=== PATIENT | female | born 1965 | race Caucasian/White ===

== ENCOUNTER 2024-03-11 12:07 | Outpatient (OUT) | payer OTHER, SELFPAY ==
--- NOTE | 2024-03-11 12:40 | P.CN_ITS ---
Consult Note: HPI Data of Consult Patient: new to practice Consult date: 03/11/24 Requesting Physician: Zeina Peter MD Primary Care Provider: KAVIN MATHUR Consult Narrative Reason for consult: right knee pain Narrative: 58yof who presents for evaluation. longstanding right knee pain, has been told she needs replacement. was getting steroid injections from orthopedic office, but these stopped working over time. has continued in a series of provider directed home exercises for >6 weeks, without significant benefit. uses nabumetone with some benefit. denies adverse med side effects. cc:: CC: Zeina Peter MD Review of Systems ROS Status of ROS 10 or more systems reviewed and unremark able except as noted in history and below Exam Narrative Exam Narrative: Psych-alert and oriented x 3.? Attentive and appropriate, constitutionally normal, displays normal mood and affect per situation.? There are no obvious deficits in memory, reasoning, or intellect. Extremities-lower extremities are warm with minimal edema and palpable pulses. Knee-examination of the right knee reveals tenderness to palpation over the superior, inferior, lateral, and medial aspect of the knee.? Some swelling is noted without erythema. Pain is elicited with flexion and extension of the knee both actively and passively.? Some grinding is noted with these motions.? There is no notable ligamental laxity or instability.? Coordination remains intact.? Gait remains antalgic. Assessment and Plan Assessment and Plan (1) Osteoarthritis of right knee: Qualifiers: Osteoarthritis type: primary Qualified Code(s): M17.11 - Unilateral primary osteoarthritis, right knee Plan 58yof who presents for evaluation. failed conservative measures. imaging consistent with right knee OA. given failure to respond to steroid injection, prudent to attempt right knee injection with hyaluronic acid. she is in agreement. meds reviewed, no changes. follow up after procedure.
== END 2024-03-11 12:08 | disposition home or self-care (01) ==
PROVIDERS: PCP Family Medicine; Visit Provider Anesthesiology
DX: M17.11 Unilateral primary osteoarthritis, right knee (principal)
CPT/HCPCS: G0463

== ENCOUNTER 2024-04-01 13:36 | Outpatient (OUT) | payer OTHER, SELFPAY ==
--- OUTSIDE RECORDS SUMMARY | 2024-04-01 13:41 | XMS_ITS | CCD ---
Author Organization [facility] Inform ion Partnership [facility] Care Team Providers Care Rn Advice Name Role Phone Trevor De Anda Unavailable MD Isidro Mathur Primary Care Provider [phone] MD Erickson Hernandez Attending Provider PENNY SIMENTAL Attending Unavailable PENNY SIMENTAL Consulting Unavailable PENNY SIMENTAL Admitting Unavailable HEMEYER ., DR VALE Primary Care Unavailable JOHNNY TERAN Consulting Unavailable HEMEYER ., DR VALE Admitting Unavailable HEMEYER ., DR VALE Attending Unavailable HEMEYER ., DR VALE Consulting Unavailable HEMEYER ., DR VALE Primary Care Unavailable Isidro Mathur MD Primary Care Provider ISIDRO MATHUR Attending Unavailable ISIDRO MATHUR Attending Unavailable ISIDRO MATHUR Attending Unavailable LEN SMART Attending Unavailable ISIDRO MATHUR Attending Unavailable ISIDRO MATHUR Attending Unavailable ISIDRO MATHUR Referring Unavailable ISIDRO MATHUR Attending Unavailable DARBY ROSE Attending Unavailable DARBY ROSE Referring Unavailable ISIDRO MATHUR Attending Unavailable Brittani FISCHER, Zeina Beckett Attending Unavailable Allergies Allergy Classification Reported Allergen(s) Allergy Type Date of Onset Reaction(s) Facility (5 sources) Methotrexate Drug Allergy 09-15-2020 [facility] Medications Current Medications Medication Drug Class(es) Dates Sig (Normalized) Sig (Original) biotin 10 mg oral capsule (5 sources) Start: 04-18-2019 take 54598 ug by mouth once daily in the morning Biotin Active 98823 MCG PO Every morning April 18, 2019 12:00am take 1 tablet by mouth in the mo rning biotin 300 MCG tablet Take 300 mcg by mouth in the morning. 0 Active take 1 tablet by mouth once aile y Biotin 10 MG 1 tablet Orally Once a day Active cholecalciferol 0.125 mg oral tablet (3 sources) Vitamin D Start: 04-18-2019 take 1 tablet by mouth once daily in the morning Cholecalciferol (Vitamin D3) (Vitamin D3) 5,000 unit Tablet Active 5000 UNIT PO Every morning April 18, 2019 12:00am take 1 tablet by mouth in the mo rning cholecalciferol (Vitamin D-3) 10 MCG (400 UNIT) tablet Take 400 Units by mouth in the morning. 0 Active DULoxetine 30 mg delayed release oral capsule (7 sources) Serotonin and Norepinephrine Reuptake Inhibitor Start: 01-26-2023 End: 01-21-2024 take 1 capsule by mouth once daily DULoxetine (Cymbalta) [address] capsule Indications: Recurrent major depressive disorder, in remission (HCC) (CMS/HCC) Take 1 capsule (30 mg) by mouth 1 (one) time each day at the same time 90 capsule 1 07/25/2023 01/21/2024 Active Start: 09-15-2020 take 60 mg by mouth once daily at bedtime Duloxetine Active 60 MG PO Daily at bedtime September 15, 2020 12:00am 168 hr estradiol 0.90079 mg/hr transdermal system (4 sources) Estrogen Start: 01-26-2023 End: 01-21-2024 estradiol (Climara) 0.05 MG/24HR Indications: Artificial menopause Place 1 patch on the skin 1 (one) time per week 12 patch 1 07/25/2023 01/21/2024 Active krill oil 500 mg oral capsule (5 sources) Start: 04-18-2019 take 500 mg by mouth once daily in the morning Krill Oil Active 500 MG PO Every morning April 18, 2019 12:00am Krill Oil 1000 M G as directed Orally Active metaxalone 400 mg oral tablet (6 sources) Start: 09-15-2020 take 400 mg by mouth once daily Metaxalone Active 400 MG PO Daily September 15, 2020 12:00am Start: 04-18-2019 End: 05-04-2019 take 400 mg by mouth once daily Metaxalone Discontinue d 400 MG PO Daily April 18, 2019 12:00am May 04, 2019 11:16am take 1 tablet by sayra th every twenty-four hours as needed metaxalone (Skelaxin) 800 MG tablet Take 800 mg by mouth Daily as needed. 0 Active take 1 tablet by sayra th every eight hours Metaxalone 800 MG 1 tablet Orally Three times a day Active nabumetone 750 mg oral tablet (2 sources) Nonsteroidal Anti-inflammatory Drug Start: 07-25-2023 End: 01-21-2024 take 1 tablet by mouth in the morning nabumetone (Relafen) 750 MG tablet Indications: Osteoarthritis Take 1 tablet (750 mg) by mouth in the morning and 1 tablet (750 mg) before bedtime. 180 tablet 1 07/25/2023 01/21/2024 Active oxyCODONE hydrochloride 5 mg oral tablet (2 sources) Opioid Agonist Start: 2020 take 5 mg by mouth every four to six hours Oxycodone Active 5 MG PO EVERY 4-6 HOURS 2020 Start: 05-04-2019 End: 09-15-2020 take 5 mg by mouth every four to six hours Oxycodone Discontinued 5 MG PO EVERY 4-6 HOURS 70 May 04, 2019 September 15, 2020 11:41am pregabalin 100 mg oral capsule (4 sources) Start: 05-08-2023 take 1 capsule by mouth twice daily pregabalin (Lyrica) 100 MG capsule Indications: Neurogenic pain TAKE ONE CAPSULE BY MOUTH TWICE A DAY 60 capsule 2 05/08/2023 Active take 1 capsule by mouth twice da yuko Lyrica 50 MG 1 capsule Orally twice daily for 30 days Active thyroid (halfway) 120 mg oral tablet (6 sources) Start: 07-13-2023 End: 01-09-2024 take 0.5 tablet by mouth in the morning thyroid (Shawnee) 120 MG tablet Indications: Acquired hypothyroidism (CMS/HCC) Take 0.5 tablets (60 mg) by mouth in the morning and 0.5 tablets (60 mg) in the evening. Take before meals. 90 tablet 1 07/13/2023 01/09/2024 Active Start: 04-18-2019 take 1 tablet by sayra th twice daily Thyroid (Pork) ([place]awnee Thyroid) 60 mg Tablet Active 60 MG PO Twice daily April 18, 2019 12:00am Start: 04-18-2019 End: 09-15-2020 take 1 tablet by mouth once daily in the morning Thyroid (Pork) ([place]awnee Thyroid) 90 mg Tablet Discontinued 90 MG PO Every morning April 18, 2019 12:00am September 15, 2020 11:37am take 1 tablet by sayra th every twenty-four hours Thyroid 60 MG 1 tablet on an empty stomach Orally Once a day Active Thyroid 90 MG (2 sources) take 1 tablet by sayra th once daily Thyroid 90 MG 1 tablet on an empty stomach Orally Once a day Active Vitamin D3 125 MCG (5000 UT) (2 sources) Vitamin D3 125 M CG (5000 UT) as directed Orally Active Completed/Discontinued Medications Medication Drug Class(es) Dates Sig (Normalized) Sig (Original) acetaminophen 325 mg / HYDROcodone bitartrate 5 mg oral tablet (1 source) Opioid Agonist Start: 09-15-2020 End: 2020 take 1 tablet by mouth once daily Hydrocodone-Aceta minophen Discontinued 1 TAB PO Daily September 15, 2020 12:00am 2020 8:01am azelastine hydrochloride 0.137 mg/actuat metered dose nasal spray (2 sources) Histamine-1 Receptor Antagonist take 1 puff(s) nasal route twice daily Azelastine HCl 0.1 % 1 puff in each nostril Nasally Twice a day Not-Taking 24 hr buPROPion hydrochloride 300 mg extended release oral tablet (1 source) Aminoketone Start: 04-18-2019 End: 09-15-2020 take 300 mg by mouth once daily in the evening Bupropion Hcl Discontinued 300 MG PO Every evening April 18, 2019 12:00am September 15, 2020 11:41am cefuroxime 250 mg oral tablet (2 sources) Cephalosporin Antibacterial Start: 07-17-2023 End: 07-25-2023 take 1 tablet by mouth in the morning cefuroxime (Ceftin) 250 MG tablet Indications: Acute cystitis with hematuria Take 1 tablet (250 mg) by mouth in the morning and 1 tablet (250 mg) before bedtime. Do all this for 5 days. 10 tablet 0 07/17/2023 07/25/2023 Discontinued (Therapy completed) diazePAM 5 mg oral tablet (1 source) Benzodiazepine Start: 05-04-2019 End: 09-15-2020 take 5 mg by mouth four times daily Diazepam Discontinued 5 MG PO Four times daily 40 10 May 04, 2019 12:00am September 15, 2020 11:41am diclofenac sodium 75 mg delayed release oral tablet (1 source) Nonsteroidal Anti-inflammatory Drug Start: 04-18-2019 End: 05-04-2019 take 75 mg by mouth twice daily Diclofenac Sodium Discontinued 75 MG PO Twice daily April 18, 2019 12:00am May 04, 2019 11:16am Advised to stop 5 days before surgery etodolac 500 mg oral tablet (5 sources) Nonsteroidal Anti-inflammatory Drug Start: 09-15-2020 End: 2020 take 500 mg by mouth twice daily Etodolac Discontinued 500 MG PO Twice daily September 15, 2020 12:00am 2020 8:01am take 1 tablet by sayra th every twenty-four hours Etodolac ER 500 MG 1 tablet with food Orally Once a day Active gabapentin 800 mg oral tablet (1 source) Anti-epileptic Agent Start: 04-18-2019 End: 09-15-2020 take 800 mg by mouth three times daily Gabapentin Discontinued 800 MG PO Three times daily April 18, 2019 12:00am September 15, 2020 11:41am Problems Active Problems Problem Classification Problem Date Documented Date Episodic/Chronic Malaise and fatigue (5 sources) Chronic fatigue syndrome; Translations: [Chronic fatigue, unspecified] Onset: 07-23-2015 12-21-2022 Chronic Menopausal disorders (6 sources) Postartificial menopausal syndrome; Translations: [Other specified menopausal and perimenopausal disorders] Onset: 01-21-2016 07-18-2023 Chronic Mood disorders (6 sources) Recurrent major depression in partial remission; Translations: [Major depressive disorder, recurrent, in partial remission] Onset: 08-08-2019 08-04-2023 Chronic Nutritional deficiencies (4 sources) Vitamin D deficiency; Translations: [Vitamin D deficiency, unspecified] Onset: 01-21-2016 12-21-2022 Chronic Osteoarthritis (8 sources) Osteoarthritis of knee; Translations: [Unilateral primary osteoarthritis, right knee] Onset: 05-27-2020 08-04-2023 Chronic Other acquired deformities (3 sources) Kyphoscoliosis deformity of spine; Translations: [Scoliosis, unspecified] 05-04-2019 Chronic Other acquired deformities (2 sources) Kyphoscoliosis and scoliosis; Translations: [Scoliosis, unspecified] Chronic Other acquired deformities (2 sources) Contracture of joint of right ankle; Translations: [Contracture, right ankle] Onset: 12-21-2022 12-21-2022 Chronic Other acquired deformities (3 sources) Spondylolisthesis; Translations: [Spondylolisthesis, lumbosacral region] 2020 Episodic Other nervous system disorders (3 sources) Meralgia paresthetica; Translations: [Meralgia paresthetica, right lower limb] Chronic Other nervous system disorders (2 sources) Right leg peripheral neuropathy; Translations: [Meralgia paresthetica, right lower limb] Chronic Other nervous system disorders (2 sources) Chronic pain; Translations: [Other chronic pain] Chronic Other nervous system disorders (1 source) Meralgia paresthetica, right lower limb; Translations: [Meralgia paresthetica of right side G57.11] Onset: 04-12-2021 Resolved: 04-12-2021 Chronic Other nervous system disorders (1 source) Meralgia paresthetica, unspecified lower limb; Translations: [Meralgia paresthetica, unspecified laterality G57.10] Onset: 04-12-2021 Resolved: 04-12-2021 Chronic Other nutritional; endocrine; and metabolic disorders (2 sources) Obesity; Translations: [Obesity, unspecified] Chronic Other nutritional; endocrine; and metabolic disorders (4 sources) Morbid obesity; Translations: [Morbid (severe) obesity due to excess calories] Onset: 05-22-2018 07-18-2023 Chronic Other nutritional; endocrine; and metabolic disorders (4 sources) Body mass index 30+ - obesity; Translations: [Body mass index (BMI) 38.0-38.9, adult] Onset: 07-13-2023 07-18-2023 Chronic Rheumatoid arthritis and related disease (4 sources) Rheumatoid arthritis; Translations: [Rheumatoid arthritis, unspecified] Onset: 04-06-2015 12-21-2022 Chronic Screening and history of mental health and substance abuse codes (6 sources) Ex-smoker; Translations: [Personal history of nicotine dependence] Onset: 07-23-2015 07-18-2023 Episodic Spondylosis; intervertebral disc disorders; other back problems (4 sources) Degeneration of lumbar intervertebral disc; Translations: [Other intervertebral disc degeneration, lumbar region] Chronic Thyroid disorders (5 sources) Acquired hypothyroidism; Translations: [Hypothyroidism, unspecified] Onset: 03-15-2016 12-21-2022 Chronic Past or Other Problems Problem Classification Problem Date Documented Date Episodic/Chronic Bacterial infection; unspecified site (4 sources) Bartonellosis; 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, unspecified] Onset: 07-23-2015 12-21-2022 Episodic Complications of surgical procedures or medical care (2 sources) Complication of surgical procedure; Translations: [Unspecified complication of procedure, initial encounter] Onset: 08-04-2020 12-21-2022 Episodic Other acquired deformities (2 sources) Lumbar spondylolisthesis; Translations: [Spondylolisthesis, lumbar region] Episodic Other acquired deformities (2 sources) Spondylolisthesis L5/S1 level; Translations: [Spondylolisthesis, lumbosacral region] Episodic Other acquired deformities (1 source) Spondylolisthesis, lumbosacral region; Translations: [Spondylolisthesis at L5-S1 level M43.17] Onset: 03-29-2021 Resolved: 03-29-2021 Episodic Other acquired deformities (2 sources) Acquired spondylolisthesis; Translations: [Spondylolisthesis, site unspecified] Onset: 01-12-2021 12-21-2022 Episodic Other aftercare (2 sources) Pain relief by medication; Translations: [Other machine long goods helper (current) drug therapy] Episodic Other ear and sense organ disorders (4 sources) Bilateral tinnitus; Translations: [Tinnitus, bilateral] Onset: 08-26-2019 12-21-2022 Episodic Other upper respiratory infections (2 sources) Streptococcal sore throat; Translations: [Streptococcal sore throat] Episodic Residual codes; unclassified (4 sources) Sleep disorder; Translations: [Sleep disorder, unspecified] Onset: 02-11-2019 12-21-2022 Episodic Spondylosis; intervertebral disc disorders; other back problems (4 sources) Lumbosacral radiculopathy; Translations: [Radiculopathy, lumbosacral region] Onset: 08-30-2017 12-21-2022 Episodic Thyroid disorders (8 sources) Sick-euthyroid syndrome; Translations: [Sick-euthyroid syndrome] Onset: 09-11-2018 Episodic Viral infection (4 sources) Verruca plantaris; Translations: [Plantar wart] Onset: 03-27-2020 12-21-2022 Episodic Results Test Name Value Interpretation Reference Range Facility BI MAMMOGRAM SCREENING TOMOS ОЛЕГIS BILATERALon 01-23-2024 BI MAMMOGRAM SCREENING TOMOSYNTHESIS BILATERAL This is a summary report. The complete report is available in the patient's medical record. If you cannot access the medical record, please contact the sending organization for a detailed fax or copy. EXAMINATION: BI MAMMOGRAM SCREENING TOMOSYNTHESIS BILATERAL CLINICAL HISTORY:breast cancer screen COMPARISON: January 13, 2023. RESULT: Density: Scattered fibroglandular density [2] Overall appearance is stable. There is no suspicious mass, asymmetry, architectural distortion, or calcification IMPRESSION: BIRADS 1 - Negative Follow-up: Routine Screening Mamm Board Certified Radiologists. Accredited by the ACR and FDA. MAMMOGRAPHY IS VERY IMPORTANT TO YOUR HEALTH. THE [place] [employer] GUIDELINES RECOMMEND THAT WOMEN 40 YEARS OF AGE AND OLDER SHOULD HAVE A MAMMOGRAM EVERY YEAR. A REMINDER LETTER WILL BE SENT AT THE APPROPRIATE TIME. THIS FACILITY UTILIZES A REMINDER SYSTEM TO ENSURE ALL PATIENTS RECEIVE REMINDER NOTIFICATIONS AT THE APPROPRIATE TIME BASED ON THE RECOMMENDATIONS OF THIS EXAM. THIS INCLUDES REMINDERS FOR ROUTINE SCREENING MAMMOGRAMS, DIAGNOSTIC MAMMOGRAMS IN WHICH THE PATIENT IS ASKED TO RETURN FOR ADDITIONAL VIEWS, OR OTHER BREAST IMAGING INTERVENTIONS WHEN APPROPRIATE. THE PATIENT WILL BE PLACED IN THE APPROPRIATE REMINDER SYSTEM INCLUDING A REMINDER AT THE APPROPRIATE TIME FOR ANY PENDING ADDITIONAL VIEWS. TRANSCRIBED BY: ELECTRONICALLY SIGNED BY: Al Hummel MD Normal Not Available CBC AUTO DIFFon 10-25-2022 BASO # 0.0 103/ul Normal 0.0-0.1 [facility] Comment on above: Performed By: #### C BC #### [facility] [address] [place] [address] Dr. Joanna Brar Basophils/100 WBC (Bld) 0.3 % Normal 0.2-2.0 [facility] Comment on above: Performed By: #### C BC #### [facility] [address] [place] [address] Dr. Joanna Brar EO # 0.3 103/ul Normal 0.0-0.7 [facility] Comment on above: Performed By: #### C BC #### [facility] [address] [place] [address] Dr. Joanna Brar Eosinophils/100 WBC (Bld) 3.2 % Normal 0.9-7.0 [facility] Comment on above: Performed By: #### C BC #### [facility] [address] [place] [address] Dr. Joanna Brar Erythrocyte distribution width (RBC) [Ratio] 12.8 % Normal 11.0-15.0 [facility] Comment on above: Performed By: #### C BC #### [facility] [address] [place] [address] Dr. Joanna Brar Hematocrit (Bld) [Volume fraction] 42.9 % Normal 36.0-48.0 [facility] Comment on above: Performed By: #### C BC #### [facility] [address] [place] [address] Dr. Joanna Brar Hemoglobin (Bld) [Mass/Vol] 14.2 g/dL Normal 12.0-16.0 [facility] Comment on above: Performed By: #### C BC #### [facility] [address] [place] [address] Dr. Joanna Brar IG # 0.02 10e3/ul Normal 0.00-0.03 [facility] Comment on above: Performed By: #### C BC #### [facility] [address] [place] [address] Dr. Joanna Brar IG % 0.2 % Normal 0.0-0.5 [facility] Comment on above: Performed By: #### C BC #### [facility] [address] [place] [address] Dr. Joanna Brar LYMPH # 2.2 103/ul Normal 1.2-3.8 [facility] Comment on above: Performed By: #### C BC #### [facility] [address] [place] [address] Dr. Joanna Brar Lymphocytes/100 WBC (Bld) 24.5 % Normal 20.5-60.0 [facility] Comment on above: Performed By: #### C BC #### [facility] [address] [place] [address] Dr. Joanna Brar MANUAL DIFF REQ NO Normal [facility] Comment on above: Performed By: #### C BC #### [facility] [address] [place] [address] Dr. Joanna Brar MCH (RBC) [Entitic mass] 32.1 pg Normal 26.7-34.0 [facility] Comment on above: Performed By: #### C BC #### [facility] [address] [place] [address] Dr. Joanna Brar MCHC (RBC) [Mass/Vol] 33.1 g/dL Normal 29.9-35.2 [facility] Comment on above: Performed By: #### C BC #### [facility] [address] [place] [address] Dr. Joanna Brar MCV (RBC) [Entitic vol] 97.1 fL Normal 81.0-99.0 [facility] Comment on above: Performed By: #### C BC #### [facility] [address] [place] [address] Dr. Joanna Brar MONO # 0.5 103/ul Normal 0.3-0.8 [facility] Comment on above: Performed By: #### C BC #### [facility] [address] [place] [address] Dr. Joanna Brar Monocytes/100 WBC (Bld) 6.1 % Normal 1.7-12.0 [facility] Comment on above: Performed By: #### C BC #### [facility] [address] [place] [address] Dr. Joanan Brar NEUT # 5.8 103/ul Normal 1.4-6.5 [facility] Comment on above: Performed By: #### C BC #### [facility] [address] [place] [address] Dr. Joanna Brar Neutrophils/100 WBC (Bld) 65.7 % Normal 43.0-75.0 [facility] Comment on above: Performed By: #### C BC #### [facility] [address] [place] [address] Dr. Joanna Brar Platelet mean volume (Bld) [Entitic vol] 10.9 fL Normal 9.5-13.5 [facility] Comment on above: Performed By: #### C BC #### [facility] [address] [address] [address] Joanna Brar PLT 265 103/ul Normal 150-450 [facility] Comment on above: Performed By: #### C BC #### [facility] [address] [place] [address] Dr. Joanna Brar RBC 4.42 106/ul Normal 4.20-5.40 [facility] Comment on above: Performed By: #### C BC #### [facility] [address] [address] [address] Joanna Brar WBC 8.8 103/ul Normal 4.0-11.0 [facility] Comment on above: Performed By: #### C BC #### [facility] [address] [place] [address] Dr. Joanna Brar PROF CHEM 8 (BAS METB)on Anion gap [Moles/Vol] 12.6 mmol/L Normal [facility] Comment on above: Performed By: #### B MP #### [facility] [address] [place] [address] Dr. Joanna Brar Calcium [Mass/Vol] 9.8 mg/dL Normal 8.5-10.1 [facility] Comment on above: Performed By: #### B MP #### [facility] [address] [place] [address] Dr. Joanna Brar Chloride [Moles/Vol] 103 mmol/L Normal 98-107 [facility] Comment on above: Performed By: #### B MP #### [facility] [address] [place] [address] Dr. Joanna Brar CO2 [Moles/Vol] 31.6 mmol/L Normal 21.0-32.0 [facility] Comment on above: Performed By: #### B MP #### [facility] [address] [place] [address] Dr. Joanna Brar Creatinine [Mass/Vol] 0.64 mg/dL Normal 0.55-1.02 [facility] Comment on above: Performed By: #### B MP #### [facility] [address] [address] [address] Joanna Brar EGFR-AF POLISH >60 Normal >=60 [facility] Comment on above: Performed By: #### B MP #### [facility] [address] [address] [address] Joanna Brar EGFR-NON AF POLISH >60 Normal >=60 [facility] Comment on above: Performed By: #### B MP #### [facility] [address] [address] [address] Joanna Brar Glucose [Mass/Vol] 96 mg/dL Normal 74-106 [facility] Comment on above: Performed By: #### B MP #### [facility] [address] [address] [address] Joanna Brar Potassium [Moles/Vol] 4.2 mmol/L Normal 3.5-5.1 [facility] Comment on above: Performed By: #### B MP #### [facility] [address] [address] [address] Joanna Brar Sodium [Moles/Vol] 143 mmol/L Normal 136-145 [facility] Comment on above: Performed By: #### B MP #### [facility] [address] [address] [address] Joanna Brar Urea nitrogen [Mass/Vol] 17.0 mg/dL Normal 7.0-18.0 [facility] Comment on above: Performed By: #### B MP #### [facility] [address] [address] [address] Joanna Brar Urea nitrogen/Creatinine [Mass ratio] 26.5 mg/mg Normal [facility] Comment on above: Performed By: #### B MP #### [facility] [address] [address] [address] Joanna Brar REVERSE T3on 07-30-2022 Reverse T3, Serum 11.4 ng/dL Normal 9.2-24.1 [facility] Comment on above: Result Comment: This test was developed and its performance characteristics determined by [facility]. It has not been cleared or approved by the Food and Drug Administration. Performed By: #### R EVRT3 #### [facility] [address] [place] [address] Dr. Joanna Brar T3, TOTAL (TRIIODOTHYRONINE) on 07-26-2022 T3, TOTAL 126 ng/dL Normal 71-180 [facility] Comment on above: Performed By: #### T 3TOTAL #### [facility] [address] [place] [address] Dr. Joanna Brar FREE T3on 07-25-2022 FREE T3 2.95 pg/mlL Normal 2.18-3.98 [facility] Comment on above: Performed By: #### F T3 #### [facility] [address] [place] [address] Dr. Joanna Brar FREE T4on 07-25-2022 Free T4 [Mass/Vol] 0.63 ng/dL Critically low 0.76-1.46 Th e [facility] Comment on above: Performed By: #### F T4 #### [facility] [address] [place] [address] Dr. Joanna Brar Basophils Auto (Bld) [#/Vol] Ordered By: Bernardino Hernandez on 01-31-2022 Basophils (Bld) [#/Vol] 0.0 10*3/uL 0.0-0.2 [facility] Basophils/100 WBC Auto (Bld) Ordered By: Bernardino Hernandez on 01-31-2022 Basophils/100 WBC (Bld) 0.7 % . [facility] Blood hemoglobin measurement (mass/volume)Ordered By: Bernardino Hernandez on 01-31-2022 Hemoglobin (Bld) [Mass/Vol] 14.2 g/dL 11.8-15.4 [facility] Blood leukocytes automated c ount (number/volume)Ordered By: Bernardino Hernandez on 01-31-2022 WBC (Bld) [#/Vol] 5.9 10*3/uL 4.5-11.0 [facility] Body fluid albumin measureme nt (mass/volume)Ordered By: Bernardino Hernandez on 01-31-2022 Albumin (Body fld) [Mass/Vol] 3.8 g/dL 3.2-5.5 [facility] Complete Blood Count Auto Di ffon 01-31-2022 Basophils (Bld) [#/Vol] 0.0 10*3/uL Normal 0.0-0.2 [facility] Comment on above: Result Comment: PERF ORMED BY: [place] [address] PATHOLOGIST SAFETY CONSULTANT PRASHANT AYERS M.D. Performed By: #### C BC, CMP #### [facility] [address] Basophils/100 WBC (Bld) 0.7 % Normal . [facility] Comment on above: Performed By: #### C BC, CMP #### [facility] [address] Eosinophils (Bld) [#/Vol] 0.3 10*3/uL Normal 0.0-0.45 [facility] Comment on above: Performed By: #### C BC, CMP #### [facility] [address] Eosinophils/100 WBC (Bld) 4.3 % Normal . [facility] Comment on above: Performed By: #### C BC, CMP #### [facility] [address] Erythrocyte distribution width (RBC) [Ratio] 13.4 % Normal 11.9-15.3 [facility] Comment on above: Performed By: #### C BC, CMP #### [facility] [address] [place] [address] [place] Hematocrit (Bld) [Volume fraction] 42.8 % Normal 34.0-46.4 [facility] Comment on above: Performed By: #### C BC, CMP #### [facility] [address] Hemoglobin (Bld) [Mass/Vol] 14.2 g/dL Normal 11.8-15.4 [facility] Comment on above: Performed By: #### C BC, CMP #### [facility] [address] [place] [address] [place] Lymphocytes (Bld) [#/Vol] 1.7 10*3/uL Normal 1.00-4.8 [facility] Comment on above: Performed By: #### C BC, CMP #### [facility] [address] Lymphocytes/100 WBC (Bld) 28.8 % Normal . [facility] Comment on above: Performed By: #### C BC, CMP #### [facility] [address] [place] [address] [place] MCH (RBC) [Entitic mass] 32.6 pg Normal 24.7-34.3 [facility] Comment on above: Performed By: #### C BC, CMP #### [address] MCV (RBC) [Entitic vol] 98.5 fL Normal 80-100 [facility] Comment on above: Performed By: #### C BC, CMP #### [address] Mean Corpuscular HGB Conc 33.1 g/dL Normal 32.0-35.0 [facility] Comment on above: Performed By: #### C BC, CMP #### [place] [address] [place] Monocytes (Bld) [#/Vol] 0.4 10*3/uL Normal 0.0-0.8 [facility] Comment on above: Performed By: #### C BC, CMP #### [place] [address] [place] Monocytes/100 WBC (Bld) 7.2 % Normal . [facility] Comment on above: Performed By: #### C BC, CMP #### [place] [address] [place] Neutrophils (Bld) [#/Vol] 3.5 10*3/uL Normal 1.8-7.7 [facility] Comment on above: Performed By: #### C BC, CMP #### [place] [address] Neutrophils/100 WBC (Bld) 59.0 % Normal . [facility] Comment on above: Performed By: #### C BC, CMP #### [address] Nucleated RBC/100 WBC (Bld) [Ratio] 0.1 % Normal 0-0.5 [facility] Comment on above: Performed By: #### C BC, CMP #### [address] Platelet mean volume (Bld) [Entitic vol] 9.9 fL Normal 6.3-10.7 [facility] Comment on above: Performed By: #### C BC, CMP #### [address] Platelets (Bld) [#/Vol] 184 10*3/uL Normal 150-450 [facility] Comment on above: Performed By: #### C BC, CMP #### [address] RBC (Bld) [#/Vol] 4.35 10*6/uL Normal 3.60-5.00 [facility] Comment on above: Performed By: #### C BC, CMP #### [address] WBC (Bld) [#/Vol] 5.9 10*3/uL Normal 4.5-11.0 [facility] Comment on above: Performed By: #### C BC, CMP #### [address] Comprehensive Metabolic Pane tushar 01-31-2022 Albumin [Mass/Vol] 3.8 g/dL Normal 3.2-5.5 [facility] Comment on above: Performed By: #### C BC, CMP #### [address] Albumin/Globulin [Mass ratio] 1.7 {ratio} Normal [facility] Comment on above: Performed By: #### C BC, CMP #### [address] ALP [Catalytic activity/Vol] 66 U/L Normal 32-92 [facility] Comment on above: Result Comment: PERF ORMED BY: [place] [address] PATHOLOGIST SAFETY CONSULTANT PRASHANT AYERS M.D. Performed By: #### C BC, CMP #### [address] ALT [Catalytic activity/Vol] 27 U/L Normal 10-60 [facility] Comment on above: Performed By: #### C BC, CMP #### [address] AST [Catalytic activity/Vol] 26 U/L Normal 10-42 [facility] Comment on above: Performed By: #### C BC, CMP #### [address] Bilirubin [Mass/Vol] 0.8 mg/dL Normal 0.3-1.2 [facility] Comment on above: Performed By: #### C BC, CMP #### [address] Calcium [Mass/Vol] 9.7 mg/dL Normal 8.2-10.2 [facility] Comment on above: Performed By: #### C BC, CMP #### [facility] [address] [place] [address] [place] Chloride [Moles/Vol] 103 mmol/L Normal 95-114 [facility] Comment on above: Performed By: #### C BC, CMP #### [facility] [address] [place] [address] [place] CO2 [Moles/Vol] 28.3 mmol/L Normal 22.0-30.0 [facility] Comment on above: Performed By: #### C BC, CMP #### [facility] [address] [place] [address] Creatinine [Mass/Vol] 0.71 mg/dL Normal 0.44-1.03 [facility] Comment on above: Performed By: #### C BC, CMP #### [facility] [address] [place] [address] [place] Estimated GFR ( Vivienne > 60 Normal [facility] Comment on above: Result Comment: GFR estimated reference range: According to KDOQI guidelines, <60 ml/min/1.73m2 is sufficient to diagnose a patient with chronic kidney disease. Performed By: #### C BC, CMP #### [facility] [address] [place] [address] [place] Estimated GFR (Non- Am > 60 Normal [facility] Comment on above: Performed By: #### C BC, CMP #### [facility] [address] Globulin (S) [Mass/Vol] 2.3 g/dL [facility] Comment on above: Performed By: #### C BC, CMP #### [address] Glucose [Mass/Vol] 97 mg/dL Normal 70-100 [facility] Comment on above: Result Comment: [place] Glucose Reference Range is dependent on time and content of last meal. Glucose of more than 200 mg/dL in a nonstressed, ambulatory subject supports the diagnosis of Diabetes Mellitus. ADA recommended reference range Performed By: #### C BC, CMP #### [address] Potassium [Moles/Vol] 5.1 mmol/L Normal 3.5-5.1 [facility] Comment on above: Performed By: #### C BC, CMP #### [place] [address] [place] Protein [Mass/Vol] 6.1 g/dL Normal 6.1-7.9 [facility] Comment on above: Performed By: #### C BC, CMP #### [place] [address] [place] Sodium [Moles/Vol] 139 mmol/L Normal 136-146 [facility] Comment on above: Performed By: #### C BC, CMP #### [facility] [address] [place] [id number] [place] Urea nitrogen [Mass/Vol] 11 mg/dL Normal 9-23 [facility] Comment on above: Performed By: #### C BC, CMP #### [facility] [address] [place] [id number] [place] Creatinine and Glomerular fi ltration rate.predicted panel (S/P/Bld)Ordered By: Bernardino Hernandez on 01-31-2022 Creatinine [Mass/Vol] 0.71 mg/dL 0.44-1.03 [facility] Eosinophils Auto (Bld) [#/Vo l]Ordered By: Bernardino Hernandez on 01-31-2022 Eosinophils (Bld) [#/Vol] 0.3 10*3/uL 0.0-0.45 [facility] Eosinophils/100 WBC Auto (Bl d)Ordered By: Bernardino Hernandez on 01-31-2022 Eosinophils/100 WBC (Bld) 4.3 % . [facility] Erythrocyte distribution wid th Auto (RBC) [Ratio]Ordered By: Bernardino Hernandez on 01-31-2022 Erythrocyte distribution width (RBC) [Ratio] 13.4 % 11.9-15.3 [facility] Estimated glomerular filtrat ion rate (GFR) non- AmericanOrdered By: Bernardino Hernandez on 01-31-2022 GFR/1.73 sq M.predicted among non-blacks MDRD (S/P/Bld) [Vol rate/Area] > 60 mL/Min [facility] Globulin Calc (S) [Mass/Vol] Ordered By: Bernardino Hernandez on 01-31-2022 Globulin (S) [Mass/Vol] 2.3 g/dL [facility] Hematocrit Auto (Bld) [Volum e fraction]Ordered By: Bernardino Hernandez on 01-31-2022 Hematocrit (Bld) [Volume fraction] 42.8 % 34.0-46.4 [facility] Laboratory - Hematology and Cell countsOrdered By: Bernardino Hernandez on 01-31-2022 Nucleated RBC/100 WBC (Bld) [Ratio] 0.1 % 0-0.5 [facility] Lymphocytes Auto (Bld) [#/Vo l]Ordered By: Bernardino Hernandez on 01-31-2022 Lymphocytes (Bld) [#/Vol] 1.7 10*3/uL 1.00-4.8 [facility] Lymphocytes/100 WBC Auto (Bl d)Ordered By: Bernardino Hernandez on 01-31-2022 Lymphocytes/100 WBC (Bld) 28.8 % . [facility] MCH Auto (RBC) [Entitic mass ]Ordered By: Bernardino Hernandez on 01-31-2022 MCH (RBC) [Entitic mass] 32.6 pg 24.7-34.3 [facility] MCHC Auto (RBC) [Mass/Vol]Or dered By: Bernardino Hernandez on 01-31-2022 MCHC (RBC) [Mass/Vol] 33.1 g/dL 32.0-35.0 [facility] MCV Auto (RBC) [Entitic vol] Ordered By: Bernardino Hernandez on 01-31-2022 MCV (RBC) [Entitic vol] 98.5 fL 80-100 [facility] Monocytes Auto (Bld) [#/Vol] Ordered By: Bernardino Hernandez on 01-31-2022 Monocytes (Bld) [#/Vol] 0.4 10*3/uL 0.0-0.8 [facility] Monocytes/100 WBC Auto (Bld) Ordered By: Bernardino Hernandez on 01-31-2022 Monocytes/100 WBC (Bld) 7.2 % . [facility] Neutrophils Auto (Bld) [#/Vo l]Ordered By: Bernardino Hernandez on 01-31-2022 Neutrophils (Bld) [#/Vol] 3.5 10*3/uL 1.8-7.7 [facility] Neutrophils/100 WBC Auto (Bl d)Ordered By: Bernardino Hernandez on 01-31-2022 Neutrophils/100 WBC (Bld) 59.0 % . [facility] No Panel InformationOrdered By: Bernardino Hernandez on 01-31-2022 Estimated GFR () > 60 mL/Min [facility] Comment on above: GFR estimated refere nce range: According to KDOQI guidelines, <60 ml/min/1.73m2 is sufficient to diagnose a patient with chronic kidney disease. Pharmacy Creatinine Clearance (Chem N/A [facility] Platelet mean volume Auto (B ld) [Entitic vol]Ordered By: Bernardino Hernandez on 01-31-2022 Platelet mean volume (Bld) [Entitic vol] 9.9 fL 6.3-10.7 [facility] Platelets Auto (Bld) [#/Vol] Ordered By: Bernardino Hernandez on 01-31-2022 Platelets (Bld) [#/Vol] 184 10*3/uL 150-450 [facility] Protein [Mass/volume] in Ser um or PlasmaOrdered By: Bernardino Hernandez on 01-31-2022 Protein [Mass/Vol] 6.1 g/dL 6.1-7.9 [facility] RBC Auto (Bld) [#/Vol]Ordere d By: Bernardino Hernandez on 01-31-2022 RBC (Bld) [#/Vol] 4.35 10*6/uL 3.60-5.00 [facility] Serum or plasma alanine tidwell otransferase measurement without P-5'-P (enzymatic activiOrdered By: Bernardino Hernandez on 01-31-2022 ALT No additional P-5'-P [Catalytic activity/Vol] 27 U/L 10-60 [facility] Serum or plasma albumin/glob ulin mass ratioOrdered By: Bernardino Hernandez on 01-31-2022 Albumin/Globulin [Mass ratio] 1.7 {ratio} [facility] Serum or plasma alkaline julissa sphatase measurement (enzymatic activity/volume)Ordered By: Bernardino Hernandez on 01-31-2022 ALP [Catalytic activity/Vol] 66 U/L 32-92 [facility] Serum or plasma aspartate am inotransferase measurement (enzymatic activity/volume)Ordered By: Bernardino Hernandez on 01-31-2022 AST [Catalytic activity/Vol] 26 U/L 10-42 [facility] Serum or plasma calcium kaylen urement (mass/volume)Ordered By: Bernardino Hernandez on 01-31-2022 Calcium [Mass/Vol] 9.7 mg/dL 8.2-10.2 [facility] Serum or plasma chloride govind surement (moles/volume)Ordered By: Bernardino Hernandez on 01-31-2022 Chloride [Moles/Vol] 103 mmol/L 95-114 [facility] Serum or plasma glucose kaylen urement (mass/volume)Ordered By: Bernardino Hernandez on 01-31-2022 Glucose [Mass/Vol] 97 mg/dL 70-100 [facility] Comment on above: ADA recommended refe rence range Random Glucose Reference Range is dependent on time and content of last meal. Glucose of more than 200 mg/dL in a nonstressed, ambulatory subject supports the diagnosis of Diabetes Mellitus. Serum or plasma potassium me asurement (moles/volume)Ordered By: Bernardino Hernandez on 01-31-2022 Potassium [Moles/Vol] 5.1 mmol/L 3.5-5.1 [facility] Serum or plasma sodium measu rement (moles/volume)Ordered By: Bernardino Hernandez on 01-31-2022 Sodium [Moles/Vol] 139 mmol/L 136-146 [facility] Serum or plasma total biliru bin measurement (mass/volume)Ordered By: Bernardino Hernadnez on 01-31-2022 Bilirubin [Mass/Vol] 0.8 mg/dL 0.3-1.2 [facility] Serum or plasma total carbon dioxide measurement (moles/volume)Ordered By: Bernardino Hernandez on 01-31-2022 CO2 [Moles/Vol] 28.3 mmol/L 22.0-30.0 [facility] Serum or plasma urea nitroge n measurement (mass/volume)Ordered By: Bernardino Hernandez on 01-31-2022 Urea nitrogen [Mass/Vol] 11 mg/dL 9-23 [facility] Free T3on 07-19-2021 Free T3 [Mass/Vol] 3.2 pg/mL Normal 2.3-4.2 [facility] [place] Associate Professor Of Mathematics Comment on above: Order Comment: [facility] performed at: [facility], [address] [place] [address], [address] [place] [address], [place], [phone], Utility Worker Production: Pal Agosto MD [facility] Date/Time: [id number] [facility] Results Received Date/Time: [id number] [facility] Reported Date/Time: Performed By: #### F T3, FT4, TSH #### [facility] [address] [place] [address] Free T4on 07-19-2021 Free T4 [Mass/Vol] 0.9 ng/dL Normal 0.8-1.8 [facility] Specialist Comment on above: Order Comment: [facility] performed at: [employer], [employer] [facility], [address] [facility], [address] [place] [address], [phone], Utility Worker Production: Pal Agosto MD [facility] Date/Time: [facility] Results Received Date/Time: [facility] Reported Date/Time: Performed By: #### F T3, FT4, TSH #### [facility] [address] [place] [address] Q - T3 TOTALon 07-19-2021 T3, TOTAL 130 ng/dL Normal 76-181 [facility] Comment on above: Order Comment: [facility] performed at: [employer] [facility], [address] [facility], [address] [place] [address], [phone], Utility Worker Production: Pal Agosto MD [facility] Date/Time: [facility] Results Received Date/Time: [facility] Reported Date/Time: Performed By: #### 8 59X, [id number] #### [facility] [address] [place] [address] Q - T3,REVERSE,LC/MS/MSon T3 REVERSE, LC/MS/MS 9 ng/dL Normal 8-25 [facility] Specialist Comment on above: Order Comment: [facility] performed at: [facility], [facility] [employer] [facility], [address], [place], [place], , Utility Worker Production: Humble Walters M.D.,PhD [facility] Date/Time: [facility] Results Received Date/Time: [facility] Reported Date/Time: Result Comment: This test was developed and its analytical performance characteristics have been determined by [employer] [employer] [facility] [place], [place]. It has not been cleared or approved by the U.S. Food and Drug Administration. This assay has been validated pursuant to the CLIA regulations and is used for clinical purposes. Performed By: #### 8 59X, [id number] #### [facility] [address] [place] [address] TSHon 07-19-2021 TSH Qn 1.09 m[IU]/L Normal 0.40-4.50 [facility] Associate Professor Of Mathematics Comment on above: Order Comment: [facility] performed at: [facility], [facility], [address] [facility], [address] [place] [address], [phone], Utility Worker Production: Pal Agosto MD [facility] Date/Time: [id number] [facility] Results Received Date/Time: [id number] [facility] Reported Date/Time: [id number] Performed By: #### F T3, FT4, TSH #### [facility] [address] [place] [address] MR lumbar spine wo/w conon 1 MR lumbar spine wo/w con [facility] [employer] Other MR lumbar spine wo/w con [facility] [employer] Other MR lumbar spine wo/w con [address] [facility] [employer] Other MR lumbar spine wo/[place] [address] [employer] Other MR lumbar spine wo/w con MRI Report [employer] Other MR lumbar spine wo/w con Signed [employer] Other MR lumbar spine wo/w con Patient: Isidra Paredes MR#: [id number] [facility] Other MR lumbar spine wo/w con 913 [employer] Other MR lumbar spine wo/w con : 1965 Acct:[id number] [employer] Other MR lumbar spine wo/w con Age/Sex: 55 / F ADM Date: 04/07/21 [employer] Other MR lumbar spine wo/w con Loc: MR Room: Type: [facility] [employer] Other MR lumbar spine wo/w con Attending Dr: Trevor De Anda MD [employer] Other MR lumbar spine wo/w con Ordering Provider: Trevor De Anda MD [employer] Other MR lumbar spine wo/w con Date of Service: 04/07/21 [employer] Other MR lumbar spine wo/w con MR/MR lumbar spine wo/w con: Spondylolisthesis at L5-S1 level [employer] Other MR lumbar spine wo/w con Copies to: Trevor De Anda MD [facility] Other MR lumbar spine wo/w con MR lumbar spine wo/w con 04/07/2021 8:24 PM [employer] Other MR lumbar spine wo/w con SIGNS AND SYMPTOMS: Spondylolisthesis L5-S1, right leg numbness with left leg pain [employer] Other MR lumbar spine wo/w con PROTOCOL: Multiplanar multisequence MR images of the lumbar spine were obtained with and without IV [employer] Other MR lumbar spine wo/w con contrast [facility] Other MR lumbar spine wo/w con CONTRAST: 20 mL of intravenous ProHance [facility] Other MR lumbar spine wo/w con COMPARISON: 09/20/2019 [employer] Other MR lumbar spine wo/w con FINDINGS: The bones of the lumbar spine are in anatomic alignment. There is posterior fusion [employer] Other MR lumbar spine wo/w con hardware from L1 through S1 with fusion across L5-S1 being new compared to the prior study. [employer] Other MR lumbar spine wo/w con Intervertebral fusion body is are present throughout the lumbar spine. The marrow signal is within [employer] Other MR lumbar spine wo/w con normal limits. The conus terminates at the superior endplate of the L2 vertebral body level. No [employer] Other MR lumbar spine wo/w con epidural or paraspinous fluid collection is appreciated. No abnormal postcontrast enhancement. [employer] Other MR lumbar spine wo/w con At T12-L1: There is a normal disc, central canal, and neural foramen. [employer] Other MR lumbar spine wo/w con At L1-L2: There is a normal disc, central canal, and neural foramen. [employer] Other MR lumbar spine wo/w con At L2-L3: There is a normal disc, central canal, and neural foramen. [employer] Other MR lumbar spine wo/w con At L3-L4: There is a normal disc, central canal, and neural foramen. [employer] Other MR lumbar spine wo/w con At L4-L5: There is residual endplate osteophyte formation with mild facet degenerative change [employer] Other MR lumbar spine wo/w con contributing to mild bilateral neural foraminal narrowing. [employer] Other MR lumbar spine wo/w con At L5-S1: There is a residual broad-based disc bulge with facet hypertrophy. There is moderate [employer] Other MR lumbar spine wo/w con bilateral neural foraminal narrowing, right greater than left. [employer] Other MR lumbar spine wo/w con MR/MR lumbar spine wo/w con [employer] Other MR lumbar spine wo/w con IMPRESSION: [employer] Other MR lumbar spine wo/w con There has been interval extension of fusion hardware now spanning across L5-S1. Fusion hardware [employer] Other MR lumbar spine wo/w con extends from L1 through S1. [facility] Other MR lumbar spine wo/w con contributing to mild bilateral neural foraminal narrowing. This is unchanged. [employer] Other MR lumbar spine wo/w con bilateral neural foraminal narrowing, right greater than left. This is slightly worse on the right [employer] Other MR lumbar spine wo/w con when compared to the prior exam. [facility] Other MR lumbar spine wo/w con There is no abnormal postcontrast enhancement. [facility] Other MR lumbar spine wo/w con Impression dictated by: Len Sin M.D.04/08/2021 9:23 AM [facility] Other MR lumbar spine wo/w con Dictation Location: [place] [address] [facility] Other MR lumbar spine wo/w con Transcribed By: [facility] 04/08/21 0924 [facility] Other MR lumbar spine wo/w con Dictated By: Len Sin II, MD 04/08/21 0910 [facility] Other MR lumbar spine wo/w con Signed By: [facility] Other MR lumbar spine wo/w con 04/08/21 0915 [facility] Other MR lumbar spine wo/w con [facility] Main [place] [address] [place] [address] MRI Report Signed Patient: Isidra Paredes MR#: [id number] : 1965 Acct:[id number] Age/Sex: 55 / F ADM Date: 04/07/21 Loc: MR Room: Type: [facility] Attending Dr: Trevor De Anda MD Ordering Provider: Trevor De Anda MD Date of Service: 04/07/21 MR/MR lumbar spine wo/w con: Spondylolisthesis at L5-S1 level Copies to: Trevor De Anda MD MR lumbar spine wo/w con 04/07/2021 8:24 PM SIGNS AND SYMPTOMS: Spondylolisthesis L5-S1, right leg numbness with left leg pain PROTOCOL: Multiplanar multisequence MR images of the lumbar spine were obtained with and without IV contrast CONTRAST: 20 mL of intravenous ProHance COMPARISON: 09/20/2019 FINDINGS: The bones of the lumbar spine are in anatomic alignment. There is posterior fusion hardware from L1 through S1 with fusion across L5-S1 being new compared to the prior study. Intervertebral fusion body is are present throughout the lumbar spine. The marrow signal is within normal limits. The conus terminates at the superior endplate of the L2 vertebral body level. No epidural or paraspinous fluid collection is appreciated. No abnormal postcontrast enhancement. At T12-L1: There is a normal disc, central canal, and neural foramen. At L1-L2: There is a normal disc, central canal, and neural foramen. At L2-L3: There is a normal disc, central canal, and neural foramen. At L3-L4: There is a normal disc, central canal, and neural foramen. At L4-L5: There is residual endplate osteophyte formation with mild facet degenerative change contributing to mild bilateral neural foraminal narrowing. At L5-S1: There is a residual broad-based disc bulge with facet hypertrophy. There is moderate bilateral neural foraminal narrowing, right greater than left. MR/MR lumbar spine wo/w con IMPRESSION: There has been interval extension of fusion hardware now spanning across L5-S1. Fusion hardware extends from L1 through S1. At L4-L5: There is residual endplate osteophyte formation with mild facet degenerative change contributing to mild bilateral neural foraminal narrowing. This is unchanged. At L5-S1: There is a residual broad-based disc bulge with facet hypertrophy. There is moderate bilateral neural foraminal narrowing, right greater than left. This is slightly worse on the right when compared to the prior exam. There is no abnormal postcontrast enhancement. Impression dictated by: Len Sin M.D.04/08/2021 9:23 AM Dictation Location: [facility]-07 Transcribed By: JUNITO 04/08/21922 Dictated By: Len Sin II, MD 04/08/2110 Signed By: 04/08/21922 Normal [facility] XR lumbar spine 2-3V*on 03-04 XR lumbar spine 2-3V* [facility] [place] [address] [place] [address] XRay Report Signed Patient: Isidra Paredes MR#: [id number] : 1965 Acct:[id number] Age/Sex: 55 / F ADM Date: 03/29/21 Loc: XD Room: Type: [facility] Attending Dr: Trevor De Anda MD Ordering Provider: Trevor De Anda MD Date of Service: 03/29/21 XR/XR lumbar spine 2-3V*: M43.17 Copies to: Trevor De Anda MD XR lumbar spine 2-3V* 03/29/2021 12:03 PM SIGNS AND SYMPTOMS: Follow-up lumbar fusion, low back pain and bilateral leg pain PROTOCOLS: Frontal and lateral radiographs of the lumbar spine COMPARISON: 12/30/2020 FINDINGS: There is posterior fusion hardware from L1 through L4 and at L5-S1. There is no hardware complication. No change in alignment. Intervertebral fusion body is are noted at these levels. 6 mm of anterolisthesis is redemonstrated at L5 upon S1 without significant interval change. There is a dextro convex curvature of the thoracolumbar junction. Similar degenerative changes are noted in the sacroiliac joints. There is total left hip arthroplasty which is unchanged. XR/XR lumbar spine 2-3V* IMPRESSION: Unchanged posterior fusion between the L1 and S1 vertebral body levels. No change in alignment. No hardware complication. Impression dictated by: Len Sin M.D.03/29/2021 1:47 PM Dictation Location: [facility]12 Transcribed By: JUNITO 03/29/21 1347 Dictated By: Len Sin II, MD 03/29/21 1345 Signed By: 03/29/21 1347 [facility] CNOVon 01-28-2020 CNOV Office Visit (ORAVON ) ISIDRA PAREDES ([id number]) 1965 F Date Time Provider Department 01/28/20 9:00 AM LILIANA HANKINS During your visit today, we recorded the following information about you: Liliana Hankins MD 01/28/2020 11:22 AM Signed Ortho Hip Follow Up Note Narrative Referring Provider: SELF PCP: Isidro Mathur MD === IMPRESSION/PLAN: Impressions indicate: === 54 year old s/p Left Total Hip Replacement completed on 01/16/09. IMPRESSION: PLAN: Patient Reassurance: Patient reassured and supported. All questions answered. Follow up 5 years X-Rays Needed There is no problem list on file for this patient. HPI: Isidra PAREDES presents today for 6 year visit. STATUS POST: Left Total Hip Replacement BMI: There is no height or weight on file to calculate BMI. Post operative recovery was complicated by uneventful/none. Patient rates their condition as improving. Does the patient still experience pain? occasional pain . . . Functional difficulties: None. Pain Medication: None EXAM: POST OP HIP LEFT POST-OPERATIVE HIP SKIN: Incision well healed. Range of Motion: Pain Free Neurovascular Status: Sensation Intact, Moves foot and ankle up AND down and 2+ dorsalis pedis IMAGING: X-ray Hips: Post op Implants are well fixed. and There is no evidence of loosening. Provider: Liliana Hankins MD Referring Provider: SELF [200] Allergies As of Date: 01/28/2020 (No Known Allergies) Date Reviewed: 02/25/2014 Reviewed by: Jeana Cason [facility] - Fully Assessed Reason for Visit: eval left hip pain LTHA 01/16/19 [Other] Reason For Visit History Recorded Primary Visit Diagnosis:Primary osteoarthritis of left hip [M16.12] Prescriptions as of 01/28/2020 Sig: LIOTHYRONINE 5 MCG TABLET Take 5 mcg by mouth once alie* MULTIPLE VITAMINS TABLET Take one(1) tablet daily. CALCIUM 600 + D(3) 600 MG (1,* Take one(1) tablet daily. Problem List As Of Date: 01/28/2020 (None) Encounter Status:Closed by LILIANA HANKINS MD on 01/28/20 Normal [facility] PROGRESSon 01-28-2020 PROGRESS HNO ID: [id number] Author: Liliana Hankins Service: ? Author Type: Physician Type: Progress Notes Filed: 01/28/2020 11:22 AM Note Text: Ortho Hip Follow Up Note Narrative Referring Provider: SELF PCP: Isidro Mathur MD === IMPRESSION/PLAN: Impressions indicate: === 54 year old s/p Left Total Hip Replacement completed on 01/16/09. IMPRESSION: PLAN: Patient Reassurance: Patient reassured and supported. All questions answered. Follow up 5 years X-Rays Needed There is no problem list on file for this patient. HPI: Isidra PAREDES presents today for 6 year visit. STATUS POST: Left Total Hip Replacement BMI: There is no height or weight on file to calculate BMI. Post operative recovery was complicated by uneventful/none. Patient rates their condition as improving. Does the patient still experience pain? occasional pain . . . Functional difficulties: None. Pain Medication: None EXAM: POST OP HIP LEFT POST-OPERATIVE HIP SKIN: Incision well healed. Range of Motion: Pain Free Neurovascular Status: Sensation Intact, Moves foot and ankle up AND down and 2+ dorsalis pedis IMAGING: X-ray Hips: Post op Implants are well fixed. and There is no evidence of loosening. Provider: Liliana Hankins MD [facility] PROGRESS HNO ID: [id number] Author: Michelle Garzon (Rt) Service: ? Author Type: Stylist Assistant Type: Progress Notes Filed: 01/28/2020 8:48 AM Note Text: Radiology Service Progress Note PATIENT NAME: Isidra PAREDES DATE OF SERVICE: January 28, 2020 TIME: 8:48 AM PATIENT IDENTITY VERIFICATION COMPLETED USING TWO (2) IDENTIFIERS: Name and Date of confirmed by patient verbally. FALL SCREENING: Has the patient had 2 falls in the last year or 1 fall with injury or currently using an Ambulatory Assistive Device (Walker, Cane, Wheelchair, Crutches, etc.)? No PATIENT GENDER DATA: Female. status: : No status: NO. PATIENT RELEVANT IMPLANT DATA REVIEWED: Not Applicable RADIOLOGY DEPARTMENT: General X-ray: Exam(s) Completed: Pelvis X-Ray: Pelvis with Hip Left PERIPHERAL IV DATA: Not applicable SIGNED BY: RT Duran January 28, 2020 8:48 AM [facility] XR HIP 3V PELV+ AP/LAT LTon 01-28-2020 XR HIP 3V PELV+ AP/LAT LT * * *Final Report* * * DATE OF EXAM: Jan 28 2020 8:47AM AFR [id number] - XR HIP 3V PELV+ AP/LAT LT / PROCEDURE REASON: Pain * * * * Physician Interpretation * * * * EXAMINATION / TECHNIQUE: XR HIP 3V PELV+ AP/LAT LT HISTORY: POST OP F/U FOR LT HIP. LT LEG PAIN Pain COMPARISON: 02/25/2014 RESULT: Left total hip arthroplasty. There is no periprosthetic fracture or lucency. No acute fracture or dislocation. No malalignment. Compared to the prior, there is some increased hypertrophic osseous changes at the greater trochanters bilaterally remaining pelvic joints are unremarkable. Incompletely assessed postoperative changes of the visualized lower lumbar spine. IMPRESSION: Left hip arthroplasty without apparent complication. Other findings, as described. Manager [employer]: [employer] Transcribe Date/Time: Jan 28 2020 9:42A Dictated by : DERRICK BALLESTEROS MD This examination was interpreted and the report reviewed and electronically signed by: DERRICK BALLESTEROS MD on Jan 28 2020 9:45AM EST [id number] Normal [facility] Vital Signs Date Time Vital Sign Value Performing Clinician Facility 07-25-2023 10:27-0500 Body height 172.7 cm Isidro Mathur MD Work Phone: [facility] 07-25-2023 10:27-0500 Body mass index (BMI) [Ratio] 38.77 kg/m2 Isidro Mathur MD Work Phone: [facility] 07-25-2023 10:27-0500 Body weight 115.67 kg Isidro Mathur MD Work Phone: [facility] 04-12-2021 11:30-0400 Body height 172.72 cm Trevor De Anda Other [facility] Other 04-12-2021 11:30-0400 Body mass index (BMI) [Ratio] 34.97 kg/m2 Trevor De Anda Other [facility] Other 04-12-2021 11:30-0400 Body weight 104.33 kg Trevor De Anda Other [facility] Other 04-12-2021 11:30-0400 Diastolic blood pressure 69 mm[Hg] Trevor De Anda Other [facility] Other 04-12-2021 11:30-0400 Systolic blood pressure 127 mm[Hg] Trevor De Anda Other [facility] Other 03-29-2021 14:30-0400 Body height 172.72 cm Trevor De Anda Other [facility] Other 03-29-2021 14:30-0400 Body mass index (BMI) [Ratio] 34.97 kg/m2 Trevor De Anda Other [facility] Other 03-29-2021 14:30-0400 Body weight 104.33 kg Trevor De Anda Other [facility] Other Encounters Encounter Date Encounter Type Care Provider Facility Start: 03-11-2024 End: 03-11-2024 ambulatory Zeina Peter MD Facility:[facility] Start: 02-12-2024 End: 02-12-2024 ambulatory DARBY ROSE Not Available Start: 01-29-2024 End: 01-29-2024 ambulatory ISIDRO MATHUR Not Available Start: 01-23-2024 End: 01-23-2024 ambulatory ISIDRO MATHUR Not Available Start: 01-16-2024 End: 01-16-2024 ambulatory ISIDRO MATHUR Not Available Start: 01-09-2024 End: 01-09-2024 ambulatory ISIDRO MATHUR Not Available Start: 09-19-2023 End: 09-19-2023 ambulatory LEN SMART Not Available Start: 07-25-2023 End: 07-25-2023 Office outpatient visit 15 minutes Isidro Mathur MD Work Phone: [facility] Comment on above: Recurrent major depr essive disorder, in remission (HCC) (CMS/HCC) (Primary Dx); Arthritis of right knee; Artificial menopause; Former smoker, stopped smoking many years ago; Morbid obesity due to excess calories (CMS/HCC); BMI 38.0-38.9,adult Start: 07-25-2023 End: 07-25-2023 ambulatory ISIDRO MATHUR Not Available Start: 07-17-2023 End: 07-18-2023 ambulatory ISIDRO MATHUR Not Available Start: 07-13-2023 End: 07-13-2023 ambulatory ISIDRO MATHUR Not Available Start: 05-16-2023 End: 05-16-2023 ambulatory ISIDRO MATHUR Not Available Start: 10-29-2022 Encounter for other preprocedural examination PENNY [facility] Start: 10-29-2022 Encounter for preprocedural laboratory examination [facility]NYALICIA [facility] Start: 10-29-2022 Encounter for preprocedural respiratory examination P[facility]NYALICIA [facility] Start: 10-25-2022 End: 10-26-2022 ambulatory PENNY SIMENTAL Facility:[facility] Start: 10-25-2022 End: 10-26-2022 Encounter for other preprocedural examination PENNY SIMENTAL Facility:[facility] Start: 07-25-2022 End: 07-26-[address] ISIDRO MATHUR . Facility:[facility] Start: 01-31-2022 End: 01-31-2022 Patient encounter procedure MD Isidro Mathur Work Phone: [facility] [address] Start: 04-12-2021 Office outpatient vi sit 15 minutes Trevor De Anda [facility] Start: 03-29-2021 Office outpatient vi sit 15 minutes Trevor De Anda [facility] Procedures Date Procedure Procedure Detail Performing Clinician Start: 01-13-2023 Mammography Isidro bower MD Work Phone: Start: 09-15-2015 Colonoscopy Isidro bower MD Work Phone: History of total hysterectomy Trevor De Anda Other Plan of Treatment Date Care Activity Detail Author Start: 09-14-2025 Screening for malign ant neoplasm of colon [facility] Start: 01-16-2024 End: 01-16-2024 Patient encounter procedure 01/16/2024 10:00 AM EDT Office Visit [facility] [address] [place] [address] Isidro Mathur MD [address] [place] [address] (Fax) [facility] Start: 01-14-2024 Screening for malign ant neoplasm of breast Mammogram [facility] Start: 01-09-2024 End: 01-09-2024 Patient encounter procedure 01/09/2024 10:00 AM EDT Office Visit [facility] [address] [place] [address] Isidro Mathur MD [address] [place] [address] (Fax) [facility] Start: 09-19-2023 End: 09-19-2023 Patient encounter procedure 09/19/2023 9:30 AM EDT Office Visit [facility] [address] [facility] [address] [place] [address] Len Smart MD [address] [facility] [address] [address] [facility] Start: 03-03-2023 Influenza vaccination Influenza Vacc ine (#1) [facility] Start: 1965 Screening for malign ant neoplasm of colon [facility] Immunizations Immunization Date Immunization Notes Care Provider Fa cility 09-05-2020 COVID-19 Ad26.COV2.S (Mally) MD Isidro Mathur Work Phone: [facility] 04-24-2015 influenza, high dose seasonal, preservative-free Trevor De Anda Other [facility] Other 04-06-2015 influenza, injectabl e, quadrivalent, preservative free Isidro Mathur MD Work Phone: [facility] 04-06-2015 influenza virus vaccine, unspecified formulation Isidro Mathur MD Work Phone: [facility] Payers Date Payer Category Payer Unknown [id number] 2022 Unknown [id number] 2022 Unknown [id number] 1965 Unknown [id number] 2.16.84 [id number] 1965 Unknown [id number] 2.16.84 0.1.534727.3.579.2.593 1965 Unknown [id number] 2.16.84 0.1.417747.3.579.2.1259 1965 Unknown [id number] 2.16.84 0.1.695035.3.579.2.1259 1965 Unknown [id number] 2.16.84 0.1.951608.3.579.2.1259 1965 Unknown [id number] 2.16.84 0.1.417857.3.579.2.1259 1965 Unknown [id number] 2.16.84 0.1.688550.3.579.2.1259 1965 Unknown [id number] 2.16.84 0.1.206350.3.579.2.1259 1965 Unknown [id number] 2.16.84 0.1.679842.3.579.2.1259 1965 Unknown [id number] 2.16.84 0.1.847555.3.579.2.1259 1965 Unknown [id number] 2.16.84 0.1.755029.3.579.2.1259 1965 Unknown [id number] 2.16.84 0.1.288580.3.579.2.1259 1965 Unknown [id number] 2.16.840. 1.476138.3.579.2.1259 1965 Unknown [id number] 2.16. [id number] Self-pay Self Pay [id number] Unknown [id number] 2. [id number] Social History Date Type Detail Facility Unknown if ever smoked [facility] Other Start: 01-19-2023 End: 07-25-2023 Sex Assigned At [facility] Start: 09-22-2020 End: 12-16-2022 Tobacco smoking status WYIS Ex-smoker (finding) [facility] Start: 1965 Sex Assigned At Female [facility] History of tobacco use Current smoker [facility] History of tobacco use Cigarette Smoker [facility] Start: 12-16-2022 Tobacco use and exposure Smokeless tobacco non-user [facility] Start: 07-25-2023 Alcohol intake Lifetime non-drinker (finding) [facility] Start: 01-19-2023 End: 07-25-2023 History of Social function [facility] Within the last year , have you been afraid of your partner or ex-partner? No [facility] Active Member of [facility] bs or Organizations Not on file [facility] How often to you hav e a drink containing alcohol? Monthly or less [facility] How many standard drinks containing alcohol do you have on a typical day? 1 or 2 [facility] How often do you hav e 6 or more drinks on 1 occasion? Never [facility] How hard is it for y ou to pay for the very basics like food, housing, medical care, and heating Somewhat hard [facility] Do you feel stress - tense, restless, nervous, or anxious, or unable to sleep at night because your mind is troubled all the time - these days [OSQ] To some extent [facility] (I/We) worried wheth er (my/our) food would run out before (I/we) got money to buy more. Sometimes true [facility] Start: 12-16-2022 Education 13 [facility] Start: 12-16-2022 Tobacco Comment Last smoked: 5 -10 years ago [facility] Start: 01-26-2023 Alcohol Comment Caffeine intak e: 2-3 cups per day [facility] Start: 1965 Sex Assigned At Not on file N [facility] NEGATED: Highlighted rowStart: [place] History of tobacco use Passive smoker [facility] Medical Equipment Procedure Code Equipment Code Equipment Origin al Text Equipment Identifier Dates Fusion, spine, lumbar, XLIF INFUSE SMALL 2.8CC FDA Start: 05-02-2019 Fusion, spine, lumbar, XLIF Bone-screw internal spinal fixation system, non-sterile ()[id number] FDA Start: 05-02-2019 Fusion, spine, lumbar, XLIF Bone-screw internal spinal fixation system, non-sterile ()[id number] FDA Start: 05-02-2019 Fusion, spine, lumbar, XLIF Bone-screw internal spinal fixation system, non-sterile ()[id number] FDA Start: 05-02-2019 Fusion, spine, lumbar, XLIF XLIF 3 LEVEL MAS REDUCTION FDA Start: 05-02-2019 Fusion, spine, lumbar, XLIF Bone-screw internal spinal fixation system, non-sterile ()[id number] FDA Start: 05-02-2019 Fusion, spine, lumbar, XLIF Bone-screw internal spinal fixation system, non-sterile ()[id number] FDA Start: 05-02-2019 Fusion, spine, lumbar, XLIF Bone matrix implant, human-derived ()[id number] FDA Start: 05-02-2019 Fusion, spine, lumbar, XLIF Bone matrix implant, human-derived ()[id number] FDA Start: 05-02-2019 Fusion, spine, lumbar, XLIF Metallic spinal fusion cage, non-sterile ()[id number] FDA Start: 05-02-2019 Fusion, spine, lumbar, XLIF Metallic spinal fusion cage, non-sterile ()[id number] FDA Start: 05-02-2019 Fusion, spine, lumbar, XLIF Metallic spinal fusion cage, non-sterile ()[id number] FDA Start: 05-02-2019 Fusion, spine, lumbar, XLIF Metallic spinal fusion cage, non-sterile ()[id number] FDA Start: 05-02-2019 Fusion, spine, lumbar, XLIF Bone-screw internal spinal fixation system, non-sterile ()[id number] FDA Start: 05-02-2019 Anterior lumbar interbody fusion (ALIF) XLIF MAS REDUCTION 1 LEVEL FDA Start: 09-22-2020 Anterior lumbar interbody fusion (ALIF) Bone-screw internal spinal fixation system, non-sterile ()[id number] FDA Start: 09-22-2020 Anterior lumbar interbody fusion (ALIF) Bone-screw internal spinal fixation system, non-sterile ()[id number] FDA Start: 09-22-2020 Anterior lumbar interbody fusion (ALIF) Bone-screw internal spinal fixation system, non-sterile ()[id number] FDA Start: 09-22-2020 Anterior lumbar interbody fusion (ALIF) Metallic spinal fusion cage, non-sterile ()[id number] FDA Start: 09-22-2020 Anterior lumbar interbody fusion (ALIF) Spinal fusion graft kit ()[id number] FDA Start: 09-22-2020 Anterior lumbar interbody fusion (ALIF) Bone matrix implant, human-derived ()[id number] FDA Start: 09-22-2020 Anterior lumbar interbody fusion (ALIF) Spinal bone screw, non-bioabsorbable ()[id number] FDA Start: 09-22-2020 Anterior lumbar interbody fusion (ALIF) Bone-screw internal spinal fixation system, non-sterile ()[id number] FDA Start: 09-22-2020 History of Present illness Narrative 07-25-2023 Isidro Mathur MD - 07/25/2023 10:30 AM EST Note Date & Type Note Facility 07-25-2023 History of Presen t illness Narrative Patient ID: Isidra Paredes is a 57 y.o. female who presents for: Anxiety Patient is here for evaluation of anxiety. He/She has the following anxiety symptoms: fatigue, racing thoughts. Onset of symptoms was approximately several years ago. Symptoms have been stable since that time. He/She denies current suicidal and homicidal ideation. Family history significant for no psychiatric illness.Possible organic causes contributing are: none. Previous treatment includes medication duloxetine . He/She complains of the following medication side effects: none. Symptoms include: none to report Severity: mild Feels better since starting HRT treatment: Yes Other Symptoms: Bladder Issues, Thinning Hair, Breast Complaints Date of Last Mammogram: 01/13/2023 Review of Systems Constitutional: Positive for fatigue. Negative for appetite change. Psychiatric/Behavioral: Negative for agitation, behavioral problems, sleep disturbance and suicidal ideas. The patient is nervous/anxious. Objective Appearance: Well-groomed, in no acute distress Abnormal body movements: None Affect: Appropriate and appears to be full range Attention: Good Attitude: Cooperative Degree of awareness of surroundings: Grossly within normal limits Impulse control: Appears to be good Insight: Appears to be good Fund of knowledge; adequate Judgment: Appears to be good Perceptual disorders: No perceptual disorders noted Psychomotor activity: Within normal range Speech: Clear, normal rate and variability Thought content: Unremarkable Office Visit on 07/17/2023 Component Date Value Ref Range Status Color, UA 07/17/2023 Yellow Final Clarity, UA 07/17/2023 Clear Final Glucose, UA 07/17/2023 Negative Negative - 1999(110) ++++ mg/dL Final Bilirubin, UA 07/17/2023 Negative Negative - 4(70) +++ mg/dL Final Ketones, UA 07/17/2023 Positive Negative - 160(16) ++++ mg/dL Final Spec Grav, UA 07/17/2023 1.025 1 - 1.03 Final Blood, UA 07/17/2023 Positive Negative - 50 Jairo/mcL Final pH, UA 07/17/2023 6.0 5 - 9 Final Protein, UA 07/17/2023 Negative Negative - 1999(20) ++++ mg/dL Final Urobilinogen, UA 07/17/2023 0.2 0.2 - 12 mg/dL Final Leukocytes, UA 07/17/2023 2+ Negative - 500+++ Tiago/mcL Final Visit Vitals Ht 5' 8 Wt 255 lb BMI 38.77 kg/m OB Status Postmenopausal Smoking Status Former BSA 2.36 m Allergies Allergen Reactions Methotrexate Hives Current Outpatient Medications Medication Instructions biotin 300 mcg, Oral, Daily RT cholecalciferol (VITAMIN D-3) 400 Units, Oral, Daily RT DULoxetine (CYMBALTA) 30 mg, Oral, Every 24 hours estradiol (Climara) 0.05 MG/24HR 1 patch, Transdermal, Weekly Krill Oil 500 MG capsule 1 capsule, Oral, Every 24 hours metaxalone (SKELAXIN) 800 mg, Oral, Daily PRN nabumetone (RELAFEN) 750 mg, Oral, 2 times daily pregabalin (LYRICA) 100 mg, Oral, 2 times daily thyroid (ARMOUR) 60 mg, Oral, 2 times daily before meals Assessment/Plan Diagnoses and all orders for this visit: Recurrent major depressive disorder, in remission (HCC) ([facility]/HCC) - DULoxetine (Cymbalta) [address] capsule; Take 1 capsule (30 mg) by mouth 1 (one) time each day at the same time Chronic problem, stable actually doing as well as I seen her in a while. The vacation with her family helped a lot. Arthritis of right knee - nabumetone (Relafen) 750 MG tablet; Take 1 tablet (750 mg) by mouth in the morning and 1 tablet (750 mg) before bedtime. Continue current treatment. Artificial menopause - estradiol (Climara) 0.05 MG/24HR; Place 1 patch on the skin 1 (one) time per week Chronic problem, stable, virtually asymptomatic. IIn prescribing a renewal to their current medication, consideration of the following encompasses moderate decision making; the current prescriptions and supplements, the current allergies and medication intolerances, current medical conditions, and potential drug interactions. Drug interaction screening is reviewed and there are moderate to major severity ratings to consider during prescription drug management. If the adjusted medication is considered a controlled substance, then the OARRS and NARX scores are obtained and reviewed. Any changes to risks, benefits, and reason for renewing their current medication due to the above were discussed. The patient was given a chance to ask questions today and all questions were answered. The patient is to contact us, preferably by using the patient portal, or call if any other questions arise or if any problems occur with the renewal of their medication. (Utilizing the original guidelines or the 2020 new office/outpatient code guidelines for selecting the level of E/M service, In both sets of guidelines, prescription drug management appears in the moderate medical decision making (MDM) row. Neither the original guidelines nor the new guidelines state that a new prescription or change is needed in order to credit prescription drug management) Former smoker, stopped smoking many years ago Morbid obesity due to excess calories ([facility]) BMI 38.0-38.9,adult documented in this encounter [facility] Clinical Note 10-25-2022 Note Date & Type Note Facility 10-25-2022 Note PROCEDURE: XR CHEST 2 V DATE: 10/25/2022 12:55 PM CDT COMPARISONS: None. CLINICAL INDICATION: 57 years Female Pre-surgery evaluation FINDINGS: The cardiomediastinal silhouette and pulmonary vasculature are within normal limits. The lungs are clear. There is no evidence of pleural effusion or pneumothorax. IMPRESSION: Chest radiograph is within normal limits. Electronically authenticated by: JOHNNY TERAN Date: 2022-10-25 14:20 [facility] Evaluation note 04-12-2021 Note Date & Type Note Facility 04-12-2021 Evaluation note Encounter Date Diagnosis Assessment Notes Apr, Meralgia paresthetica of right side (ICD-10 - G57.11) Patient does have a referral to Dr. Smart which I think is appropriate I would like her to get an EMG nerve conduction study as well as possible injections of her lateral femoral cutaneous nerve. We will try to a expedite that short of Thanksgiving. Apr, Meralgia paresthetica, unspecified laterality (ICD-10 - G57.10) [facility] Evaluation note 03-29-2021 Note Date & Type Note Facility 03-29-2021 Evaluation note Encounter Date Diagnosis Assessment Notes Mar, Spondylolisthesis at L5-S1 level (ICD-10 - M43.17) The patient has had no relief of her symptoms. She is also now having symptoms on the right leg. As such I believe she should be reevaluated prior to any other considerations of treatment. We will get an MRI scan with and without gadolinium of her spine and see her back in the office at that time. [facility] Evaluation note Note Date & Type Note Facility Evaluation note No assessment information [facility]: Evaluation note Note Date & Type Note Facility Evaluation note Diagnosis Recurrent major depressive disorder, in remission (HCC) ([facility])- Primary Arthritis of right knee Artificial menopause Symptomatic states associated with artificial menopause Former smoker, stopped smoking many years ago Morbid obesity due to excess calories ([facility]) BMI 38.0-38.9,adult documented in this encounter [facility] History general Narrative - Reported Note Date & Type Note Facility History general Narrative - Reported Type Medical History Dry eye Medical History Hypothyroidism, unspecified type Medical History Rheumatoid arthritis involving multiple sites, unspecified rheumatoid factor presence Medical History Depression, unspecif ied depression type Medical History nerve pain Medical History thyroid Surgical History hip replacement-left Surgical History hysterectomy Surgical History hysterectomy Surgical History Procedure:ER visit a djusted meds;Disease:leg pain 2012 Surgical History left hip replacement Surgical History Procedure: Left Hip replacement;Disease: defect Dr. Hankins 2008 Surgical History colonoscopy Surgical History Procedure:SANDRA and BSO;Disease:dysmenorrhea Surgical History Procedure:Stress Estrella t [employer];Disease:Normal 04/2014 Surgical History XLIF-Doctor [facility] Surgical History left eye lidectomy at [facility] rs 05/19/16 Surgical History Rt Knee arthroscopic partial lateral meniscectomy Dr Matthew Watson [place] 11/22/2017 Surgical History XLIF L1-2, L2-3, L3-4, L4-5 Hospitalization History see above [facility] Summary Purpose Family History No Family History Records Found Relationship Condition Age at Onset Recorded Date/T [place] brother Osteoarthritis Unknown father Heart disease Unknown Not Specified Hypertension Unknown Advance Directives No Advanced Directives Records Found Advance Directive Response Recorded Date/ Time Advance Directives No July 11, 2017 9:21am Reason for Referral Reason DUPLICATE Evaluate and Treat Diagnosis 1 Meralgia paresthetic a of right side (G57.11) Referral Organization [facility] urosurgery Referring Provider First Name Trevor Referring Provider Last Name Adilson Referring Provider Specialty Neurosurger y Referred Organization [facility] Referred Provider Len Smart Referred Address ,[place], [place],[address] Referred Provider Specialty Neurology Referral Priority Routine General Notes Ilsa Beebe 09:27:54 AM >DUPLICATE Reason Evaluate and Tr eat Diagnosis 1 Meralgia paresthetic a, unspecified laterality (G57.10) Referral Organization [facility] u[facility]urgery Referring Provider First Name Trevor Referring Provider Last Name Adilson Referring Provider Specialty Neurosurger y Referred Organization [facility] Referred Provider Len Smart Referred Address ,[place], [place],[address] Referred Provider Specialty Neurology Referral Priority Routine General Notes Ilsa Beebe 09:26:14 AM >Received today and waiting for office notes to be locked Chief Complaint and Reason for Visit Chief Complaint M15.0 Z79.899 Additional Source Comments INFORMATION SOURCE (unrecogn ized section and content) DATE CREATED AUTHOR 01/29/2020 [facility] DATE CREATED AUTHOR AUTHOR'S ORGANIZ ATION 07/25/2021 [facility] dical Specialist DATE CREATED AUTHOR AUTHOR'S ORGANIZ ATION 02/08/2022 [facility] DATE CREATED AUTHOR AUTHOR'S ORGANIZ ATION 10/29/2022 [facility] DATE CREATED AUTHOR AUTHOR'S ORGANIZ ATION 02/17/2024 [facility] dical Specialists EPIC DATE CREATED AUTHOR AUTHOR'S ORGANIZ ATION 03/17/2024 [facility] REASON FOR VISIT (unrecogniz ed section and content) Reason Comments Anxiety Follow-up Hormones Care Teams (unrecognized sec tion and content) Team Status: Inactive Member Role Status Dates Isidro Mathur MD Primary Care Provider Active Erickson Hernandez MD Attending Provider Active Team Status: Active Member Role Status Dates Isidro Mathur MD Primary Care Provider Active Rn Advice Relationship Specialty Start Date End Date Isidro Mathur MD [address] [place] [address] PCP - General Family Medicine 12/01/22 Goals (unrecognized section and content) Goals may be documented in a n alternate section FOR RECORDS PERTAINING TO PATIENTS WHO ARE OR HAVE BEEN ENROLLED IN A CHEMICAL DEPENDENCY/SUBSTANCEABUSE PROGRAM, SOME INFORMATION MAY BE OMITTED. This clinical summary was aggregated from multiple sources. Caution should be exercised in using it in the provision of clinical care. This summary normalizes information from multiple sources, and as a consequence, information in this document may materially change the coding, format and clinical context of patient data. In addition, data may be omitted in some cases. CLINICAL DECISIONS SHOULD BE BASED ON THE PRIMARY CLINICAL RECORDS. [facility]. provides no warranty or guarantee of the accuracy or completeness of information in this document.
--- NOTE | 2024-04-01 14:39 | PM.CN ---
Consult Note: HPI Data of Consult Patient: known to practice within the last 3 years Consult date: 04/01/24 Requesting Physician: Zeina Peter MD Primary Care Provider: KAVIN MATHUR Consult Narrative Reason for consult: right knee pain Narrative: 58yof who presents for in office injection. continues to have right knee pain. 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 (ICD-10) Surgical History H/O arthroscopic knee surgery ?Z98.890 - Other specified postprocedural states (ICD-10) History of lumbar spinal fusion ?Z98.1 - Arthrodesis status (ICD-10) History of hip replacement ?Z96.649 - Presence of unspecified artificial hip joint (ICD-10) History of hysterectomy ?Z90.710 - Acquired absence of both cervix and uterus (ICD-10) Meds Home Medications and Allergies Home Medications ?Medication ?Instructions ?Recorded ?Confirmed ?Type biotin 10,000 mcg capsule 10,000 mcg PO DAILY 03/11/24 03/11/24 History cholecalciferol (vitamin D3) 125 125 mcg PO DAILY 03/11/24 03/11/24 History mcg (5,000 unit) capsule duloxetine 30 mg capsule,delayed 30 mg PO DAILY 03/11/24 03/11/24 History release liothyronine 5 mcg tablet 5 mcg PO DAILY 03/11/24 03/11/24 History nabumetone 750 mg tablet 750 mg PO BID 03/11/24 03/11/24 History omega-3 fatty acids 500 mg capsule 500 mg PO DAILY 03/11/24 03/11/24 History pregabalin 100 mg capsule 100 mg PO BID 03/11/24 03/11/24 History thyroid (pork) 60 mg tablet (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 Attentive and appropriate, constitutionally normal, displays normal mood and affect per situation.? There are no obvious deficits in memory, reasoning, or intellect. Extremities-lower extremities are warm with minimal edema and palpable pulses. Knee-examination of the right knee reveals tenderness to palpation over the superior, inferior, lateral, and medial aspect of the knee.? Some swelling is noted without erythema. Pain is elicited with flexion and extension of the knee both actively and passively.? Some grinding is noted with these motions.? There is no notable ligamental laxity or instability.? Coordination remains intact.? Gait remains antalgic. Assessment and Plan Assessment and Plan (1) Osteoarthritis of right knee: Qualifiers: Osteoarthritis type: primary Qualified Code(s): M17.11 - Unilateral primary osteoarthritis, right knee Plan 58yof who presents for in office injection. continues to have right knee pain, so would like to proceed. i am in agreement. Procedure: Right knee injection Medications: Monovisc I explained the details of the procedure to the patient including the risks, benefits and alternatives. We had an informed discussion and the patient verbalized understanding and signed the consent form. All questions were answered appropriately.? A time out was performed.? After obtaining a comfortable seated position, the right knee was prepped with alcohol x3. A syringe containing the above medication was attached to a 25 gauge, 1.5 inch needle under strict aseptic technique. The lateral tibial plateau was palpated.? The needle was then advanced through the subcutaneous tissue in a medial and superior direction towards the joint space.? The contents of the syringe were gently injected without any resistance. The needle was removed and pressure was applied to the injection site to decrease the incidence of ecchymosis and hematoma formation.? A sterile bandage was applied.
== END 2024-04-01 13:37 | disposition home or self-care (01) ==
LOC: PM 13:36
PROVIDERS: PCP Family Medicine; Visit Provider Anesthesiology
DX: M17.11 Unilateral primary osteoarthritis, right knee (principal)
CPT/HCPCS: 20610; J7327

== ENCOUNTER 2024-07-10 10:13 | Outpatient (OUT) | payer OTHER, SELFPAY ==
--- NOTE | 2024-07-10 10:37 | PM.CN ---
Consult Note: HPI Data of Consult Patient: known to practice within the last 3 years Consult date: 03/11/24 Requesting Physician: Diana Sullivan NP Primary Care Provider: KAVIN MATHUR Consult Narrative Reason for consult: right knee pain Narrative: 58yof who presents for evaluation. right knee pain 5/10 increasing to 9/10 with standing, walking, transitioning, lifting her leg, and activity. longstanding right knee pain, has been told she needs replacement however she is not interested in surgical intervention. was getting steroid injections from orthopedic office, but these stopped working over time. recently had a KUMAR injection through our office with significant relief for 2 weeks but no longstanding relief. has continued in a series of provider directed home exercises for >6 weeks, without significant benefit. uses nabumetone and voltaren with some benefit. denies adverse med side effects. 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 - Sick-euthyroid syndrome (ICD-10) Surgical History H/O arthroscopic knee surgery ?Z98.890 - Other specified postprocedural states (ICD-10) History of lumbar spinal fusion ?Z98.1 - Arthrodesis status (ICD-10) History of hip replacement ?Z96.649 - Presence of unspecified artificial hip joint (ICD-10) History of hysterectomy ?Z90.710 - Acquired absence of both cervix and uterus (ICD-10) Meds Home Medications and Allergies Home Medications ?Medication ?Instructions ?Recorded ?Confirmed ?Type biotin 10,000 mcg capsule 10,000 mcg PO DAILY 03/11/24 03/11/24 History cholecalciferol (vitamin D3) 125 125 mcg PO DAILY 03/11/24 03/11/24 History mcg (5,000 unit) capsule duloxetine 30 mg capsule,delayed 30 mg PO DAILY 03/11/24 03/11/24 History release liothyronine 5 mcg tablet 5 mcg PO DAILY 03/11/24 03/11/24 History nabumetone 750 mg tablet 750 mg PO BID 03/11/24 03/11/24 History omega-3 fatty acids 500 mg capsule 500 mg PO DAILY 03/11/24 03/11/24 History pregabalin 100 mg capsule 100 mg PO BID 03/11/24 03/11/24 History thyroid (pork) 60 mg tablet (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 Attentive and appropriate, constitutionally normal, displays normal mood and affect per situation.? There are no obvious deficits in memory, reasoning, or intellect. Extremities-lower extremities are warm with minimal edema and palpable pulses. Knee-examination of the right knee reveals tenderness to palpation over the superior, inferior, lateral, and medial aspect of the knee.? Some swelling is noted without erythema. Pain is elicited with flexion and extension of the knee both actively and passively.? Some grinding is noted with these motions.? There is no notable ligamental laxity or instability.? Coordination remains intact.? Gait remains antalgic. Assessment and Plan Assessment and Plan (1) Osteoarthritis of right knee: Assessment and Plan: ALEN 38% moderate pain, significant limitation in ability to stand, walk, and travel Qualifiers: Osteoarthritis type: primary Qualified Code(s): M17.11 - Unilateral primary osteoarthritis, right knee Plan 58yof who presents for evaluation. failed conservative measures. imaging consistent with right knee OA. given failure to respond to steroid injections and KUMAR injections as well as heat/ice, tylenol and NSAIDs we will proceed with right genicular nerve block under fluoroscopy working towards RFA. risks vs benefits reviewed. pt to call to schedule when she starts her new insurance, medicare.
== END 2024-07-10 10:14 | disposition home or self-care (01) ==
LOC: PM 10:15
PROVIDERS: PCP Family Medicine; Visit Provider Nurse Practitioner
DX: M17.11 Unilateral primary osteoarthritis, right knee (principal)
CPT/HCPCS: G0463

== ENCOUNTER 2024-10-21 09:51 | Day surgery (SDC) | payer OTHER, SELFPAY ==
[2024-10-21 10:20] VITALS: BP 175/86; PULSE 68; TEMP 36.3; O2SAT 96
[2024-10-21 11:11] VITALS: BP 179/81; BP 187/81; PULSE 59; PULSE 63; O2SAT 93; O2SAT 94
[2024-10-21] MEDS: BUPIVACAINE HCL 0.25% PF 25 MG/10 ML VIAL 5 ML INJ (11:12)
[2024-10-21] MEDS: METHYLPREDNISOLONE ACETATE 40 MG/ML VIAL INJ (11:12)
--- NOTE | 2024-10-21 11:27 | W.PM.PROCNOT ---
Date of procedure: 10/21/24 Pre-op diagnosis: Pain due to right knee osteoarthritis Post-op diagnosis: same as pre-op Procedure: Procedure: Right knee genicular nerve block Medications: Bupivacaine 0.25% 4cc, depomedrol 40mg The patient was taken to the procedures suite and positioned in the supine position. I explained the details of the procedure to the patient including the risks, benefits and alternatives. We had an informed discussion and the patient verbalized understanding and signed the consent form. All questions were answered appropriately.? A 'time out' procedure was performed. The patient was identified, the chart was reviewed, and all allergies were confirmed. Laterality was conducted and marked. The right knee was marked with a sterile marking pen, prepped times three, and sterilely draped.? Under fluoroscopic guidance, branches of the genicular nerves were localized.? First the superior medial genicular nerve was localized where the femoral shaft meets the medial epicondyle.? Skin was anesthetized with 1% lidocaine.? A 25-gauge 3.5 in needle was advanced in a coaxial manner in the AP view.? This was repeated on the superior lateral genicular nerve where the femoral shaft meets the lateral epicondyle and the inferior medial genicular nerve where the medial tibial shaft meets the tibial epicondyle. After negative aspiration for blood or other bodily fluids, 1cc of medication was injected at each of the three sites. The needles were removed and the sites of injection were bandaged. The patient was transported to the postoperative area in good condition. Anesthesia: Local Surgeon: Zeina Peter Pathology: none sent Condition: stable Disposition: no change
== END 2024-10-21 11:18 | disposition home or self-care (01) ==
PROVIDERS: PCP Family Medicine; Visit Provider Anesthesiology
DX: M17.11 Unilateral primary osteoarthritis, right knee (principal); M25.561 Pain in right knee
CPT/HCPCS: 64454; J0665; J1010

== ENCOUNTER 2024-10-23 09:59 | Outpatient (OUT) | payer OTHER, SELFPAY ==
--- NOTE | 2024-10-23 10:24 | P.CN_ITS ---
Consult Note: HPI Data of Consult Requesting Physician: Diana Sullivan NP Primary Care Provider: KAVIN MATHUR Consult Narrative Reason for consult: right knee pain Narrative: 59yof who presents for evaluation. right knee pain today 0/10 increasing to 9/10 with standing, walking, transitioning, lifting her leg, and activity. longstanding right knee pain, has been told she needs replacement however she is not interested in surgical intervention. was getting steroid injections from orthopedic office, but these stopped working over time. recently had a KUMAR injection through our office with significant relief for 2 weeks but no longstanding relief. has continued in a series of provider directed home exercises for >6 weeks, without significant benefit. uses nabumetone and voltaren with some benefit. denies adverse med side effects. recently underwent right genicular nerve block with 100% improvement in right knee pain while anesthetized, preop pain up to 9/10 post op pain 0/10. Pt noticed significant improvement in ability to sleep, stand, walk, do housework and laundry. 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 - Sick-euthyroid syndrome (ICD-10) Surgical History H/O arthroscopic knee surgery ?Z98.890 - Other specified postprocedural states (ICD-10) History of lumbar spinal fusion ?Z98.1 - Arthrodesis status (ICD-10) History of hip replacement ?Z96.649 - Presence of unspecified artificial hip joint (ICD-10) History of hysterectomy ?Z90.710 - Acquired absence of both cervix and uterus (ICD-10) Meds Home Medications and Allergies Home Medications ?Medication ?Instructions ?Recorded ?Confirmed ?Type biotin 10,000 mcg capsule 10,000 mcg PO DAILY 03/11/24 10/21/24 History cholecalciferol (vitamin D3) 125 125 mcg PO DAILY 03/11/24 10/21/24 History mcg (5,000 unit) capsule duloxetine 30 mg capsule,delayed 30 mg PO DAILY 03/11/24 10/21/24 History release liothyronine 5 mcg tablet 5 mcg PO DAILY 03/11/24 10/21/24 History nabumetone 750 mg tablet 750 mg PO BID 03/11/24 10/21/24 History omega-3 fatty acids 500 mg capsule 500 mg PO DAILY 03/11/24 10/21/24 History pregabalin 100 mg capsule 100 mg PO BID 03/11/24 10/21/24 History thyroid (pork) 60 mg tablet (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 Attentive and appropriate, constitutionally normal, displays normal mood and affect per situation.? There are no obvious deficits in memory, reasoning, or intellect. Extremities-lower extremities are warm with minimal edema and palpable pulses. Knee-examination of the right knee reveals tenderness to palpation over the superior, inferior, lateral, and medial aspect of the knee.? Some swelling is noted without erythema. Pain is elicited with flexion and extension of the knee both actively and passively.? Some grinding is noted with these motions.? There is no notable ligamental laxity or instability.? Coordination remains intact.? Gait remains antalgic. Assessment and Plan Assessment and Plan (1) Osteoarthritis of right knee: Assessment and Plan: ALEN 38% moderate pain, significant limitation in ability to stand, walk, and travel Qualifiers: Osteoarthritis type: primary Qualified Code(s): M17.11 - Unilateral primary osteoarthritis, right knee Plan 59yof who presents for evaluation. failed conservative measures. imaging consistent with right knee OA. given failure to respond to steroid injections and KUMAR injections as well as heat/ice, tylenol and NSAIDs we will proceed with right genicular nerve RFA as patient is not interested in surgical intervention at this time. risks vs benefits reviewed. f/u 1 month after RFA complete
== END 2024-10-23 10:00 | disposition home or self-care (01) ==
LOC: PM 10:01
PROVIDERS: PCP Family Medicine; Visit Provider Nurse Practitioner
DX: M17.11 Unilateral primary osteoarthritis, right knee (principal)
CPT/HCPCS: G0463

== ENCOUNTER 2024-11-04 06:55 | Day surgery (SDC) | payer OTHER, SELFPAY ==
[2024-11-04 07:11] VITALS: BP 132/84; PULSE 68; TEMP 36.3; O2SAT 96
[2024-11-04 08:09] VITALS: BP 160/69; PULSE 63; O2SAT 95
[2024-11-04 08:11] VITALS: BP 155/70; PULSE 68; O2SAT 97
[2024-11-04] MEDS: BUPIVACAINE HCL 0.25% PF 25 MG/10 ML VIAL 2 ML INJ (08:12)
[2024-11-04] MEDS: LIDOCAINE HCL 2% 400 MG/20 ML MDV 12 ML INJ (08:12)
[2024-11-04] MEDS: METHYLPREDNISOLONE ACETATE 40 MG/ML VIAL INJ (08:13)
--- NOTE | 2024-11-04 08:27 | W.PM.PROCNOT ---
Date of procedure: 11/04/24 Pre-op diagnosis: Pain due to right knee osteoarthritis Post-op diagnosis: same as pre-op Procedure: Procedure: Right knee genicular nerve radiofrequency ablation Medications: Bupivacaine 0.25% 2cc, depomedrol 40mg, lidocaine 2% 15cc The patient was taken to the procedures suite and positioned in the supine position. I explained the details of the procedure to the patient including the risks, benefits and alternatives. We had an informed discussion and the patient verbalized understanding and signed the consent form. All questions were answered appropriately.? ? A 'time out' procedure was performed. The patient was identified, the chart was reviewed, and all allergies were confirmed. Laterality was conducted and marked. The right knee was marked with a sterile marking pen, prepped with Chloraprep, and sterilely draped.? Under fluoroscopic guidance, branches of the genicular nerves were localized.? First the superior medial genicular nerve was localized where the femoral shaft meets the medial epicondyle.? Skin was anesthetized with 1% lidocaine (only the superficial areas far from osseous contact).? The appropriate level of insertion was identified by placing a hemostat over the knee and obtaining an AP view. An 18-gauge 10 mm active tip 3.5 in needle was advanced in a coaxial manner in the lateral view at 1/2 the depth of the femur which was identified by placing forceps over the skin in the lateral view.? This was repeated on the superior lateral genicular nerve where the femoral shaft meets the lateral epicondyle and the inferior medial genicular nerve where the medial tibal shaft meets the tibial epicondyle (needle was advanced to half the depth of the tibia).? Needle placement was confirmed with a lateral view in all sites, after negative aspiration, 1cc of 2% lidocaine was injected at each of the three sites. ? Sensory testing was completed at 0.5 V at each level and motor testing was negative at 1.5 V for all 3 levels. Each of the sites were lesioned for 80 degrees at 80 seconds, with impedance < 500. The probes were subsequently removed and the sites of insertion were bandaged. The patient was taken to the postoperative area and discharged in good condition. Anesthesia: Local Surgeon: Zeina Peter Pathology: none sent Condition: stable Disposition: no change
== END 2024-11-04 08:26 | disposition home or self-care (01) ==
LOC: SURGOUT 06:56
PROVIDERS: PCP Family Medicine; Visit Provider Anesthesiology
DX: M17.11 Unilateral primary osteoarthritis, right knee (principal); M25.561 Pain in right knee
CPT/HCPCS: 64624; J0665; J1010

== ENCOUNTER 2024-12-05 08:56 | Outpatient (OUT) | payer OTHER, SELFPAY ==
--- OUTSIDE RECORDS SUMMARY | 2024-12-05 09:14 | XMS_ITS | CCD ---
Author Organization [facility] Care Team Providers Care 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 Name Role Phone Trevor De Anda Unavailable MD Isidro Mathur Primary Care Provider MD Erickson Hernandez Attending Provider [phone] JESUS SANDS Attending Unavailable JESUS SANDS Consulting Unavailable JESUS SANDS Admitting Unavailable KEVAN ., DR VALE Primary Care Unavailable JOHNNY TERAN Consulting Unavailable KEVAN ., DR VALE Admitting Unavailable HEMEYER ., DR VALE Attending Unavailable HEMEYER ., DR VALE Consulting Unavailable NATALIAYER ., DR VALE Primary Care Unavailable Isidro Mathur MD Primary Care Provider [phone] Isidro Mathur MD Primary Care Provider Len Smart MD Unavailable Ruby CONCIERGE RECEPTIONIST, Agata B Unavailable Wicho DPMJesus Unavailable [phone] Isidro Mathur MD Primary Care Provider [phone] Len Smart MD Unavailable Ruby CONCIERGE RECEPTIONIST, Agata B Unavailable [phone] Isidro Mathur MD Unavailable Len Smart MD Unavailable Ruby CONCIERGE RECEPTIONIST, Agata B Unavailable Licha Freeman MD Unavailable ISIDRO MATHUR Attending Unavailable LEN SMART Attending Unavailable ISIDRO MATHUR Attending Unavailable ISIDRO MATHUR Attending Unavailable ISIDRO MATHUR Referring Unavailable ISIDRO MATHUR Attending Unavailable APLING, AGATA B Attending Unavailable AGATA BELTRAN Referring Unavailable AHMET CASTRO Attending Unavailable ISIDRO MATHUR Attending Unavailable ISIDRO MATHUR Attending Unavailable Brittani FISCHER, Zeina Beckett Attending Unavailable Brittani FISCHER, Zeina Beckett Attending Unavailable Brittani FISCHER, Zeina Beckett Attending Unavailable Allergies Allergy Classification Reported Allergen(s) Allergy Type Date of Onset Reaction(s) Facility (20 sources) Methotrexate Drug Allergy 09-15-2020 [facility] Medications Current Medications Medication Drug Class(es) Dates Sig (Normalized) Sig (Original) biotin 10 mg oral capsule (20 sources) Start: 04-18-2019 take 06371 ug by mouth once daily in the morning Biotin Active 08108 MCG PO Every morning April 18, 2019 12:00am take 1 tablet by mouth in the mo rning biotin 300 MCG tablet Take 300 mcg by mouth in the morning. Active take 1 tablet by mouth once alie y Biotin 10 MG 1 tablet Orally Once a day Active cholecalciferol 0.125 mg oral tablet (19 sources) Vitamin D Start: 04-18-2019 take 1 tablet by mouth once daily in the morning Cholecalciferol (Vitamin D3) (Vitamin D3) 5,000 unit Tablet Active 5000 UNIT PO Every morning April 18, 2019 12:00am take 1 tablet by mouth in the in rning cholecalciferol (Vitamin D-3) 10 MCG (400 UNIT) tablet Take 400 Units by mouth in the morning. Active DULoxetine 30 mg delayed release oral capsule (20 sources) Serotonin and Norepinephrine Reuptake Inhibitor Start: 01-26-2023 End: 01-12-2025 take 1 capsule by mouth once daily DULoxetine (Cymbalta) [address] capsule Indications: Recurrent major depressive disorder, in partial remission (HCC) (CMS/HCC) Take 1 capsule (30 mg) by mouth 1 (one) time each day at the same time 90 capsule 1 07/16/2024 01/12/2025 Active Start: 09-15-2020 take 60 mg by mouth once daily at bedtime Duloxetine Active 60 MG PO Daily at bedtime September 15, 2020 12:00am 168 hr estradiol 0.58498 mg/hr transdermal system (20 sources) Estrogen Start: 09-16-2024 estradiol (Cli nikki) 0.05 MG/24HR Indications: Artificial menopause APPLY 1 PATCH TO THE SKIN ONCE WEEKLY 12 patch 1 09/16/2024 Active Start: 01-26-2023 End: 07-14-2024 estradiol (Climara) 0.05 MG/ 24HR Indications: Artificial menopause Place 1 patch on the skin 1 (one) time per week 12 patch 1 01/16/2024 Active etodolac 500 mg oral tablet (7 sources) Nonsteroidal Anti-inflammatory Drug Start: 11-07-2024 End: 02-05-2025 take 1 tablet by mouth in the morning etodolac (Lodine) 500 MG tablet Indications: Idiopathic osteoarthritis , Rheumatoid arthritis involving multiple sites with positive rheumatoid factor (CMS/HCC) Take 1 tablet (500 mg) by mouth in the morning and 1 tablet (500 mg) before bedtime. 180 tablet 11/07/2024 02/05/2025 Active Start: 09-15-2020 End: 11-07-2024 take 500 mg by mouth twice daily Etodolac Discontinued 500 MG PO Twice daily September 15, 2020 12:00am 2020 8:01am take 1 tablet by sayra th every twenty-four hours Etodolac ER 500 MG 1 tablet with food Orally Once a day Active krill oil 500 mg oral capsule (20 sources) Start: 04-18-2019 take 500 mg by mouth once daily in the morning Krill Oil Active 500 MG PO Every morning April 18, 2019 12:00am Krill Oil 1000 M G as directed Orally Active liothyronine sodium 0.005 mg oral tablet (18 sources) l-Triiodothyronine Start: 01-09-2024 End: 07-08-2024 liothyronine (Cytomel) 5 MCG tablet Indications: ESS (euthyroid sick syndrome) Take 1 tablet in AM and 1 tablet in PM on an empty stomach. HERB; Sigma or Greenstone brands only 180 tablet 1 07/08/2024 Active metaxalone 400 mg oral tablet (20 sources) Start: 09-15-2020 take 400 mg by [...] 800 mg by mouth Daily as needed. Active take 1 tablet by sayra th every eight hours Metaxalone 800 MG 1 tablet Orally Three times a day Active oxyCODONE hydrochloride 5 mg oral tablet (2 sources) Opioid Agonist Start: 2020 take 5 mg by mouth every four to six hours Oxycodone Active 5 MG PO EVERY 4-6 HOURS 2020 Start: 05-04-2019 End: 09-15-2020 take 5 mg by mouth every four to six hours Oxycodone Discontinued 5 MG PO EVERY 4-6 HOURS 70 May 04, 2019 September 15, 2020 11:41am predniSONE 10 mg oral tablet (6 sources) Start: 01-29-2024 End: 07-08-2024 predniSONE (Deltasone) 10 MG tablet Indications: Acute pain of right knee Every 2 day tapering dose; 5,5,4,4,3,3,2,2,1,1,0.5,0.5 31 tablet 01/29/2024 07/08/2024 Discontinued (Therapy completed) pregabalin 25 mg oral capsule (20 sources) Start: 10-01-2024 pregabalin (Ly belkis) 25 MG capsule Indications: Neurogenic pain , Lateral femoral cutaneous neuropathy, left In addition to 100mg in the morning. 90 capsule 3 10/01/2024 Active Start: 09-19-2023 End: 12-22-2024 take 1 capsule by mouth in the morning pregabalin (Lyrica) 100 MG capsule Indications: Neurogenic pain Take 1 capsule (100 mg) by mouth in the morning and 1 capsule (100 mg) before bedtime. 60 capsule 4 07/25/2024 12/22/2024 Active Start: 05-08-2023 take 1 capsule by mo uth twice daily pregabalin (Lyrica) 100 MG capsule Indications: Neurogenic pain TAKE ONE CAPSULE BY MOUTH TWICE A DAY 60 capsule 2 05/08/2023 Active take 1 capsule by mo uth twice daily Lyrica 50 MG 1 capsule Orally twice daily for 30 days Active thyroid (snf) 120 mg oral tablet (20 sources) Start: 07-13-2023 End: 01-04-2025 take 0.5 tablet by mouth in the morning thyroid ([place]) 120 MG tablet Indications: Acquired hypothyroidism (CMS/HCC) Take 0.5 tablets (60 mg) by mouth in the morning and 0.5 tablets (60 mg) in the evening. Take before meals. 90 tablet 1 07/08/2024 01/04/2025 Active Start: 04-18-2019 take 1 tablet by sayra th twice daily Thyroid (Pork) ([place] Thyroid) 60 mg Tablet Active 60 MG PO Twice daily April 18, 2019 12:00am Start: 04-18-2019 End: 09-15-2020 take 1 tablet by mouth once daily in the morning Thyroid (Pork) ([place] Thyroid) 90 mg Tablet Discontinued 90 MG [...] take 1 tablet by mouth once daily Hydrocodone-Acetami nophen Discontinued 1 TAB PO Daily September 15, [...] Advised to stop 5 days before surgery gabapentin 800 mg oral tablet (1 source) Anti-epileptic Agent Start: 04-18-2019 End: 09-15-2020 take 800 mg by mouth three times daily Gabapentin Discontinued 800 MG PO Three times daily April 18, 2019 12:00am September 15, 2020 11:41am nabumetone 750 mg oral tablet (17 sources) Nonsteroidal Anti-inflammatory Drug Start: 03-06-2024 End: 01-21-2025 take 1 tablet by mouth in the morning nabumetone (Relafen) 750 MG tablet Indications: Osteoarthritis Take 1 tablet (750 mg) by mouth in the morning and 1 tablet (750 mg) before bedtime. 180 tablet 07/25/2024 11/07/2024 Discontinued (Med list cleanup) Start: 07-25-2023 End: 01-21-2024 take 1 tablet by mouth in the morning nabumetone (Relafen) 750 MG tablet Indications: Osteoarthritis Take 1 tablet (750 mg) by mouth in the morning and 1 tablet (750 mg) before bedtime. 180 tablet 1 07/25/2023 01/21/2024 Active Problems Active Problems Problem Classification Problem Date Documented Date Episodic/Chronic Diabetes mellitus without complication (2 sources) Hyperglycemia; Translations: [Impaired fasting glucose] 07-08-2024 Episodic Disorders of lipid metabolism (2 sources) Hypertriglyceridemia; Translations: [Pure hyperglyceridemia] 07-08-2024 Chronic Genitourinary symptoms and ill-defined conditions (14 sources) Urge incontinence of urine; Translations: [Urge incontinence] Onset: 07-08-2024 07-08-2024 Chronic Malaise and fatigue (20 sources) Chronic fatigue syndrome; Translations: [Chronic fatigue, unspecified] Onset: 07-23-2015 Resolved: 07-04-2024 12-21-2022 Chronic Menopausal disorders (20 sources) Postartificial menopausal syndrome; Translations: [Other specified menopausal and perimenopausal disorders] Onset: 01-21-2016 07-18-2023 Chronic Mood disorders (20 sources) Recurrent major depression in partial remission; Translations: [Major depressive disorder, recurrent, in partial remission] Onset: 08-08-2019 08-04-2023 Chronic Nutritional deficiencies (20 sources) Vitamin D deficiency; Translations: [Vitamin D deficiency, unspecified] Onset: 01-21-2016 12-21-2022 Chronic Osteoarthritis (20 sources) Osteoarthritis of knee; Translations: [Unilateral primary osteoarthritis, right knee] Onset: 05-27-2020 08-04-2023 Chronic Other acquired deformities (3 sources) Kyphoscoliosis deformity of spine; Translations: [Scoliosis, unspecified] 05-04-2019 Chronic Other acquired deformities (2 sources) Kyphoscoliosis and scoliosis; Translations: [Scoliosis, unspecified] Chronic Other acquired deformities (18 sources) Contracture of joint of right ankle; [...] G57.10] Onset: 04-12-2021 Resolved: 04-12-2021 Chronic Other nervous system disorders (18 sources) Left leg peripheral neuropathy; Translations: [Meralgia paresthetica, left lower limb] Onset: 09-15-2023 Resolved: 09-11-2024 09-15-2023 Chronic Other nervous system disorders (16 sources) Polyneuropathy; Translations: [Polyneuropathy, unspecified] Onset: 09-15-2023 09-15-2023 Chronic Other non-traumatic joint disorders (2 sources) Pain in right knee; Translations: [Pain in joint, lower leg] 05-14-2024 Episodic Other nutritional; endocrine; and metabolic disorders (12 sources) Obesity; Translations: [Obesity, unspecified] Onset: 05-22-2018 07-08-2024 Chronic Other nutritional; endocrine; and metabolic disorders (12 sources) Morbid obesity; Translations: [Morbid (severe) obesity due to excess calories] Onset: 05-22-2018 07-18-2023 Chronic Other nutritional; endocrine; and metabolic disorders (20 sources) Body mass index 30+ - obesity; Translations: [Body mass index (BMI) 38.0-38.9, adult] Onset: 07-13-2023 07-18-2023 Chronic Other nutritional; endocrine; and metabolic disorders (2 sources) Obesity caused by energy imbalance; Translations: [Class 2 obesity due to excess calories without serious comorbidity with body mass index (BMI) of 38.0 to 38.9 in adult] 07-10-2024 Chronic Other nutritional; endocrine; and metabolic disorders (4 sources) Body mass index 40+ - severely obese; Translations: [Body mass index (BMI) 40.0-44.9, adult] Onset: 07-13-2023 09-18-2024 Chronic Rheumatoid arthritis and related disease (20 sources) Rheumatoid arthritis; Translations: [Rheumatoid arthritis, unspecified] Onset: 04-06-2015 12-21-2022 Chronic Spondylosis; intervertebral disc disorders; other back problems (4 sources) Degeneration of lumbar intervertebral disc; Translations: [Other intervertebral disc degeneration, lumbar region] Chronic Thyroid disorders (20 sources) Acquired hypothyroidism; Translations: [Hypothyroidism, unspecified] Onset: 03-15-2016 12-21-2022 Chronic Past or Other Problems Problem Classification Problem Date Documented Date Episodic/Chronic Bacterial infection; unspecified site (20 sources) Bartonellosis; 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, unspecified] Onset: 07-23-2015 12-21-2022 Episodic Complications of surgical procedures or medical care (18 sources) Complication of surgical procedure; Translations: [Unspecified complication of procedure, initial encounter] Onset: 08-04-2020 Resolved: 07-10-2024 12-21-2022 Episodic Mood disorders (4 sources) Mood disorders Onset: 09-11-2024 09-11-2024 Other acquired deformities (2 sources) Lumbar spondylolisthesis; Translations: [Spondylolisthesis, lumbar region] Episodic Other acquired deformities (2 sources) Spondylolisthesis L5/S1 level; Translations: [Spondylolisthesis, lumbosacral region] Episodic Other acquired deformities (1 source) Spondylolisthesis, lumbosacral region; Translations: [Spondylolisthesis at L5-S1 level M43.17] Onset: 03-29-2021 Resolved: 03-29-2021 Episodic Other acquired deformities (18 sources) Acquired spondylolisthesis; Translations: [Spondylolisthesis, site unspecified] Onset: 01-12-2021 12-21-2022 Episodic Other aftercare (2 sources) Pain relief by medication; Translations: [Other superintendent [employer] (current) drug therapy] Episodic Other connective tissue disease (19 sources) Neurogenic pain; Translations: [Neuralgia and neuritis, unspecified] Onset: 09-15-2023 09-15-2023 Episodic Other connective tissue disease (16 sources) Other symptoms and signs involving the musculoskeletal system; Translations: [Other musculoskeletal symptoms referable to limbs] Onset: 09-15-2023 09-15-2023 Episodic Other connective tissue disease (16 sources) History of lumbar fusion; Translations: [Arthrodesis status] Onset: 09-15-2023 09-15-2023 Episodic Other ear and sense organ disorders (20 sources) Bilateral tinnitus; Translations: [Tinnitus, bilateral] Onset: 08-26-2019 12-21-2022 Episodic Other upper respiratory infections (2 sources) Streptococcal sore throat; Translations: [Streptococcal sore throat] Episodic Residual codes; unclassified (20 sources) Sleep disorder; Translations: [Sleep disorder, unspecified] Onset: 02-11-2019 12-21-2022 Episodic Screening and history of mental health and substance abuse codes (20 sources) Ex-smoker; Translations: [Personal history of nicotine dependence] Onset: 07-23-2015 07-18-2023 Episodic Spondylosis; intervertebral disc disorders; other back problems (20 sources) Lumbosacral radiculopathy; Translations: [Radiculopathy, lumbosacral region] Onset: 08-30-2017 12-21-2022 Episodic Thyroid disorders (20 sources) Sick-euthyroid syndrome; Translations: [Sick-euthyroid syndrome] Onset: 09-11-2018 Episodic Viral infection (20 sources) Verruca plantaris; Translations: [Plantar wart] Onset: 03-27-2020 Resolved: 09-11-2024 12-21-2022 Episodic Results Test Name Value Interpretation Reference Range Facility CBC (INCLUDES DIFF/PLT)on Basophils (Bld) [#/Vol] 0.04 10*3/uL Normal 0-200 [facility] Comment on above: Performed By: #### 6 399, 7600, 68609 #### [facility] [place] [address] Manager Retail: Pal Agosto MD Basophils/100 WBC (Bld) 0.6 % Normal [facility] Comment on above: Performed By: #### 6 399, 7600, 52208 #### [facility] [place] [address] Manager Retail: Pal Agosto MD Eosinophils (Bld) [#/Vol] 0.218 10*3/uL Normal 15-500 [facility] Comment on above: Performed By: #### 6 399, 7600, 14075 #### [facility] [address] [place] [address] Manager Retail: Pal Agosto MD Eosinophils/100 WBC (Bld) 3.3 % Normal [facility] Comment on above: Performed By: #### 6 399, 7600, 06117 #### [facility] of [place] [address] Manager Retail: Pal Agosto MD Erythrocyte distribution width (RBC) [Ratio] 12.1 % Normal 11.0-15.0 [facility] Comment on above: Performed By: #### 6 399, 7600, 25681 #### [facility] of [place] [address] Manager Retail: Pal Agosto MD Hematocrit (Bld) [Volume fraction] 40.8 % Normal 35.0-45.0 [facility] Comment on above: Performed By: #### 6 399, 7600, 86144 #### [facility] [place] [address] Manager Retail: Pal Agosto MD Hemoglobin (Bld) [Mass/Vol] 14.0 g/dL Normal 11.7-15.5 [facility] Comment on above: Performed By: #### 6 399, 7600, 44037 #### [facility] [place] [address] Manager Retail: Pal Agosto MD Lymphocytes (Bld) [#/Vol] 1.782 10*3/uL Normal 850-3900 [facility] Comment on above: Performed By: #### 6 399, 7600, 69398 #### [facility] [place] [address] Manager Retail: Pal Agosto MD Lymphocytes/100 WBC (Bld) 27.0 % Normal [facility] Comment on above: Performed By: #### 6 399, 7600, 86048 #### [facility] [place] [address] Manager Retail: Pal Agosto MD MCH (RBC) [Entitic mass] 33.0 pg Normal 27.0-33.0 [facility] Comment on above: Performed By: #### 6 399, 7600, 69696 #### [facility] [place] [address] Manager Retail: Pal Agosto MD MCHC (RBC) [Mass/Vol] 34.3 g/dL Normal 32.0-36.[address] [facility] Comment on above: Result Comment: For adults, a slight decrease in the calculated MCHC value (in the range of 30 to 32 g/dL) is most likely not clinically significant; however, it should be interpreted with caution in correlation with other red cell parameters and the patient's clinical condition. Performed By: #### 6 399, 7600, 76541 #### [facility] [place] [address] Manager Retail: Pal Agosto MD MCV (RBC) [Entitic vol] 96.2 fL Normal 80.0-100.0 [facility] Comment on above: Performed By: #### 6 399, 7600, 20375 #### [facility] [place] [address] Manager Retail: Pal Agosto MD Monocytes (Bld) [#/Vol] 0.561 10*3/uL Normal 200-950 [facility] Comment on above: Performed By: #### 6 399, 7600, 45170 #### [facility] [place] [address] Manager Retail: Pal Agosto MD Monocytes/100 WBC (Bld) 8.5 % Normal [facility] Comment on above: Performed By: #### 6 399, 7600, 42103 #### [facility] [place] [address] Manager Retail: Pal Agosto MD Neutrophils (Bld) [#/Vol] 4 10*3/uL Normal 6090-4275 [facility] Comment on above: Performed By: #### 6 399, 7600, 71552 #### [facility] of [address], [address] [place] [address] Manager Retail: Pal Agosto MD Neutrophils/100 WBC (Bld) 60.6 % Normal [facility] Comment on above: Performed By: #### 6 399, 7600, 90400 #### [facility] [place] [address] Manager Retail: Pal Agosto MD Platelet mean volume (Bld) [Entitic vol] 11.8 fL Normal 7.5-12.5 [facility] Comment on above: Performed By: #### 6 399, 7600, 43174 #### [facility] [place] [address] Manager Retail: Pal Agosto MD Platelets (Bld) [#/Vol] 235 10*3/uL Normal 140-400 [facility] Comment on above: Performed By: #### 6 399, 7600, 98308 #### [facility] [place] [address] Manager Retail: Pal Agosto MD RBC (Bld) [#/Vol] 4.24 10*6/uL Normal 3.80-5.10 [facility] Comment on above: Performed By: #### 6 399, 7600, 85351 #### [facility] [place] [address] Manager Retail: Pal Agosto MD WBC (Bld) [#/Vol] 6.6 10*3/uL Normal 3.8-10.8 [facility] Comment on above: Performed By: #### 6 399, 7600, 16036 #### [facility] [place] [address] Manager Retail: Pal Agosto MD COMPREHENSIVE METABOLIC PANE [facility] 07-09-2024 Albumin [Mass/Vol] 4.5 g/dL Normal 3.6-5.1 [facility] Comment on above: Performed By: #### 6 399, 7600, 00405 #### [facility] of [address], [address] [place] [address] Manager Retail: Pal Agosto MD Albumin/Globulin [Mass ratio] 2.1 {ratio} Normal 1.0-2.5 [facility] Comment on above: Performed By: #### 6 399, 7600, 16179 #### [facility] of [address], [address] [place] [address] Manager Retail: Pal Agosto MD ALP [Catalytic activity/Vol] 73 U/L Normal 37-153 [facility] Comment on above: Performed By: #### 6 399, 7600, 32558 #### [facility] of [address], [address] [place] [address] Manager Retail: Pal Agosto MD ALT [Catalytic activity/Vol] 22 U/L Normal 6-29 [facility] Comment on above: Performed By: #### 6 399, 7600, 55957 #### [facility] of [address], [address] [place] [address] Manager Retail: Pal Agosto MD AST [Catalytic activity/Vol] 19 U/L Normal 10-35 [facility] Comment on above: Performed By: #### 6 399, 7600, 27878 #### [facility] [place] [address] Manager Retail: Pal Agosto MD Bilirubin [Mass/Vol] 0.9 mg/dL Normal 0.2-1.2 [facility] Comment on above: Performed By: #### 6 399, 7600, 25772 #### [facility] [place] [address] Manager Retail: Pal Agosto MD BUN/CREATININE RATIO SEE NOTE: Normal 6-22 [facility] Comment on above: Result Comment: Not Reported: BUN and Creatinine are within reference range. Performed By: #### 6 399, 7600, 50558 #### [facility] of [address], [address] [place] [address] Manager Retail: Pal Agosto MD Calcium [Mass/Vol] 9.3 mg/dL Normal 8.6-10.4 [facility] Comment on above: Performed By: #### 6 399, 7600, 99746 #### [facility] [place] [address] Manager Retail: Pal Agosto MD Chloride [Moles/Vol] 104 mmol/L Normal 98-110 [facility] Comment on above: Performed By: #### 6 399, 7600, 85789 #### [facility] of [address], [address] [place] [address] Manager Retail: Pal Agosto MD CO2 [Moles/Vol] 31 mmol/L Normal 20-32 [facility] Comment on above: Performed By: #### 6 399, 7600, 26309 #### [facility] [place] [address] Manager Retail: Pal Agosto MD Creatinine [Mass/Vol] 0.63 mg/dL Normal 0.50-1.[address] [facility] [address] [facility] Comment on above: Performed By: #### 6 399, 7600, 66603 #### [facility] [place] [address] Manager Retail: Pal Agosto MD GFR/1.73 sq M.predicted among non-blacks MDRD (S/P/Bld) [Vol rate/Area] 101 mL/min/{1.73_m2} Normal > OR = 60 [facility] Comment on above: Performed By: #### 6 399, 7600, 18789 #### [facility] [place] [address] Manager Retail: Pal Agosto MD Globulin (S) [Mass/Vol] 2.1 g/dL Normal 1.9-3.7 [facility] Comment on above: Performed By: #### 6 399, 7600, 41071 #### [facility] [place] [address] Manager Retail: Pal Agosto MD Glucose [Mass/Vol] 97 mg/dL Normal 65-99 [facility] Comment on above: Result Comment: Fasting reference interval Performed By: #### 6 399, 7600, 50553 #### [facility] of [address], [address] [place] [address] Manager Retail: Pal Agosto MD Potassium [Moles/Vol] 4.8 mmol/L Normal 3.5-5.[address] [facility] Comment on above: Performed By: #### 6 399, 7600, 91925 #### [facility] of [address], [address] [place] [address] Manager Retail: Pal Agosto MD Protein [Mass/Vol] 6.6 g/dL Normal 6.1-8.1 [facility] Comment on above: Performed By: #### 6 399, 7600, 79461 #### [facility] [address], [address] [place] [address] Manager Retail: Pal Agosto MD Sodium [Moles/Vol] 141 mmol/L Normal 135-146 [facility] Comment on above: Performed By: #### 6 399, 7600, 56860 #### [facility] [place] [address] Manager Retail: Pal Agosto MD Urea nitrogen [Mass/Vol] 15 mg/dL Normal 7-25 [facility] Comment on above: Performed By: #### 6 399, 7600, 27241 #### [facility] [place] [address] Manager Retail: Pal Agosto MD LIPID PANEL, STANDARD Cholesterol [Mass/Vol] 207 mg/dL High <200 [facility] Comment on above: Order Comment: FASTI NG:YES PATIENT UNABLE TO VOID; ADVISED TO RETURN FOR COLLECTION. FASTING: YES Performed By: #### 6 399, 7600, 96198 #### [facility] [place] [address] Manager Retail: Pal Agosto MD Cholesterol in HDL [Mass/Vol] 67 mg/dL Normal > OR = 50 [facility] Comment on above: Order Comment: FASTI NG:YES PATIENT UNABLE TO VOID; ADVISED TO RETURN FOR COLLECTION. FASTING: YES Performed By: #### 6 399, 7600, 85505 #### [facility] [address], [address] [place] [address] Manager Retail: Pal Agosto MD Cholesterol in LDL [Mass/Vol] 119 mg/dL High [facility] Comment on above: Order Comment: FASTI NG:YES PATIENT UNABLE TO VOID; ADVISED TO RETURN FOR COLLECTION. FASTING: YES Result Comment: Refe rence range: <100 Desirable range <100 mg/dL for primary prevention; <70 mg/dL for patients with CHD or diabetic patients with > or = 2 CHD risk factors. LDL-C is now calculated using the Josiah calculation, which is a validated novel method providing better accuracy than the Friedewald equation in the estimation of LDL-C. Ryan HORTON et al. DENNYS. 2013;310(19): 3544-0539 (http://education.Jumpzter/faq/JLD036) Performed By: #### 6 399, 7600, [id number] #### [facility] [address], [address] [place] [address] Manager Retail: Pal Agosto MD Cholesterol.total/Chol esterol in HDL [Mass ratio] 3.1 {ratio} Normal <5.0 [facility] Comment on above: Order Comment: FASTI NG:YES PATIENT UNABLE TO VOID; ADVISED TO RETURN FOR COLLECTION. FASTING: YES Performed By: #### 6 399, 7600, 12908 #### [facility] [address], [address] [place] [address] Manager Retail: Pal Agosto MD NON HDL CHOLESTEROL 140 mg/dL (calc) High <130 [facility] Comment on above: Order Comment: FASTI NG:YES PATIENT UNABLE TO VOID; ADVISED TO RETURN FOR COLLECTION. FASTING: YES Result Comment: For patients with diabetes plus 1 major ASCVD risk factor, treating to a non-HDL-C goal of <100 mg/dL (LDL-C of <70 mg/dL) is considered a therapeutic option. Performed By: #### 6 399, 7600, 62121 #### [facility] [address], [address] [place] [address] Manager Retail: Pal Agosto MD Triglyceride [Mass/Vol] 107 mg/dL Normal <150 [facility] Comment on above: Order Comment: FASTI NG:YES PATIENT UNABLE TO VOID; ADVISED TO RETURN FOR COLLECTION. FASTING: YES Performed By: #### 6 399, 7600, [id number] #### [facility] [address], [address] [place] [address] Manager Retail: Pal Agosto MD TSHon 07-09-2024 TSH Qn 0.45 m[IU]/L Normal 0.40-4.50 [facility] Comment on above: Performed By: #### 6 399, 7600, 36274 #### [facility] [address], [address] [place] [address] Manager Retail: Pal Agosto MD T3 REVERSE, LC/MS/MSon 06-27 T3 REVERSE, LC/MS/MS 10 ng/dL Normal 8-25 [facility] Comment on above: Order Comment: FASTI NG:NO FASTING: NO Result Comment: This test was developed and its analytical performance characteristics have been determined by [employer] [place], [place]. It has not been cleared or approved by the U.S. Food and Drug Administration. This assay has been validated pursuant to the CLIA regulations and is used for clinical purposes. Performed By: #### 8 99, 859, 866, [id number] #### [facility] [address], [address] [place] [address] Manager Retail: Pal Agosto MD #### [id number] #### [facility] [address] [place] [address] Manager Retail: Humble Walters M.D.,PhD T3, FREEon 06-27-2024 Free T3 [Mass/Vol] 3.6 pg/mL Normal 2.3-4.2 [facility] Comment on above: Performed By: #### 8 99, 859, 866, 24506 #### [facility] of [address], [address] [place] [address] Manager Retail: Pal Agosto MD #### [id number] #### [facility] [place] [place] Manager Retail: Humble Walters M.D.,PhD T3, TOTALon 06-27-2024 T3, TOTAL 113 ng/dL Normal 76-181 [facility] Comment on above: Performed By: #### 8 99, 859, 866, 22121 #### [facility] of [address], [address] [place] [address] Manager Retail: Pal Agosto MD #### [id number] #### [facility] [place] [place] Manager Retail: Humble Walters M.D.,PhD T4, FREE 06-27-2024 Free T4 [Mass/Vol] 0.9 ng/dL Normal 0.8-1.8 [facility] Comment on above: Performed By: #### 8 99, 859, 866, 72744 #### [facility] of [address], [address] [place] [address] Manager Retail: Pal Agosto MD #### [id number] #### [facility] [address] [place] Manager Retail: Humble Walters M.D.,PhD TSH 06-27-2024 TSH Qn 0.24 m[IU]/L Low 0.40-4.50 [facility] Comment on above: Performed By: #### 8 99, 859, 866, 78330 #### [facility] of [address], [address] [place] [address] Manager Retail: Pal Agosto MD #### [id number] #### [facility] [address] [place] Manager Retail: Humble Walters M.D.,PhD BI MAMMOGRAM SCREENING TOMOS MONIQUE BILATERALon 01-23-2024 BI MAMMOGRAM SCREENING TOMOSYNTHESIS BILATERAL [...] IS VERY IMPORTANT TO YOUR HEALTH. THE [place] [employer] GUIDELINES RECOMMEND THAT WOMEN 40 [...] 10-25-2022 BASO # 0.0 103/ul Normal 0.0-0.1 [facility] Comment on above: Performed By: #### C BC #### [facility] [address] [place] [address] Dr. Joanna Brar Basophils/100 WBC (Bld) 0.3 % Normal 0.2-2.0 [facility] Comment on above: Performed By: #### C BC #### [facility] [address] [place] [address] Dr. Joanna Brar EO # 0.3 103/ul Normal 0.0-0.7 [facility] Comment on above: Performed By: #### C BC #### [facility] [address] [place] [address] Dr. Joanna Brar Eosinophils/100 WBC (Bld) 3.2 % Normal 0.9-7.0 [facility] Comment on above: Performed By: #### C BC #### [facility] [address] [place] [address] Dr. Joanna Brar Erythrocyte distribution width (RBC) [Ratio] 12.8 % Normal 11.0-15.0 [facility] Comment on above: Performed By: #### C BC #### [facility] [address] [place] [address] Dr. Joanna Brar Hematocrit (Bld) [Volume fraction] 42.9 % Normal 36.0-48.0 [facility] Comment on above: Performed By: #### C BC #### [facility] [address] [place] [address] Dr. Joanna Brar Hemoglobin (Bld) [Mass/Vol] 14.2 g/dL Normal 12.0-16.0 [facility] Comment on above: Performed By: #### C BC #### [facility] [address] [place] [address] Dr. Joanna Brar IG # 0.02 10e3/ul Normal 0.00-0.03 [facility] Comment on above: Performed By: #### C BC #### [facility] [address] [place] [address] Dr. Joanna Brar IG % 0.2 % Normal 0.0-0.5 [facility] Comment on above: Performed By: #### C BC #### [facility] [address] [place] [address] Dr. Joanna Brar LYMPH # 2.2 103/ul Normal 1.2-3.8 [facility] Comment on above: Performed By: #### C BC #### [facility] [address] [place] [address] Dr. Joanna Brar Lymphocytes/100 WBC (Bld) 24.5 % Normal 20.5-60.0 [facility] Comment on above: Performed By: #### C BC #### [facility] [address] [place] [address] Dr. Joanna Brar MANUAL DIFF REQ NO Normal [facility] Comment on above: Performed By: #### C BC #### [facility] [address] [address] [address] Joanna Brar MCH (RBC) [Entitic mass] 32.1 pg Normal 26.7-34.0 [facility] Comment on above: Performed By: #### C BC #### [facility] [address] [place] [address] Dr. Joanna Brar MCHC (RBC) [Mass/Vol] 33.1 g/dL Normal 29.9-35.2 [facility] Comment on above: Performed By: #### C BC #### [facility] [address] [place] [address] Dr. Joanna Brar MCV (RBC) [Entitic vol] 97.1 fL Normal 81.0-99.0 [facility] Comment on above: Performed By: #### C BC #### [facility] [address] [place] [address] Dr. Joanna Brar MONO # 0.5 103/ul Normal 0.3-0.8 [facility] Comment on above: Performed By: #### C BC #### [facility] [address] [place] [address] Dr. Joanna Brar Monocytes/100 WBC (Bld) 6.1 % Normal 1.7-12.0 [facility] Comment on above: Performed By: #### C BC #### [facility] [address] [place] [address] Dr. Joanna Brar NEUT # 5.8 103/ul Normal 1.4-6.5 [facility] Comment on above: Performed By: #### C BC #### [facility] [address] [place] [address] Dr. Joanna Brar Neutrophils/100 WBC (Bld) 65.7 % Normal 43.0-75.0 [facility] Comment on above: Performed By: #### C BC #### [facility] [address] [place] [address] Dr. Joanna Brar Platelet mean volume (Bld) [Entitic vol] 10.9 fL Normal 9.5-13.5 [facility] Comment on above: Performed By: #### C BC #### [facility] [address] [address] [address] Joanna Brar PLT 265 103/ul Normal 150-450 [facility] Comment on above: Performed By: #### C BC #### [facility] [address] [place] [address] Dr. Joanna Brar RBC 4.42 106/ul Normal 4.20-5.40 [facility] Comment on above: Performed By: #### C BC #### [facility] [address] [place] [address] Dr. Joanna Brar WBC 8.8 103/ul Normal 4.0-11.0 [facility] Comment on above: Performed By: #### C BC #### [facility] [address] [place] [address] Dr. Joanna Brar PROF CHEM 8 (BAS METB)on Anion gap [Moles/Vol] 12.6 mmol/L Normal Th [facility] Comment on above: Performed By: #### B MP #### [facility] [address] [place] [address] Dr. Joanna Brar Calcium [Mass/Vol] 9.8 mg/dL Normal 8.5-10.1 [facility] Comment on above: Performed By: #### B MP #### [facility] [address] [place] [address] Dr. Joanna Brar Chloride [Moles/Vol] 103 mmol/L Normal 98-107 [facility] Comment on above: Performed By: #### B MP #### [facility] [address] [place] [address] Dr. Joanna Brar CO2 [Moles/Vol] 31.6 mmol/L Normal 21.0-32.0 [facility] Comment on above: Performed By: #### B MP #### [facility] [address] [place] [address] Dr. Joanna Brar Creatinine [Mass/Vol] 0.64 mg/dL Normal 0.55-1.02 [facility] Comment on above: Performed By: #### B MP #### [facility] [address] [address] [address] Joanna Brar EGFR-AF VENEZ[place]ELAN >60 Normal >=60 [facility] Comment on above: Performed By: #### B MP #### [facility] [id number] Joanna Brar EGFR-NON AF V[place]AN >60 Normal >=60 [facility] Comment on above: Performed By: #### B MP #### [facility] [address] [address] [address] Joanna Brar Glucose [Mass/Vol] 96 mg/dL Normal 74-106 [facility] Comment on above: Performed By: #### B MP #### [facility] [address] [address] [address] Joanna Brar Potassium [Moles/Vol] 4.2 mmol/L Normal 3.5-5.1 [facility] Comment on above: Performed By: #### B MP #### [facility] [address] [address] [address] Joanna Brar Sodium [Moles/Vol] 143 mmol/L Normal 136-145 [facility] Comment on above: Performed By: #### B MP #### [facility] [address] [address] [address] Joanna Brar Urea nitrogen [Mass/Vol] 17.0 mg/dL Normal 7.0-18.0 [facility] Comment on above: Performed By: #### B MP #### [facility] [address] [address] [address] Joanna Brar Urea nitrogen/Creatinine [Mass ratio] 26.5 mg/mg Normal [facility] Comment on above: Performed By: #### B MP #### [facility] [address] [address] [address] Joanna Brar REVERSE T3on 07-30-2022 Reverse T3, Serum 11.4 ng/dL Normal 9.2-24.1 [facility] Comment on above: Result Comment: This test was developed and its performance characteristics determined by [facility]. It has not been cleared or approved by the Food and Drug Administration. Performed By: #### R EVRT3 #### [facility] [address] [place] [address] Dr. Joanna Brar T3, TOTAL (TRIIODOTHYRONINE) on 07-26-2022 T3, TOTAL 126 ng/dL Normal 71-180 [facility] Comment on above: Performed By: #### T 3TOTAL #### [facility] [address] [place] [address] Dr. Joanna Brar FREE T3on 07-25-2022 FREE T3 2.95 pg/mlL Normal 2.18-3.98 [facility] Comment on above: Performed By: #### F T3 #### [facility] [address] [place] [address] Dr. Joanna Brar FREE T4on 07-25-2022 Free T4 [Mass/Vol] 0.63 ng/dL Critically low 0.76-1.[address] [facility] Comment on above: Performed By: #### F T4 #### [facility] [address] [place] [address] Dr. Joanna Brar Basophils Auto (Bld) [#/Vol] Ordered By: Bernardino Hernandez on 01-31-2022 Basophils (Bld) [#/Vol] 0.0 10*3/uL 0.0-0.2 [facility] Basophils/100 WBC Auto (Bld) Ordered By: Bernardino Hernandez on 01-31-2022 Basophils/100 WBC (Bld) 0.7 % . [facility] Blood hemoglobin measurement (mass/volume)Ordered By: Bernardino Hernandez on 01-31-2022 Hemoglobin (Bld) [Mass/Vol] 14.2 g/dL 11.8-15.4 [facility] Blood leukocytes automated c ount (number/volume)Ordered By: Bernardino Hernandez on 01-31-2022 WBC (Bld) [#/Vol] 5.9 10*3/uL 4.5-11.0 [facility] Body fluid albumin measureme nt (mass/volume)Ordered By: Bernardino Hernandez on 01-31-2022 Albumin (Body fld) [Mass/Vol] 3.8 g/dL 3.2-5.5 [facility] Complete Blood Count Auto Di ffon 01-31-2022 Basophils (Bld) [#/Vol] 0.0 10*3/uL Normal 0.0-0.2 [facility] Comment on above: Result Comment: PERF ORMED BY: [place] [address] PATHOLOGIST BILLING DEPARTMENT SUPERVISOR PRASHANT AYERS M.D. Performed By: #### C BC, CMP #### [address] Basophils/100 WBC (Bld) 0.7 % Normal . [facility] Comment on above: Performed By: #### C BC, CMP #### [facility] [address] Eosinophils (Bld) [#/Vol] 0.3 10*3/uL Normal 0.0-0.45 [facility] Comment on above: Performed By: #### C BC, CMP #### [address] Eosinophils/100 WBC (Bld) 4.3 % Normal . [facility] Comment on above: Performed By: #### C BC, CMP #### [address] Erythrocyte distribution width (RBC) [Ratio] 13.4 % Normal 11.9-15.3 [facility] Comment on above: Performed By: #### C BC, CMP #### [address] Hematocrit (Bld) [Volume fraction] 42.8 % Normal 34.0-46.4 [facility] Comment on above: Performed By: #### C BC, CMP #### [address] Hemoglobin (Bld) [Mass/Vol] 14.2 g/dL Normal 11.8-15.4 [facility] Comment on above: Performed By: #### C BC, CMP #### [address] [place] [address] [place] Lymphocytes (Bld) [#/Vol] 1.7 10*3/uL Normal 1.00-4.8 [facility] Comment on above: Performed By: #### C BC, CMP #### [facility] [address] [place] [address] [place] Lymphocytes/100 WBC (Bld) 28.8 % Normal . [facility] Comment on above: Performed By: #### C BC, CMP #### [address] MCH (RBC) [Entitic mass] 32.6 pg Normal 24.7-34.3 [facility] Comment on above: Performed By: #### C BC, CMP #### [address] MCV (RBC) [Entitic vol] 98.5 fL Normal 80-100 [facility] Comment on above: Performed By: #### C BC, CMP #### [address] Mean Corpuscular HGB Conc 33.1 g/dL Normal 32.0-35.0 [facility] Comment on above: Performed By: #### C BC, CMP #### [place] [address] [place] Monocytes (Bld) [#/Vol] 0.4 10*3/uL Normal 0.0-0.8 [facility] Comment on above: Performed By: #### C BC, CMP #### [place] [address] [place] Monocytes/100 WBC (Bld) 7.2 % Normal . [facility] Comment on above: Performed By: #### C BC, CMP #### [place] [address] [place] Neutrophils (Bld) [#/Vol] 3.5 10*3/uL Normal 1.8-7.7 [facility] Comment on above: Performed By: #### C BC, CMP #### [address] [address] [place] Neutrophils/100 WBC (Bld) 59.0 % Normal . [facility] Comment on above: Performed By: #### C BC, CMP #### [address] Nucleated RBC/100 WBC (Bld) [Ratio] 0.1 % Normal 0-0.5 [facility] Comment on above: Performed By: #### C BC, CMP #### [address] Platelet mean volume (Bld) [Entitic vol] 9.9 fL Normal 6.3-10.7 [facility] Comment on above: Performed By: #### C BC, CMP #### [address] Platelets (Bld) [#/Vol] 184 10*3/uL Normal 150-450 [facility] Comment on above: Performed By: #### C BC, CMP #### [address] RBC (Bld) [#/Vol] 4.35 10*6/uL Normal 3.60-5.00 [facility] Comment on above: Performed By: #### C BC, CMP #### [address] WBC (Bld) [#/Vol] 5.9 10*3/uL Normal 4.5-11.0 [facility] Comment on above: Performed By: #### C BC, CMP #### [address] Comprehensive Metabolic Pane tushar 01-31-2022 Albumin [Mass/Vol] 3.8 g/dL Normal 3.2-5.5 [facility] Comment on above: Performed By: #### C BC, CMP #### [address] Albumin/Globulin [Mass ratio] 1.7 {ratio} Normal [facility] Comment on above: Performed By: #### C BC, CMP #### [facility] [address] [place] [address] ALP [Catalytic activity/Vol] 66 U/L Normal 32-92 [facility] Comment on above: Result Comment: PERF ORMED BY: [place] [address] PATHOLOGIST BILLING DEPARTMENT SUPERVISOR PRASHANT AYERS M.D. Performed By: #### C BC, CMP #### [address] ALT [Catalytic activity/Vol] 27 U/L Normal 10-60 [facility] Comment on above: Performed By: #### C BC, CMP #### [facility] [address] [place] [address] AST [Catalytic activity/Vol] 26 U/L Normal 10-42 [facility] Comment on above: Performed By: #### C BC, CMP #### [address] Bilirubin [Mass/Vol] 0.8 mg/dL Normal 0.3-1.2 [facility] Comment on above: Performed By: #### C BC, CMP #### [place] [address] [place] Calcium [Mass/Vol] 9.7 mg/dL Normal 8.2-10.2 [facility] Comment on above: Performed By: #### C BC, CMP #### [facility] [address] [place] [address] [place] Chloride [Moles/Vol] 103 mmol/L Normal 95-114 [facility] Comment on above: Performed By: #### C BC, CMP #### [facility] [address] [place] [address] [place] CO2 [Moles/Vol] 28.3 mmol/L Normal 22.0-30.0 [facility] Comment on above: Performed By: #### C BC, CMP #### [facility] [address] [place] [address] Creatinine [Mass/Vol] 0.71 mg/dL Normal 0.44-1.03 [facility] Comment on above: Performed By: #### C BC, CMP #### [facility] [address] [place] [address] [place] Estimated GFR ( Vivienne > 60 [facility] Comment on above: Result Comment: GFR estimated reference range: According to KDOQI guidelines, <60 ml/min/1.73m2 is sufficient to diagnose a patient with chronic kidney disease. Performed By: #### C BC, CMP #### [facility] [address] [place] [address] [place] Estimated GFR (Non- Am > 60 [facility] Comment on above: Performed By: #### C BC, CMP #### [facility] [address] Globulin (S) [Mass/Vol] 2.3 g/dL [facility] Comment on above: Performed By: #### C BC, CMP #### [address] Glucose [Mass/Vol] 97 mg/dL Normal 70-100 [facility] Comment on above: Result Comment: [place] Glucose Reference Range is dependent on time and content of last meal. Glucose of more than 200 mg/dL in a nonstressed, ambulatory subject supports the diagnosis of Diabetes Mellitus. ADA recommended reference range Performed By: #### C BC, CMP #### [facility] [address] Potassium [Moles/Vol] 5.1 mmol/L Normal 3.5-5.1 [facility] Comment on above: Performed By: #### C BC, CMP #### [facility] [address] [place] [address] [place] Protein [Mass/Vol] 6.1 g/dL Normal 6.1-7.9 [facility] Comment on above: Performed By: #### C BC, CMP #### [facility] [address] [place] [address] [place] Sodium [Moles/Vol] 139 mmol/L Normal 136-146 [facility] Comment on above: Performed By: #### C BC, CMP #### [facility] [address] [id number] [place] Urea nitrogen [Mass/Vol] 11 mg/dL Normal 9-23 [facility] Comment on above: Performed By: #### C BC, CMP #### [facility] [address] [id number] [place] Creatinine and Glomerular fi ltration rate.predicted panel (S/P/Bld)Ordered By: Bernardino Hernandez on 01-31-2022 Creatinine [Mass/Vol] 0.71 mg/dL 0.44-1.03 [facility] Eosinophils Auto (Bld) [#/Vo l]Ordered By: Bernardino Hernandez on 01-31-2022 Eosinophils (Bld) [#/Vol] 0.3 10*3/uL 0.0-0.45 [facility] Eosinophils/100 WBC Auto (Bl d)Ordered By: Bernardino Hernandez on 01-31-2022 Eosinophils/100 WBC (Bld) 4.3 % . [facility] Erythrocyte distribution wid th Auto (RBC) [Ratio]Ordered By: Bernardino Hernandez on 01-31-2022 Erythrocyte distribution width (RBC) [Ratio] 13.4 % 11.9-15.3 [facility] Estimated glomerular filtrat ion rate (GFR) non- AmericanOrdered By: Bernardino Hernandez on 01-31-2022 GFR/1.73 sq M.predicted among non-blacks MDRD (S/P/Bld) [Vol rate/Area] > 60 mL/Min [facility] Globulin Calc (S) [Mass/Vol] Ordered By: Bernardino Hernandez on 01-31-2022 Globulin (S) [Mass/Vol] 2.3 g/dL [facility] Hematocrit Auto (Bld) [Volum e fraction]Ordered By: Bernardino Hernandez on 01-31-2022 Hematocrit (Bld) [Volume fraction] 42.8 % 34.0-46.4 [facility] - Hematology and Cell countsOrdered By: Bernardino Hernandez on 01-31-2022 Nucleated RBC/100 WBC (Bld) [Ratio] 0.1 % 0-0.5 [facility] Lymphocytes Auto (Bld) [#/Vo l]Ordered By: Bernardino Hernandez on 01-31-2022 Lymphocytes (Bld) [#/Vol] 1.7 10*3/uL 1.00-4.8 [facility] Lymphocytes/100 WBC Auto (Bl d)Ordered By: Bernardino Hernandez on 01-31-2022 Lymphocytes/100 WBC (Bld) 28.8 % . [facility] MCH Auto (RBC) [Entitic mass ]Ordered By: Bernardino Hernandez on 01-31-2022 MCH (RBC) [Entitic mass] 32.6 pg 24.7-34.3 [facility] MCHC Auto (RBC) [Mass/Vol]Or dered By: Bernardino Hernandez on 01-31-2022 MCHC (RBC) [Mass/Vol] 33.1 g/dL 32.0-35.0 [facility] MCV Auto (RBC) [Entitic vol] Ordered By: Bernardino Hernandez on 01-31-2022 MCV (RBC) [Entitic vol] 98.5 fL 80-100 [facility] Monocytes Auto (Bld) [#/Vol] Ordered By: Bernardino Hernandez on 01-31-2022 Monocytes (Bld) [#/Vol] 0.4 10*3/uL 0.0-0.8 [facility] Monocytes/100 WBC Auto (Bld) Ordered By: Bernardino Hernandez on 01-31-2022 Monocytes/100 WBC (Bld) 7.2 % . [facility] Neutrophils Auto (Bld) [#/Vo l]Ordered By: Bernardino Hernandez on 01-31-2022 Neutrophils (Bld) [#/Vol] 3.5 10*3/uL 1.8-7.7 [facility] Neutrophils/100 WBC Auto (Bl d)Ordered By: Bernardino Hernandez on 01-31-2022 Neutrophils/100 WBC (Bld) 59.0 % . [facility] No Panel InformationOrdered By: Bernardino Hernandez on 01-31-2022 Estimated GFR () > 60 mL/Min [facility] Comment on above: GFR estimated refere nce range: According to KDOQI guidelines, <60 ml/min/1.73m2 is sufficient to diagnose a patient with chronic kidney disease. Pharmacy Creatinine Clearance (Chem N/A [facility] Platelet mean volume Auto (B ld) [Entitic vol]Ordered By: Bernardino Hernandez on 01-31-2022 Platelet mean volume (Bld) [Entitic vol] 9.9 fL 6.3-10.7 [facility] Platelets Auto (Bld) [#/Vol] Ordered By: Bernardino Hernandez on 01-31-2022 Platelets (Bld) [#/Vol] 184 10*3/uL 150-450 [facility] Protein [Mass/volume] in Ser um or PlasmaOrdered By: Bernardino Hernandez on 01-31-2022 Protein [Mass/Vol] 6.1 g/dL 6.1-7.9 [facility] RBC Auto (Bld) [#/Vol]Ordere d By: Bernardino Hernandez on 01-31-2022 RBC (Bld) [#/Vol] 4.35 10*6/uL 3.60-5.00 [facility] Serum or plasma alanine tidwell otransferase measurement without P-5'-P (enzymatic activiOrdered By: Bernardino Hernandez on 01-31-2022 ALT No additional P-5'-P [Catalytic activity/Vol] 27 U/L 10-60 [facility] Serum or plasma albumin/glob ulin mass ratioOrdered By: Bernardino Hernandez on 01-31-2022 Albumin/Globulin [Mass ratio] 1.7 {ratio} [facility] Serum or plasma alkaline julissa sphatase measurement (enzymatic activity/volume)Ordered By: Bernardino Hernandez on 01-31-2022 ALP [Catalytic activity/Vol] 66 U/L 32-92 [facility] Serum or plasma aspartate am inotransferase measurement (enzymatic activity/volume)Ordered By: Bernardino Hernandez on 01-31-2022 AST [Catalytic activity/Vol] 26 U/L 10-42 [facility] Serum or plasma calcium kaylen urement (mass/volume)Ordered By: Bernardino Hernandez on 01-31-2022 Calcium [Mass/Vol] 9.7 mg/dL 8.2-10.2 [facility] Serum or plasma chloride govind surement (moles/volume)Ordered By: Bernardino Hernandez on 01-31-2022 Chloride [Moles/Vol] 103 mmol/L 95-114 [facility] Serum or plasma glucose kaylen urement (mass/volume)Ordered By: Bernardino Hernandez on 01-31-2022 Glucose [Mass/Vol] 97 mg/dL 70-100 [facility] Comment on above: ADA recommended refe rence range Random Glucose Reference Range is dependent on time and content of last meal. Glucose of more than 200 mg/dL in a nonstressed, ambulatory subject supports the diagnosis of Diabetes Mellitus. Serum or plasma potassium me asurement (moles/volume)Ordered By: Bernardino Hernandez on 01-31-2022 Potassium [Moles/Vol] 5.1 mmol/L 3.5-5.1 [facility] Serum or plasma sodium measu rement (moles/volume)Ordered By: Bernardino Hernandez on 01-31-2022 Sodium [Moles/Vol] 139 mmol/L 136-146 [facility] Serum or plasma total biliru bin measurement (mass/volume)Ordered By: Bernardino Hernandez on 01-31-2022 Bilirubin [Mass/Vol] 0.8 mg/dL 0.3-1.2 [facility] Serum or plasma total carbon dioxide measurement (moles/volume)Ordered By: Bernardino Hernandez on 01-31-2022 CO2 [Moles/Vol] 28.3 mmol/L 22.0-30.0 [facility] Serum or plasma urea nitroge n measurement (mass/volume)Ordered By: Bernardino Hernandez on 01-31-2022 Urea nitrogen [Mass/Vol] 11 mg/dL 9-23 [facility] Free T3on 07-19-2021 Free T3 [Mass/Vol] 3.2 pg/mL Normal 2.3-4.2 [facility] [place] [employer] Comment on above: Order Comment: [facility] Testing performed at: Q, [facility], [address], [address] [place] [address], [phone], Machine Stripper Cutter: Pal Agosto MD [facility] Collection Date/Time: [id number] [facility] Results Received Date/Time: [id number] [facility] Reported Date/Time: Performed By: #### F T3, FT4, TSH #### [facility] [address] [place] [address] Free T4on 07-19-2021 Free T4 [Mass/Vol] 0.9 ng/dL Normal 0.8-1.8 [facility] Specialist Comment on above: Order Comment: [facility] performed at: [employer], [employer] [facility], [address] [facility], [address] [place] [address], [phone], Machine Stripper Cutter: Pal Agosto MD [facility] Collection Date/Time: [facility] Results Received Date/Time: [facility] Reported Date/Time: Performed By: #### F T3, FT4, TSH #### [facility] [address] [place] [address] Q - T3 TOTALon 07-19-2021 T3, TOTAL 130 ng/dL Normal 76-181 [facility] Specialist Comment on above: Order Comment: [facility] performed at: [employer] [facility], [address] [facility], [address] [place] [address], [phone], Machine Stripper Cutter: Pal Agosto MD [facility] Collection Date/Time: [facility] Results Received Date/Time: [facility] Reported Date/Time: Performed By: #### 8 59X, [id number] #### [facility] [address] [place] [address] Q - T3,REVERSE,LC/MS/MSon T3 REVERSE, LC/MS/MS 9 ng/dL Normal 8-25 [facility] [employer] Comment on above: Order Comment: [facility] performed at: [facility], [employer], [address], [place], [place], , Machine Stripper Cutter: Humble Walters M.D.,PhD [facility] Collection Date/Time: [facility] Results Received Date/Time: [facility] Reported Date/Time: Result Comment: This test was developed and its analytical performance characteristics have been determined by [employer] [place], [place]. It has not been cleared or approved by the U.S. Food and Drug Administration. This assay has been validated pursuant to the CLIA regulations and is used for clinical purposes. Performed By: #### 8 59X, [address] #### [facility] [address] [place] [address] TSHon 07-19-2021 TSH Qn 1.09 m[IU]/L Normal 0.40-4.50 [facility] [employer] Comment on above: Order Comment: [facility] performed at: [facility], [facility], [address] [facility], [address] [place] [address], [phone], Machine Stripper Cutter: Pal Agosto MD [facility] Collection Date/Time: [id number] [facility] Results Received Date/Time: [facility] Reported Date/Time: Performed By: #### F T3, FT4, TSH #### [facility] [address] [place] [address] MR lumbar spine wo/w conon 1 MR lumbar spine wo/w con [facility] [employer] [facility] [employer] Other MR lumbar spine wo/w con [facility] [employer] Other MR lumbar spine wo/w con [address] [facility] Copyright Agent Other MR lumbar spine wo/[place] [address] [employer] [facility] [employer] Other MR lumbar spine wo/w con MRI Report Copyright Agent Other MR lumbar spine wo/w con Signed Copyright Agent Other MR lumbar spine wo/w con Patient: Isidra Paredes MR#: [id number] Copyright Agent Other MR lumbar spine wo/w con 913 Copyright Agent Other MR lumbar spine wo/w con : 1965 Acct:[id number] Copyright Agent Other MR lumbar spine wo/w con Age/Sex: 55 / F ADM Date: 04/07/21 Copyright Agent Other MR lumbar spine wo/w con Loc: MR Room: Type: [facility] Copyright Agent Other MR lumbar spine wo/w con Attending Dr: Trevor De Anda MD Copyright Agent Other MR lumbar spine wo/w con Ordering Provider: Trevor De Anda MD Copyright Agent Other MR lumbar spine wo/w con Date of Service: 04/07/21 Copyright Agent Other MR lumbar spine wo/w con MR/MR lumbar spine wo/w con: Spondylolisthesis at L5-S1 level Copyright Agent Other MR lumbar spine wo/w con Copies to: Trevor De Anda MD Copyright Agent Other MR lumbar spine wo/w con MR lumbar spine wo/w con 04/07/2021 8:24 PM Copyright Agent Other MR lumbar spine wo/w con SIGNS AND SYMPTOMS: Spondylolisthesis L5-S1, right leg numbness with left leg pain Copyright Agent Other MR lumbar spine wo/w con PROTOCOL: Multiplanar multisequence MR images of the lumbar spine were obtained with and without IV Copyright Agent Other MR lumbar spine wo/w con contrast Copyright Agent Other MR lumbar spine wo/w con CONTRAST: 20 mL of intravenous ProHance Copyright Agent Other MR lumbar spine wo/w con COMPARISON: 09/20/2019 GOOM Other MR lumbar spine wo/w con FINDINGS: The bones of the lumbar spine are in anatomic alignment. There is posterior fusion Copyright Agent Other MR lumbar spine wo/w con hardware from L1 through S1 with fusion across L5-S1 being new compared to the prior study. Copyright Agent Other MR lumbar spine wo/w con Intervertebral fusion body is are present throughout the lumbar spine. The marrow signal is within Copyright Agent Other MR lumbar spine wo/w con normal limits. The conus terminates at the superior endplate of the L2 vertebral body level. No Copyright Agent Other MR lumbar spine wo/w con epidural or paraspinous fluid collection is appreciated. No abnormal postcontrast enhancement. Copyright Agent Other MR lumbar spine wo/w con At T12-L1: There is a normal disc, central canal, and neural foramen. Copyright Agent Other MR lumbar spine wo/w con At L1-L2: There is a normal disc, central canal, and neural foramen. Copyright Agent Other MR lumbar spine wo/w con At L2-L3: There is a normal disc, central canal, and neural foramen. Copyright Agent Other MR lumbar spine wo/w con At L3-L4: There is a normal disc, central canal, and neural foramen. Copyright Agent Other MR lumbar spine wo/w con At L4-L5: There is residual endplate osteophyte formation with mild facet degenerative change Copyright Agent Other MR lumbar spine wo/w con contributing to mild bilateral neural foraminal narrowing. Copyright Agent Other MR lumbar spine wo/w con At L5-S1: There is a residual broad-based disc bulge with facet hypertrophy. There is moderate Copyright Agent Other MR lumbar spine wo/w con bilateral neural foraminal narrowing, right greater than left. Copyright Agent Other MR lumbar spine wo/w con MR/MR lumbar spine wo/w con Copyright Agent Other MR lumbar spine wo/w con IMPRESSION: Copyright Agent Other MR lumbar spine wo/w con There has been interval extension of fusion hardware now spanning across L5-S1. Fusion hardware Copyright Agent Other MR lumbar spine wo/w con extends from L1 through S1. Copyright Agent Other MR lumbar spine wo/w con contributing to mild bilateral neural foraminal narrowing. This is unchanged. Copyright Agent Other MR lumbar spine wo/w con bilateral neural foraminal narrowing, right greater than left. This is slightly worse on the right Copyright Agent Other MR lumbar spine wo/w con when compared to the prior exam. Copyright Agent Other MR lumbar spine wo/w con There is no abnormal postcontrast enhancement. Copyright Agent Other MR lumbar spine wo/w con Impression dictated by: Len Sin M.D.04/08/2021 9:23 AM Copyright Agent Other MR lumbar spine wo/w con Dictation Location: [place] [address] Copyright Agent Other MR lumbar spine wo/w con Transcribed By: [facility] 04/08/21 09 Copyright Agent Other MR lumbar spine wo/w con Dictated By: Len Sin II, MD 04/08/21 0910 Copyright Agent Other MR lumbar spine wo/w con Signed By: Copyright Agent Other MR lumbar spine wo/w con 04/08/21 0919 Copyright Agent Other MR lumbar spine wo/w con [facility] [address] [place] [address] [place], [place] [address] MRI Report Signed Patient: Isidra Paredes MR#: [id number] : 1965 Acct:[id number] Age/Sex: 55 / F ADM Date: 04/07/21 Loc: MR Room: Type: [facility] Attending Dr: Trevor De Anda MD Ordering [...] Len Sin M.D.04/08/2021 9:23 AM Dictation Location: RADIO--07 Transcribed By: JUNITO 04/08/21922 Dictated By: Len Sin II, MD 04/08/2110 Signed By: 04/08/[address] [facility] XR lumbar spine 2-3V*on 03-04 XR lumbar spine 2-3V* [facility] [place] [address] XRay Report Signed Patient: Isidra Paredes MR#: [id number] : 1965 Acct:[id number] Age/Sex: 55 / F ADM Date: 03/29/21 Loc: XD Room: Type: [facility] Attending Dr: Trevor De Anda MD Ordering [...] Len Sin M.D.03/29/2021 1:47 PM Dictation Location: RADIO-PC-12 Transcribed By: JUNITO 03/29/21 1347 Dictated By: Len Sin II, MD 03/29/21 1345 Signed By: 03/29/21 1347 [facility] CNOVon 01-28-2020 CNOV Office Visit (ORAVON ) ISIDRA PAREDES ([id number]) 1965 F Date Time Provider Department 01/28/20 [...] Date Reviewed: 02/25/2014 Reviewed by: Jeana Cason [facility] - Fully Assessed Reason for Visit: eval [...] by LILIANA HANKINS MD on 01/28/20 Normal [facility] PROGRESSon 01-28-2020 PROGRESS HNO ID: [id number] Author: Liliana Hankins Service: ? Author Type: [...] evidence of loosening. Provider: Liliana Hankins MD Normal [facility] PROGRESS HNO ID: [id number] Author: Michelle Gazron (Rt) Service: ? Author Type: Cap Machine Operator Type: Progress Notes Filed: 01/28/2020 8:48 AM [...] RT Duran January 28, 2020 8:48 AM [facility] XR HIP 3V PELV+ AP/LAT LTon [...] without apparent complication. Other findings, as described. Emergency Room Rn: PSCB Transcribe Date/Time: Jan 28 2020 9:42A Dictated by : DERRICK BALLESTEROS MD This examination was interpreted and the report reviewed and electronically signed by: DERRICK BALLESTEROS MD on Jan 28 2020 9:45AM EST [id number] Normal [facility] Vital Signs Date Time Vital Sign Value Performing Clinician Facility 10-01-2024 17:08-0400 Body height 172.7 cm Len Smart MD Work Phone: [facility] 10-01-2024 17:08-0400 Body mass index (BMI) [Ratio] 39.53 kg/m2 Len Smart MD Work Phone: [facility] 10-01-2024 17:08-0400 Body weight 117.94 kg Len Smart MD Work Phone: [facility] 10-01-2024 17:08-0400 Diastolic blood pressure 82 mm[Hg] Len Smart MD Work Phone: [facility] 10-01-2024 17:08-0400 Systolic blood pressure 152 mm[Hg] Len Smart MD Work Phone: [facility] 07-25-2023 10:27-0500 Body height 172.7 cm Isidro Mathur MD Work Phone: [facility] 07-25-2023 10:27-0500 Body mass index (BMI) [Ratio] 38.77 kg/m2 Isidro Mathur MD Work Phone: [facility] 07-25-2023 10:27-0500 Body weight 115.67 kg Isidro Mathur MD Work Phone: [facility] 04-12-2021 11:30-0400 Body height 172.72 cm Trevor Patelmaryjennifer Other Copyright Agent Other 04-12-2021 11:30-0400 Body mass index (BMI) [Ratio] 34.97 kg/m2 Trevor Pateladams Other Copyright Agent Other 04-12-2021 11:30-0400 Body weight 104.33 kg Trevor Patelmaryjennifer Other Copyright Agent Other 04-12-2021 11:30-0400 Diastolic blood pressure 69 mm[Hg] Trevor Adilson Other Copyright Agent Other 04-12-2021 11:30-0400 Systolic blood pressure 127 mm[Hg] Trevor Patelmaryjennifer Other Copyright Agent Other 03-29-2021 14:30-0400 Body height 172.72 cm Trevor De Anda Other Copyright Agent Other 03-29-2021 14:30-0400 Body mass index (BMI) [Ratio] 34.97 kg/m2 Trevor Patelmaryjennifer Other Copyright Agent Other 03-29-2021 14:30-0400 Body weight 104.33 kg Trevor Patelmaryjennifer Other Copyright Agent Other Encounters Encounter Date Encounter Type Care Provider Facility Start: 11-07-2024 End: 11-07-2024 Telephone encounter October Li [facility] FM 100 Comment on above: Care Coordination Start: 10-21-2024 End: 10-21-2024 ambulatory Andtucker Peter MD Facility: [facility] Start: 10-01-2024 End: 10-01-2024 Office outpatient visit 25 minutes Len Smart MD Work Phone: [facility] Comment on above: Neurogenic pain (Jennifer rbuina Dx); Lateral femoral cutaneous neuropathy, left Start: 10-01-2024 End: 10-01-2024 ambulatory LEN SMART Not Available Start: 10-01-2024 End: 10-01-2024 Bamboo flowsheet Len Smart MD Work Phone: [facility] Start: 10-01-2024 End: 10-01-2024 Bamboo flowsheet Len Smart MD Work Phone: [facility] Start: 09-11-2024 End: 09-12-2024 ambulatory ISIDRO MATHUR Not Available Start: 09-11-2024 End: 09-11-2024 Bamboo flowsheet Isidro Mathur MD Work Phone: [facility] 100 Start: 09-11-2024 End: 09-11-2024 Bamboo flowsheet Isidro Mathur MD Work Phone: [facility] 100 Start: 07-25-2024 End: 07-25-2024 Cody Burrell MA [facility] 111 Comment on above: Neurogenic pain Start: 07-16-2024 End: 07-16-2024 Bamboo flowsheet Isidro Mathur MD Work Phone: [facility] 100 Start: 07-16-2024 End: 07-16-2024 Bamboo flowsheet Isidro Mathur MD Work Phone: [facility] 100 Start: 07-16-2024 End: 07-16-2024 Office outpatient visit 15 minutes Isidro Mathur MD Work Phone: [facility] 100 Comment on above: Recurrent major depr essive disorder, in partial remission (HCC) (CMS/HCC); Former smoker, stopped smoking many years ago; Class 2 obesity due to excess calories without serious comorbidity with body mass index (BMI) of 38.0 to 38.9 in adult; BMI 38.0-38.9,adult Start: 07-16-2024 End: 07-16-2024 ambulatory ISIDRO MATHUR Not Available Start: 07-08-2024 End: 07-08-2024 Bamboo flowsheet Isidro Mathur MD Work Phone: [facility] 100 Start: 07-08-2024 End: 07-08-2024 Bamboo flowsheet Isidro Mathur MD Work Phone: [facility] 100 Start: 07-08-2024 End: 07-16-2024 Refill Isidro Mathur MD Work Phone: [facility] 100 Comment on above: Acquired hypothyroid ism (CMS/HCC) Start: 07-08-2024 End: 07-08-2024 Office outpatient visit 25 minutes Isidro Mathur MD Work Phone: [facility] 100 Comment on above: Acquired hypothyroid ism (CMS/HCC) (Primary Dx); ESS (euthyroid sick syndrome); Chronic fatigue; Class 2 obesity without serious comorbidity in adult, unspecified BMI, unspecified obesity type; BMI 38.0-38.9,adult; Elevated fasting blood sugar; High triglycerides (CMS/HCC); Urge incontinence of urine Start: 07-08-2024 End: 07-08-2024 ambulatory ISIDRO MATHUR Not Available Start: 05-14-2024 End: 05-14-2024 Bamboo flowsheet Ahmet Castro DO Work Phone: [facility] Start: 05-14-2024 End: 05-14-2024 Bamboo flowsheet Ahmet Castro DO Work Phone: [facility] Start: 05-14-2024 End: 05-14-2024 Office outpatient visit 10 minutes Ahmet Castro DO Work Phone: [facility] Comment on above: Chronic pain of righ t knee (Primary Dx); Arthritis of right knee Start: 05-14-2024 End: 05-14-2024 ambulatory AHMET CASTRO Not Available Start: 04-01-2024 End: 04-01-2024 ambulatory Zeina Peter MD Facility:[facility] Start: 03-11-2024 End: 03-11-2024 ambulatory Zeina Peter MD Facility:[facility] Start: 02-12-2024 End: 02-12-2024 ambulatory AGATA BELTRAN Not Available Start: 01-29-2024 End: 01-29-2024 ambulatory ISIDRO MATHUR Not Available Start: 01-23-2024 End: 01-23-2024 ambulatory ISIDRO MATHUR Not Available Start: 01-16-2024 End: 01-16-2024 ambulatory ISIDRO MATHUR Not Available Start: 01-09-2024 End: 01-09-2024 ambulatory ISIDRO MATHUR Not Available Start: 07-25-2023 End: 07-25-2023 Office outpatient visit 15 minutes Isidro Mathur MD Work Phone: [facility] Comment on above: Recurrent major depr essive disorder, in remission (HCC) (CMS/HCC) (Primary Dx); Arthritis of right knee; Artificial menopause; Former smoker, stopped smoking many years ago; Morbid obesity due to excess calories (CMS/HCC); BMI 38.0-38.9,adult Start: 10-29-2022 Encounter for other preprocedural examination JESUS SANDS [facility] Start: 10-29-2022 Encounter for preprocedural laboratory examination JESUS SANDS [facility] Start: 10-29-2022 Encounter for preprocedural respiratory examination JESUS SANDS [facility] Start: 10-25-2022 End: 10-26-2022 ambulatory JESUS SANDS Facility:[facility] Start: 10-25-2022 End: 10-26-2022 Encounter for other preprocedural examination JESUS SANDS Facility:[facility] Start: 07-25-2022 End: 07-26-[address] ISIDRO MATHUR . Facility:[facility] Start: 01-31-2022 End: 01-31-2022 Patient encounter procedure MD Isidro Mathur Work Phone: [facility] [address] Start: 04-12-2021 Office outpatient vi sit 15 minutes Trevor De Anda [facility] Start: 03-29-2021 Office outpatient vi sit 15 minutes Trevor De Anda [facility] Procedures Date Procedure Procedure Detail Performing Clinician Start: 01-23-2024 Mammography Ahmet wu DO Work Phone: Start: 01-13-2023 Mammography Isidro bower MD Work Phone: Start: 09-15-2015 Colonoscopy Isidro bower MD Work Phone: History of total hysterectomy Trevor De Anda Other Plan of Treatment Date Care Activity Detail Author Start: 09-14-2025 Screening for malign ant neoplasm of colon [facility] Start: 09-11-2025 Medicare Annual Well ness (AWV) Medicare Annual Wellness (AWV) [facility] Start: 03-03-2025 Influenza vaccination Influenz a Vaccine (Season Ended) [facility] Start: 01-22-2025 Screening for malign ant neoplasm of breast Mammogram [facility] Start: 01-08-2025 End: 01-08-2025 Patient encounter procedure [facility] Start: 01-05-2025 End: 07-08-2025 T3, reverse T3, reverse Lab Routine ESS (euthyroid sick syndrome) Chronic fatigue Expected: 01/05/2025 (Approximate), Expires: 07/08/2025 [facility] Comment on above: Expected: 01/05/2025 (Approximate), Expires: 07/08/2025 Start: 01-05-2025 End: 07-08-2025 Thyrotropin [Units/volume] in Serum or Plasma TSH Lab Routine Acquired hypothyroidism (CMS/HCC) Chronic fatigue Expected: 01/05/2025 (Approximate), Expires: 07/08/2025 [facility] Comment on above: Expected: 01/05/2025 (Approximate), Expires: 07/08/2025 Start: 01-05-2025 End: 07-08-2025 Thyroxine (T4) free [Mass/volume] in Serum or Plasma T4, free Lab Routine Acquired hypothyroidism (CMS/HCC) Chronic fatigue Expected: 01/05/2025 (Approximate), Expires: 07/08/2025 [facility] Comment on above: Expected: 01/05/2025 (Approximate), Expires: 07/08/2025 Start: 01-05-2025 End: 07-08-2025 Triiodothyronine (T3) [Mass/volume] in Serum or Plasma T3 Lab Routine ESS (euthyroid sick syndrome) Chronic fatigue Expected: 01/05/2025 (Approximate), Expires: 07/08/2025 [facility] Comment on above: Expected: 01/05/2025 (Approximate), Expires: 07/08/2025 Start: 01-05-2025 End: 07-08-2025 Triiodothyronine (T3) Free [Mass/volume] in Serum or Plasma T3, free Lab Routine ESS (euthyroid sick syndrome) Chronic fatigue Expected: 01/05/2025 (Approximate), Expires: 07/08/2025 [facility] Comment on above: Expected: 01/05/2025 (Approximate), Expires: 07/08/2025 Start: 12-26-2024 End: 12-26-2024 Patient encounter procedure [facility] Start: 12-03-2024 End: 12-03-2024 Patient encounter procedure 12/03/2024 11:45 AM EDT Office Visit [facility] [address] [phone] Len Smart MD [address] [id number] [facility] Start: 10-01-2024 End: 10-01-2024 Patient encounter procedure 10/01/2024 4:45 PM EDT Office Visit [facility] [address] [facility] [address] [place], [place] [address] Len Smart MD [address] [id number] Arrived [facility] Comment on above: Arrived Start: 09-17-2024 End: 09-17-2024 Patient encounter procedure 09/17/2024 9:30 AM EDT Office Visit [facility] [address] [facility] [address] [place] [address] Len Smart MD [address] [facility] [address] [place] [address] [facility] Start: 09-11-2024 End: 09-11-2024 Patient encounter procedure 09/11/2024 4:30 PM EDT Office Visit [facility] 100 112 [facility] [address] [place] [address] Isidro Mathur MD 112 [facility] [address] [place] [address] Welcome to Medicare preventive visit; Advance directive discussed with patient; Encounter for screening for other disorder; Screening for alcohol problem; Screening mammogram, encounter for; Screening for osteoporosis; Menopause; Class 2 obesity due to excess calories without serious comorbidity with body mass index (BMI) of 38.0 to 38.9 in adult [facility] 100 Comment on above: Welcome to Medicare preventive visit; Advance directive discussed with patient; Encounter for screening for other disorder; Screening for alcohol problem; Screening mammogram, encounter for; Screening for osteoporosis; Menopause; Class 2 obesity due to excess calories without serious comorbidity with body mass index (BMI) of 38.0 to 38.9 in adult Start: 07-16-2024 End: 07-16-2024 Patient encounter procedure [facility] 100 Comment on above: Recurrent major depr essive disorder, in remission (HCC) (CMS/HCC); Former smoker, stopped smoking many years ago; Class 2 obesity due to excess calories without serious comorbidity with body mass index (BMI) of 38.0 to 38.9 in adult; BMI 38.0-38.9,adult Start: 07-08-2024 End: 07-08-2025 CBC W Auto Differential panel - Blood CBC and differential Lab Routine Chronic fatigue Expected: 07/08/2024 (Approximate), Expires: 07/08/2025 [facility] Comment on above: Expected: 07/08/2024 (Approximate), Expires: 07/08/2025 Start: 07-08-2024 End: 07-08-2025 Comprehensive metabolic 2000 panel - Serum or Plasma Comprehensive metabolic panel Lab Routine Chronic fatigue Elevated fasting blood sugar Expected: 07/08/2024 (Approximate), Expires: 07/08/2025 [facility] Work Phone: Comment on above: Expected: 07/08/2024 (Approximate), Expires: 07/08/2025 Start: 07-08-2024 End: 07-08-2025 Lipid 1996 panel - Serum or Plasma Lipid panel Lab Routine High triglycerides (CMS/HCC) Expected: 07/08/2024 (Approximate), Expires: 07/08/2025 [facility] Comment on above: Expected: 07/08/2024 (Approximate), Expires: 07/08/2025 Start: 07-08-2024 End: 07-08-2024 Patient encounter procedure [facility] 100 Comment on above: ESS (euthyroid sick syndrome); Acquired hypothyroidism (CMS/HCC); Chronic fatigue; Morbid obesity due to excess calories (CMS/HCC); BMI 38.0-38.9,adult Start: 03-03-2024 Influenza vaccination Influenza Vacc ine (#1) [facility] Start: 01-16-2024 End: 01-16-2024 Patient encounter procedure 01/16/2024 10:00 AM EDT Office Visit [facility] [address] [place] [address] Isidro Mathur MD [address] [place] [address] [facility] Start: 01-14-2024 Screening for malign ant neoplasm of breast Mammogram [facility] Start: 01-09-2024 End: 01-09-2024 Patient encounter procedure 01/09/2024 10:00 AM EDT Office Visit [facility] [address] [place] [address] Isidro Mathur MD [address] [place] [address] (Fax) [facility] Start: 09-19-2023 End: 09-19-2023 Patient encounter procedure 09/19/2023 9:30 AM EDT Office Visit [facility] [address] [place] [address] Len Smart MD [address] [place] [address] [facility] Start: 03-03-2023 Influenza vaccination Influenza Vacc ine (#1) [facility] Start: 1965 Medicare Annual Well ness (AWV) Medicare Annual Wellness (AWV) [facility] Start: 1965 Screening for malign ant neoplasm of colon [facility] Immunizations Immunization Date Immunization Notes Care Provider Fa cility 09-05-2020 COVID-19 Ad26.COV2.S (Mally) MD Isidro Mathur Work Phone: [facility] 04-24-2015 influenza, high dose seasonal, preservative-free Trevor De Anda Other Copyright Agent Other 04-24-2015 influenza virus vaccine, unspecified formulation Ahmet Castro DO Work Phone: [facility] 04-06-2015 influenza, injectable, quadrivalent, preservative free Isidro Mathur MD Work Phone: [facility] 04-06-2015 influenza virus vaccine, unspecified formulation Isidro Mathur MD Work Phone: [facility] Payers Date Payer Category Payer Medicare (Managed Care) [employer] [id number] 2024 Unknown [id number] 2024 Medicare 2024 Private Health Insurance HARDIK LLAMAS [id number] 2024 Unknown [id number] 2023 Unknown [id number] 2022 Unknown [id number] [id number]. [id number] 1963 Unknown [id number] 2.16840.1.659479.3.579.2. 593 1963 Unknown [id number] 2.16840.1.044693.3.579.2. 593 1963 Unknown [id number] 2.16840.1.053548.3.579.2. 1259 1963 Unknown [id number] 2.16840.1.512489.3.579.2. 1259 1963 Unknown [id number] 2.16.840.1.456085.3.579.2. 1259 1963 Unknown [id number] 2.16.840.1.379142.3.579.2. 1259 1963 Unknown [id number] 2.16840.1.776792.3.579.2. 1259 1963 Unknown [id number] 2.16.840.1.277944.3.579.2. 9 1963 Unknown [id number] 2.16.840.1.879479.3.579.2. 9 1963 Unknown [id number] 2.16.840.1.524924.3.579.2. 9 1963 Unknown [id number] 2.16.840.1.091001.3.579.2. 1258 1963 Unknown [id number] 2.16.840.1.094075.3.579.2. 1258 1963 Unknown [id number] 2.16.840.1.129761.3.579.2. 1258 1963 Unknown [id number] 2.16.840.1.160954.3.579.2. 196 1963 Unknown [id number] 2.16840.1.630672.3.579.2. 1963 Unknown [id number] 2.16840.1.572561.3.579.2. 196 Self-pay Self Pay [id number] Unknown [id number] [id number] Social History Date Type Detail Facility Unknown if ever smoked Copyright Agent Other Start: 01-19-2023 End: 09-11-2024 Sex Assigned At [facility] Start: 09-22-2020 End: 01-09-2024 Tobacco smoking status [facility] Ex-smoker (finding) [facility] Start: 1965 Sex Assigned At Female F [facility] End: 07-24-2005 History of tobacco use Current smoker [facility] End: 07-24-2005 History of tobacco use Cigarette Smoker [facility] Start: 12-16-2022 End: 01-09-2024 Tobacco use and exposure Smokeless tobacco non-user [facility] Start: 07-25-2023 End: 09-11-2024 Alcohol intake Lifetime non-drinker (finding) [facility] Start: 01-19-2023 End: 09-11-2024 History of Social function [facility] Within the last year , have you been afraid of your partner or ex-partner? No [facility] Active Member of [facility] bs or Organizations Not on file [...] Comment Last smoked: 5 -10 years ago [facility] Start: 01-26-2023 Alcohol Comment Caffeine intak e: 2-3 cups per day [facility] Start: 1965 Sex Assigned At Not on file [facility] NEGATED: Highlighted rowStart: NINF History of tobacco use Passive smoker [facility] Medical Equipment Procedure Code Equipment Code Equipment Origin al Text Equipment Identifier Dates Fusion, spine, lumbar, XLIF INFUSE SMALL 2.8CC FDA Start: 05-02-2019 Fusion, spine, lumbar, XLIF Bone-screw internal spinal fixation system, non-sterile ()[id number] FDA Start: 05-02-2019 Fusion, spine, lumbar, XLIF Bone-screw internal spinal fixation system, non-sterile ()[id number] FDA Start: 05-02-2019 Fusion, spine, lumbar, XLIF Bone-screw internal spinal fixation system, non-sterile ()[id number] FDA Start: 05-02-2019 Fusion, spine, lumbar, XLIF XLIF 3 LEVEL MAS REDUCTION FDA Start: 05-02-2019 Fusion, spine, lumbar, XLIF Bone-screw internal spinal fixation system, non-sterile ()[id number] FDA Start: 05-02-2019 Fusion, spine, lumbar, XLIF Bone-screw internal spinal fixation system, non-sterile ()[id number] FDA Start: 05-02-2019 Fusion, spine, lumbar, XLIF Bone matrix implant, human-derived ()[id number] FDA Start: 05-02-2019 Fusion, spine, lumbar, XLIF Bone matrix implant, human-derived ()[id number] FDA Start: 05-02-2019 Fusion, spine, lumbar, XLIF Metallic spinal fusion cage, non-sterile ()[id number] FDA Start: 05-02-2019 Fusion, spine, lumbar, XLIF Metallic spinal fusion cage, non-sterile ()[id number] FDA Start: 05-02-2019 Fusion, spine, lumbar, XLIF Metallic spinal fusion cage, non-sterile ()[id number] FDA Start: 05-02-2019 Fusion, spine, lumbar, XLIF Metallic spinal fusion cage, non-sterile ()[id number] FDA Start: 05-02-2019 Fusion, spine, lumbar, XLIF Bone-screw internal spinal fixation system, non-sterile ()[id number] FDA Start: 05-02-2019 Anterior lumbar interbody fusion (ALIF) XLIF MAS REDUCTION 1 LEVEL FDA Start: 09-22-2020 Anterior lumbar interbody fusion (ALIF) Bone-screw internal spinal fixation system, non-sterile ()[id number] FDA Start: 09-22-2020 Anterior lumbar interbody fusion (ALIF) Bone-screw internal spinal fixation system, non-sterile ()[id number] FDA Start: 09-22-2020 Anterior lumbar interbody fusion (ALIF) Bone-screw internal spinal fixation system, non-sterile ()[id number] FDA Start: 09-22-2020 Anterior lumbar interbody fusion (ALIF) Metallic spinal fusion cage, non-sterile ()[id number] FDA Start: 09-22-2020 Anterior lumbar interbody fusion (ALIF) Spinal fusion graft kit ()[id number] FDA Start: 09-22-2020 Anterior lumbar interbody fusion (ALIF) Bone matrix implant, human-derived ()[id number] FDA Start: 09-22-2020 Anterior lumbar interbody fusion (ALIF) Spinal bone screw, non-bioabsorbable ()[id number] FDA Start: 09-22-2020 Anterior lumbar interbody fusion (ALIF) Bone-screw internal spinal fixation system, non-sterile ()[id number] FDA Start: 09-22-2020 Clinical Notes 03-29-2021 to 11-07-2024 Telephone Encounter - Isidro Mathur MD - 11/07/2024 5:32 PM EDTTelephone Encounter - Isidro Mathur MD - 11/07/2024 5:32 PM EDTTelephone Encounter - Modesta Jefferson MA - 11/07/2024 11:54 AM EDT Note Date & Type Note Facility 11-07-2024 Telephone encounter Note Prescription sent [facility] 11-07-2024 Miscellaneous Notes Prescription sent Pt called and stated that she had [facility] fill her Nabumetome but she likes the Etodolac better so she went back to that BID. She is asking if [facility] will fill [facility] [place] documented in this encounter [facility] 11-07-2024 Telephone encounter Note Pt called and stated that she had [facility] fill her Nabumetome but she likes the Etodolac better so she went back to that BID. She is asking if [facility] will [facility] [place] [facility] 10-01-2024 History of Presen t illness Narrative Associated Problem(s): Neurogenic pain Continue current regimen.) Decr PGB to 100 AM 75 in PM for 2 weeks then 100/50. Continue to work towards qd dosing. Orders: pregabalin (Lyrica) 25 MG capsule; In addition to 100mg in the morning. Associated Problem(s): Lateral femoral cutaneous neuropathy, left (Consider redo inj if/when sx were to worsen.) Orders: pregabalin (Lyrica) 25 MG capsule; In addition to 100mg in the morning. Images from the original note were not included. Outpatient Progress Note Patient: Isidra Paredes Dept: Neurology : 1965 Appt Date: 10/01/2024 Prev Appt: Visit date not found Chief Complaint Patient presents with Peripheral Neuropathy Appointment Note -- 1 Year Assessment and Plan - Assessment & Plan Neurogenic pain Continue current regimen.) Decr PGB to 100 AM 75 in PM for 2 weeks then 100/50. Continue to work towards qd dosing. Orders: pregabalin (Lyrica) 25 MG capsule; In addition to 100mg in the morning. Lateral femoral cutaneous neuropathy, left (Consider redo inj if/when sx were to worsen.) Orders: pregabalin (Lyrica) 25 MG capsule; In addition to 100mg in the morning. No orders of the defined types were placed in this encounter. Follow-Up - Follow up in about 2 months (around 12/01/2024), or with [facility]. History of Present Illness, Associated Treatments and Results - Dx LFC . PN . WEAKNESS LLE . (LUMB STEN . THYROID) Tx PGB 100 bid (+ dulox 30 --PCP/depr) LFC inj (06/2021 L) AEs denies somn, wt gain Hx Sx remain well controlled, some occ pain distal ant L thigh, where sx had been worst. Onset 2018, prior to lumbar fusion on L, after surgery on R. Semeiology Paraesthesiae distal ant thigh R>L, worse when standing for long periods of time. Baseline weakness L hip flexion (from prior to 1st surg).. Imaging Testing [facility] (06/2021) - peroneal DMLs delayed, tibial CVs slowed, largely absent SNAPs, dist>prox EMG pattern Labs - A1c=5.4 ... fT4=0.63L (!), was 0.74L ... ([id number]) Surgery Fusion L5-S1 (08/2020, [facility]) Fusion L1-L5 (compensate for scoliosis) (04/2019, [facility]). Failed GBP 1200 (GI), R LFC block (pain mgt), CBZ 300 (dizziness, cog. change) ... PREV - PGB 100 Physical Exam - General appearance, mentation, extraocular movements, facial strength and movement, hearing, upper and lower extremity strength and tone, sensation to gross testing, coordination, and gait are normal or at baseline unless noted below. HEENT - ___, unchanged: ___, orig: ___ MS - ___, unchanged: ___, orig: ___ CNN - ___, unchanged: ___, orig: ___ Motor - _4- LLE hip fl;exor__, unchanged: ___, orig: ___ Sens - L LFC still somewhat tender, unchanged: Vibr, temp loss distal LEs ... Numbness B LFC ... Hyperpathia remains resolved, orig: ___ Reflex - ___, unchanged: AJ 1B, orig: ___ Coord - ___, unchanged: ___, orig: ___ Gait - ___, unchanged: Tandem 1+, orig: ___ Vestib - ___, unchanged: ___, orig: ___ MSK - ___, unchanged: ___, orig: ___ Other - ___, unchanged: ___, orig: ___ Vital Signs - Visit Vitals BP 152/82 (BP Location: Left arm, Patient Position: Sitting) Ht 5' 8 Wt 260 lb BMI 39.53 kg/m OB Status Postmenopausal Smoking Status Former BSA 2.38 m Review of Systems - . Const: Denies appetite change, fever, chills. Allergy: Denies medication reaction. Ocular: Denies visual acuity change. ENT: Denies hearing change. Endoc: Denies weight loss. Resp: Denies dyspnoea, wheezing. Cardiac: Denies angina, palpitations. GI: Denies nausea, vomiting. Haem: Denies bleeding. : Denies incontinence. MSK: Denies arthralgias, joint oedema. Derm: Denies rash, hair loss. Neuro: Denies ataxia, tremor. Also see HPI for elements of ROS documented therein and for details of positive findings, which shall supersede the foregoing. 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 hankins JOINT REPLACEMENT December 2008 KNEE SURGERY Right 11/22/2017 knee arthroscopic partial lateral meniscectomy by Dr Castro- [facility] LIPECTOMY Left 05/19/2016 left eye lipectomy at [facility] NERVE BLOCK by Dr. cheng, [facility] OTHER SURGICAL HISTORY 05/02/2019 XLIF L1-2, L3-[address] Davila [place] MEDICATION MANAGEMENT 2012 Procedure:ER visit adjusted meds;Disease:leg pain SPINAL FUSION 09/22/2020 L5-S1; BY DR BAILEY AT [facility] STRESS TEST EXERCISE 2013 Procedure:Stress Test Chemical;Disease:Normal 04/2014 TOE SURGERY Right 10/2022 rnd TOTAL ABDOMINAL HYSTERECTOMY W/ BILATERAL SALPINGOOPHORECTOMY disease: Dysmenorrhea Allergies Allergen Reactions Methotrexate Hives Family History Problem Relation Name Age of Onset Heart disease Mother Vicky Other (Stomach trouble) Mother Vicky Hypertension Mother Vicky Breast cancer Mother Vicky 84 Hypertension Father Father Timothy Diabetes Father Father Timothy Heart disease Father Father Timothy Heart failure Father Father Timothy Arthritis Father Father Timothy Heart failure Paternal Grandmother Outpatient Encounter Medications as of 10/01/2024 Medication Sig Dispense Refill biotin 300 MCG tablet Take 300 mcg by mouth in the morning. cholecalciferol (Vitamin D-3) 10 MCG (400 UNIT) tablet Take 400 Units by mouth in the morning. DULoxetine (Cymbalta) [address] capsule Take 1 capsule (30 mg) by mouth 1 (one) time each day at the same time 90 capsule 1 estradiol (Climara) 0.05 MG/24HR APPLY 1 PATCH TO THE SKIN ONCE WEEKLY 12 patch 1 Krill Oil 500 MG capsule Take 1 capsule by mouth 1 (one) time each day at the same time. liothyronine (Cytomel) 5 MCG tablet Take 1 tablet in AM and 1 tablet in PM on an empty stomach. HERB; Sigma or Mesosphere brands only 180 tablet 1 metaxalone (Skelaxin) 800 MG tablet Take 800 mg by mouth Daily as needed. nabumetone (Relafen) 750 MG tablet Take 1 tablet (750 mg) by mouth in the morning and 1 tablet (750 mg) before bedtime. 180 tablet 0 pregabalin (Lyrica) 100 MG capsule Take 1 capsule (100 mg) by mouth in the morning and 1 capsule (100 mg) before bedtime. 60 capsule 4 pregabalin (Lyrica) 25 MG capsule In addition to 100mg in the morning. 90 capsule 3 thyroid ([place]) 120 MG tablet Take 0.5 tablets (60 mg) by mouth in the morning and 0.5 tablets (60 mg) in the evening. Take before meals. 90 tablet 1 No facility-administered encounter medications on file as of 10/01/2024. Len Smart M.D. [facility] ? [address] ? [place], [place] [address] ? ? fax Neurology ? Clinical Neurophysiology ? Epilepsy ? Sleep Disorders ? Clinical Informatics [facility] ? [address] ? [place], [place] [address] ? ? fax Neurology ? Clinical Neurophysiology ? Epilepsy ? Sleep Disorders ? Clinical Informatics documented in this encounter [facility] 07-16-2024 History of Presen t illness Narrative Images from the original note were not included. Patient ID: Isidra Paredes is a 58 y.o. female who presents for: Anxiety Patient is here for evaluation of anxiety. He/She has the following anxiety symptoms: none. Onset of symptoms was approximately several years ago. Symptoms have been stable since that time. He/She denies current suicidal and homicidal ideation. .Possible organic causes contributing are: none. Previous treatment includes medication Selective Seratonin Reuptake Inhibitor duloxetine . He/She complains of the following medication side effects: none. Review of Systems Constitutional: Negative for appetite change and fatigue. Psychiatric/Behavioral: Positive for sleep disturbance. Negative for agitation, behavioral problems and suicidal ideas. The patient is nervous/anxious. Objective Appearance: Well-groomed, in no acute distress Abnormal body movements: None Affect: Appropriate and appears to be full range Attention: Good Attitude: Cooperative Degree of awareness of surroundings: Grossly within normal limits Impulse control: Appears to be good Insight: Appears to be good Fund of knowledge; adequate Judgment: Appears to be adequate Perceptual disorders: No perceptual disorders noted Psychomotor activity: Within normal range Speech: Clear, normal variability and rate Thought content: Unremarkable Visit Vitals OB Status Postmenopausal Smoking Status Former Allergies Allergen Reactions Methotrexate Hives Current Outpatient Medications on File Prior to Visit Medication Sig Dispense Refill biotin 300 MCG tablet Take 300 mcg by mouth in the morning. cholecalciferol (Vitamin D-3) 10 MCG (400 UNIT) tablet Take 400 Units by mouth in the morning. estradiol (Climara) 0.05 MG/24HR Place 1 patch on the skin 1 (one) time per week 12 patch 1 Krill Oil 500 MG capsule Take 1 capsule by mouth 1 (one) time each day at the same time. liothyronine (Cytomel) 5 MCG tablet Take 1 tablet in AM and 1 tablet in PM on an empty stomach. HERB; Sigma or Greenstone brands only 180 tablet 1 metaxalone (Skelaxin) 800 MG tablet Take 800 mg by mouth Daily as needed. thyroid ([place]) 120 MG tablet Take 0.5 tablets (60 mg) by mouth in the morning and 0.5 tablets (60 mg) in the evening. Take before meals. 90 tablet 1 [DISCONTINUED] nabumetone (Relafen) 750 MG tablet Take 1 tablet (750 mg) by mouth in the morning and 1 tablet (750 mg) before bedtime. 180 tablet 1 [DISCONTINUED] pregabalin (Lyrica) 100 MG capsule Take 1 capsule (100 mg) by mouth in the morning and 1 capsule (100 mg) before bedtime. 60 capsule 5 No current facility-administered medications on file prior to visit. 1. Recurrent major depressive disorder, in partial remission (HCC) ([facility]) Chronic problem, stable, overall doing well. Duloxetine is also cross treating her chronic pain. In prescribing a renewal to their current medication, consideration of the following encompasses moderate decision making; the current prescriptions and supplements, the current allergies and medication intolerances, current medical conditions, and potential drug interactions. Any changes to risks, benefits, and reason for renewing their current medication due to the above were discussed. The patient was given a chance to ask questions today and all questions were answered. The patient is to contact us if any other questions arise or if any problems occur. (Utilizing the original 1994/1996 guidelines or the 2020 office/outpatient code guidelines for selecting the level of E/M service, In both sets of guidelines, prescription drug management appears in the moderate medical decision making (MDM) row. Neither the original guidelines nor the new guidelines state that a new prescription or change is needed in order to credit prescription drug management) - DULoxetine (Cymbalta) [address] capsule; Take 1 capsule (30 mg) by mouth 1 (one) time each day at the same time Dispense: 90 capsule; Refill: 1 2. Former smoker, stopped smoking many years ago Continue stopped smoking 3. Class 2 obesity due to excess calories without serious comorbidity with body mass index (BMI) of 38.0 to 38.9 in adult Encouraged lifestyle changes 4. BMI 38.0-38.9,adult Defines the obesity documented in this encounter [facility] 07-08-2024 History of Presen t illness Narrative Images from the original note were not included. Patient ID: Isidra Paredes is a 58 y.o. female who presents for: Thyroid: Pt here today to review his/hers thyroid labs and any medication changes needed. Fatigue: Present, worsened, she is falling asleep during the day. She never feels refreshed. Weight Gain: Absent Inability to lose weight: Present, Unchanged Hair Changes: Present He/She is following the thyroid diet: fair He/She are taking medications as directed: Good He/She are exercising at least 3 days out of the week for 30 minutes or more: Poor to fair No visits with results within 1 Month(s) from this visit. Latest known visit with results is: Office Visit on 01/09/2024 Component Date Value Ref Range Status T3, TOTAL 06/20/2024 113 76 - 181 ng/dL Final T3 REVERSE, LC/MS/MS 06/20/2024 10 8 - 25 ng/dL Final Comment: This test was developed and its analytical performance characteristics have been determined by [employer] [place], [place]. It has not been cleared or approved by the U.S. Food and Drug Administration. This assay has been validated pursuant to the CLIA regulations and is used for clinical purposes. T3, FREE 06/20/2024 3.6 2.3 - 4.2 pg/mL Final T4, FREE 06/20/2024 0.9 0.8 - 1.8 ng/dL Final TSH 06/20/2024 0.24 (L) 0.40 - 4.50 mIU/L Final Calculated THY Ratio: 11.3 Previous chemistry profile and lipid profile and CBC were reviewed Objective The patient is pleasant and in no acute distress The patient does not appear to have a gross neurologic deficit. The patient has good eye contact and clear speech Visit Vitals OB Status Postmenopausal Smoking Status Former Allergies Allergen Reactions Methotrexate Hives Current Outpatient Medications on File Prior to Visit Medication Sig Dispense Refill biotin 300 MCG tablet Take 300 mcg by mouth in the morning. cholecalciferol (Vitamin D-3) 10 MCG (400 UNIT) tablet Take 400 Units by mouth in the morning. DULoxetine (Cymbalta) [address] capsule Take 1 capsule (30 mg) by mouth 1 (one) time each day at the same time 90 capsule 1 estradiol (Climara) 0.05 MG/24HR Place 1 patch on the skin 1 (one) time per week 12 patch 1 Krill Oil 500 MG capsule Take 1 capsule by mouth 1 (one) time each day at the same time. metaxalone (Skelaxin) 800 MG tablet Take 800 mg by mouth Daily as needed. nabumetone (Relafen) 750 MG tablet Take 1 tablet (750 mg) by mouth in the morning and 1 tablet (750 mg) before bedtime. 180 tablet 1 pregabalin (Lyrica) 100 MG capsule Take 1 capsule (100 mg) by mouth in the morning and 1 capsule (100 mg) before bedtime. 60 capsule 5 [DISCONTINUED] liothyronine (Cytomel) 5 MCG tablet Take 1 tablet in AM and 1 tablet in PM on an empty stomach. HERB; Sigma or [employer] brands only 180 tablet 1 [DISCONTINUED] predniSONE (Deltasone) 10 MG tablet Every 2 day tapering dose; 5,5,4,4,3,3,2,2,1,1,0.5,0.5 31 tablet 0 [DISCONTINUED] thyroid ([place]) 120 MG tablet Take 0.5 tablets (60 mg) by mouth in the morning and 0.5 tablets (60 mg) in the evening. Take before meals. 90 tablet 1 No current facility-administered medications on file prior to visit. 1. Acquired hypothyroidism (CMS/HCC) (Primary) This is a complex chronic problem, stable, to goal; management requires moderate decision making I reviewed diet and exercise with the patient. I discussed the patient's current psychosocial and physical condition and the stress impact upon them. I reviewed the multiple unique laboratories and explained the results to the patient. The patient has been re-educated concerning the above diagnoses and that the treatment for some of these may not be considered the standard of care, including TSH suppression when utilized. The patient has been re-educated and instructed concerning medication timing, diet, exercise, and stress reduction as appropriate. I reviewed the patient's current prescriptions and discussed the possibilities of medication renewals, adjustments, new medication start, or stop medication as appropriate. The patient has been instructed to follow up and bring a diet and exercise log, obtain the unique laboratory tests ordered, and the importance of follow up and compliance. The patient was given a chance to ask questions today and all questions were answered. The patient is to contact us if any other questions arise or if any problems occur. - thyroid ([place]) 120 MG tablet; Take 0.5 tablets (60 mg) by mouth in the morning and 0.5 tablets (60 mg) in the evening. Take before meals. Dispense: 90 tablet; Refill: 1 - T4, free; Future - TSH; Future - T4, free - TSH 2. ESS (euthyroid sick syndrome) We specifically discussed that I do not think any of her thyroid issues are causing the degree of fatigue she is referring to. In prescribing a renewal to their current medication, consideration of the following encompasses moderate decision making; the current prescriptions and supplements, the current allergies and medication intolerances, current medical conditions, and potential drug interactions. Any changes to risks, benefits, and reason for renewing their current medication due to the above were discussed. The patient was given a chance to ask questions today and all questions were answered. The patient is to contact us if any other questions arise or if any problems occur. (Utilizing the original guidelines or the 2020 office/outpatient code guidelines for selecting the level of E/M service, In both sets of guidelines, prescription drug management appears in the moderate medical decision making (MDM) row. Neither the original guidelines nor the new guidelines state that a new prescription or change is needed in order to credit prescription drug management) - liothyronine (Cytomel) 5 MCG tablet; Take 1 tablet in AM and 1 tablet in PM on an empty stomach. HERB; Sigma or [employer] brands only Dispense: 180 tablet; Refill: 1 - T3; Future - T3, reverse; Future - T3, free; Future - T3 - T3, reverse - T3, free 3. Chronic fatigue Chronic problem, unstable, complex in nature with moderate decision making. I discussed with the patient or their security representative, their fatigue issues. We discussed how this is either not improved or not inadequately addressed. We discussed how this is almost always a multifactorial problem. We discussed that the patient will almost certainly need to continue to make lifestyle changes including diet, sleep, exercise, and stress management as appropriate. We further discussed how we will continue to search for refinements in their current treatments or evaluation for further disease processes and then support or treat them as appropriate. We discussed how we can frequently improve the symptoms, but may not be able to completely cure or resolve the issue. The patient was given a chance to ask questions and all questions were answered. We discussed further laboratory testing. She is currently fasting today and we will go get them done. If we do not have an explanation after this, she will probably need a home sleep study. - Comprehensive metabolic panel; Future - CBC and differential; Future - Comprehensive metabolic panel - CBC and differential - T3; Future - T3, reverse; Future - T3, free; Future - T4, free; Future - TSH; Future - T3 - T3, reverse - T3, free - T4, free - TSH 4. Class 2 obesity without serious comorbidity in adult, unspecified BMI, unspecified obesity type Chronic problem possible comorbid condition. 5. BMI 38.0-38.9,adult Defines the obesity 6. Elevated fasting blood sugar - Comprehensive metabolic panel; Future - Comprehensive metabolic panel 7. High triglycerides (CMS/HCC) - Lipid panel; Future - Lipid panel 8. Urge incontinence of urine We did discuss and she is having problems with urge incontinence where she has to get to a bathroom. It is most days. We did discuss generic medications versus name brand medications for symptom control. At this time she would like to defer starting any other medications until we complete the above evaluation which is not unreasonable. documented in this encounter [facility] 05-14-2024 History of Presen t illness Narrative Images from the original note were not included. HISTORY OF PRESENT ILLNESS: Isidra Paredes is an 58 y.o. @ female. Chief complaint RT knee pain Right Knee: S/P [facility] pain clinic with monovisc injection 04/01 (6 weeks) She notes about 1 week relief. Onset x 4 months (01/26/24). Patient saw her PCP on 01/29/24. 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 Noticed a lot of pain and swelling the next day. Admits giving out, stiffness, and swelling. Pain is aggravated by any weight bearing, sit to stand, standing, and walking. Pain lateral and medial knee, occas travels anterior and posterior. Pain occas radiates up and down her leg. Pain at rest 1/10. Pain at worst 7-8/10 with prolonged standing. Wears a compression sleeve usually at HS . Admits cracking/popping. Admits locking and catching. Taking TYL arthiritis prn. Admits ice, and voltaren gel with little relief. Admits waking at night but not every night. Admits swelling she has had for a few years, Had little relief with the prednisone in December. ~3 months s/p depo injection 02/11 ([facility]) minimal relief. Taking nabumetone per Dr Mathur. Prior scope with Dr. Castro in 2017 Prior treatment(s) included: TYL, Ice, aspercream, Etolodac, Depo Medrol injection (06/23/20), MRI noms 06/04/20, voltaren gel, depo medrol 11/18/20, OTC knee sleeve, depo medrol injection 04/05/23, PCP 01/29/24, prednisone 01/29/24 (12 days) which helped while she was taking it, XR [place] [facility] 02/11/23, depo injx 02/12/24, [facility] pain clinic, monovisc injx 04/01/24 Dr Kasandra Fernandez reviewed notes from the [facility] dated April 01, 2024. The patient was seen with knee pain and received an injection of Monovisc into the right knee. MEDICATION: Current Outpatient Medications on File Prior to Visit Medication Sig Dispense Refill biotin 300 MCG tablet Take 300 mcg by mouth in the morning. cholecalciferol (Vitamin D-3) 10 MCG (400 UNIT) tablet Take 400 Units by mouth in the morning. DULoxetine (Cymbalta) [address] capsule Take 1 capsule (30 mg) by mouth 1 (one) time each day at the same time 90 capsule 1 estradiol (Climara) 0.05 MG/24HR Place 1 patch on the skin 1 (one) time per week 12 patch 1 Krill Oil 500 MG capsule Take 1 capsule by mouth 1 (one) time each day at the same time. liothyronine (Cytomel) 5 MCG tablet Take 1 tablet in AM and 1 tablet in PM on an empty stomach. HERB; Sigma or [employer] brands only 180 tablet 1 metaxalone (Skelaxin) 800 MG tablet Take 800 mg by mouth Daily as needed. nabumetone (Relafen) 750 MG tablet Take 1 tablet (750 mg) by mouth in the morning and 1 tablet (750 mg) before bedtime. 180 tablet 1 predniSONE (Deltasone) 10 MG tablet Every 2 day tapering dose; 5,5,4,4,3,3,2,2,1,1,0.5,0.5 31 tablet 0 pregabalin (Lyrica) 100 MG capsule Take 1 capsule (100 mg) by mouth in the morning and 1 capsule (100 mg) before bedtime. 60 capsule 5 thyroid ([place]) 120 MG tablet Take 0.5 tablets (60 mg) by mouth in the morning and 0.5 tablets (60 mg) in the evening. Take before meals. 90 tablet 1 No current facility-administered medications on file prior to visit. 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 Chronic pain of right knee M25.561 G89.29 2. Arthritis of right knee M17.11 PLAN: We discussed future treatment options and expectations. I answered all of the patient's questions. Follow up as needed, any issues/concerns follow up sooner. Dr. Castro obtained history and examined the patient, I am acting as scribe for Dr. Castro/isidro I did advise the patient that I am leaving my current practice to practice in another state but my colleagues are willing to see her if she has any problems or concerns or if she desires a referral to another orthopedic designer we would be happy to make referral, she states she would like to continue her care here. Wood Castro D.O. documented in this encounter [facility] 07-25-2023 History of Presen t illness Narrative [...] Final Glucose, UA 07/17/2023 Negative Negative - 2000(110) ++++ mg/dL Final Bilirubin, UA 07/17/2023 Negative Negative - 4(70) +++ mg/dL Final Ketones, UA 07/17/2023 Positive Negative - 160(16) ++++ mg/dL Final Spec Grav, UA 07/17/2023 1.025 1 - 1.03 Final Blood, UA 07/17/2023 Positive Negative - 50 Jairo/mcL Final pH, UA 07/17/2023 6.0 5 - 9 Final Protein, UA 07/17/2023 Negative Negative - 2000(20) ++++ mg/dL Final Urobilinogen, UA 07/17/2023 0.2 [...] Recurrent major depressive disorder, in remission (HCC) ([facility]/HCC) - DULoxetine (Cymbalta) [address] capsule; [...] renewal of their medication. (Utilizing the original 1994/1996 guidelines or the 2020 new office/outpatient code [...] ago Morbid obesity due to excess calories ([facility]) BMI 38.0-38.9,adult documented in this encounter [facility] 10-25-2022 Note PROCEDURE: XR CHEST 2 V DATE: 10/25/2022 12:55 PM CDT COMPARISONS: None. CLINICAL INDICATION: 57 years Female Pre-surgery evaluation FINDINGS: The cardiomediastinal silhouette and pulmonary vasculature are within normal limits. The lungs are clear. There is no evidence of pleural effusion or pneumothorax. IMPRESSION: Chest radiograph is within normal limits. Electronically authenticated by: JOHNNY TERAN Date: 2022-10-25 14:20 [facility] 04-12-2021 Evaluation note Encounter Date Diagnosis Assessment [...] Meralgia paresthetica, unspecified laterality (ICD-10 - G57.10) Copyright Agent Other 09-27-2021 Evaluation note* Encounter Date Diagnosis Assessment Notes Treatment Notes Treatment Clinical Notes Mar, Spondylolisthesis at L5-S1 level (ICD-10 [...] back in the office at that time. Copyright Agent Other evaluation noteNo assessment information available [facility] Work Phone: Evaluation note* Diagnosis Recurrent major depressive disorder, in remission (HCC) (CMS/HCC)- Primary Arthritis of right knee Artificial menopause Symptomatic states associated with artificial menopause Former smoker, stopped smoking many years ago Morbid obesity due to excess calories (CMS/HCC) BMI 38.0-38.9,adult documented in this encounter [facility]* Diagnosis Neurogenic pain- Primary Lateral femoral cutaneous neuropathy, left Chronic pain of right knee- Primary Arthritis of right knee documented in this encounter [facility]* Diagnosis Neurogenic pain- Primary Lateral femoral cutaneous neuropathy, left Acquired hypothyroidism (CMS/HCC)- Primary Unspecified hypothyroidism ESS (euthyroid sick syndrome) Euthyroid sick syndrome Chronic fatigue Other malaise and fatigue Class 2 obesity without serious comorbidity in adult, unspecified BMI, unspecified obesity type BMI 38.0-38.9,adult Elevated fasting blood sugar Impaired fasting glucose High triglycerides (CMS/HCC) Unspecified disorder of lipoid metabolism Urge incontinence of urine Urge incontinence documented in [facility] encounter [facility]* Diagnosis Neurogenic pain- Primary Lateral femoral cutaneous neuropathy, left Acquired hypothyroidism (CMS/HCC) Unspecified hypothyroidism Recurrent major depressive disorder, in remission (HCC) (CMS/HCC) Former smoker, stopped smoking many years ago Class 2 obesity due to excess calories without serious comorbidity with body mass index (BMI) of 38.0 to 38.9 in adult BMI 38.0-38.9,adult documented in [facility]* Diagnosis Neurogenic pain- Primary Lateral femoral cutaneous neuropathy, left Neurogenic pain documented [facility]* Diagnosis Neurogenic pain- Primary Lateral femoral cutaneous neuropathy, left Recurrent major depressive disorder, in partial remission (HCC) (CMS/HCC) Former smoker, stopped smoking many years ago Class 2 obesity due to excess calories without serious comorbidity with body mass index (BMI) of 38.0 to 38.9 in adult BMI 38.0-38.9,adult documented in [facility]* Diagnosis Neurogenic pain- Primary Lateral femoral cutaneous neuropathy, left Neurogenic pain- Primary Lateral femoral cutaneous neuropathy, left documented in [facility]* Diagnosis Neurogenic pain- Primary Lateral femoral cutaneous neuropathy, left Neurogenic pain- Primary Lateral femoral cutaneous neuropathy, left Idiopathic osteoarthritis- Primary Osteoarthrosis, unspecified whether generalized or localized, unspecified site Rheumatoid arthritis involving multiple sites with positive rheumatoid factor (CMS/HCC) documented [facility] Narrative - Reported* Type Description Date Medical History Dry eye Medical History Hypothyroidism, unspecified type Medical History Rheumatoid arthritis involving multiple sites, unspecified rheumatoid factor presence Medical History Depression, unspecified depressi on type Medical History nerve pain Medical History thyroid Surgical History hip replacement-left Surgical History hysterectomy Surgical History hysterectomy Surgical History Procedure:ER visit adjusted med s;Disease:leg pain 2012 Surgical History left hip replacement Surgical History Procedure: Left Hip replacement;Disease: defect Dr. Hankins 2008 Surgical History colonoscopy Surgical History Procedure:SANDRA and BSO;Disease:d ysmenorrhea Surgical History Procedure:Stress Estrella t [employer];Disease:Normal 04/2014 Surgical History XLIF-Doctor Adilson Surgical History left eye lidectomy at [facility] 05/19/16 Surgical History Rt Knee arthroscopic partial lateral meniscectomy Dr Matthew Watson [place] 11/22/2017 Surgical History XLIF L1-2, L2-3, L3-4, L4-5 Hospitalization History see above [place] [facility] Other Summary Purpose Family History Relationship Condition Age at Onset Recorded Date/T [place] brother Osteoarthritis Unknown father Heart disease Unknown Not Specified Hypertension Unknown Advance Directives Advance Directive Response Recorded Date/ Time Advance Directives No July 11, 2017 9:21am Reason for Referral Reason DUPLICATE Evaluate and Treat Diagnosis 1 Meralgia paresthetic a of right side (G57.11) Referral Organization [facility] Referring Provider First Name Trevor Referring Provider Last Name Adilson Referring Provider Specialty Neurosurger y Referred Organization [facility] Referred Provider Len Smart Referred Address ,[place], [place],[address] Referred Provider Specialty Neurology Referral Priority Routine General Notes Ilsa Beebe 021 09:27:54 AM >DUPLICATE Reason Evaluate and Tr eat Diagnosis 1 Meralgia paresthetic a, unspecified laterality (G57.10) Referral Organization [facility] uros[facility]gery Referring Provider First Name Trevor Referring Provider Last Name Adilson Referring Provider Specialty Neurosurger y Referred Organization [facility] Referred Provider Len Smart Referred Address ,[place], [place],[address] Referred Provider Specialty Neurology Referral Priority Routine General Notes Ilsa Beebe 09:26:14 AM >Received today and waiting for office notes to be locked Chief Complaint and Reason for Visit Chief Complaint M15.0 Z79.899 Additional Source Comments INFORMATION SOURCE (unrecogn ized section and content) DATE CREATED AUTHOR 01/29/2020 [facility] DATE CREATED AUTHOR AUTHOR'S ORGANIZ ATION 07/25/2021 [facility] DATE CREATED AUTHOR AUTHOR'S ORGANIZ ATION 02/08/2022 [facility] DATE CREATED AUTHOR AUTHOR'S ORGANIZ ATION 10/29/2022 [facility] DATE CREATED AUTHOR AUTHOR'S ORGANIZ ATION 07/15/2024 [facility] DATE CREATED AUTHOR AUTHOR'S ORGANIZ ATION 10/04/2024 [facility] d[facility] Specialists EPIC DATE CREATED AUTHOR AUTHOR'S ORGANIZ ATION 10/29/2024 [facility] REASON FOR VISIT (unrecogniz ed section and content) Reason Comments Anxiety Follow-up Hormones Reason Comments Follow-up Reason Comments Med Change Request Reason Onset Date Comments Med Refill 07/25/2024 Reason Comments Anxiety Depression chronic pain Reason Comments Peripheral Neuropathy Reason Onset Date Comments Care Coordination 11/07/2024 Care Teams (unrecognized sec tion and content) Team Status: Inactive Member Role Status Dates Isidro Mathur MD Primary Care Provider Active Erickson Hernandez MD Attending Provider Active Team Status: Active Member Role Status Dates Isidro Mathur MD Primary Care Provider Active 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 Relationship Specialty Start Date End Date Isidro Mathur MD [address] [place] [address] (Fax) PCP - General Family Medicine 12/01/22 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 Relationship Specialty Start Date End Date Isidro Mathru MD [address] [place] [address] (Fax) PCP - General Family Medicine 12/01/22 Len Smart MD [address] [place] [address] Referring Physician Neurology 08/10/23 Agata Beltran CONCIERGE RECEPTIONIST [address] [place] [address] Nurse Practitioner Orthopaedic Surgery 08/10/23 Jesus Sands DPM [address] [facility] [address] [place] [address] Referring Physician Podiatry 08/10/23 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 Relationship Specialty Start Date End Date Isidro Mathur MD [address] [place] [address] (Fax) PCP - General Family Medicine 12/01/22 Len Smart MD [address] [place] [address] Referring Physician Neurology 08/10/23 Agata Beltran CONCIERGE RECEPTIONIST [address] [facility] [address] [place] [address] Nurse Practitioner Orthopaedic Surgery 08/10/23 Jesus Sands DPM [address] [facility] [address] [place] [address] Referring Physician Podiatry 08/10/23 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 Relationship Specialty Start Date End Date Isidro Mathur MD [address] [place] [address] PCP - General Family Medicine 12/01/22 Len Smart MD [address] [place] [address] Referring Physician Neurology 08/10/23 Agata Beltran NP [address] [place] [address] Nurse Practitioner Orthopaedic Surgery 08/10/23 Jesus Sands DPM [address] [address] Referring Physician Podiatry 08/10/23 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 Relationship Specialty Start Date End Date Isidro Mathur MD [address] [place] [address] PCP - General Family Medicine 12/01/22 Len Smart MD [address] [place] [address] Referring Physician Neurology 08/10/23 Agata Beltran NP [address] [place] [address] Nurse Practitioner Orthopaedic Surgery 08/10/23 Jesus Sands DPM [address] [facility] [address] [place] [address] Referring Physician Podiatry 08/10/23 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 Relationship Specialty Start Date End Date Isidro Mathur MD [address] [place] [address] (Fax) PCP - General Family Medicine 12/01/22 Len Smart MD [address] [place] [address] Referring Physician Neurology 08/10/23 Agata Beltran, CONCIERGE RECEPTIONIST [address] [place] [address] Nurse Practitioner Orthopaedic Surgery 08/10/23 Jesus Sands DPM [address] [facility] [address] [place] [address] Referring Physician Podiatry 08/10/23 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 Relationship Specialty Start Date End Date Isidro Mathur MD [address] [place] [address] (Fax) PCP - General Family Medicine 12/01/22 Len Smart MD [address] [facility] [address] [place] [address] Referring Physician Neurology 08/10/23 Agata Beltran, CONCIERGE RECEPTIONIST [address] [place] [address] Nurse Practitioner Orthopaedic Surgery 08/10/23 Jesus Sands DPM [address] [facility] [address] [place] [address] Referring Physician Podiatry 08/10/23 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 Relationship Specialty Start Date End Date Isidro Mathur MD [address] [place] [address] (Fax) PCP - General Family Medicine 12/01/22 Len Smart MD [address] [place] [address] Referring Physician Neurology 08/10/23 Agata Beltran NP [address] [place] [address] Nurse Practitioner Orthopaedic Surgery 08/10/23 Jesus Sands DPM [address] [facility] [address] [place] [address] Referring Physician Podiatry 08/10/23 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 Relationship Specialty Start Date End Date Isidro Mathur MD [address] [place] [address] (Fax) PCP - General Family Medicine 12/01/22 Isidro Mathur MD [address] [place] [address] (Fax) PCP - Devoted 08/03/24 Len Smart MD [address] [place] [address] Referring Physician Neurology 08/10/23 Agata Beltran NP [address] [place] [address] Nurse Practitioner Orthopaedic Surgery 08/10/23 Jesus Sands DPM [address] [facility] [address] [place] [address] Referring Physician Podiatry 08/10/23 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 Relationship Specialty Start Date End Date Isidro Mathur MD [address] [place] [address] (Fax) PCP - General Family Medicine 12/01/22 Isidro Mathur MD [address] [place] [address] (Fax) PCP - Devoted 08/03/24 Len Smart MD [address] [place] [address] Referring Physician Neurology 08/10/23 Agata Beltran CONCIERGE RECEPTIONIST [address] [place] [address] Nurse Practitioner Orthopaedic Surgery 08/10/23 Jesus Sands DPM [address] [address] Referring Physician Podiatry 08/10/23 Licha Freeman MD [address] [place] [address] Referring Physician Optometry 09/11/24 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 Relationship Specialty Start Date End Date Isidro Mathur MD [address] [place] [address] (Fax) PCP - General Family Medicine 12/01/22 Isidro Mathur MD [address] [place] [place] [address] (Fax) PCP - Devoted 08/03/24 Len Smart MD [address] [place] [address] [place] [address] Referring Physician Neurology 08/10/23 Agata Beltran, CONCIERGE RECEPTIONIST [address] [address] Nurse Practitioner Orthopaedic Surgery 08/10/23 Jesus Sands DPM [address] [address] Referring Physician Podiatry 08/10/23 Licha Freeman MD [address] [place] [phone] Referring Physician Optometry 09/11/24 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 Relationship Specialty Start Date End Date Isidro Mathur MD [address] [address] PCP - General Family Medicine 12/01/22 Isidro Mathur MD [address] [address] PCP - Devoted 08/03/24 Len Smart MD [address] [address] Referring Physician Neurology 08/10/23 Agata Beltran, GERARDO [address] [address] Nurse Practitioner Orthopaedic Surgery 08/10/23 Jesus Sands DPM [address] [address] Referring Physician Podiatry 08/10/23 Licha Freeman MD [address] [place] [phone] Referring Physician Optometry 09/11/24 Goals (unrecognized section and content) Goals may [...] BE BASED ON THE PRIMARY CLINICAL RECORDS. [facility] [employer] [facility]. provides no warranty or guarantee of the accuracy or completeness of information in this document.
--- NOTE | 2024-12-05 09:16 | PM.CN ---
Consult Note: HPI Data of Consult Requesting Physician: Diana Sullivan NP Primary Care Provider: KAVIN MATHUR Consult Narrative Reason for consult: right knee pain Narrative: 59yof who presents for evaluation. right knee pain today 0/10 increasing to 5/10 with standing, walking, transitioning, lifting her leg, and activity. longstanding right knee pain, has been told she needs replacement however she is not interested in surgical intervention. was getting steroid injections from orthopedic office, but these stopped working over time. previously had a KUMAR injection through our office with significant relief for 2 weeks but no longstanding relief. has continued in a series of provider directed home exercises for >6 weeks, without significant benefit. uses nabumetone and voltaren with some benefit. denies adverse med side effects. recently underwent right genicular nerve RFA with >50% improvement in pain and functional ability ongoing. cc:: CC: Diana Sullivan NP Review of Systems ROS Status of ROS 10 or more systems reviewed and unremarkable except as noted in history and below Musculoskeletal Reports: joint pain PFSH PFSH Medical History Osteoarthritis ?M19.90 - Unspecified osteoarthritis, unspecified site (ICD-10) Low back pain ?M54.50 - Low back pain, unspecified (ICD-10) Neuropathy ?G62.9 - Polyneuropathy, unspecified (ICD-10) Euthyroid sick syndrome ?E07.81 - Sick-euthyroid syndrome (ICD-10) Surgical History H/O arthroscopic knee surgery ?Z98.890 - Other specified postprocedural states (ICD-10) History of lumbar spinal fusion ?Z98.1 - Arthrodesis status (ICD-10) History of hip replacement ?Z96.649 - Presence of unspecified artificial hip joint (ICD-10) History of hysterectomy ?Z90.710 - Acquired absence of both cervix and uterus (ICD-10) Meds Home Medications and Allergies Home Medications ?Medication ?Instructions ?Recorded ?Confirmed ?Type biotin 10,000 mcg capsule 10,000 mcg PO DAILY 03/11/24 11/04/24 History cholecalciferol (vitamin D3) 125 125 mcg PO DAILY 03/11/24 11/04/24 History mcg (5,000 unit) capsule duloxetine 30 mg capsule,delayed 30 mg PO DAILY 03/11/24 11/04/24 History release liothyronine 5 mcg tablet 5 mcg PO DAILY 03/11/24 11/04/24 History nabumetone 750 mg tablet 750 mg PO BID 03/11/24 11/04/24 History omega-3 fatty acids 500 mg capsule 500 mg PO DAILY 03/11/24 11/04/24 History pregabalin 100 mg capsule 100 mg PO BID 03/11/24 11/04/24 History thyroid (pork) 60 mg tablet (RECORD RETRIEVAL SPECIALIST 60 mg PO DAILY 03/11/24 11/04/24 History Thyroid) Allergies Allergy/AdvReac Type Severity Reaction Status Date / Time No Known Drug Allergies Allergy Verified 11/04/24 07:09 Exam Narrative Exam Narrative: Psych-alert and oriented x 3.? Attentive and appropriate, constitutionally normal, displays normal mood and affect per situation.? There are no obvious deficits in memory, reasoning, or intellect. Extremities-lower extremities are warm with minimal edema and palpable pulses. Knee-examination of the right knee reveals tenderness to palpation over the superior, inferior, lateral, and medial aspect of the knee.? Some swelling is noted without erythema. Pain is elicited with flexion and extension of the knee both actively and passively.? Some grinding is noted with these motions.? There is no notable ligamental laxity or instability.? Coordination remains intact.? Gait remains antalgic. Assessment and Plan Assessment and Plan (1) Osteoarthritis of right knee: Assessment and Plan: ALEN 31% moderate pain, significant limitation in ability to stand, walk, and travel 11/04/24 right genicular RFA >50% improvement ongoing Qualifiers: Osteoarthritis type: primary Qualified Code(s): M17.11 - Unilateral primary osteoarthritis, right knee Plan continue HEP as tolerated continue medications through PCP f/u 6 months, sooner if needed
== END 2024-12-05 08:57 | disposition home or self-care (01) ==
LOC: PM 08:56
PROVIDERS: PCP Family Medicine; Visit Provider Nurse Practitioner
DX: M17.11 Unilateral primary osteoarthritis, right knee (principal)
CPT/HCPCS: G0463

== ENCOUNTER 2025-06-05 10:37 | Outpatient (OUT) | payer OTHER, SELFPAY ==
--- OUTSIDE RECORDS SUMMARY | 2025-06-05 10:39 | XMS_ITS | Clinical Summary ---
Author Organization [facility] Address [address] [place] [address] Care Team Providers Care Machine Washer Name Role Phone Isidro Pisano MD Primary Care Provider Allergies No known active allergies Medications MedicationSigDispense QuantityRefillsLast FilledStart DateEnd DateStatus multivitamins(MULTIPLE VITAMINS TAB) Take one(1) tablet daily.ctive calcium carbonate/vitamin d3(CALCIUM 600 + D(3) 600 MG (1,500)-200 UNIT TAB) Take one(1) tablet daily.ctive liothyronine 5 mcg tablet Indications:Psoas tendinitis of left sideTake 5 mcg by mouth once daily.Active Family History Medical HistoryRelationCommentsDiabetesFatherIschemic Heart DiseaseFather Congestive heart failure [Other]Paternal GrandmotherRelationStatusCommentsFather Paternal Grandmother Social History Tobacco UseTypesPacks/DayYears UsedDateSmoking Tobacco: GsscybWtavnlvuzj717 07/03/1987 - 07/03/2004Alcohol UseStandard Drinks/WeekCommentsYes0 (1 standard drink = 0.6 oz pure alcohol)occasionalArea Deprivation IndexAnswerDate Recorded National Score (1-100), lower number is lower riskNot on file06/08/2020State Score (1-10), lower number is lower riskNot on file06/08/2020Data from: https://www.neighborhoodatlas.medicine.[facility].edu/. Last address used for calculationNot on file06/08/2020CommentsNoSex and Gender Information ValueDate RecordedSex Assigned at BirthNot on fileLegal BdwBuvosd28/02/2012 8:19 AM ESTGender IdentityNot on fileSexual OrientationNot on file Last Filed Vital Signs Vital SignReadingTime TakenCommentsBlood Cpipujxc886/64001/19/2009 7:00 AM EDT Nikos908101/19/2009 7:00 AM NQQDckqquvqyyb83.1 ??C (98.8 ??F)01/19/2009 7:00 AM EDTRespiratory Fldk245701/19/2009 7:00 AM EDTOxygen Saeizjcmol32%01/19/2009 7:00 AM EDTInhaled Oxygen Concentration--Wkyicc221 kg (257 lb 15 oz)01/16/2009 9:00 AM ZEOTzddcf962.7 cm (5' 7.99 )01/16/2009 9:00 AM EDTBody Mass Index39.23 01/16/2009 9:00 AM EDT Plan of Treatment Health MaintenanceDue DateLast DoneCommentsAnxiety Jeururtxl94/24/1982Depression Lqebnsvct29/24/1982HIV Eiuqhbeps75/24/1982Hepatitis C Rfymwhtwu94/24/1982 DTaP,Tdap,Td Vaccine (1 - Tdap)09/23/1982Cervical Cancer Btapltoiq38/24/1985 Mammogram Lbhgxogla27/24/2004CT Shxiiktgssjr18/24/2009Cologuard (FIT-DNA) 09/23/20082348Uxjtcrrpbbg2009Colorectal Cancer Dlsyekdfp25/24/2009Fecal Occult Blood09/23/2008Lipid Ngbwuemwn77/24/0972Kymcrjamucjey07/24/2009Pneumococcal Vaccine: 50+ (1 of 1 - PCV)09/23/2013Shingrix Vaccine (1 of 2)09/23/2013Diabetes Dlzwfaagr06/07/2017, 01/19/2009, 01/18/2009, Additional history existsCovid-19 Vaccine (1 - 2024- season)2025Influenza Vaccine (#1) /, 04/06/2015RSV Vaccine (1 - 1-dose 75+ series)09/23/2038 Procedures Procedure NamePriorityDate/TimeAssociated DiagnosisCommentsBASIC METABOLIC PANEL Almwvxj4601/19/2009 12:37 AM EDT from Last 3 Months or Most Recently Relevant to Health Maintenance Results * (ABNORMAL) BASIC METABOLIC PNL (01/19/2009 12:37 AM EDT)ComponentValueRef RangeTest MethodAnalysis TimePerformed AtPathologist NgffzguwmUzcmlcb940(H)65 - 100 mg/dLCHILLICOTHE [facility] MAIN XCFKPPWWWDULH210 - 25 mg/dLSELECT [facility]ICAL [facility] LABORATORYCreatinine0.67(L)0.70 - 1.40 mg/dLSELECT [facility]ICAL [facility] KSNUDZYFHBNgewwu958575 - 148 mmol/LCSELECT [facility]ICAL [facility] MAIN LABORATORYPotassium 3.83.5 - 5.0 mmol/LCSELECT [facility]ICAL [facility] MAIN OQSIMCCBEIFfcjpxhi22644 - 110 mmol/L [facility] EOJKNMCXKSLW83948 - 32 mmol/LCGALION COMMUNITY [facility]ITAL LABORATORYAnion Xvt212 - 15 mmol/LCGALION COMMUNITY HOSPITAL LABORATORYCalcium8.7 8.5 - 10.5 mg/dLSELECT [facility]ICAL [facility] LABORATORYSpecimen (Source)Anatomical Location / LateralityCollection Method / VolumeCollection TimeReceived Time Blood specimen (specimen)BLOOD SPECIMEN / Wjnvxoj3001/19/2009 12:37 AM EDT Narrative Authorizing ProviderResult TypeResult StatusPiotr Hankins MDLABORATORYFinal ResultPerforming OrganizationAddressCity/State/ZIP CodePhone Number [facility] [address] [place] [address] from Last 3 Months or Most Recently Relevant to Health Maintenance Insurance Care Teams Team MemberRelationshipSpecialtyStart DateEnd Date Isidro Pisano MD [address] [place] [address] [facility] - [facility]10/09/08
--- OUTSIDE RECORDS SUMMARY | 2025-06-05 10:39 | XMS_ITS | Clinical Summary ---
Author Organization [employer] Address [id number] [address] [place] [address] Care Team Providers Care Continuous Crusher Operator Name Role Phone Isidro Pisano MD Primary Care Provider Allergies No known active allergies Medications MedicationSigDispense QuantityRefillsLast FilledStart DateEnd DateStatus gabapentin (NEURONTIN) 800 mg tablet Take 800 mg by mouth 3 (three) times a day.Active nabumetone (RELAFEN) 750 mg tablet Take 750 mg by mouth 2 (two) times a day.Active methotrexate (TREXALL) 10 MG tablet Take by mouth every 12 hours for 3 doses only each week.Active KRILL OIL ORAL Take by mouth.Active biotin (BIOTIN) 300 mcg tablet Take 300 mcg by mouth daily.Active cholecalciferol, vitamin D3, 400 units tablet Take 400 Units by mouth daily.Active buPROPion XL (WELLBUTRIN XL) 300 mg 24 hr tablet Take 300 mg by mouth daily.Active metaxalone (SKELAXIN) 800 mg tablet Take 800 mg by mouth as needed for muscle spasms.Active Social History Tobacco UseTypesPacks/DayYears UsedDateSmoking Tobacco: FormerSmokeless Tobacco: NeverAlcohol UseStandard Drinks/WeekCommentsYes0 (1 standard drink = 0.6 oz pure alcohol)rareChildcareAnswerDate QpftubmhFfejcngkoFcbdbmf20/13/2019Employment AnswerDate RxhovbcsVylgbsoxigHncgsfa81/13/2019Purpose - LifeAnswerDate Recorded Purpose and direction in evvaSdoygqf84/11/2021CommentsNoSex and Gender InformationValueDate RecordedSex Assigned at BirthNot on fileLegal SexFemale 10/25/2017 10:50 AM EDTGender IdentityNot on fileSexual OrientationNot on file Last Filed Vital Signs Vital SignReadingTime TakenCommentsBlood Cnbdviph004/7605 2:15 PM EDT Ezxrn0417 2:25 PM SMLDaxtackzdei78 ??C (96.8 ??F)11/22/2017 12:28 PM EDT Respiratory Aedm6851 1:15 PM EDTOxygen Oydtrecnmm12%11/22/2017 2:25 PM EDTInhaled Oxygen Concentration--Bykpwq658.6 kg (224 lb)11/22/2017 11:12 AM EDT Dhtviz417.7 cm (5' 8 )11/22/2017 11:12 AM EDTBody Mass Index34.0611/22/2017 11:12 AM EDT Plan of Treatment Not on file Medical Devices Not on file Insurance * Guarantor: Isidra Paredes TypeRelation to PatientDate of BirthPhone Billing AddressPersonal/QoopahCtze58/24/1966 [address] [phone] Care Teams Team MemberRelationshipSpecialtyStart DateEnd Date Isidro Pisano MD [facility]10/31/17
--- OUTSIDE RECORDS SUMMARY | 2025-06-05 10:39 | XMS_ITS | Clinical Summary ---
Author Organization [facility] Address [address] [place] [address], [address] [place] [address] Care Team Providers Care International Accountant Name Role Phone Isidro Pisano MD Primary Care Provider + [phone] Encounters DateTypeDepartmentCare JhsyOwkolyfpapz56/10/2025 9:45 AM EDT - 04/11/2025 11:59 PM EDTHospital Encounter [facility] [address] [place] [address] Janneth Talley, PT Discharge Disposition: Home or Self Care03/06/2025 11:59 PM EDTHospital Encounter [facility] [address] [place] [address] Janneth Talley, PT Discharge Disposition: Home or Self Carefrom Last 3 Months Social History Tobacco UseTypesPacks/DayYears UsedDateSmoking Tobacco: Never Assessed CommentsUnknownSex and Gender InformationValueDate RecordedSex Assigned at Not on fileLegal YquIlujvw86/29/2025 2:30 PM EDTGender IdentityNot on fileSexual OrientationNot on file Plan of Treatment Health MaintenanceDue DateLast DoneCommentsDepression Zkeybn6909/24/1975HIV screen 09/23/1978Hepatitis C dyxmhn1109/23/1981DTaP/Tdap/Td vaccine (1 - Tdap)09/23/1982 Pap smear09/23/1984Cervical cancer thdeyk2709/23/1993HPV (without or with Pap) 09/23/19932159Ljkdag49/24/3250Xdsdgkcqffa33/24/2009Colorectal Cancer Screen 09/23/2008FIT/FOBT: Average risk09/23/2008Fecal-DNA (Cologuard): Average risk 09/23/2008Sigmoidoscopy/CT ydkihfmxsxxv20/24/2009Pneumococcal 50+ years Vaccine (1 of 1 - PCV)09/23/2013Shingles vaccine (1 of 2)09/23/2013nnual Wellness Visit (Medicare Advantage)07/03/2024Flu vaccine (#1)/10/2014COVID-19 Vaccine (2 - season)/reast cancer yobxwu9601/23/2027 01/23/2025, 01/23/2024, 01/13/2023, Additional history existsRespiratory Syncytial Virus (RSV) or age 60 yrs+ (1 - 1-dose 75+ series)09/23/2038 Hepatitis A vaccineAged OutNo longer eligible based on patient's age to complete this topicHepatitis B vaccineAged OutNo longer eligible based on patient's age to complete this topicHib vaccineAged OutNo longer eligible based on patient's age to complete this topicMeningococcal (ACWY) vaccineAged OutNo longer eligible based on patient's age to complete this topicMeningococcal B vaccineAged OutNo longer eligible based on patient's age to complete this topicPolio vaccineAged OutNo longer eligible based on patient's age to complete this topic Insurance Care Teams Team MemberRelationshipSpecialtyStart DateEnd Date Isidro Pisano MD [address] [place] [address] [facility] - General01/28/25
--- OUTSIDE RECORDS SUMMARY | 2025-06-05 10:39 | XMS_ITS | Clinical Summary ---
Author Organization [facility] Address [address] [place] [address] Care Team Providers Care Cover Marker Name Role Phone Isidro Pisano MD Primary Care Provider Arthur Smart MD Unavailable Agata Beltran DIRECTOR OF CORPORATE MARKETING Unavailable [phone] Jesus Sands DPM Unavailable Isidro Pisano MD Unavailable Licha Freeman MD Unavailable Allergies Active AllergyReactionsCriticalityNoted VyfaWckqxbgtUtmxdybutmuxVdjkk36/09/2021 Medications MedicationSigDispense QuantityRefillsLast FilledStart DateEnd DateStatus biotin 300 MCG tablet Take 300 mcg by mouth in the morning.Active cholecalciferol (Vitamin D-3) 10 MCG (400 UNIT) tablet Take 400 Units by mouth in the morning.Active Krill Oil 500 MG capsule Take 1 capsule by mouth 1 (one) time each day at the same time.Active metaxalone (Skelaxin) 800 MG tablet Take 800 mg by mouth Daily as needed.Active pregabalin (Lyrica) 100 MG capsule Indications:Neurogenic painTake 1 capsule (100 mg) by mouth in the evening 30 capsule 512/5Active pregabalin (Lyrica) 50 MG capsule Indications:Neurogenic pain,Lateral femoral cutaneous neuropathy, left1 cap QAM 30 capsule 5Active DULoxetine (Cymbalta) [address] capsule Indications:Recurrent major depressive disorder, in partial remissionTake 1 capsule (30 mg) by mouth 1 (one) time each day at the same time 90 capsule 5Active liothyronine (Cytomel) 5 MCG tablet Indications:ESS (euthyroid sick syndrome)Take 1 tablet in AM and 1 tablet in PM on an empty stomach. HERB; Sigma or Greenstone brands only 180 tablet 5Active estradiol (Climara) 0.05 MG/24HR Indications:Artificial menopausePlace 1 patch on the skin 1 (one) time per week 12 patch 5Active etodolac (Lodine) 500 MG tablet Indications:Idiopathic osteoarthritis,Rheumatoid arthritis involving multiple sites with positive rheumatoid factor (HCC)Take 1 tablet (500 mg) by mouth in the morning and 1 tablet (500 mg) before bedtime. 180 tablet 6Active thyroid ([place]) 60 MG tablet Indications:Acquired hypothyroidismTake 1 tablet (60 mg) by mouth in the morning and 1 tablet (60 mg) in the evening. Take before meals. 180 tablet 6Active metFORMIN (Glucophage) 500 MG tablet Indications:Pre-diabetesTake 1 tablet (500 mg) by mouth in the morning and 1 tablet (500 mg) in the evening. Take before meals. 60 tablet 5Active metFORMIN (Glucophage) 850 MG tablet Indications:Pre-diabetesTake 1 tablet (850 mg) by mouth in the morning and 1 tablet (850 mg) in the evening. Take before meals. 60 tablet 5Active metFORMIN (Glucophage) 1000 MG tablet Indications:Pre-diabetesTake 1 tablet (1,000 mg) by mouth in the morning and 1 tablet (1,000 mg) in the evening. Take with meals. 60 tablet 5Active Active Problems ProblemNoted DateDiagnosed DatePre-/04/2025Insulin resistance 02/03/2025Reactive qefgcxwbsznq02/04/2025hronic pain iklnrdfg64/03/2025Urge incontinence of urine07/08/2024hronic fjpmgun3907/04/2024Neurogenic pain 09/15/2023 Assessment & Plan (12/24/2024 4:54 PM EDT): Would change PGB 100/50 to 50/100 (larger dose near bedtime). Could also try 0/150, If still effective diurnally, and no AM somn, could remain at that dose. Orders: pregabalin (Lyrica) 100 MG capsule; Take 1 capsule (100 mg) by mouth in the evening pregabalin (Lyrica) 50 MG capsule; 1 cap QAM Assessment & Plan (10/01/2024 5:23 PM EDT): Continue current regimen.) Decr PGB to 100 AM 75 in PM for 2 weeks then 100/50. Continue to work towards qd dosing. Orders: pregabalin (Lyrica) 25 MG capsule; In addition to 100mg in the morning. Assessment & Plan (09/19/2023 9:53 AM EDT): (Continue current regimen.) 2024 consider decr PGB to qd. Lateral femoral cutaneous neuropathy, left09/15/2023 Assessment & Plan (12/24/2024 4:54 PM EDT): (Consider redo inj if/when sx were to worsen.) Orders: pregabalin (Lyrica) 50 MG capsule; 1 cap QAM Assessment & Plan (10/01/2024 5:23 PM EDT): (Consider redo inj if/when sx were to worsen.) Orders: pregabalin (Lyrica) 25 MG capsule; In addition to 100mg in the morning. Assessment & Plan (09/19/2023 9:55 AM EDT): (Consider redo inj if/when sx were to worsen.) Spjcpkezwrzvhz68/15/2024 Overview (09/15/2023): --- suspected, causing sensory loss R20.0, gait ataxia R26.0. Weakness of left leg09/15/2023Spinal stenosis, lumbar region, without neurogenic /15/2024Status post lumbar spinal khrfby53/15/2024BMI 40.0-44.9, adult4Contracture, right ankle3Acquired spondylolisthesis 01/12/2021Idiopathic lpopdljgvonjhk51/17/2021Arthritis of right knee05/27/2020 Bilateral uctumdhp57/24/2020Recurrent major depressive disorder, in partial icvhvdozz47/06/2020Sleep /12/2019ESS (euthyroid sick syndrome) 09/11/2018Morbid tjonnts9405/22/2018Lumbosacral otbwxrczmxbtx46/28/2018Acquired dilhwdcafmskhf05/13/2016Artificial mwprtpotd78/21/2016Vitamin D deficiency 01/21/20162436Llpnwpmewqylj90/21/2016Former smoker, stopped smoking many years ago 07/23/2015Rheumatoid xwphejaks07/05/2015 Resolved Problems ProblemNoted DateDiagnosed DateResolved DatePlantar nzdyetj26/06/2025 Complication of surgical yftpnjhxb61/01/2025Plantar wart03/27/2020 5Chronic fatigue Encounters DateTypeDepartmentCare CkpkQbhqumhfpnc11/28/2025[facility]ill [facility] [address] [place] [address] Isidro Pisano MD ESS (euthyroid sick syndrome)03/24/2025 11:45 AM EDTOffice Visit [facility] [place] [address] [place] [address] Isidro Pisano MD Thrombophlebitis (Primary Dx)5Bamboo flowsheet [facility] [address] [place] [address] Isidro Pisano MD 03/24/2025Travelfrom Last 3 Months Immunizations ImmunizationAdministration DatesNext DueInfluenza, injectable, quadrivalent, preservative free04/06/2015 Family History Medical HistoryRelationNameCommentsArthritisFatherFather RogerDiabetesFather Father RogerHeart diseaseFatherFather RogerHeart failureFatherFather Timothy HypertensionFatherFather RogerBreast cancerMotherNancyHeart diseaseMotherNancy HypertensionMotherNancyStomach troubleMotherNancyHeart failurePaternal GrandmotherRelationNameStatusCommentsFatherFather RogerAliveMotherNancyAlive Paternal Grandmother Social History Tobacco UseTypesPacks/DayYears UsedDateSmoking Tobacco: QnbahsIpcvbwaydy358Uebl: 07/24/2005Passive Smoke Exposure: NeverSmokeless Tobacco: Never Tobacco Cessation:Counseling Given: Yes Comments:Last smoked: 5-10 years ago Alcohol UseStandard Drinks/WeekCommentsNever0 (1 standard drink = 0.6 oz pure alcohol)Caffeine intake: 2-3 cups per dayHumiliation, Afraid, Rape, and Kick questionnaireAnswerDate RecordedWithin the last year, have you been afraid of your partner or ex-partner?No01/19/2023Within the last year, have you been humiliated or emotionally abused in other ways by your partner or ex-partner?No 01/19/2023Within the last year, have you been kicked, hit, slapped, or otherwise physically hurt by your partner or ex-partner?No01/19/2023Within the last year, have you been raped or forced to have any kind of sexual activity by your part ner or ex-partner?No01/19/2023Social Connection and Isolation PanelAnswerDate RecordedIn a typical week, how many times do you talk on the phone with family, friends, or neighbors?More than three times a week01/19/2023How often do you get together with friends or relatives?More than three times a week01/19/2023How often do you attend amish or lutheran services?More than 4 times per year 01/19/2023ctive Member of Clubs or OrganizationsNot on file01/19/2023ttends Club or Organization MeetingsNot on file01/19/2023Marital StatusNot on file 01/19/2023UDIT-CAnswerDate RecordedQ1: How often do you have a drink containing alcohol?Monthly or less01/19/2023Q2: How many drinks containing alcohol do you have on a typical day when you are drinking?1 or Q3: How often do you have six or more drinks on one occasion?Never01/19/2023Overall Financial Resource Strain (CARDIA)AnswerDate RecordedHow hard is it for you to pay for the very basics like food, housing, medical care, and heating?Somewhat hard 01/19/2023HQ-2AnswerDate RecordedPatient Health Questionnaire-2 Score0 02/18/2025FinBlo[facility] - Occupational Stress QuestionnaireAnswerDate RecordedDo you feel stress - tense, restless, nervous, or anxious, or unable to sleep at night because yourmind is troubled all the time - these days?To some nokyyw3301/19/2023Exercise Vital SignAnswerDate Recorded On average, how many days per week do you engage in moderate to strenuous exercise (like a brisk walk)?4 days01/19/2023On average, how many minutes do you engage in exercise at this level?30 min01/19/2023Hunger Vital SignAnswerDate RecordedWithin the past 12 months, you worried that your food would run out before you got the money to buymore.Sometimes true01/19/2023Within the past 12 months, the food you bought just didn't last and you didn't have money to get more.Sometimes true01/19/2023RAPARE - TransportationAnswerDate RecordedIn the past 12 months, has lack of transportation kept you from medical appointments or from getting medications?No01/19/2023In the past 12 months, has lack of transportation kept you from meetings, work, or from getting things needed for daily living?No01/19/2023Housing Stability Vital SignAnswerDate RecordedIn the last 12 months, was there a time when you were not able to pay the mortgage or rent on time?No01/19/2023In the last 12 months, how many places have you lived?1 01/19/2023In the last 12 months, was there a time when you did not have a steady place to sleep or slept in [place] (including now)?No01/19/2023EducationAnswer Date RecordedWhat is the highest level of school you have completed or the highest degree you have received?High school [employer]09/16/2023Comments NoSex and Gender InformationValueDate RecordedSex Assigned at BirthNot on file Legal MdhZzhxks80/15/2023 7:14 PM EDTGender IdentityNot on fileSexual OrientationNot on fileOccupationIndustryJob Start DateJob End Datewors Fulltime Not on fileNot on fileNot on file Last Filed Vital Signs Vital SignReadingTime TakenCommentsBlood Qovzdprd652/8204/07/2024 5:08 PM EDT Bvekc037009/11/2024 4:34 PM EDTTemperature--Respiratory Rate--Oxygen Lfagepsptw10% 09/11/2024 4:34 PM EDTInhaled Oxygen Concentration--Qmprzq024 kg (267 lb) 03/24/2025 11:23 AM DEIJfxrza584.7 cm (5' 8 )03/24/2025 11:23 AM EDTBody Mass Index40.609 11:23 AM EDT Plan of Treatment DateTypeDepartmentCare Team (Latest Contact Info)Pdrjnpshqft30/23/2025 9:30 AM ESTOffice Visit [facility] [address] [facility] [address] [place] [address] Arthur Smart MD 1055 [facility] [address] [place] [address] 06/30/2025 10:00 AM ESTOffice Visit [facility] [address] [address] Isidro Pisano MD [address] [address] (Fax) 07/09/2025 10:00 AM ESTOffice Visit [facility] [address] 112 [facility] [address] [place] [address] Isidro Pisano MD [address] [address] (Fax) 07/31/2025 11:00 AM ESTOffice Visit [facility] 112 [facility] [address] [place] [address] Isidro Pisano MD 112 [facility] [address] [place] [address] (Fax) Health MaintenanceDue DateLast DoneCommentsCT Wyhweglpdchq99/24/1964FIT-DNA 1963FIT1963FOBT1963 4643Wxdkelbcjhoxa19/24/1964COVID-19 Vaccine ( season)Medicare Annual Wellness (AWV)09/11/2025 09/11/2024, 10/26/2022, 08/12/20212831Zeqtvqsxecd38Colorectal Cancer Gwmktabff30/15/2026Influenza Vaccine (#1)/10/2014Postponed from 03/03/2025 (Patient Refused)Isrhxgzna62, 01/23/2024, 01/13/2023, Additional history existsPneumococcal Vaccine: Pediatrics (0 to 5 Years) and At-Risk Patients (6 to 64 Years)Aged OutNo longer eligible based on patient's age to complete this topic Procedures Procedure NamePriorityDate/TimeAssociated DiagnosisCommentsBI MAMMOGRAM SCREENING TOMOSYNTHESIS GIXNXRWNPHijrzwq03/24/2025 12:23 PM EDT Encounter for screening mammogram for malignant neoplasm of breast BYWWVFHUQRJCgnrika77/15/2016 12:00 PM EDT Encounter for screening for malignant neoplasm of colon Encounter for screening for osteoporosis Encounter for other screening for malignant neoplasm of breast Other specified counseling Morbid (severe) obesity due to excess calories (CMS-HCC) Other specified menopausal and perimenopausal disorders Encounter for general adult medical examination without abnormal findings from Last 3 Months or Most Recently Relevant to Health Maintenance Results * Bilateral screening mammogram with tomosynthesis (01/23/2025 12:23 PM EDT) Anatomical RegionLateralityModalityBreastBilateralMammographySpecimen (Source) Anatomical Location / LateralityCollection Method / VolumeCollection Time Received Time01/23/2025 2:14 PM EDT Impressions 01/23/2025 2:20 PM EDT Impression: No specific evidence of malignancy seen in either breast. BIRADS 2 - Benign Findings DENSITY: The breasts are heterogeneously dense, which may obscure small masses. FOLLOW-UP: Routine Screening Mammogram ELECTRONICALLY SIGNED BY: Ricardo Mace M.D. Narrative 01/23/2025 2:20 PM EDT Examination: BI MAMMOGRAM SCREENING TOMOSYNTHESIS BILATERAL Clinical History: screening mammogram Technique: Screening digital mammography study of both breasts was performed with 2-D and 3-D tomosynthesis imaging. Study was compared to the prior exam dated 01/23/2024. Findings: There is no evidence of interval dominant spiculated mass, grouped microcalcifications, or skin thickening which would be suggestive of malignancy. ?? A partially visualized axillary lymph node is suggested on the right which appears grossly unremarkable. Procedure Note Ricardo Mace MD - 01/23/2025 Examination: BI MAMMOGRAM SCREENING TOMOSYNTHESIS BILATERAL Clinical History: screening mammogram Technique: Screening digital mammography study of both breasts wasperformed with 2-D and 3-D tomosynthesis imaging. Study was compared tothe prior exam dated 01/23/2024. Findings: There is no evidence of interval dominant spiculated mass,grouped microcalcifications, or skin thickening which would be suggestiveof malignancy. A partially visualized axillary lymph node is suggested on the right which appears grossly unremarkable. IMPRESSION: Impression: No specific evidence of malignancy seen in either breast. BIRADS 2 - Benign Findings DENSITY: The breasts are heterogeneously dense, which may obscure smallmasses. FOLLOW-UP: Routine Screening Mammogram ELECTRONICALLY SIGNED BY: Ricardo Mace M.D. Authorizing ProviderResult TypeResult Nataliya Pisano MDNOR[facility] [place] Final Result * Colonoscopy (09/15/2015 12:00 PM EDT)Anatomical RegionLateralityModality EndoscopySpecimen (Source)Anatomical Location / LateralityCollection Method / VolumeCollection TimeReceived Time09/15/2015 12:00 PM EDT Narrative 01/26/2016 12:00 PM EDT PERFORMED AT [facility] LOCATION:[id number] Normal Procedure Note CONVERSION, GENERIC - 11/17/2022 PERFORMED AT [facility] LOCATION:[id number] Normal Authorizing ProviderResult TypeResult StatusEdiván Pisano MDENDOSCOPY PROCEDURE ORDERABLESFinal Result from Last 3 Months or Most Recently Relevant to Health Maintenance Insurance Care Teams Team MemberRelationshipSpecialtyStart DateEnd Date Isidro Pisano MD [address] [address] PCP - GeneralFamily Medicine12/01/22 Isidro Pisano MD [address] [address] PCP - Devoted08/03/2511 Arthur Smart MD 5319 [facility] [address] [address] Referring PhysicianNeurolog08/10/23 Agata Beltran NP Nurse PractitionerOrthopaedic Surgery08/10/23 Jesus Sands DPM [address] [address] Referring PhysicianPodiatr08/10/23 Licha Freeman MD [address] [place] [address] Referring PhysicianOptometry09/11/24
--- OUTSIDE RECORDS SUMMARY | 2025-06-05 10:44 | XMS_ITS | CCD ---
Author Organization [facility] CliniSyut Care Team Providers Care Equine Intern Name Role Phone Trevor De Anda Unavailable MD Isidro Mathur Primary Care Provider MD Erickson Hernandez Attending Provider JESUS SIMENTAL Attending Unavailable JESUS SIMENTAL Consulting Unavailable JESUS SIMENTAL Admitting Unavailable KEVAN ., DR VALE Primary Care Unavailable JOHNNY TERAN Consulting Unavailable HEMEDORA ., DR VALE Admitting Unavailable HEMEYER ., DR VALE Attending Unavailable HEMEYER ., DR VALE Consulting Unavailable NATALIAYER ., DR VALE Primary Care Unavailable Isidro Mathur MD Primary Care Provider [phone] Isidro Mathur MD Primary Care Provider [phone] Len Smart MD Unavailable Agata Beltran NP Unavailable [phone] Jesus Simental DPM A Unavailable Isidro Mathur MD Primary Care Provider [phone] Len Smart MD Unavailable Ruby CARRILLO, Agata Isabel Unavailable [phone] Isidro Mathur MD Unavailable [phone] Len Smart MD Unavailable Agata Beltran NP Unavailable Licha Freeman MD Unavailable [phone] Brittani FISCHER, Zeina Beckett Attending Unavailable Brittani FISCHER, Andrius Beckett Attending Unavailable Brittani FISCHER, Andrius Sujit Attending Unavailable Brittani FISCHER, Andrius Beckett Attending Unavailable Isidro Mathur MD Primary Care Provider Licha Freeman MD Unavailable ISIDRO MATHUR Attending Unavailable LEN SMART Attending Unavailable LEN SMART Attending Unavailable ISIDRO MATHUR Attending Unavailable ISIDRO MATHUR Attending Unavailable KEVAN, EDIVÁN Mensah Referring Unavailable HEMEDORA, EDIVÁN J Attending Unavailable KEVAN, EDIVÁN J Attending Unavailable ISIDRO MATHUR J Attending Unavailable AHMET CASTRO Attending Unavailable ISIDRO MATHUR Attending Unavailable ISIDRO MATHUR J Attending Unavailable HEMEDORA, EDWARD J Referring Unavailable HEMEYER, EDWARD J Primary Care Unavailable HEMEDORA, EDIVÁN J Referring Unavailable HEMEDORA, EDWARD J Primary Care Unavailable HEMEYER, EDWARD J Referring Unavailable HEMEYER, EDWARD J Primary Care Unavailable HEMEYER, EDIVÁN J Referring Unavailable HEMEYER, EDWARD J Primary Care Unavailable HEMEDORA, EDIVÁN J Referring Unavailable HEMEYER, EDWARD J Primary Care Unavailable HEMEYER, EDWARD J Referring Unavailable HEMEYER, EDWARD J Primary Care Unavailable Allergies Allergy ClassificationReported Allergen(s)Allergy TypeDate of OnsetReaction(s) Facility (20 sources)MethotrexateDrug Hrbptle04-51-6058TvkdkRzejxqhzwTri[facility] Medications Current Medications MedicationDrug Class(es)DatesSig (Normalized)Sig (Original)biotin 10 mg oral capsule (20 sources)Start: 21-51-3524cskg 37531 ug by mouth once daily in the morning Biotin Active 09371 MCG PO Every morning April 18, 2019 12:00amtake 1 tablet by mouth in the morningbiotin 300 MCG tablet Take 300 mcg by mouth in the morning. Activetake 1 tablet by mouth once dailyBiotin 10 MG 1 tablet Orally Once a day Activecholecalciferol 0.125 mg oral tablet (20 sources)Vitamin DStart: 23-69-2141mqje 1 tablet by mouth once daily in the morningCholecalciferol (Vitamin D3) (Vitamin D3) 5,000 unit Tablet Active 5000 UNIT PO Every morning April 18, 2019 12:00amtake 1 tablet by mouth in the morningcholecalciferol (Vitamin D-3) 10 MCG (400 UNIT) tablet Take 400 Units by mouth in the morning. ActiveDULoxetine 30 mg delayed release oral capsule (20 sources)Serotonin and Norepinephrine Reuptake InhibitorStart: 01-26-2023 End: 43-34-9233bvsk 1 capsule by mouth once dailyDULoxetine (Cymbalta) [address] capsule Indications: Recurrent major depressive disorder, in partialremission Take 1 capsule (30 mg) by mouth 1 (one) time each day at the same time 90 capsule 1 12/26/2024 06/24/2025 ActiveStart: 78-10-1917ikal 60 mg by mouth once daily at bedtimeDuloxetine Active 60 MG PO Daily at bedtime September 15, 2020 12:19is966 hr estradiol 0.00481 mg/hr transdermal system (20 sources)EstrogenStart: 01-07-2025 End: 95-72-1982swdvylrxg (Climara) 0.05 MG/24HR Indications: Artificial menopause Place 1 patch on the skin 1 (one) time per week 12 patch 1 01/07/2025 06/24/2025 ActiveStart: 09-16-2024 End: 55-48-8261efvvmjfzl (Climara) 0.05 MG/24HR Indications: Artificial menopause APPLY 1 PATCH TO THE SKIN ONCE WEEKLY 12 patch 1 09/16/2024 01/07/2025 Discontinued (Reorder)Start: 01-26-2023 End: 61-63-5467idsijwynh (Climara) 0.05 MG/24HR Indications: Artificial menopause Place 1 patch on the skin 1 (one) time per week 12 patch 1 01/16/2024 Activeetodolac 500 mg oral tablet (20 sources)Nonsteroidal Anti-inflammatory DrugStart: 09-15-2020 End: 18-10-7281rkri 1 tablet by mouth in the morningetodolac (Lodine) 500 MG tablet Indications: Idiopathic osteoarthritis , Rheumatoid arthritis involving multiple sites with positive rheumatoid factor (HCC) Take 1 tablet (500 mg) by mouth in the morning and 1 tablet (500 mg) before bedtime. 180 tablet 1 01/07/2025 07/06/2025 Activetake 1 tablet by mouth every twenty-four hours Etodolac ER 500 MG 1 tablet with food Orally Once a day Activekrill oil 500 mg oral capsule (20 sources)Start: 85-81-0218ucox 500 mg by mouth once daily in the morningKrill Oil Active 500 MG PO Every morning April 18, 2019 12:00amKrill Oil 1000 MG as directed Orally Activeliothyronine sodium 0.005 mg oral tablet (20 sources)l-TriiodothyronineStart: 01-09-2024 End: 63-33-0949jbyxpzwjmgoq (Cytomel) 5 MCG tablet Indications: ESS (euthyroid sick syndrome) Take 1 tablet in AM and 1 tablet in PM on an empty stomach. HERB; Sigma or Greenstone brands only 180 tablet 1 5Activemetaxalone 400 mg oral tablet (20 sources)Start: 49-38-7173prbq 400 mg by mouth once dailyMetaxalone Active 400 MG PO Daily September 15, 2020 12:00amStart: 04-18-2019 End: 99-44-4778wlmv 400 mg by mouth once dailyMetaxalone Discontinued 400 MG PO Daily April 18, 2019 12:00am May 04, 2019 11:16amtake 1 tablet by mouth every twenty-four hours as neededmetaxalone (Skelaxin) 800 MG tablet Take 800 mg by mouth Daily as needed. Activetake 1 tablet by mouth every eight hours Metaxalone 800 MG 1 tablet Orally Three times a day ActivemetFORMIN hydrochloride 500 mg oral tablet (15 sources)BiguanideStart: 02-05-2025 End: 91-24-8359arep 1 tablet by mouth in the morningmetFORMIN (Glucophage) 1000 MG tablet Indications: Pre-diabetes Take 1 tablet (1,000 mg) by mouth in the morning and 1 tablet (1,000 mg) in the evening. Take with meals. 60 tablet 02/05/2025 ActiveStart: 02-05-2025 End: 11-46-1198borh 1 tablet by mouth in the morningmetFORMIN (Glucophage) 500 MG tablet Indications: Pre-diabetes Take 1 tablet (500 mg) by mouth in the morning and 1 tablet (500 mg) in the evening. Take before meals. 60 tablet 02/05/2025 ActiveStart: 02-05-2025 End: 09-78-0077ijuh 1 tablet by mouth in the morningmetFORMIN (Glucophage) 850 MG tablet Indications: Pre-diabetes Take 1 tablet (850 mg) by mouth in the morning and 1 tablet (850 mg) in the evening. Take before meals. 60 tablet 02/05/2025 ActiveoxyCODONE hydrochloride 5 mg oral tablet (2 sources)Opioid AgonistStart: 14-99-1372usqf 5 mg by mouth every four to six hoursOxycodone Active 5 MG PO EVERY 4-6 HOURS September 24tart: 05-04-2019 End: 13-23-9527bfpd 5 mg by mouth every four to six hoursOxycodone Discontinued 5 MG PO EVERY 4-6 HOURS 70 May 04, 2019 September 15, 2020 11:41am predniSONE 10 mg oral tablet (6 sources)Start: 01-29-2024 End: 15-75-9346sdbvhvZTWS (Deltasone) 10 MG tablet Indications: Acute pain of right knee Every 2 day tapering dose; 5,5,4,4,3,3,2,2,1,1,0.5,0.5 31 tablet 01/29/2024 07/08/2024 Discontinued (Therapy completed)pregabalin 50 mg oral capsule (20 sources)Start: 93-76-3530ekpmssfilp (Lyrica) 50 MG capsule Indications: Neurogenic pain , Lateral femoral cutaneous neuropathy, left 1 cap QAM 30 capsule 5 12/24/2024 ActiveStart: 10-01-2024 End: 16-42-9550hvfwlbilju (Lyrica) 25 MG capsule Indications: Neurogenic pain , Lateral femoral cutaneous neuropathy, left In addition to 100mg in the morning. 90 capsule 3 10/01/2024 12/24/2024 Discontinued (Reorder)Start: 09-19-2023 End: 03-10-9260tgio 1 capsule by mouth in the eveningpregabalin (Lyrica) 100 MG capsule Indications: Neurogenic pain Take 1 capsule (100 mg) by mouth inthe evening 30 capsule 5 12/24/2024 06/22/2025 ActiveStart: 16-81-6005khyh 1 capsule by mouth twice dailypregabalin (Lyrica) 100 MG capsule Indications: Neurogenic pain TAKE ONE CAPSULE BY MOUTH TWICE A DAY 60 capsule 2 05/08/2023 Activetake 1 capsule by mouth twice dailyLyrica 50 MG 1 capsule Orally twice daily for 30 days Activethyroid (retirement) 60 mg oral tablet (20 sources)Start: 12-26-2024 End: 18-30-6320ighe 1 tablet by mouth in the morningthyroid ([place]) 60 MG tablet Indications: Acquired hypothyroidism Take 1 tablet (60 mg) by mouth in the morning and 1 tablet (60 mg) in the evening. Take before meals. 180 tablet 1 01/07/2025 07/06/2025 ActiveStart: 07-13-2023 End: 18-72-8592ejjc 0.5 tablet by mouth in the morningthyroid ([place]) 120 MG tablet Indications: Acquired hypothyroidism Take 0.5 tablets (60 mg) by mouth in the morning and 0.5 tablets (60 mg) in the evening. Take before meals. 90 tablet 1 07/08/2024 12/26/2024 Discontinued (Dose adjustment)Start: 47-82-9024srly 1 tablet by mouth twice dailyThyroid (Pork) ([place] Thyroid) 60 mg Tablet Active 60 MG PO Twice daily April 18, 2019 12:00amStart: 04-18-2019 End: 01-39-2229ybhl 1 tablet by mouth once daily in the morningThyroid (Pork) ([place] Thyroid) 90 mg Tablet Discontinued 90 MG PO Every morning April 18, 201912:00am September 15, 2020 11:37amtake 1 tablet by mouth every twenty-four hoursThyroid 60 MG 1 tablet on an empty stomach Orally Once a day ActiveThyroid 90 MG (2 sources)take 1 tablet by mouth once dailyThyroid 90 MG 1 tablet on an empty stomach Orally Once a day ActiveVitamin D3 125 MCG (5000 UT) (2 sources)Vitamin D3 125 MCG (5000 UT) as directed Orally Active Completed/Discontinued Medications MedicationDrug Class(es)DatesSig (Normalized)Sig (Original)acetaminophen 325 mg / HYDROcodone bitartrate 5 mg oral tablet (1 source)Opioid AgonistStart: 09-15-2020 End: 00-37-2674fljl 1 tablet by mouth once dailyHydrocodone-Acetaminophen Discontinued 1 TAB PO Daily September 15, 2020 12:00am 2020 8:01am azelastine hydrochloride 0.137 mg/actuat metered dose nasal spray (2 sources)Histamine-1 Receptor Antagonisttake 1 puff(s) nasal route twice daily Azelastine HCl 0.1 % 1 puff in each nostril Nasally Twice a day Not-Ricqui82 hr buPROPion hydrochloride 300 mg extended release oral tablet (1 source)AminoketoneStart: 04-18-2019 End: 27-54-5511yyww 300 mg by mouth once daily in the eveningBupropion Hcl Discontinued 300 MG PO Every evening April 18, 2019 12:00am September 15, 2020 11:41amcefuroxime 250 mg oral tablet (2 sources)Cephalosporin AntibacterialStart: 07-17-2023 End: 19-76-5116pjhz 1 tablet by mouth in the morningcefuroxime (Ceftin) 250 MG tablet Indications: Acute cystitis with hematuria Take 1 tablet (250 mg)by mouth in the morning and 1 tablet (250 mg) before bedtime. Do all this for 5 days. 10 tablet 0 07/17/2023 07/25/2023 Discontinued (Therapy completed)diazePAM 5 mg oral tablet (1 source)BenzodiazepineStart: 05-04-2019 End: 57-37-5105vwrf 5 mg by mouth four times dailyDiazepam Discontinued 5 MG PO Four times daily 40 10 May 04, 2019 12:00am September 15, 2020 11:41am diclofenac sodium 75 mg delayed release oral tablet (1 source)Nonsteroidal Anti-inflammatory DrugStart: 04-18-2019 End: 14-39-1606aayb 75 mg by mouth twice dailyDiclofenac Sodium Discontinued 75 MG PO Twice daily April 18, 2019 12:00am May 04, 2019 11:16am Advised to stop 5 days before surgerygabapentin 800 mg oral tablet (1 source)Anti-epileptic AgentStart: 04-18-2019 End: 17-12-5291wcpa 800 mg by mouth three times dailyGabapentin Discontinued 800 MG PO Three times daily April 18, 2019 12:00am September 15, 2020 11:41am nabumetone 750 mg oral tablet (17 sources)Nonsteroidal Anti-inflammatory DrugStart: 03-06-2024 End: 99-37-6419cnnn 1 tablet by mouth in the morningnabumetone (Relafen) 750 MG tablet Indications: Osteoarthritis Take 1 tablet (750 mg) by mouth in the morning and 1 tablet (750 mg) before bedtime. 180 tablet 07/25/2024 11/07/2024 Discontinued (Med list cleanup)Start: 07-25-2023 End: 42-51-0137usga 1 tablet by mouth in the morningnabumetone (Relafen) 750 MG tablet Indications: Osteoarthritis Take 1 tablet (750 mg) by mouth in the morning and 1 tablet (750 mg) before bedtime. 180 tablet 1 07/25/2023 01/21/2024 Activeoxybutynin chloride 5 mg oral tablet (5 sources)Cholinergic Muscarinic AntagonistStart: 01-28-2025 End: 56-69-2853bxlg 1 tablet by mouth twice daily as neededoxybutynin (Ditropan) 5 MG tablet Indications: Urge incontinence of urine Take 1 tablet (5 mg) by mo ut 2 (two) times a day as needed (as needed when going to be traveling Or out of the house.) 60 tablet 01/28/2025 02/27/2025 Problems Active Problems Problem ClassificationProblemDateDocumented DateEpisodic/ChronicDiabetes mellitus without complication (10 sources)Hyperglycemia; Translations: [Impaired fasting glucose]Onset: 796216-81-0065KywiizlmPzxaukuoi of lipid metabolism (2 sources)Hypertriglyceridemia; Translations: [Pure hyperglyceridemia] 61-34-5957SihqbwzPhhcwynypxlld symptoms and ill-defined conditions (20 sources)Urge incontinence of urine; Translations: [Urge incontinence]Onset: 491410-02-4186ThbqoerLkpkqre and fatigue (20 sources)Chronic fatigue syndrome; Translations: [Chronic fatigue, unspecified]Onset: 07-23-2015 Resolved: 139316-23-6074HsfeenkJachbyfyfc disorders (20 sources)Postartificial menopausal syndrome; Translations: [Other specified menopausal and perimenopausal disorders]Onset: 860451-79-2676ZznczicNlcp disorders (20 sources)Recurrent major depression in partial remission; Translations: [Major depressive disorder, recurrent, in partial remission]Onset: 08-08-2019 01-86-7403VsvpumzNrzabqgwmvf deficiencies (20 sources)Vitamin D deficiency; Translations: [Vitamin D deficiency, unspecified]Onset: 527202-02-2888XvwcwmkXwrlncngkrrlmw (20 sources)Osteoarthritis of knee; Translations: [Unilateral primary osteoarthritis, right knee]Onset: 849810-87-0953EadqtstHtuhj acquired deformities (3 sources)Kyphoscoliosis deformity of spine; Translations: [Scoliosis, unspecified]40-51-2146OlkgiaoDjqno acquired deformities (2 sources)Kyphoscoliosis and scoliosis; Translations: [Scoliosis, unspecified] ChronicOther acquired deformities (20 sources)Contracture of joint of right ankle; Translations: [Contracture, right ankle]Onset: 745907-93-9063JgigtigGoekv acquired deformities (3 sources)Spondylolisthesis; Translations: [Spondylolisthesis, lumbosacral region]13-97-4985HqiynuwwKntru endocrine disorders (8 sources)Reactive hypoglycemia; Translations: [Other hypoglycemia]Onset: 761274-02-0002YpcxiojIangj nervous system disorders (3 sources)Meralgia paresthetica; Translations: [Meralgia paresthetica, right lower limb]ChronicOther nervous system disorders (2 sources)Right leg peripheral neuropathy; Translations: [Meralgia paresthetica, right lower limb]ChronicOther nervous system disorders (2 sources)Chronic pain; Translations: [Other chronic pain]ChronicOther nervous system disorders (1 source)Meralgia paresthetica, right lower limb; Translations: [Meralgia paresthetica of right side G57.11]Onset: 04-12-2021 Resolved: 50-38-4767QsmbtjbVocbc nervous system disorders (1 source)Meralgia paresthetica, unspecified lower limb; Translations: [Meralgia paresthetica, unspecified laterality G57.10]Onset: 04-12-2021 Resolved: 74-58-5322FhggjsbCmqqa nervous system disorders (20 sources)Left leg peripheral neuropathy; Translations: [Meralgia paresthetica, left lower limb]Onset: 09-15-2023 Resolved: 106381-47-4713RprqacwLshsg nervous system disorders (20 sources)Polyneuropathy; Translations: [Polyneuropathy, unspecified]Onset: 169542-83-0950KynribiHnaph nervous system disorders (16 sources)Chronic pain syndrome; Translations: [Chronic pain syndrome]Onset: 476342-75-6613WznsdvnJsrxg non-traumatic joint disorders (2 sources)Pain in right knee; Translations: [Pain in joint, lower leg] 66-15-3135FebkjemyFrnaf nutritional; endocrine; and metabolic disorders (12 sources)Obesity; Translations: [Obesity, unspecified]Onset: 05-22-2018 04-23-9784QxvmnxzQflan nutritional; endocrine; and metabolic disorders (20 sources)Morbid obesity; Translations: [Morbid (severe) obesity due to excess calories]Onset: 645906-86-4646UzcerdxRsyny nutritional; endocrine; and metabolic disorders (20 sources)Body mass index 30+ - obesity; Translations: [Body mass index (BMI) 38.0-38.9, adult]Onset: 595365-16-4701WofqwryVlxkm nutritional; endocrine; and metabolic disorders (2 sources)Obesity caused by energy imbalance; Translations: [Class 2 obesity due to excess calories without serious comorbidity with body mass index (BMI) of 38.0 to 38.9 in adult]03-77-6156NpzfvwoSygps nutritional; endocrine; and metabolic disorders (20 sources)Body mass index 40+ - severely obese; Translations: [Body mass index (BMI) 40.0-44.9, adult]Onset: 970241-15-6434AopblxwCxunf nutritional; endocrine; and metabolic disorders (8 sources)Insulin resistance; Translations: [Insulin resistance]Onset: 653490-91-5289VmjowdmXfcew nutritional; endocrine; and metabolic disorders (4 sources)Weight increased; Translations: [Abnormal weight gain]01-27-2025 EpisodicOther screening for suspected conditions (not mental disorders or infectious disease) (2 sources)Patient encounter status; Translations: [Encounter for screening mammogram for malignant neoplasm of breast]80-90-8621HbybilhtOlcaawqch; thrombophlebitis and thromboembolism (2 sources)Thrombophlebitis; Translations: [Phlebitis and thrombophlebitis of unspecified site]65-71-5435WggtagevXcldgydy codes; unclassified (2 sources)Family history of diabetes mellitus; Translations: [Family history of diabetes mellitus]75-75-1296AjwtdhlhBdeegbzffv arthritis and related disease (20 sources)Rheumatoid arthritis; Translations: [Rheumatoid arthritis, unspecified]Onset: 118031-30-3860WtrjkxvYdypksmsigj; intervertebral disc disorders; other back problems (4 sources)Degeneration of lumbar intervertebral disc; Translations: [Other intervertebral disc degeneration, lumbar region]ChronicThyroid disorders (20 sources)Acquired hypothyroidism; Translations: [Hypothyroidism, unspecified] Onset: hronic Past or Other Problems Problem ClassificationProblemDateDocumented DateEpisodic/ChronicBacterial infection; unspecified site (20 sources)Bartonellosis; 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, unspecified]Onset: 643294-56-8322JmnvpfvzDmwfmmwaacclm of surgical procedures or medical care (20 sources)Complication of surgical procedure; Translations: [Unspecified complication of procedure, initial encounter]Onset: 08-04-2020 Resolved: 937894-72-8413RnnqrpvaMpai disorders (20 sources)Mood disordersOnset: Other acquired deformities (2 sources)Lumbar spondylolisthesis; Translations: [Spondylolisthesis, lumbar region]EpisodicOther acquired deformities (2 sources)Spondylolisthesis L5/S1 level; Translations: [Spondylolisthesis, lumbosacral region]EpisodicOther acquired deformities (1 source)Spondylolisthesis, lumbosacral region; Translations: [Spondylolisthesis at L5-S1 level M43.17]Onset: 03-29-2021 Resolved: 13-13-8312ErlsnnsxBfnxb acquired deformities (20 sources)Acquired spondylolisthesis; Translations: [Spondylolisthesis, site unspecified]Onset: 251662-30-9723HgktyqooOzprw aftercare (2 sources)Pain relief by medication; Translations: [Other terminal carman (current) drug therapy]EpisodicOther connective tissue disease (20 sources)Neurogenic pain; Translations: [Neuralgia and neuritis, unspecified] Onset: 552009-49-7326VyxpsawaFeadg connective tissue disease (20 sources)Other symptoms and signs involving the musculoskeletal system; Translations: [Other musculoskeletalsymptoms referable to limbs]Onset: 675060-06-4788DteoajzkLvcxt connective tissue disease (20 sources)History of lumbar fusion; Translations: [Arthrodesis status]Onset: 590064-71-0694NdiguehdJzksr ear and sense organ disorders (20 sources)Bilateral tinnitus; Translations: [Tinnitus, bilateral]Onset: 532148-12-0681PgtooplaCrpce upper respiratory infections (2 sources)Streptococcal sore throat; Translations: [Streptococcal sore throat] EpisodicResidual codes; unclassified (20 sources)Sleep disorder; Translations: [Sleep disorder, unspecified]Onset: 307188-58-0060GzrwvlgdQuwyukrtm and history of mental health and substance abuse codes (20 sources)Ex-smoker; Translations: [Personal history of nicotine dependence] Onset: 043078-43-9164RqghyzuvEcandtxxevu; intervertebral disc disorders; other back problems (20 sources)Lumbosacral radiculopathy; Translations: [Radiculopathy, lumbosacral region]Onset: 342548-71-3592UhdusiiiHzxcjna disorders (20 sources)Sick-euthyroid syndrome; Translations: [Sick-euthyroid syndrome] Onset: 85-64-7497JmgrqsphSplbt infection (20 sources)Verruca plantaris; Translations: [Plantar wart]Onset: 03-27-2020 Resolved: 597429-81-4120Gbeeqpae Results Test NameValueInterpretationReference RangeFacilityGLUCOSE TOLERANCE TEST, 5 SPECIMENSon [id number] DiagnosticsComment on above:Result Comment: [place] [employer] Diagnostic Criteria for Diabetes Mellitus Glucose Value (mg/dL) Interpretation Fasting 1 Hr 2 Hr Tolerance Tolerance --------- --------- --------- Normal <100 Not Established <140 Impaired Fasting 100-125 Impaired Tolerance 140-199 Diabetes >TF=236* >RR=907* * Must be confirmed by testing on a subsequent day.Performed By: #### [id number], [id number] #### [facility] of [address], [address] [place] [address] Morgue Technician: Pal Greene Comment: Reference Range Fastin.0-18.4 30 Minutes Post Glucose: 6.0-86.0 60 Minutes Post Glucose: 8.0-112.0 90 Minutes Post Glucose: 5.0-68.0 120 Minutes Post Glucose: 5.0-55.0 150 Minutes Post Glucose: 3.0-46.0 180 Minutes Post Glucose: 3.0-20.0 240 Minutes Post Glucose: <15.0 300 Minutes Post Glucose: <8.0 These values are provided for general guidance only.SPECIMEN 1111 mg/cHUxzy46-10 [facility] DiagnosticsComment on above:Performed By: #### [id number], 6691 #### [facility] of [address], [address] [place] [address] Morgue Technician: Pal Agosto MDSPECIMEN 2203 mg/dLHighQuest Diagnostics Comment on above:Performed By: #### [id number], 6691 #### [facility] of [place] [address] Morgue Technician: Pal Agosto MDSPECIMEN 3105 mg/dLNormalQuest Diagnostics Comment on above:Performed By: #### [id number], 0691 #### [facility] of [place] [address] Morgue Technician: Pal Agosto MDSPECIMEN 466 mg/dLNormalQuest Diagnostics Comment on above:Performed By: #### [id number], 6691 #### [facility] of [place] [address] Morgue Technician: Pal Agosto MDSPECIMEN 565 mg/dLNormalQuest Diagnostics Comment on above:Performed By: #### [id number], 6691 #### [facility] of [address], [address] [place] [address] Morgue Technician: Pal Agosto MDTIME 1TIME 1NormalQuest DiagnosticsComment on above:Performed By: #### [id number], 6691 #### [facility] of [place] [address] [place] , [address] [place] [address] Morgue Technician: Pal HARDIN 2TIME 2NormalQuest DiagnosticsComment on above:Performed By: #### [id number], 6691 #### [facility] of [place] [address] [place] , [address] [place] [address] Morgue Technician: Pal HARDIN 3TIME 3NormalQuest DiagnosticsComment on above:Performed By: #### [id number], 6691 #### [facility] of [place] [address] [place] , [address] [place] [address] Morgue Technician: Pal HARDIN 4TIME 4NormalQuest DiagnosticsComment on above:Performed By: #### [id number], 6691 #### [facility] of [address] , [address] [place] [address] Morgue Technician: Pal AHRDIN 5TIME 5NormalQuest DiagnosticsComment on above:Performed By: #### 59968, 6691 #### [facility] of [place] [address] [place] , [address] [place] [address] Morgue Technician: Pal Agosto MDINSULIN RESPONSE TO GLUCOSE, 6 SPECIMENSon [id number] 112.2 uIU/mLNormalQuest DiagnosticsComment on above:Performed By: #### [id number], 6691 #### [facility] of [place] [address] [place] , [address] [place] [address] Morgue Technician: Pal Agosto MDSPECIMEN 269.7 uIU/mLNormalQuest Diagnostics Comment on above:Performed By: #### 40880, 6691 #### [facility] [place] [address] [address] , [address] [place] [address] Morgue Technician: Pal Agosto MDSPECIMEN 372.5 uIU/mLNormalQuest Diagnostics Comment on above:Performed By: #### 00289, 6691 #### [facility] [place] [address] [address] , [address] [place] [address] Morgue Technician: Pal Agosto MDSPECIMEN 430.0 uIU/mLNormalQuest Diagnostics Comment on above:Performed By: #### 06446, 6691 #### [facility] [address], [address] [place] [address] Morgue Technician: Pal Agosto MDSPECIMEN 510.4 uIU/mLNormalQuest Diagnostics Comment on above:Performed By: #### 08816, 6691 #### [facility] [address], [address] [place] [address] Morgue Technician: Pal Agosto MDSPECIMEN 69.1 uIU/mLNormalQuest Diagnostics Comment on above:Performed By: #### 94031, 6691 #### [facility] [address], [address] [place] [address] Morgue Technician: Pal HARDIN 3IHMM3UnaotdMcpzm DiagnosticsComment on above:Performed By: #### 23429, 6691 #### [facility] [address], [address] [place] [address] Morgue Technician: Pal WALLACE MAMMOGRAM SCREENING TOMOSYNTHESIS BILATERAL on [id number] MAMMOGRAM SCREENING TOMOSYNTHESIS BILATERALThis is a summary report. The complete report is available in the patient's medical record. If you cannot access the medical record, please contact the sending organization for a detailed fax or copy. Examination: BI MAMMOGRAM SCREENING TOMOSYNTHESIS BILATERAL Clinical History: screening mammogram Technique: Screening digital mammography study of both breasts was performed with 2-D and 3-D tomosynthesis imaging. Study was compared to the prior exam dated 01/23/2024. Findings: There is no evidence of interval dominant spiculated mass, grouped microcalcifications, or skin thickening which would be suggestive of malignancy. A partially visualized axillary lymph node is suggested on the right which appears grossly unremarkable. IMPRESSION: Impression: No specific evidence of malignancy seen in either breast. BIRADS 2 - Benign Findings DENSITY: The breasts are heterogeneously dense, which may obscure small masses. FOLLOW-UP: Routine Screening Mammogram ELECTRONICALLY SIGNED BY: Ricardo Mace M.D.NormalNot AvailableT3 REVERSE, LC/MS/MSon [id number] REVERSE, LC/MS/MS11 ng/dLNormal8-25[facility] Comment on above:Order Comment: SPLIT 07/08/2024 FROM [id number]:NOFASTING: NOResult Comment: This test was developed and its analytical performance characteristics have been determined by [employer] [place], [place]. It has not been cleared or approved by the U.S. Food and Drug Administration. This assay has been validated pursuant to the CLIA regulations and is used for clinical purposes.Performed By: #### 71171, 6691 #### [facility] of [address], [address] [place] [address] Morgue Technician: Pal Agosto MDT3, [id number] T3 [Mass/Vol]3.5 pg/mLNormal2.3-4.2Quest DiagnosticsComment on above:Performed By: #### 57587, 6691 #### [facility] of [address], [address] [place] [address] Morgue Technician: Pal Agosto MDT3, TOTALon 40-89-3147N8, OVCXP731 ng/dLNormal 76-181Quest DiagnosticsComment on above:Performed By: #### 57126, 6691 #### [facility] [address], [address] [place] [address] Morgue Technician: Pal Agosto MDT4, [facility] [id number] T4 [Mass/Vol]0.8 ng/dLNormal0.8-1.8Quest DiagnosticsComment on above:Performed By: #### 76849, 6691 #### [facility] [address], [address] [place] [address] Morgue Technician: Pal Agosto MDCBC (INCLUDES DIFF/PLT)on 36-52-9784Oerxmaxkv (Bld) [#/Vol]0.04 10*3/uLNormal0-200Quest DiagnosticsComment on above:Performed By: #### 5999, 7840, 34744 #### [facility] of [address], [address] [place] [address] Morgue Technician: Pal Agosto MDBasophils/100 WBC (Bld)0.6 %NormalQuest DiagnosticsComment on above:Performed By: #### 6399, 7600, 44193 #### [facility] of [address], [address] [place] [address] Morgue Technician: Pal Agosto MDEosinophils (Bld) [#/Vol]0.218 10*3/uLNormal 15-500Quest DiagnosticsComment on above:Performed By: #### 6399, 7600, 60572 #### [facility] of [address], [address] [place] [address] Morgue Technician: Pal TORRESosinophils/100 WBC (Bld)3.3 %NormalQuest DiagnosticsComment on above:Performed By: #### 6399, 7600, 58409 #### [facility] of [place] [address] Morgue Technician: Pal Agosto MDErythrocyte distribution width (RBC) [Ratio] 12.1 %Fsbhza15.0-15.0Quest DiagnosticsComment on above:Performed By: #### 6399, 7600, 04307 #### [facility] of [place] [address] Morgue Technician: Pal Agosto MDHematocrit (Bld) [Volume fraction]40.8 %Normal 35.0-45.0Quest DiagnosticsComment on above:Performed By: #### 6399, 7600, 60743 #### [facility] of [place] [address] Morgue Technician: Pal Agosto MDHemoglobin (Bld) [Mass/Vol]14.0 g/dLNormal 11.7-15.5Quest DiagnosticsComment on above:Performed By: #### 6399, 7600, 69318 #### [facility] of [address], [address] [place] [address] Morgue Technician: Pal Kiddmphocytes (Bld) [#/Vol]1.782 10*3/uLNormal 850-3900Quest DiagnosticsComment on above:Performed By: #### 6399, 7600, 99637 #### [facility] of [address], [address] [place] [address] Morgue Technician: Pal Agosto MDLymphocytes/100 WBC (Bld)27.0 %NormalQuest DiagnosticsComment on above:Performed By: #### 6399, 7600, 90418 #### [facility] of [address], [address] [place] [address] Morgue Technician: Pal Agosto MDMCH (RBC) [Entitic mass]33.0 ynUmgctp98.0-33.0 Quest DiagnosticsComment on above:Performed By: #### 6399, 7600, 38691 #### [facility] of [address], [address] [place] [address] Morgue Technician: Pal SWEENEYCHC (RBC) [Mass/Vol]34.3 g/zMYalvvu93.0-36.0 Quest DiagnosticsComment on above:Result Comment: For adults, a slight decrease in the calculated MCHC value (in the range of 30 to 32 g/dL) is most likely not clinically significant; however, it should be interpreted with caution in correlation with other red cell parameters and the patient's clinical condition.Performed By: #### 6399, 7600, 35021 #### [facility] of [address], [address] [place] [address] Morgue Technician: Pal Agosto MDMCV (RBC) [Entitic vol]96.2 uNWhhebt50.0-100.0 Quest DiagnosticsComment on above:Performed By: #### 6399, 7600, 81717 #### [facility] of [address], [address] [place] [address] Morgue Technician: Pal Agosto MDMonocytes (Bld) [#/Vol]0.561 10*3/uLNormal 200-950Quest DiagnosticsComment on above:Performed By: #### 6399, 7600, 87061 #### [facility] of [address], [address] [place] [address] Morgue Technician: Pal Agosto MDMonocytes/100 WBC (Bld)8.5 %NormalQuest DiagnosticsComment on above:Performed By: #### 6399, 7600, 53361 #### [facility] of [address], [address] [place] [address] Morgue Technician: Pal Agosto MDNeutrophils (Bld) [#/Vol]4 10*3/uLNormal 1500-7800Quest DiagnosticsComment on above:Performed By: #### 6399, 7600, 07535 #### [facility] of [address], [address] [place] [address] Morgue Technician: Pal Agosto MDNeutrophils/100 WBC (Bld)60.6 %NormalQuest DiagnosticsComment on above:Performed By: #### 6399, 7600, 31834 #### [facility] of [address], [address] [place] [address] Morgue Technician: Pal Agosto MDPlatelet mean volume (Bld) [Entitic vol]11.8 fLNormal7.5-12.5Quest DiagnosticsComment on above:Performed By: #### 6399, 7600, 22632 #### [facility] of [address], [address] [place] [address] Morgue Technician: Pal Agosto MDPlatelets (Bld) [#/Vol]235 10*3/uLNormal 140-400Quest DiagnosticsComment on above:Performed By: #### 6399, 7600, 09926 #### [facility] of [address], [address] [place] [address] Morgue Technician: Pal Agosto MDRBC ([facility]) [#/Vol]4.24 10*6/uLNormal3.80-5.10 [facility] DiagnosticsComment on above:Performed By: #### 6399, 7600, 18688 #### [facility] of [address], [address] [place] [address] Morgue Technician: Pal Agosto MDWBC ([facility]) [#/Vol]6.6 10*3/uLNormal3.8-10.8 [facility] DiagnosticsComment on above:Performed By: #### 6399, 7600, 77867 #### [facility] of [address], [address] [place] [address] Morgue Technician: Pal Agosto MDCOMPREHENSIVE METABOLIC PANELon 07-09-2024 Albumin [Mass/Vol]4.5 g/dLNormal3.6-5.1Quest DiagnosticsComment on above: Performed By: #### 6399, 7600, 99237 #### [facility] of [address], [address] [place] [address] Morgue Technician: Pal Agosto MDAlbumin/Globulin [Mass ratio]2.1 {ratio}Normal 1.0-2.5Quest DiagnosticsComment on above:Performed By: #### 6399, 7600, 28354 #### [facility] of [address], [address] [place] [address] Morgue Technician: Pal Agosto MDALP [Catalytic activity/Vol]73 U/KJrzwck42-113 Quest DiagnosticsComment on above:Performed By: #### 6399, 7600, 25819 #### [facility] of [address], [address] [place] [address] Morgue Technician: Pal Agosto MDALT [Catalytic activity/Vol]22 U/LNormal6-29 [facility] DiagnosticsComment on above:Performed By: #### 6399, 7600, 85239 #### [facility] of [address], [address] [place] [address] Morgue Technician: Pal Agosto MDAST [Catalytic activity/Vol]19 U/AWzrvmx05-19 [facility] DiagnosticsComment on above:Performed By: #### 6399, 7600, 03131 #### [facility] of [address], [address] [place] [address] Morgue Technician: Pal Agosto MDBilirubin [Mass/Vol]0.9 mg/dLNormal0.2-1.2 Quest DiagnosticsComment on above:Performed By: #### 6399, 7600, 59866 #### [facility] of [address], [address] [place] [address] Morgue Technician: Pal Agosto MDBUN/CREATININE RATIOSEE NOTE:Normal6-22Quest DiagnosticsComment on above:Result Comment: Not Reported: BUN and Creatinine are within reference range.Performed By: #### 6399, 7600, 78188 #### [facility] of [address], [address] [place] [address] Morgue Technician: Pal Agosto MDCalcium [Mass/Vol]9.3 mg/dLNormal8.6-10.4Quest DiagnosticsComment on above:Performed By: #### 6399, 7600, 57811 #### [facility] [place] [address] Morgue Technician: Pal Agosto MDChloride [Moles/Vol]104 mmol/YBsfhhp24-533 [facility] DiagnosticsComment on above:Performed By: #### 6399, 7600, 93417 #### [facility] of [place] [address] Morgue Technician: Pal Agosto MDCO2 [Moles/Vol]31 mmol/BHtbcyg25-76Eyvvh DiagnosticsComment on above:Performed By: #### 6399, 7600, 23183 #### [facility] [place] [address] Morgue Technician: Pal DERASreatinine [Mass/Vol]0.63 mg/dLNormal0.50-1.05 [facility] DiagnosticsComment on above:Performed By: #### 6399, 7600, 77337 #### [facility] [place] [address] Morgue Technician: Pal Agosto MDGFR/1.73 sq M.predicted among non-blacks MDRD (S/P/Bld) [Vol rate/Area]101 mL/min/{1.73_m2}Normal> OR = 60[facility] Comment on above:Performed By: #### 6399, 7600, 71980 #### [facility] [place] [address] Morgue Technician: Pal Agosto MDGlobulin (S) [Mass/Vol]2.1 g/dLNormal1.9-3.7 [facility] DiagnosticsComment on above:Performed By: #### 6399, 7600, 46990 #### [facility] [place] [address] Morgue Technician: Pal Agosto MDGlucose [Mass/Vol]97 mg/fIBsrzzo32-69Xwjgy DiagnosticsComment on above:Result Comment: Fasting reference intervalPerformed By: #### 6399, 7600, 70093 #### [facility] [place] [address] Morgue Technician: Pal Agosto MDPotassium [Moles/Vol]4.8 mmol/LNormal3.5-5.3 [facility] DiagnosticsComment on above:Performed By: #### 6399, 7600, 74456 #### [facility] [place] [address] Morgue Technician: Pal Agosto MDProtein [Mass/Vol]6.6 g/dLNormal6.1-8.1Quest DiagnosticsComment on above:Performed By: #### 6399, 7600, 41071 #### [facility] [place] [address] Morgue Technician: Pal Agosto MDSodium [Moles/Vol]141 mmol/GYvwckx153-262Xakmz DiagnosticsComment on above:Performed By: #### 6399, 7600, 87776 #### [facility] [address], [address] [place] [address] Morgue Technician: Pal Agosto MDUrea nitrogen [Mass/Vol]15 mg/dLNormal7-25 [facility] DiagnosticsComment on above:Performed By: #### 6399, 7600, 89403 #### [facility] [address], [address] [place] [address] Morgue Technician: Pal Agosto MDLIPID PANEL, STANDARD 86-50-2352Trvgqeevdnu [Mass/Vol]207 mg/dLHigh<200Quest DiagnosticsComment on above:Order Comment: FASTING:YES PATIENT UNABLE TO VOID; ADVISED TO RETURN FOR COLLECTION. FASTING: YESPerformed By: #### 6399, 7600, 53920 #### [facility] [address], [address] [place] [address] Morgue Technician: Pal Agosto MDCholesterol in HDL [Mass/Vol]67 mg/dLNormal> OR = 50Quest DiagnosticsComment on above:Order Comment: FASTING:YES PATIENT UNABLE TO VOID; ADVISED TO RETURN FOR COLLECTION. FASTING: YESPerformed By: #### 6399, 7600, 62409 #### [facility] [address], [address] [place] [address] Morgue Technician: Pal Agosto MDCholesterol in LDL [Mass/Vol]119 mg/dLHigh [facility] DiagnosticsComment on above:Order Comment: FASTING:YES PATIENT UNABLE TO VOID; ADVISED TO RETURN FOR COLLECTION. FASTING: YESResult Comment: Reference range: <100 Desirable range <100 mg/dL for primary prevention; <70 mg/dL for patients with CHD or diabetic patients with > or = 2 CHD risk factors. LDL-C is now calculated using the Josiah calculation, which is a validated novel method providing better accuracy than the Friedewald equation in the estimation of LDL-C. Ryan SS et al. DENNYS. 2013;310(19): 4880-8561 (http://education.[employer].[facility]/faq/EZU944)Performed By: #### 6399, 7600, 88080 #### [facility] [address], [address] [place] [address] Morgue Technician: Pal DERASholesterophyllis.total/Cholesterol in HDL [Mass ratio]3.1 {ratio}Normal<5.0Quest DiagnosticsComment on above:Order Comment: FASTING:YES PATIENT UNABLE TO VOID; ADVISED TO RETURN FOR COLLECTION. FASTING: YESPerformed By: #### 6399, 7600, 06822 #### [facility] [address], [address] [place] [address] Morgue Technician: Pal DELEON HDL UEBXVQPSSCO569 mg/dL (calc)High<130 [facility] DiagnosticsComment on above:Order Comment: FASTING:YES PATIENT UNABLE TO VOID; ADVISED TO RETURN FOR COLLECTION. FASTING: YESResult Comment: For patients with diabetes plus 1 major ASCVD risk factor, treating to a non-HDL-C goal of <100 mg/dL (LDL-C of <70 mg/dL) is considered a therapeutic option.Performed By: #### 6399, 7600, 12025 #### [facility] [place] [address] Morgue Technician: Pal Agosto MDTriglyceride [Mass/Vol]107 mg/dLNormal<150 [facility] DiagnosticsComment on above:Order Comment: FASTING:YES PATIENT UNABLE TO VOID; ADVISED TO RETURN FOR COLLECTION. FASTING: YESPerformed By: #### 6399, 7600, 16368 #### [facility] [address], [address] [place] [address] Morgue Technician: Pal ZULETAcornelia 63-74-8595VAQ Qn0.45 m[IU]/LNormal 0.40-4.50Quest DiagnosticsComment on above:Performed By: #### 6399, 7600, 37439 #### [facility] [address] [place] [address] Morgue Technician: Pal Agosto MDT3 REVERSE, LC/MS/MSon 55-86-3927D2 REVERSE, LC/MS/MS10 ng/dLNormal8-25Quest DiagnosticsComment on above:Order Comment: FASTING:NO FASTING: NOResult Comment: This test was developed and its analytical performance characteristics have been determined by [employer] [place], [place]. It has not been cleared or approved by the U.S. Food and Drug Administration. This assay has been validated pursuant to the CLIA regulations and is used for clinical purposes.Performed By: #### 81760, 899, 859, 866 #### [facility] [address], [address] [place] [address] Morgue Technician: Pal Agosto MD #### [id number] #### [facility]/[place] [id number] [facility] [place], [place] Morgue Technician: Humble Walters M.D.,PhDT3, FREE 43-36-7092Kwvm T3 [Mass/Vol]3.6 pg/mLNormal2.3-4.2Quest DiagnosticsComment on above:Performed By: #### 45876, 6691 #### [facility] [address], [address] [place] [address] Morgue Technician: Pal Agosto MDT3, TOTALon 91-59-4664W8, UNCXB003 ng/dLNormal 76-181Quest DiagnosticsComment on above:Performed By: #### 46614, 899, 859, 866 #### [facility] [address], [address] [place] [address] Morgue Technician: Pal Agosto MD #### 55349 #### [facility] [address] [facility] [place], [place] Morgue Technician: Humble Walters M.D.,PhDT4, FREE 35-84-7718Ebak T4 [Mass/Vol]0.9 ng/dLNormal0.8-1.8Quest DiagnosticsComment on above:Performed By: #### 65895, 899, 859, 866 #### [facility] [address], [address] [place] [address] Morgue Technician: Pal Agosto MD #### 99416 #### [facility]/[address] [place], [place] Morgue Technician: Humble Walters M.D.,PhDTSHon 78-56-7011SSV Qn0.24 m[IU]/LLow 0.40-4.50Quest DiagnosticsComment on above:Performed By: #### 00762, 899, 859, 866 #### [facility] [address], [address] [place] [address] Morgue Technician: Pal Agosto MD #### 88247 #### [facility]/[address] [place], [place] Morgue Technician: Humble Walters M.D.,PhDCBC AUTO DIFFon 64-67-9589QHYP #0.0 103/ulNormal0.0-0.1[facility] CenterComment on above:Performed By: #### CBC #### [facility] [address] [place] [address] [address] Joanna BrarBasophils/100 WBC (Bld)0.3 %Normal0.2-2.0The [facility] Comment on above:Performed By: #### CBC #### [facility] [address] [place] [address] [address] Joanna Metzger #0.3 103/ulNormal0.0-0.7The [facility] ToledoComment on above: Performed By: #### CBC #### [facility] [address] [place] [address] [address] Joanna Lymanosinophils/100 WBC (Bld)3.2 %Normal0.9-7.0The [facility] Comment on above:Performed By: #### CBC #### [facility] [address] [place] [address] Dr. Joanna Lymanrythrocyte distribution width (RBC) [Ratio]12.8 %Fhpsfh06.0-15.0 [facility] CenterComment on above:Performed By: #### CBC #### [facility] [address] [place] [address] Dr. Joanna BrarHematocrit (Bld) [Volume fraction]42.9 %Petaqn08.0-48.0The [facility] ToledoComment on above:Performed By: #### CBC #### [facility] [address] [place] [address] Dr. Joanna BrarHemoglobin (Bld) [Mass/Vol]14.2 g/gJSuhcag15.0-16.0The [facility] ToledoComment on above:Performed By: #### CBC #### [facility] [address] [place] [address] Dr. Joanna Hahn #0.02 10e3/ulNormal0.00-0.03The [facility] ToledoComment on above:Performed By: #### CBC #### [facility] [address] [place] [address] Dr. Joanna Hahn %0.2 %Normal0.0-0.5The [facility] ToledoComment on above: Performed By: #### CBC #### [facility] [address] [place] [address] Dr. Joanna Marshall #2.2 103/ulNormal1.2-3.8The [facility] ToledoComment on above:Performed By: #### CBC #### [facility] [address] [place] [address] Dr. Joanna Garciahocytes/100 WBC (Bld)24.5 %Qzgecb82.5-60.0The [facility] ToledoComment on above:Performed By: #### CBC #### [facility] [address] [place] [address] Dr. Joanna WyattUAL DIFF REQNONormalThe [facility] ToledoComment on above: Performed By: #### CBC #### [facility] [address] [place] [address] Dr. Joanna Serrano (RBC) [Entitic mass]32.1 bzPpkcse37.7-34.0The [facility] ToledoComment on above:Performed By: #### CBC #### [facility] [address] [place] [address] Dr. Joanna Serrano (RBC) [Mass/Vol]33.1 g/fBGlgkxv82.9-35.2The [facility] ToledoComment on above:Performed By: #### CBC #### [facility] [address] [place] [address] Dr. Joanna Serrano (RBC) [Entitic vol]97.1 uQRkqzjl98.0-99.0The [facility] ToledoComment on above:Performed By: #### CBC #### [facility] [address] [place] [address] Dr. Joanna Torres #0.5 103/ulNormal0.3-0.8The [facility] ToledoComment on above:Performed By: #### CBC #### [facility] [address] [place] [address] Dr. Joanna Richterocytes/100 WBC (Bld)6.1 %Normal1.7-12.0The [facility] Comment on above:Performed By: #### CBC #### [facility] [address] [place] [address] Dr. Joanna Allen #5.8 103/ulNormal1.4-6.5The [facility] ToledoComment on above:Performed By: #### CBC #### [facility] [address] [place] [address] Dr. Joanna Borjautrophils/100 WBC (Bld)65.7 %Fchake44.0-75.0The [facility] ToledoComment on above:Performed By: #### CBC #### [facility] [address] [place] [address] Dr. Yilan ChangPlatelet mean volume (Bld) [Entitic vol]10.9 fLNormal9.5-13.5The [facility] ToledoComment on above:Performed By: #### CBC #### [facility] [address] [place] [address] Dr. Joanna BrarPLT265 103/ojFtufvj913-655Puw [facility] ToledoComment on above: Performed By: #### CBC #### [facility] [address] [place] [address] Dr. Joanna BrarRBC4.42 106/ulNormal4.20-5.40The [facility] ToledoComment on above:Performed By: #### CBC #### [facility] [address] [place] [address] Dr. Joanna BrarWBC8.8 103/ulNormal4.0-11.0The [facility] ToledoComment on above: Performed By: #### CBC #### [facility] [address] [place] [address] Dr. Joanna BrarPROF CHEM 8 (BAS METB)on 64-25-5539Fpxgc gap [Moles/Vol]12.6 mmol/LNormalDayton Va Medical CenterComment on above:Performed By: #### BMP #### [facility] [address] [place] [address] Dr. Joanna BrarCalcium [Mass/Vol]9.8 mg/dLNormal8.5-10.1[facility] Comment on above:Performed By: #### BMP #### [facility] [address] [place] [address] Dr. Joanna BrarChloride [Moles/Vol]103 mmol/CCxmebx50-446Tty [facility] Comment on above:Performed By: #### BMP #### [facility] [address] [place] [address] Dr. Joanna BrarCO2 [Moles/Vol]31.6 mmol/CXdlidz33.0-32.0The [facility] Comment on above:Performed By: #### BMP #### [facility] [address] [place] [address] Dr. Yilan ChangCreatinine [Mass/Vol]0.64 mg/dLNormal0.55-1.02The [facility] ToledoComment on above:Performed By: #### BMP #### [facility] [address] [place] [address] Dr. Joanna LymanGFR-AF MALIAN>60Normal>=60The [facility] ToledoComment on above:Performed By: #### BMP #### [facility] [address] [place] [address] Dr. Joanna LymanGFR-NON AF MALIAN>60Normal>=60The [facility] ToledoComment on above:Performed By: #### BMP #### [facility] [address] [place] [address] Dr. Joanna BrarGlucose [Mass/Vol]96 mg/wGXilvax30-014Znl [facility] Comment on above:Performed By: #### BMP #### [facility] [address] [place] [address] Dr. Joanna BrarPotassium [Moles/Vol]4.2 mmol/LNormal3.5-5.1The [facility] Comment on above:Performed By: #### BMP #### [facility] [address] [place] [address] Dr. Joanna BrarSodium [Moles/Vol]143 mmol/SLvauao341-710Yxq [facility] Comment on above:Performed By: #### BMP #### [facility] [address] [place] [address] Dr. Joanna BrarUrea nitrogen [Mass/Vol]17.0 mg/dLNormal7.0-18.0The [facility] ToledoComment on above:Performed By: #### BMP #### [facility] [address] [place] [address] Dr. Joanna Arshad nitrogen/Creatinine [Mass ratio]26.5 mg/mgNormalThe [facility] Hospital ToledoComment on above:Performed By: #### BMP #### [facility] [address] [place] [address] Dr. Joanna BrarREVERSE T3on 61-14-8872Tlwsyfc T3, Serum11.4 ng/dLNormal9.2-24.1 [facility] on above:Result Comment: This test was developed and its performance characteristics determined by [employer]. It has not been cleared or approved by the Food and Drug Administration.Performed By: #### REVRT3 #### [facility] [address] [place] [address] Dr. Joanna BrarT3, TOTAL (TRIIODOTHYRONINE)on 02-90-9593F7, VBPIH702 ng/dLNormal 71-180The [facility] on above:Performed By: #### Q5PAVMY #### [facility] [address] [place] [address] Dr. Joanna Castro T3on 00-85-4829JQDU T32.95 pg/mlLNormal2.18-3.98The [facility] on above:Performed By: #### FT3 #### [facility] [address] [place] [address] Dr. Joanna Castro T4on 83-18-1033Sthh T4 [Mass/Vol]0.63 ng/dLCritically low 0.76-1.46The [facility] on above:Performed By: #### FT4 #### [facility] [address] [place] [address] Dr. Joanna BrarBasophils Auto (Bld) [#/Vol]Ordered By: Bernardino Hernandez on 28-13-1825Fejggvplr (Bld) [#/Vol]0.0 10*3/uL0.0-0.2FMansfield HospitalBasophils/100 WBC Auto (Bld)Ordered By: Bernardino Hernandez on 01-31-2022 Basophils/100 WBC (Bld)0.7 %.[facility]tering HealthBlood hemoglobin measurement (mass/volume)Ordered By: Bernardino Hernandez on 27-41-5322Cwfssvqzjk (Bld) [Mass/Vol]14.2 g/dL11.8-15.4FMansfield HospitalBlcannon falls hospital and clinic leukocytes automated count (number/volume)Ordered By: Bernardino Hernandez on 33-35-7381YVY (Bld) [#/Vol]5.9 10*3/uL4.5-11.0[facility] Body fluid albumin measurement (mass/volume)Ordered By: Bernardino Hernandez on 03-78-3691Rxiavfb (Body fld) [Mass/Vol]3.8 g/dL3.2-5.5FMansfield HospitalComplete Blood Count Auto Diffon 55-94-4156Zprdwiesq (Bld) [#/Vol]0.0 10*3/uLNormal0.0-0.2FMansfield HospitalComment on above:Result Comment: PERFORMED BY: [place] [address] PATHOLOGIST WET ROOM SUPERVISOR PRASHANT AYERS M.D.Performed By: #### CBC, CMP #### [facility] [address] [place] [address] USABasophils/100 WBC (Bld)0.7 %Normal.Kettering HealthComment on above:Performed By: #### CBC, CMP #### [facility] [address] [place] [address] USAEosinophils (Bld) [#/Vol]0.3 10*3/uLNormal0.0-0.45 [facility] HealthComment on above:Performed By: #### CBC, CMP #### [facility] [address] [place] [address] USAEosinophils/100 WBC (Bld)4.3 %Normal.Kettering HealthComment on above:Performed By: #### CBC, CMP #### [facility] [address] [place] [address] USAErythrocyte distribution width (RBC) [Ratio]13.4 %Normal 11.9-15.3FMansfield HospitalComment on above:Performed By: #### CBC, CMP #### [facility] [address] [place] [address] USAHematocrit (Bld) [Volume fraction]42.8 %Ikxlft25.0-46.4 Kettering HealthComment on above:Performed By: #### CBC, CMP #### [facility] [address] [place] [address] USAHemoglobin (Bld) [Mass/Vol]14.2 g/eRVpzsyc21.8-15.4 [facility] HealthComment on above:Performed By: #### CBC, CMP #### [facility] [address] [place] [address] USALymphocytes (Bld) [#/Vol]1.7 10*3/uLNormal1.00-4.8 [facility] HealthComment on above:Performed By: #### CBC, CMP #### [facility] [address] [place] [address] USALymphocytes/100 WBC (Bld)28.8 %Normal.Kettering HealthComment on above:Performed By: #### CBC, CMP #### [place] [address] USAMCH (RBC) [Entitic mass]32.6 ecMhqjru25.7-34.3FMansfield HospitalComment on above:Performed By: #### CBC, CMP #### [place] [address] USAMCV (RBC) [Entitic vol]98.5 nUDimuvk31-019YpzrhesznKettering HealthComment on above:Performed By: #### CBC, CMP #### [place] [address] USAMean Corpuscular HGB Conc33.1 g/pUMhuaun87.0-35.0Kettering HealthComment on above:Performed By: #### CBC, CMP #### [facility] [address] [place] [address] USAMonocytes (Bld) [#/Vol]0.4 10*3/uLNormal0.0-0.8Kettering HealthComment on above:Performed By: #### CBC, CMP #### [place] [address] USAMonocytes/100 WBC (Bld)7.2 %Normal.Kettering HealthComment on above:Performed By: #### CBC, CMP #### [facility] [address] [place] [address] USANeutrophils (Bld) [#/Vol]3.5 10*3/uLNormal1.8-7.7FMansfield HospitalComment on above:Performed By: #### CBC, CMP #### [facility] [address] [place] [address] USANeutrophils/100 WBC (Bld)59.0 %Normal.Kettering HealthComment on above:Performed By: #### CBC, CMP #### [facility] [address] [place] [address] USANucleated RBC/100 WBC (Bld) [Ratio]0.1 %Normal0-0.5 Kettering HealthComment on above:Performed By: #### CBC, CMP #### [facility] [address] [place] [address] USAPlatelet mean volume (Bld) [Entitic vol]9.9 fLNormal 6.3-10.7FMansfield HospitalComment on above:Performed By: #### CBC, CMP #### [place] [address] USAPlatelets (Bld) [#/Vol]184 10*3/gGSalrcg042-705JyekienvkKettering HealthComment on above:Performed By: #### CBC, CMP #### [facility] [address] [place] [address] USARBC (Bld) [#/Vol]4.35 10*6/uLNormal3.60-5.00Kettering HealthComment on above:Performed By: #### CBC, CMP #### [place] [address] USAWBC (Bld) [#/Vol]5.9 10*3/uLNormal4.5-11.0Kettering HealthComment on above:Performed By: #### CBC, CMP #### [place] [id number] USAComprehensive Metabolic Panelon 30-67-7430Htbrpmk [Mass/Vol]3.8 g/dLNormal3.2-5.5FMansfield HospitalComment on above:Performed By: #### CBC, CMP #### [place] [address] USAAlbumin/Globulin [Mass ratio]1.7 {ratio}NormalKettering HealthComment on above:Performed By: #### CBC, CMP #### [place] [address] USAALP [Catalytic activity/Vol]66 U/NCobpzx53-02KxqkjukxgKettering HealthComment on above:Result Comment: PERFORMED BY: [place] [address] PATHOLOGIST WET ROOM SUPERVISOR PRASHANT AYERS M.D.Performed By: #### CBC, CMP #### [place] [address] USAALT [Catalytic activity/Vol]27 U/WEkgelt83-52IscrytrbjKettering HealthComment on above:Performed By: #### CBC, CMP #### [place] [address] USAAST [Catalytic activity/Vol]26 U/NXsdrmk92-78JwehsybihKettering HealthComment on above:Performed By: #### CBC, CMP #### [facility] [address] [place], [place] [id number] USABilirubin [Mass/Vol]0.8 mg/dLNormal0.3-1.2FMansfield HospitalComment on above:Performed By: #### CBC, CMP #### [facility] [address] [place] [address] USACalcium [Mass/Vol]9.7 mg/dLNormal8.2-10.2FMansfield HospitalComment on above:Performed By: #### CBC, CMP #### [place] [address] USAChloride [Moles/Vol]103 mmol/AUpilae24-732IxcohwtpqKettering HealthComment on above:Performed By: #### CBC, CMP #### [facility] [address] [place] [address] USACO2 [Moles/Vol]28.3 mmol/UZlmfnj41.0-30.0Kettering HealthComment on above:Performed By: #### CBC, CMP #### [facility] [address] [place] [address] USACreatinine [Mass/Vol]0.71 mg/dLNormal0.44-1.03Kettering HealthComment on above:Performed By: #### CBC, CMP #### [facility] [address] [place] [address] USAEstimated GFR ( Vivienne> 60NormChillicothe HospitalComment on above:Result Comment: GFR estimated reference range: According to KDOQI guidelines, <60 ml/min/1.73m2 is sufficient to diagnose a patient with chronic kidney disease.Performed By: #### CBC, CMP #### [facility] [address] [place] [address] USAEstimated GFR (Non- Am> 60NormChillicothe HospitalComment on above:Performed By: #### CBC, CMP #### [facility] [address] [place] [address] USAGlobulin (S) [Mass/Vol]2.3 g/dLNormChillicothe HospitalComment on above:Performed By: #### CBC, CMP #### [facility] [address] [place] [id number] USAGlucose [Mass/Vol]97 mg/fTQrezof21-114XupmsdplfKettering HealthComment on above:Result Comment: Random Glucose Reference Range is dependent on time and content of last meal. Glucose of more than 200 mg/dL in a nonstressed, ambulatory subject supports the diagnosis of Diabetes Mellitus. ADA recommended reference rangePerformed By: #### CBC, CMP #### [facility] [address] [place] [address] USAPotassium [Moles/Vol]5.1 mmol/LNormal3.5-5.1FMansfield HospitalComment on above:Performed By: #### CBC, CMP #### [facility] [address] [place] [address] USAProtein [Mass/Vol]6.1 g/dLNormal6.1-7.9Kettering HealthComment on above:Performed By: #### CBC, CMP #### [facility] [address] [place] [id number] USASodium [Moles/Vol]139 mmol/UVaeeax207-177QzhdphvxyKettering HealthComment on above:Performed By: #### CBC, CMP #### [facility] [address] [place] [address] USAUrea nitrogen [Mass/Vol]11 mg/dLNormal9-23Kettering HealthComment on above:Performed By: #### CBC, CMP #### [facility] [address] [place] [address] USACreatinine and Glomerular filtration rate.predicted panel (S/P/Bld)Ordered By: Bernardino Hernandez on 76-21-3300Qixhefsrgc [Mass/Vol]0.71 mg/dL 0.44-1.03Kettering HealthEosinophils Auto (Bld) [#/Vol]Ordered By: Bernardino Hernandez on 13-21-5963Mjjbvnhddqk (Bld) [#/Vol]0.3 10*3/uL0.0-0.45 Kettering HealthEosinophils/100 WBC Auto (Bld)Ordered By: Bernardino Hernandez on 57-99-2403Hatbzvtemox/100 WBC (Bld)4.3 %.[facility]tering HealthErythrocyte distribution width Auto (RBC) [Ratio]Ordered By: Bernardino Hernandez on 42-99-7639Xbbddlycdzy distribution width (RBC) [Ratio]13.4 % 11.9-15.3FMansfield HospitalEstimated glomerular filtration rate (GFR) non- AmericanOrdered By: Bernardino Hernandez on 67-09-1809AJW/1.73 sq M.predicted among non-blacks MDRD (S/P/Bld) [Vol rate/Area]> 60 mL/MinKettering HealthGlobulin Calc (S) [Mass/Vol]Ordered By: Bernardino Hernandez on 16-20-1564Ptjkgeua (S) [Mass/Vol]2.3 g/dLKettering Health Hematocrit Auto (Bld) [Volume fraction]Ordered By: Bernardino Hernandez on 01-31-2022 Hematocrit (Bld) [Volume fraction]42.8 %34.0-46.4FMansfield HospitalLaboratory - Hematology and Cell countsOrdered By: Bernardino Hernandez on 39-07-6026Cwzkltuvs RBC/100 WBC (Bld) [Ratio]0.1 %0-0.5FMansfield HospitalLymphocytes Auto (Bld) [#/Vol]Ordered By: Bernardino Hernandez on 07-54-9325Jbtkxvhrwlo (Bld) [#/Vol]1.7 10*3/uL1.00-4.8Kettering HealthLymphocytes/100 WBC Auto (Bld)Ordered By: Bernardino Hernandez on 01-31-2022 Lymphocytes/100 WBC (Bld)28.8 %.[facility] Auto (RBC) [Entitic mass]Ordered By: Bernardino Hernandez on 12-39-9820WJT (RBC) [Entitic mass] 32.6 pg24.7-34.3FShelby Memorial HospitalHC Auto (RBC) [Mass/Vol] Ordered By: Bernardino Hernandez on 49-73-3521ODEF (RBC) [Mass/Vol]33.1 g/dL32.0-35.0 Kettering HealthMCV Auto (RBC) [Entitic vol]Ordered By: Bernardino Hernandez on 93-73-6908VGE (RBC) [Entitic vol]98.5 nC48-184QkibbuyzjKettering HealthMonocytes Auto (Bld) [#/Vol]Ordered By: Bernardino Hernandez on 04-47-8148Iahntaywn (Bld) [#/Vol]0.4 10*3/uL0.0-0.8Kettering HealthMonocytes/100 WBC Auto (Bld)Ordered By: Bernardino Hernandez on 01-31-2022 Monocytes/100 WBC (Bld)7.2 %.Kettering HealthNeutrophils Auto (Bld) [#/Vol]Ordered By: Bernardino Hernandez on 89-51-9268Dvvgqwhcpcm (Bld) [#/Vol] 3.5 10*3/uL1.8-7.7FMansfield HospitalNeutrophils/100 WBC Auto (Bld)Ordered By: Bernardino Hernandez on 10-85-0051Uwbajqtsbnm/100 WBC (Bld)59.0 %. Kettering HealthNo Panel InformationOrdered By: Bernardino Hernandez on 95-35-8728Ifmzeuaro GFR ()> 60 mL/MinKettering HealthComment on above:GFR estimated reference range: According to KDOQI guidelines, <60 ml/min/1.73m2 is sufficient todiagnose a patient with chronic kidney disease.Pharmacy Creatinine Clearance (ChemN/AFMansfield HospitalPlatelet mean volume Auto (Bld) [Entitic vol]Ordered By: Bernardino Hernandez on 85-67-6539Gqrxpadq mean volume (Bld) [Entitic vol]9.9 fL6.3-10.7FMansfield HospitalPlatelets Auto (Bld) [#/Vol]Ordered By: Bernardino Hernandez on 01-00-9810Ckedwuenz (Bld) [#/Vol]184 10*3/iX593-747BxzkzjaqjKettering HealthProtein [Mass/volume] in Serum or PlasmaOrdered By: Bernardino Hernandez on 20-15-5365Fypelyd [Mass/Vol]6.1 g/dL6.1-7.9Kettering HealthRBC Auto (Bld) [#/Vol]Ordered By: Bernardino Hernandez on 82-07-5030NPS (Bld) [#/Vol]4.35 10*6/uL3.60-5.00[facility], Beachwooderum or plasma alanine aminotransferase measurement without P-5'-P (enzymatic activiOrdered By: Bernardino Hernandez on 98-98-7910VKF No additional P-5'-P [Catalytic activity/Vol]27 U/L 10-60[facility], Beachwooderum or plasma albumin/globulin mass ratioOrdered By: Bernardino Hernandez on 11-91-9861Mpisoxb/Globulin [Mass ratio]1.7 {ratio}[facility], Beachwooderum or plasma alkaline phosphatase measurement (enzymatic activity/volume)Ordered By: Bernardino Hernandez on 01-31-2022 ALP [Catalytic activity/Vol]66 U/N88-57HzvavfaqfSelect Medical [facility], Beachwooderum or plasma aspartate aminotransferase measurement (enzymatic activity/volume)Ordered By: Bernardino Hernandez on 66-78-9292QDR [Catalytic activity/Vol]26 U/O64-10ZjagmyyhlSelect Medical [facility] Hospital, Beachwooderum or plasma calcium measurement (mass/volume)Ordered By: Bernardino Hernandez on 87-23-5011Bwfkosp [Mass/Vol]9.7 mg/dL8.2-10.2FKing's Daughters Medical Center Ohioerum or plasma chloride measurement (moles/volume) Ordered By: Bernardino Hernandez on 79-92-9136Ytytfija [Moles/Vol]103 mmol/L95-114 [facility], Beachwooderum or plasma glucose measurement (mass/volume)Ordered By: Bernardino Hernandez on 59-97-0113Kfrulhq [Mass/Vol]97 mg/dL 70-100Kettering HealthComment on above:ADA recommended reference range Random Glucose Reference Range is dependent on time and content of last meal. Glucose of more than 200 mg/dL in a nonstressed, ambulatory subject supports the diagnosis of Diabetes Mellitus.Serum or plasma potassium measurement (moles/volume)Ordered By: Bernardino Hernandez on 58-27-5186Ddzszpsze [Moles/Vol]5.1 mmol/L3.5-5.1FKing's Daughters Medical Center Ohioerum or plasma sodium measurement (moles/volume)Ordered By: Bernardino Hernandez on 63-38-7074Jlnrhh [Moles/Vol]139 mmol/E987-124NsnlkcwpkSelect Medical [facility], Beachwooderum or plasma total bilirubin measurement (mass/volume)Ordered By: Bernardino Hernandez on 42-57-8139Pqbihtwyc [Mass/Vol]0.8 mg/dL0.3-1.2FKing's Daughters Medical Center Ohioerum or plasma total carbon dioxide measurement (moles/volume)Ordered By: Bernardino Hernandez on 04-79-0212JT0 [Moles/Vol]28.3 mmol/L22.0-30.0[facility] Serum or plasma urea nitrogen measurement (mass/volume)Ordered By: Bernardino Hernandez on 76-27-9956Ejba nitrogen [Mass/Vol]11 mg/dL9-23Kettering HealthFree T3on 46-71-6310Covz T3 [Mass/Vol]3.2 pg/mLNormal2.3-4.2 [facility] SpecialistComment on above:Order Comment: [facility] Testing performed at: [facility], [employer] [facility], [address] [facility], [address] [place] [address], [address] [place] [address], Business Support Assistant: Pal Agosto MD [facility] Collection Date/Time: [facility] Results Received Date/Time: [facility] Reported Date/Time: [id number] By: #### FT3, FT4, TSH #### [facility] Default [address] [place], [place] [address]Njwv T4on 39-05-2370Tfoo T4 [Mass/Vol]0.9 ng/dLNormal0.8-1.8 [facility] SpecialistComment on above:Order Comment: [facility] performed at: [employer], [employer] [facility], [address] [facility], [address] [place] [address], [address] [place] [address], Business Support Assistant: Pal Agosto MD [facility] Collection Date/Time: [facility] Results Received Date/Time: [facility] Reported Date/Time: [id number] By: #### FT3, FT4, TSH #### [facility] [address] [place], [place] [address]D - T3 TOTALon 52-71-2185K1, VZFNE525 ng/pSCwqwxy52-483Bqposvme [place] [facility] SpecialistComment on above:Order Comment: [facility] performed at: [employer], [employer] [facility], [address] [facility], [address] [place] [address], [phone], Business Support Assistant: Pal Agosto MD [facility] Collection Date/Time: [facility] Results Received Date/Time: [facility] Reported Date/Time: [id number] By: #### 859X, [id number] #### [facility] [address] [place] [address]G - T3,REVERSE,LC/MS/MSon 31-88-9423R0 REVERSE, LC/MS/MS9 ng/dL Normal8-25NoParkview Health Bryan HospitalCommymichigan medical center on above:Order Comment: [facility] performed at: [facility], [employer], [address], [place], [place], , Business Support Assistant: Humble Walters M.D.,PhD [facility] Collection Date/Time: [facility] Results Received Date/Time: [facility] Reported Date/Time: [id number] Comment: This test was developed and its analytical performance characteristics have been determined by [employer] [place], [place]. It has not been cleared or approved by the U.S. Food and Drug Administration. This assay has been validated pursuant to the CLIA regulations and is used for clinical purposes.Performed By: #### 859X, 28097 #### [facility] [address] [facility] [place] [address]QASsv 45-98-4661ZXD Qn1.09 m[IU]/LNormal0.40-4.50Northonorhealth john c. lincoln medical centern [facility] Hospital Of Central ConnecticutCommymichigan medical center on above:Order Comment: [facility] performed at: [facility], [employer] [facility], [address] [facility], [address] [place] [address], [phone], Business Support Assistant: Pal Agosto MD [facility] Collection Date/Time: [id number] [facility] Results Received Date/Time: [id number] [facility] Reported Date/Time: [id number] By: #### FT3, FT4, TSH #### [facility] [address] [place] [address]ND lumbar spine wo/w conon 91-25-9929LD lumbar spine wo/w con [facility] [employer] Other MR lumbar spine wo/w conFRMC Main [facility] [employer] Other MR lumbar spine wo/w [id number] Nascimento [facility] [employer] Other MR lumbar spine wo/w DANI[place] Jacobson [address]Tbpwy [employer] Other MR lumbar spine wo/w conMRI [facility] [email or web address] Other MR lumbar spine wo/w conSResearch Medical Center-[facility] [employer] Other MR lumbar spine wo/w conPatient: Isidra Paredes MR#: [id number] [employer] Other MR lumbar spine wo/w [id number] [employer] Other MR lumbar spine wo/w conDOB: 1965 Acct:[id number] [employer] Other MR lumbar spine wo/w conAge/Sex: 55 / F ADM Date: 04/07/21[employer] Other MR lumbar spine wo/w conLoc: MR Room: Type: [facility] [email or web address] Other MR lumbar spine wo/w conAttending Dr: Trevor De Anda [facility] [employer] Other MR lumbar spine wo/w conOrdering Provider: Trevor De Anda MDLarwill [employer] Other MR lumbar spine wo/w conDate of Service: 04/07/21[employer] Other MR lumbar spine wo/w conAccession #: ([id number]) MR/MR lumbar spine wo/w con: Spondylolisthesis at L5-S1 levelLarwill [employer] Other MR lumbar spine wo/w conCopies to: Trevor De Anda MDLarwill [employer] Other MR lumbar spine wo/w conMR lumbar spine wo/w con 04/07/2021 8:24 [facility] [employer] Other MR lumbar spine wo/w conSIGNS AND SYMPTOMS: Spondylolisthesis L5-S1, right leg numbness with left leg painNossm [facility] health center [employer] Other MR lumbar spine wo/w conPROTOCOL: Multiplanar multisequence MR images of the lumbar spine were obtained with and without IV [employer] Other MR lumbar spine wo/w concontrastNossm [facility] [employer] Other MR lumbar spine wo/w conCONTRAST: 20 mL of intravenous ProHanceNort [employer] Other MR lumbar spine wo/w conCOMPARISON: 09/20/2019Nossm [facility] [employer] Other MR lumbar spine wo/w conFINDINGS: The bones of the lumbar spine are in anatomic alignment. There is posterior fusionNossm [facility] health center [employer] Other MR lumbar spine wo/w conhardware from L1 through S1 with fusion across L5-S1 being new compared to the prior study.[employer] Other MR lumbar spine wo/w conIntervertebral fusion body is are present throughout the lumbar spine. The marrow signal is withinNort [employer] Other MR lumbar spine wo/w connormal limits. The conus terminates at the superior endplate of the L2 vertebral body level. [facility] Heart HospitalEveryday.me Other MR lumbar spine wo/w conepidural or paraspinous fluid collection is appreciated. No abnormal postcontrast enhancement.[employer] Other MR lumbar spine wo/w conAt T12-L1: There is a normal disc, central canal, and neural foramen.[employer] Other MR lumbar spine wo/w conAt L1-L2: There is a normal disc, central canal, and neural foramen.[employer] Other MR lumbar spine wo/w conAt L2-L3: There is a normal disc, central canal, and neural foramen.[employer] Other MR lumbar spine wo/w conAt L3-L4: There is a normal disc, central canal, and neural foramen.[employer] Other MR lumbar spine wo/w conAt L4-L5: There is residual endplate osteophyte formation with mild facet degenerative changeNossm [facility] health center [employer] Other MR lumbar spine wo/w concontributing to mild bilateral neural foraminal narrowing.[employer] Other MR lumbar spine wo/w conAt L5-S1: There is a residual broad-based disc bulge with facet hypertrophy. There is moderateNort [employer] Other MR lumbar spine wo/w conbilateral neural foraminal narrowing, right greater than left.[employer] Other MR lumbar spine wo/w conORDER #: [id number] MR/MR lumbar spine wo/w [facility] [employer] Other MR lumbar spine wo/w conIMPRESSION:[employer] Other MR lumbar spine wo/w conThere has been interval extension of fusion hardware now spanning across L5-S1. Fusion hardwareNossm [facility] health [facility] [employer] Other MR lumbar spine wo/w conextends from L1 through S1. [employer] Other MR lumbar spine wo/w concontributing to mild bilateral neural foraminal narrowing. This is unchanged.[employer] Other MR lumbar spine wo/w conbilateral neural foraminal narrowing, right greater than left. This is slightly worse on the rightNossm [facility] health center [employer] Other MR lumbar spine wo/w conwhen compared to the prior exam.[employer] Other MR lumbar spine wo/w conThere is no abnormal postcontrast enhancement.[employer] Other mr lumbar spine wo/w conImpression dictated by: Len Sin M.D.04/08/2021 9:23 [facility] [employer] Other mr lumbar spine wo/w conDictation Location: WMNRV-AL-20[place] [employer] Other mr lumbar spine wo/w conTranscribed By: PWS 04/08/[address] [place] [address] [employer] Other MR lumbar spine wo/w conDictated By: Len Sin II, MD 04/08/[address] [place] [address] [employer] Other MR lumbar spine wo/w conSigned By:[place] [employer] Other mr lumbar spine wo/w con04/08/21 [facility] HospitalVirtual [facility] [employer] Other mr lumbar spine wo/w [facility] [facility] [place] [address] [place] [address] MRI Report Signed Patient: Isidra Paredes MR#: [id number] : 1965 Acct:[id number] Age/Sex: 55 / F ADM Date: 04/07/21 Loc: Room: Type: [facility] Attending Dr: Trevor De Anda MD Ordering Provider: Trevor De Anda MD Date of Service: 04/07/21 MR/MR lumbar spine wo/w con: Spondylolisthesis at L5- S1 level Copies to: Trevor De Anda MD [...] Len Sin M.D.04/08/2021 9:23 AM Dictation Location: [place] [address] Transcribed By: [facility] 04/08/21922 Dictated By: Len Sin II, MD 04/08/21909 Signed By: 04/08/2123[facility] ClinicXR lumbar spine 2-3V*on 87-55-9434AL lumbar spine 2-3V*[facility] [place] [address] [place] [address] XRay Report Signed Patient: Isidra Paredes MR#: [id number] : 1965 Acct:[id number] Age/Sex: 55 / F ADM Date: 03/29/21 Loc: XD Room: Type: [facility] Attending Dr: Trevor De Anda MD Ordering [...] Len Sin M.D.03/29/2021 1:47 PM Dictation Location: [place] [address] Transcribed By: [facility] 03/29/21 1347 Dictated By: Len Sin II, MD 03/29/21 1345 Signed By: 03/29/21 1347[facility]opathic ClinicCNOVon 14-73-4915GNXTCxseju Visit (NIK) ISIDRA PAREDES ([id number]) 1965 F Date Time Provider Department 01/28/20 9:00 AM LILIANA MAY During your visit today, we recorded the following information about you: Liliana May MD 01/28/2020 11:22 AM Signed Ortho Hip Follow Up Note Narrative Referring Provider: SELF PCP: Isidro Mathur MD IMPRESSION/PLAN: Impressions indicate: 54 year old s/p Left Total Hip [...] is no evidence of loosening. Provider: Liliana May MD Referring Provider: SELF [200] Allergies As of Date: 01/28/2020 (No Known Allergies) Date Reviewed: 02/25/2014 Reviewed by: Jeana Cason Cma - Fully Assessed Reason for Visit: eval [...] Date: 01/28/2020 (None) Encounter Status:Closed by LILIANA MAY MD on 01/28/20[facility] [id number] ID: [id number] Author: Liliana May Service: ? Author Type: Physician Type: Progress Notes Filed: 01/28/2020 11:22 AM Note Text: Ortho Hip Follow Up Note Narrative Referring Provider: SELF PCP: Isidro Mathur MD IMPRESSION/PLAN: Impressions indicate: 54 year old s/p Left Total Hip [...] is no evidence of loosening. Provider: Liliana M Nhi, MDKettering Health MiamisburgPROGRESSHNO ID: [id number] Author: Shivam Isaacs (Rt) Michelle Whitmore Service: ? Author Type: Oracle E Business Developer Type: Progress Notes Filed: 01/28/2020 8:48 AM [...] BY: RT Duran January 28, 2020 8:[address] Elizabeth Youngstown HospitalXR HIP 3V PELV+ AP/LAT LTon 34-46-9216CM HIP 3V PELV+ AP/LAT LT* * *Final Report* * * DATE OF [...] without apparent complication. Other findings, as described. Quality Technician Fiberglass: TONY Transcribe Date/Time: Jan 28 2020 9:42A Dictated by : DERRICK BALLESTEROS MD This examination was interpreted and the report reviewed and electronically signed by: DERRICK BALLESTEROS MD on Jan 28 2020 9:45AM EST [id number] Health St. [facility] Hospital Vital Signs Date TimeVital SignValuePerforming GpkkqtbopIcpodbsq36-70-3666 11:23-0400Body soyfbu163.7 Carol Mathur MD Work Phone: [phone]09-22-2025 11:23-0400Body mass index (BMI) [Ratio]40.6 kg/p1XievgkIsidro Mathur MD Work Phone: [phone] [place], [place] [address]Tmzwlevnnp18-44-4917 11:23-0400Body .11 kgIsidro Mathur MD Work Phone: 1([phone])[address]08-06-2025 11:21-0400Body vzjiow003.7 Carol Mathur MD Work Phone: [phone] [place], [place] 3776008-06-2025 11:21-0400Body mass index (BMI) [Ratio]40.63 kg/m9HatwudIsidro Mathur MD Work Phone: [phone])[address] [place], [place] [address]Thzabrckyq88-30-5015 11:21-0400Body eyawcf764.2 Christiano Mathur MD Work Phone: [phone] [place], [place] [address]Hemshdvtbu39-92-2812 10:20-0400Body dhfgmu589.7 Carol Mathur MD Work Phone: 1(497)[address] [place], [place] 3776007-28-2025 10:20-0400Body mass index (BMI) [Ratio]40.63 kg/l0PlzjmdIsidro Mathur MD Work Phone: [phone])[facility] [place], [place] [address]Npckwlbmbp40-13-2331 10:20-0400Body .2 Christiano Mathur MD Work Phone: 1([phone])[facility] [place], [place] [address]Rbrjwsobnz90-32-1889 10:17-0400Body scmizi176.7 Carol Mathur MD Work Phone: 1(440)[facility] [place], [place] [address]Yfsaxbrwyn15-18-5619 10:17-0400Body mass index (BMI) [Ratio]40.29 kg/g3MdjuuiIsidro Mathur MD Work Phone: 1(710)[address] [place], [place] 3776007-08-2025 10:17-0400Body liwfzt502.2 kgIsidro Mathur MD Work Phone: [facility] ChildrenZxwxmxcsqt19-16-1954 09:53-0400Body .7 Carol Mathur MD Work Phone: [facility] ChildrenYzljoiyqhp03-82-1022 09:53-0400Body mass index (BMI) [Ratio]40.37 kg/f5OwkidrIsidro Mathur MD Work Phone: [facility] ChildrenMziymfjanf00-96-6886 09:53-0400Body .43 kgIsidro Mathur MD Work Phone: [facility] ChildrenXiztigqdkj41-40-4989 13:52-0400Body .7 cmLen Smart MD Work Phone: [facility] ChildrenHihyaarviu69-39-9499 13:52-0400Body mass index (BMI) [Ratio]40.14 kg/m2Len Smart MD Work Phone: 1(816)714-[address] [place], [place] [address]Kezmepxdrn41-55-8976 13:52-0400Body eobopq744.75 kgLen Smart MD Work Phone: [phone] [place], [place] [address]Kafrutwvkc96-46-6496 17:08-0400Body plhcol225.7 cmLen Smart MD Work Phone: [facility] ChildrenRmtezlbekn98-54-0583 17:08-0400Body mass index (BMI) [Ratio]39.53 kg/m2Len Smart MD Work Phone: 1(359)955-[address] [place], [place] [address]Ulshmcbeby24-59-9818 17:08-0400Body .94 kgLen Smart MD Work Phone: 1(611)754-[address] [place], [place] [address]Cwpheubafn29-04-5872 17:08-0400Diastolic blood rewdjljv33 mm[Hg]Len Smart MD Work Phone: 1([phone] [place], [place] [address]Bzijxhfyjw27-16-5686 17:08-0400Systolic blood rpwfaqry254 mm[Hg]Len Smart MD Work Phone: 1(227)853-[address] [place], [place] [address]Nqimtorqun38-10-6018 10:27-0500Body .7 Carol Mathur MD Work Phone: NOBlossom RecordsVpswreajqf90-33-9923 10:27-0500Body mass index (BMI) [Ratio]38.77 kg/f7HghgcgIsidro Mathur MD Work Phone: [facility] Eobpnwslsy81-72-4932 10:27-0500Body cvmwif181.67 kgIsidro Mathur MD Work Phone: NOBlossom RecordsLugwejkqvr20-13-0206 11:30-0400Body mqgyer176.72 cmDauna Amandakens Other [employer] Other 10-11-2021 11:30-0400Body mass index (BMI) [Ratio] 34.97 kg/b8Fkvzow Elskens Other [employer] Other 10-11-2021 11:30-0400Body ygjrvb446.33 kgDaniel Amandakens Other [employer] Other 10-11-2021 11:30-0400Diastolic blood kskvwodb27 mm[Hg] Trevor Adilson Other [employer] Other 10-11-2021 11:30-0400Systolic blood jwnjsoqo661 mm[Hg] Trevor De Anda Other [employer] Other 09-27-2021 14:30-0400Body seoivy964.72 cmDaniel Amandakens Other [employer] Other 09-27-2021 14:30-0400Body mass index (BMI) [Ratio] 34.97 kg/k5Rgkoip Elskens Other [employer] Other 09-27-2021 14:30-0400Body .33 kgDanihay Amandakens Other [employer] Other Encounters Encounter DateEncounter TypeCare ProviderFacilityStart: 04-11-2025 End: 89-11-0687ufbyxtdqccTVQOMDYaneth Myers HospitalStart: 04-11-2025 End: 54-31-1657Topzepnqph hospital visit by Aleksandra OLMEDO Physical TherapyComment on above:ArrivedStart: 03-24-2025 End: 04-08-3001Gamxqcjuan Mathur MD Work Phone: [facility] [place] [facility] MedicineStart: 03-24-2025 End: 93-27-9794Jzuqxmjuan Mathur MD Work Phone: [facility] [place] [facility] MedicineStart: 03-24-2025 End: 60-35-3440Vhqmhc outpatient visit 15 minutesEdiván Mathur MD Work Phone: [facility] MedicineComment on above: Thrombophlebitis (Primary Dx)Start: 03-24-2025 End: 35-47-8562ybgpbqcbrlWSQYNB J HEMEYERNot AvailableStart: 03-06-2025 End: 16-00-6194Oimjnuijvy hospital visit by Aleksandra OLMEDO Physical TherapyStart: 01-64-4196jdtcrrmsreMFMYODYaneth Myers HospitalStart: 02-28-2025 End: 12-37-2186Wcrbavzhpo hospital visit by Aleksandra OLMEDO Physical TherapyStart: 02-21-2025 End: 74-05-0198rqhkwlbmkkAMOHUKYaneth Myers HospitalStart: 02-21-2025 End: 86-38-9102Lxqfrhityg hospital visit by Aleksandra OLMEDO Physical TherapyComment on above:ArrivedStart: 02-13-2025 End: 55-30-2245mrdiralcdzCVSCLSScottie Myers HospitalStart: 02-13-2025 End: 73-96-7422Kemgvjpkkd hospital visit by Les Badillo Physical TherapyComment on above:ArrivedStart: 02-11-2025 End: 76-65-3150Sqbedttwhb hospital visit by Aleksandra OLMEDO Physical TherapyStart: 02-06-2025 End: 27-87-2546iqbnjbllzwJLKFSTYaneth Andersonard HospitalStart: 02-06-2025 End: 17-14-9346Vubwmhwdne hospital visit by Les Badillo Physical TherapyComment on above:ArrivedStart: 02-05-2025 End: 42-14-3678Xinluojuan Mathur MD Work Phone: [facility] [place] [facility] Family MedicineStart: 02-05-2025 End: 28-00-9016Lpyxzzjuan Mathur MD Work Phone: [facility] [place] [facility] Family MedicineStart: 02-05-2025 End: 65-36-9250Cpbkgb outpatient visit 40 Lillie Mathur MD Work Phone: [facility] [place] 100 Family MedicineComment on above: Pre-diabetes; Insulin resistance; Reactive hypoglycemia; Morbid obesity ([facility]); BMI 40.0-44.9, adult ([facility])Start: 02-05-2025 End: 33-18-1749xtqhulloaeXHEWNNScottie Gibbs AvailableStart: 02-04-2025 End: 56-49-7468hxprshxublLBFCTLYaneth Andersonard HospitalStart: 02-04-2025 End: 56-30-3669Iueyjpfyzi hospital visit by Aleksandra Talley PTMWHZ Physical TherapyComment on above:ArrivedStart: 01-27-2025 End: 00-60-2774Bdfiyqjuan Mathur MD Work Phone: [facility] [place] [facility] Family MedicineStart: 01-27-2025 End: 77-28-9607Xdtegfjuan Mathur MD Work Phone: [facility] [place] [facility] Family MedicineStart: 01-27-2025 End: 58-97-4884Efygxg outpatient visit 25 minutesEdiván Mathur MD Work Phone: [facility] [place] [facility] Family MedicineComment on above:Urge incontinence of urine (Primary Dx); Artificial menopause; Weight gain; Chronic fatigue; Family history of diabetes mellitus; Morbid obesity ([facility]-HCC)Start: 01-27-2025 End: 08-55-3002lulbbqqtgrWOOOLW J HEMEYERNot AvailableStart: 01-23-2025 End: 34-31-0762otrsaulfwjEANGVC J HEMEYERNot AvailableStart: 01-07-2025 End: 40-67-2917Hecvbl flowsSusi Mathur MD Work Phone: [facility] CI FM 100Start: 01-07-2025 End: 64-86-9706Pphawk Hillary Mathur MD Work Phone: [facility] FM 100Start: 01-07-2025 End: 72-25-0505Jzucog outpatient visit 25 minutesEdiván Mathur MD Work Phone: [facility] CI FM 100Comment on above:ESS (euthyroid sick syndrome); Chronic fatigue; Morbid obesity ([facility]); BMI 40.0-44.9, adult ([facility]); Acquired hypothyroidism ; Artificial menopause; Idiopathic osteoarthritis; Rheumatoid arthritis involving multiple sites with positive rheumatoid factor (HCC)Start: 01-07-2025 End: 34-61-5643azrfhjmovaKXFRCV J HEMEYERNot AvailableStart: 12-26-2024 End: 32-12-6164Rvibqm Hillary Mathur MD Work Phone: [facility] FM 100Start: 12-26-2024 End: 32-43-9000Wglkvg Hillary Mathur MD Work Phone: [facility] 100Start: 12-26-2024 End: 63-47-3797Muqetu outpatient visit 15 minutesEdiván Mathur MD Work Phone: [facility] CI FM 100Comment on above:Chronic pain syndrome (Primary Dx); Rheumatoid arthritis involving multiple sites with positive rheumatoid factor (HCC); Lumbosacral radiculopathy; Acquired hypothyroidism ; Recurrent major depressive disorder, in partial remission ; Encounter for screening mammogram for malignant neoplasm of breast; Morbid obesity ([facility])Start: 12-26-2024 End: 46-54-7182kxkbhyfohnBWCGRC J HEMEYERNot AvailableStart: 12-24-2024 End: 38-71-8976Eqxyvnjuan Smart MD Work Phone: n[facility] BM NEUROLOGYStart: 12-24-2024 End: 17-71-9972Jplpda flowsIsacc Smart MD Work Phone: n[facility] BM NEUROLOGYStart: 12-24-2024 End: 63-15-2171navjzozgyaWOUF D BEJNot AvailableStart: 12-24-2024 End: 22-51-5529Lldtlj outpatient visit 15 minutesLen Smart MD Work Phone: noms SWS NEUR BComment on above:Neurogenic pain (Primary Dx); Lateral femoral cutaneous neuropathy, leftStart: 11-07-2024 End: 73-87-8746Dxeqzqddt encounterApril Li GOODMAN CI FM 100Comment on above: Care CoordinationStart: 11-04-2024 End: 20-73-0309qqqcoiwcjlChrdwbp Vytautas Giedraitis MDFacility:PM Aj Start: 10-21-2024 End: 94-72-3811qqlblvnysgQwsrvqf Vytautas Giedraitis MDFacility:PM Aj Start: 10-01-2024 End: 92-34-0824Cvihfn outpatient visit 25 minutesLen Smart MD Work Phone: noms SWS NEUR BComment on above:Neurogenic pain (Primary Dx); Lateral femoral cutaneous neuropathy, leftStart: 10-01-2024 End: 04-18-2732yxebrmmzfrQRTI D BEJNot AvailableStart: 10-01-2024 End: 88-34-9673Eceghu Clementina Smart MD Work Phone: noms BM NEUROLOGYStart: 10-01-2024 End: 35-28-2143Fbuxnd lCementina Smart MD Work Phone: noms BM NEUROLOGYStart: 09-11-2024 End: 11-50-3750euwxnsiljvMJLXXJ J HEMEYERNot AvailableStart: 09-11-2024 End: 17-53-3601Tagfyp Hillary Mathur MD Work Phone: [facility] 100Start: 09-11-2024 End: 84-07-0214Vriley Hillary Mathur MD Work Phone: [facility] 100Start: 07-25-2024 End: 43-55-2733YzjrmgTlxokoug Anderson TRUCKEECHEPE [facility] NEURO 111Comment on above: Neurogenic painStart: 07-16-2024 End: 17-19-4083Twuiyvjuan Mathur MD Work Phone: [facility] CI FM 100Start: 07-16-2024 End: 75-37-0397Lawsry Hillary Mathur MD Work Phone: [facility] FM 100Start: 07-16-2024 End: 97-36-6372Zypjmk outpatient visit 15 minutesEdiván Mathur MD Work Phone: [facility] FM 100Comment on above:Recurrent major depressive disorder, in partial remission (HCC) (CMS/HCC); Former smoker, stopped smoking many years ago; Class 2 obesity due to excess calories without serious comorbidity with body mass index (BMI) of 38.0 to 38.9 in adult; BMI 38.0-38.9,adultStart: 07-16-2024 End: 25-85-6214nbhlrirqprGNTPGQScottie Gibbs AvailableStart: 07-08-2024 End: 29-69-4151Resdsajuan Mathur MD Work Phone: [facility] FM 100Start: 07-08-2024 End: 69-60-2366Rqrupcjuan Mathur MD Work Phone: [facility] FM 100Start: 07-08-2024 End: 59-64-1046DkstwsXuksfe J Hemeyer MD Work Phone: [facility] CI FM 100Comment on above:Acquired hypothyroidism (CMS/HCC)Start: 07-08-2024 End: 41-90-0171Wedmrq outpatient visit 25 minutesIsidro Mathur MD Work Phone: [facility] CI FM 100Comment on above:Acquired hypothyroidism (CMS/HCC) (Primary Dx); ESS (euthyroid sick syndrome); Chronic fatigue; Class 2 obesity without serious comorbidity in adult, unspecified BMI, unspecified obesity type; BMI 38.0-38.9,adult; Elevated fasting blood sugar; High triglycerides (CMS/HCC); Urge incontinence of urineStart: 07-08-2024 End: 05-00-1680xwrfxcnxqqZSGWKW J HEMEYERNot AvailableStart: 05-14-2024 End: 39-49-1370Serhna flowsheetAhmet A Matthew DO Work Phone: [facility] CI ORTHOPAEDICSStart: 05-14-2024 End: 95-60-6196Yqvlme flowsheetJames A Matthew DO Work Phone: n[facility] CI ORTHOPAEDICSStart: 05-14-2024 End: 09-67-5391Lduhux outpatient visit 10 minutesJaiwona A Matthew DO Work Phone: NOUY CI ORTHOPAEDICSComment on above:Chronic pain of right knee (Primary Dx); Arthritis of right kneeStart: 05-14-2024 End: 27-00-2793emklmqhxbjXCQKB A HUDDLESTONNot AvailableStart: 04-01-2024 End: 26-04-0804lrnhghcovjClbgzgh Vytautas Giedraitis MDFacility:PM Aj Start: 03-11-2024 End: 75-19-9138cxrvyzznteVjsdtvq Vytautas Giedraitis MDFacility:PM Aj Start: 07-25-2023 End: 94-36-5274Aucrqe outpatient visit 15 minutesIsidro Mathur MD Work Phone: NOPA BNS FMComment on above:Recurrent major depressive disorder, in remission (HCC) (CMS/HCC) (Primary Dx); Arthritis of right knee; Artificial menopause; Former smoker, stopped smoking many years ago; Morbid obesity due to excess calories (CMS/HCC); BMI 38.0-38.9,adultStart: 46-80-2101Rpdtjasic for other preprocedural examinationNICEast [facility] HospitalStart: 81-23-9473Quugijouw for preprocedural laboratory examinationNICEast [facility] HospitalStart: 58-38-5878Djlioewxm for preprocedural respiratory examinationNICEast [facility] HospitalStart: 10-25-2022 End: 05-77-5811xqsxvhchddNKHBJXWH BROWNFacility:I7Gogfq: 10-25-2022 End: 88-74-4262Liywntjlj for other preprocedural examinationCIBOLA GENERAL HOSPITALINGA SIMENTAL Facility:M4Iownn: 07-25-2022 End: 35-25-7452qsalkicwktVX ISIDRO MATHUR .Facility:U2Ibwak: 01-31-2022 End: 30-47-1156Ygyamsg encounter procedureMD Isidro Mathur Work Phone: [facility] Strub RdStart: 35-42-0809Xpnlpl outpatient visit 15 minutesDasycamore medical center RalphEast [facility] NeurosurgeryStart: 94-62-0564Lqrdft outpatient visit 15 minutesDasycamore medical center RalphEast [facility] Neurosurgery Procedures DateProcedureProcedure DetailPerforming ClinicianStart: 13-99-4114Npwhfgqpunf Isidro Mathur MD Work Phone: Start: 93-63-0246GcopkstygefFejlj Huddleston DO Work Phone: Start: 83-20-9324RessvkvhvchBthcft Hemeyer MD Work Phone: Start: 22-76-6642PnbcvpicbybUeelnr Hemeyer MD Work Phone: History of total hysterectomyDauna De Anda Other Plan of Treatment DateCare ActivityDetailAuthorStart: 87-37-1511Hkbkaswkxor Syncytial Virus (RSV) or age 60 yrs+ (1 - 1-dose 75+ series)Respiratory Syncytial Virus (RSV) or age 60 yrs+ (1 - 1-dose 75+ series)[facility] HealthStart: 01-93-0066Ikoviztck for malignant neoplasm of breastBreast cancer screenBon The Christ HospitalStart: 92-53-3740Dbflpjilo for malignant neoplasm of breast MammogramNOME HealthcareStart: 78-84-3921Slergzlde vaccinationInfluenza Vaccine (#1)[facility] HealthcareComment on above:Postponed from 03/03/2025 (Patient Refused) Start: 48-33-9290Cuqkbrczb for malignant neoplasm of colonNOMS HealthcareStart: 03-12-2026Medicare Annual Wellness (AWV)Medicare Annual Wellness (AWV)[facility] HealthcareStart: 07-09-2025 End: 98-41-8811Xmockae encounter procedureNOMS CI FM 100Start: 06-30-2025 End: 37-78-6710Tumfwpc encounter procedureNOMS CI FM 100Start: 06-24-2025 End: 35-88-4835Tpuugjg encounter procedureNOMS SWS NEUR BStart: 06-09-2025 End: 02-12-3561E1, reverseT3, reverse Lab Routine ESS (euthyroid sick syndrome) Chronic fatigue Expected: 06/09/2025 (Approximate), Expires: 01/07/2026N[facility]S HealthcareComment on above:Expected: 06/09/2025 (Approximate), Expires: 01/07/2026Start: 06-09-2025 End: 98-06-1020Ypdwyzfakye [Units/volume] in Serum or PlasmaTSH Lab Routine Chronic fatigue Acquired hypothyroidism Expected: 06/09/2025 (Approximate), Expires: 01/07/2026N[facility]S HealthcareComment on above:Expected: 06/09/2025 (Approximate), Expires: 01/07/2026Start: 06-09-2025 End: 01-78-0080Rkysybgzp (T4) free [Mass/volume] in Serum or PlasmaT4, free Lab Routine Chronic fatigue Acquired hypothyroidism Expected: 06/09/2025 (Approximate), Expires: 01/07/2026[facility] HealthcareComment on above:Expected: 06/09/2025 (Approximate), Expires: 01/07/2026Start: 06-09-2025 End: 67-27-8831Nujjrcgnirqptyko (T3) [Mass/volume] in Serum or PlasmaT3 Lab Routine ESS (euthyroid sick syndrome) Chronic fatigue Expected: 06/09/2025 (Approximate), Expires: 01/07/2026[facility] Work Phone: Comment on above:Expected: 06/09/2025 (Approximate), Expires: 01/07/2026Start: 06-09-2025 End: 55-13-1237Yvthqemiyyaiojxg (T3) Free [Mass/volume] in Serum or PlasmaT3, free Lab Routine ESS (euthyroid sick syndrome) Chronic fatigue Expected: 06/09/2025 (Approximate), Expires: 01/07/2026[facility] HealthcareComment on above: Expected: 06/09/2025 (Approximate), Expires: 01/07/2026Start: 04-17-2025 End: 77-21-4619Tfbbcds encounter rcifpvfwz81/16/2025 3:30 PM EDT Appointment [facility] Physical Therapy [address] [place] [address] Janneth Talley, PTMWHZ Physical TherapyStart: 03-24-2025 End: 27-63-5308Ognbgrt encounter cbxavodlp70/22/2025 11:45 AM EDT Office Visit [facility] [address] [facility] [address] [place] [address] Isidro Mathur MD [address] [facility] [address] [place], [place] [phone] (Work) [address]Comment on above:ArrivedStart: 03-20-2025 End: 57-80-2294Etcefnn encounter hvueoeyfk65/18/2025 3:45 PM EDT Appointment [facility] Physical Therapy [address] [place] [address] Janneth Talley, PT *Devoted-50.00 Copay-Urinary IncontinenceMZ Physical Therapy Comment on above:*Devoted-50.00 Copay-Urinary IncontinenceStart: 03-06-2025 End: 63-94-4057Votcblf encounter biqyyrbrq60/04/2025 3:45 PM EDT Appointment [facility] Physical Therapy [address] [place] [address] Janneth Talley, PT *Devoted-50.00 Copay-Urinary IncontinenceMZ Physical Therapy Comment on above:*Devoted-50.00 Copay-Urinary IncontinenceStart: 03-03-2025 COVID-19 Vaccine ()COVID-19 Vaccine ()[facility] SystemStart: 48-47-4503Etfrkchko vaccinationShriners Hospitals for ChildrenStart: 02-28-2025 End: 98-30-2173Coxijoa encounter daqbmottt46/29/2025 2:00 PM EDT Appointment [facility] Physical Therapy [address] [place] [address] Janneth Talley, PTMWHZ Physical TherapyStart: 02-21-2025 End: 49-16-4195Frxalqa encounter /22/2025 3:15 PM EDT Appointment [facility] Physical Therapy [address] [place] [address] Janneth Talley, PTMWHZ Physical TherapyStart: 02-13-2025 End: 70-14-2331Cfcxgkn encounter procedureMZ Physical TherapyComment on above: *Devoted-50.00 Copay-Urinary IncontinenceStart: 02-11-2025 End: 28-73-6108Hcrvhdz encounter procedureMZ Physical TherapyComment on above: *Devoted-50.00 Copay-Urinary IncontinenceStart: 02-06-2025 End: 30-21-2092Jiklnnf encounter hwbqimknj58/07/2025 11:15 AM EDT Appointment [facility] Physical Therapy [address] [place] [address] Radha Porter DMWHZ Physical TherapyStart: 02-05-2025 End: 28-12-9919Bywcjtl encounter eyqvzsquu13/06/2025 11:30 AM EDT Office Visit [facility] [address] [address] [place] [address] Isidro Mathur MD [address] [address] [place] [phone] (Work) (Fax) Pre-diabetes; Insulin resistance; Reactive hypoglycemia; Former smoker, stopped smoking many years ago; Morbid obesity ([place]); BMI 40.0-44.9, adult ([place])[facility] SystemAqu[facility] Comment on above:Pre-diabetes; Insulin resistance; Reactive hypoglycemia; Former smoker, stopped smoking many years ago; Morbid obesity ([place]); BMI 40.0-44.9, adult ([place])Start: 18-14-4312Lslkuyadd vaccinationFlu vaccine (#1)[facility] SystemStart: 01-27-2025 End: 36-60-0385FPTMOZZ RESPONSE TO GLUCOSE, 6 SPECIMENSINSULIN RESPONSE TO GLUCOSE, 6 SPECIMENS Lab Routine Weight gain Chronic fatigue Family history of d iabetes mellitus Expected: 01/27/2025 (Approximate), Expires: 01/27/2026[facility] for ChildrenComment on above:Expected: 01/27/2025 (Approximate), Expires: 01/27/2026Start: 01-27-2025 End: 49-93-3610Ijwxzbooakx of glucose 4 hours after glucose challenge for glucose tolerance testGlucose tolerance, 4 hours Lab Routine Weight gain Chronic fatigue Family history of diabetes mellitus Expected: 01/27/2025 (Approximate), Expires: 01/27/2026[facility] Healthcare Work Phone: Comment on above:Expected: 01/27/2025 (Approximate), Expires: 01/27/2026Start: 01-27-2025 End: 92-99-3809Xqnyyhn encounter xckwborfk69/28/2025 10:30 AM EDT [facility] [address] [place] [address] [place] [address] Isidro Mathur MD [address] [address] [place] [phone] (Work) (Fax) ArrivedNOMS [place] 100 Family MedicineComment on above:ArrivedStart: 01-23-2025 End: [id number] Breast - bilateral ScreeningBilateral screening mammogram Imaging Routine Encounter for screening mammogram for malignant neoplasm of breast Expected: 01/23/2025, Expires: 02/25/2026[facility] Work Phone: Comment on above:Expected: 01/23/2025, Expires: 02/25/2026Start: 96-76-2566Rihkglqpr for malignant neoplasm of breastMammogram [facility] HealthcareStart: 01-08-2025 End: 23-27-1544Tpgylai encounter procedureNOMS BNS FMStart: 01-07-2025 End: 00-82-8300Pxgwnpj encounter procedureNOMS CI FM 100Comment on above:ESS (euthyroid sick syndrome); Chronic fatigue; Morbid obesity ([facility]); BMI 40.0-44.9, adult ([facility])Start: 01-05-2025 End: [id number], reverseT3, reverse Lab Routine ESS (euthyroid sick syndrome) Chronic fatigue Expected: 01/05/2025 (Approximate), Expires: 07[facility]/2025[facility] HealthcareComment on above:Expected: 01/05/2025 (Approximate), Expires: 07/08/2025Start: 01-05-2025 End: 98-35-8552Hiafpifexyn [Units/volume] in Serum or PlasmaTSH Lab Routine Acquired hypothyroidism (CMS/HCC) Chronic fatigue Expected: 01/05/2025 (Approximate), Expires: 07/08/2025[facility] HealthcareComment on above:Expected: 01/05/2025 (Approximate), Expires: 07/08/2025Start: 01-05-2025 End: 97-59-7089Fnkjyjuej (T4) free [Mass/volume] in Serum or PlasmaT4, free Lab Routine Acquired hypothyroidism (CMS/HCC) Chronic fatigue Expected: 01/05/2025 (Approximate), Expires: 07/08/2025[facility] HealthcareComment on above:Expected: 01/05/2025 (Approximate), Expires: 07/08/2025Start: 01-05-2025 End: 92-83-8337Boihpuahsgyabhek (T3) [Mass/volume] in Serum or PlasmaT3 Lab Routine ESS (euthyroid sick syndrome) Chronic fatigue Expected: 01/05/2025 (Approximate), Expires: 07/08/2025[facility] HealthcareComment on above:Expected: 01/05/2025 (Approximate), Expires: 07/08/2025Start: 01-05-2025 End: 08-75-3289Gsesoxozpifkgavp (T3) Free [Mass/volume] in Serum or PlasmaT3, free Lab Routine ESS (euthyroid sick syndrome) Chronic fatigue Expected: 01/05/2025 (Approximate), Expires: 07/08/2025[facility] HealthcareComment on above: Expected: 01/05/2025 (Approximate), Expires: 07/08/2025Start: 12-26-2024 End: 86-82-2881Qgyyiko encounter procedureNOMS BNS FMComment on above:Recurrent major depressive disorder, in remission ; Rheumatoid arthritis involving multiple sites with positive rheumatoid factor (HCC); Chronic pain syndrome; Lumbosacral radiculopathy; Former smoker, stopped smoking many years ago; Morbid obesity ([facility]-HCC)Start: 12-03-2024 End: 55-35-1232Ejwqplp encounter sjwsyzubp38/03/2025 11:45 AM EDT Office Visit [facility] NE[facility] B [address] [address] Len Smart MD [address] [address] [facility] NEUR BStart: 10-01-2024 End: 87-45-6642Wlunean encounter /01/2025 4:45 PM EDT Office Visit [facility] B [address] [phone] Len Smart MD [address] [address] [facility] BComment on above:ArrivedStart: 09-17-2024 End: 61-77-7282Hbwjvug encounter jvawbiwcr90/18/2025 9:30 AM EDT Office Visit [facility] NEUR B [address] [facility] [address] [place] [phone] Len Smart MD [address] [facility] [address] [place] [address] [facility] NEUR BStart: 09-11-2024 End: 37-61-4001Emupsqm encounter akuzsbfds07/12/2025 4:30 PM EDT Office Visit [facility] CI FM 100 [address] [facility] [address] [place] [address] Isidro Mathur MD 112 [facility] 100 [place] [address] Welcome to Medicare preventive visit; Advance directive discussed with patient; Encounter for screening for other disorder; Screening for alcohol problem; Screening mammogram, encounter for; Screening for osteoporosis; Menopause; Class 2 obesity due to excess calories without serious comorbidity with body mass index (BMI) of 38.0 to 38.9 in adult [facility] CI FM 100Comment on above:Welcome to Medicare preventive visit; Advance directive discussed with patient; Encounter for screening for other disorder; Screening for alcohol problem; Screening mammogram, encounter for; Screening for osteoporosis; Menopause; Class 2 obesity due to excess calories without serious comorbidity with body mass index (BMI) of 38.0 to 38.9 in adultStart: 07-16-2024 End: 73-78-5094Hjxujdu encounter procedureNOMS CI FM 100Comment on above: Recurrent major depressive disorder, in remission (HCC) (CMS/HCC); Former smoker, stopped smoking many years ago; Class 2 obesity due to excess calories without serious comorbidity with body mass index (BMI) of 38.0 to 38.9 in adult; BMI 38.0-38.9,adultStart: 07-08-2024 End: 31-78-2334IIB W Auto Differential panel - BloodCBC and differential Lab Routine Chronic fatigue Expected: 07/08/2024 (Approximate), Expires: 07/08/2025 [facility] HealthcareComment on above:Expected: 07/08/2024 (Approximate), Expires: 07/08/2025Start: 07-08-2024 End: 48-94-2174Ijbqtosjzjmuv metabolic 2000 panel - Serum or PlasmaComprehensive metabolic panel Lab Routine Chronic fatigue Elevated fasting blood sugar Expected: 07/08/2024 (Approximate), Expires: 07/08/2025[facility] Work Phone: Comment on above:Expected: 07/08/2024 (Approximate), Expires: 07/08/2025Start: 07-08-2024 End: 93-14-4898Lthmc 1996 panel - Serum or PlasmaLipid panel Lab Routine High triglycerides (CMS/HCC) Expected: 07/08/2024 (Approximate), Expires: 07/08/2025 [facility] HealthcareComment on above:Expected: 07/08/2024 (Approximate), Expires: 07/08/2025Start: 07-08-2024 End: 86-11-2023Zqzxbuo encounter procedureNOMS CI FM 100Comment on above:ESS (euthyroid sick syndrome); Acquired hypothyroidism (CMS/HCC); Chronic fatigue; Morbid obesity due to excess calories (CMS/HCC); BMI 38.0-38.9,adultStart: 77-92-4421Fslacz Wellness Visit (Medicare Advantage) Annual Wellness Visit (Medicare Advantage)[facility]: 43-76-4916SKIZW-19 Vaccine ( season)COVID-19 Vaccine ( season)[facility]: 85-59-2991Rktmojjlm vaccinationInfluenza Vaccine (#1)[facility] HealthcareStart: 01-16-2024 End: 84-51-9745Ogrdjja encounter telgbxciq35/16/2024 10:00 AM EDT Office Visit [facility] S FM [address] [facility] [place] [address] Isidro Mathur MD [address] [facility] [place] [address] (Fax)[facility] BNS FMStart: 81-12-7682Aaaxipnsf for malignant neoplasm of breastMammogramNOMS HealthcareStart: 01-09-2024 End: 57-07-5710Clwpdih encounter djuiyweif84/09/2024 10:00 AM EDT Office Visit [facility] JONNY FM [address] [facility] [place] [address] Isidro Mathur MD [address] [place] [address] NOMS Damaris FMStart: 09-19-2023 End: 65-74-1110Ubmebiz encounter skumlguvh31/19/2024 9:30 AM EDT Office Visit [facility] NEUR [address] [facility] [address] [place] [phone] Len Smart MD [address] [phone] [facility] NEURStart: 66-20-2643Muzbcuupf vaccinationInfluenza Vaccine (#1)[facility] HealthcareStart: 55-77-6065Kprmtqpvsdpn 50+ years Vaccine (1 of 1 - PCV)Pneumococcal 50+ years Vaccine (1 of 1 - PCV)[facility] Start: 65-10-8174Oqiybrpu vaccine (1 of 2)Shingles vaccine (1 of 2)[facility] SystemStart: 80-15-0167Feosbxugv for malignant neoplasm of colonBon [facility] HospitalStart: 20-21-2934Uyntj panelLipidsWellmont Health System Start: 72-26-4750Qgjgvfhrn for malignant neoplasm of cervixBon [facility] Systemart: 03-64-7589Aevmaosav for malignant neoplasm of cervixPap smearWellmont Health SystemStart: 07-60-3156VVzF/Tdap/Td vaccine (1 - Tdap)DTaP/Tdap/Td vaccine (1 - Tdap)[facility] SystemStart: 90-24-8076Rfzhyikbm C screeningHepatitis C screenWellmont Health SystemStart: 55-60-9647ILR screeningHIV screenBon [facility] HospitalStart: 10-42-1437Lzohcbxatt Screen Depression ScreenWellmont Health SystemStart: 03-24-1964Medicare Annual Wellness (AWV)Medicare Annual Wellness (AWV)[facility] HealthcareStart: 1965 Screening for malignant neoplasm of colonNOME Healthcare Immunizations Immunization DateImmunizationNotesCare EpoywnrmHntquaqi55-15-3809DHJMT-61 Ad26.COV2.S (Mally)MD Isidro Mathur Work Phone: [facility]10-23-2015influenza, high dose seasonal, preservative-Bekah De Anda Other [employer] Other 10560645-77-7041tsfrgnaom virus vaccine, unspecified formulationAhmet Matthew Work Phone: [facility] ChildrenMatjcrekpz32-16-7074ejmacmczf, injectable, quadrivalent, preservative freeIsidro Mathur MD Work Phone: [facility] ChildrenDhvptsxtmo86-86-2579uzqwvsnac virus vaccine, unspecified formulationIsidro Mathur MD Work Phone: [facility] Payers DatePayer CategoryPayerPolicy [id number] (Managed Care)[facility] [id number] 2025Medicare2024Private Health InsuranceAMBETTER FARHAD [id number] 42-79-8207Yofhcns8.2.840.597312.1.13.693.2.7.3.061252.53824-29-9986Tolxiop [id number] 2.0.1.782760.3.57[id number] 2.0.1.099142.3.57[id number] 2.0.1.536167.3.57[id number] 2.0.1.157682.3.57[id number] 2.0.1.013264.3.57[id number] 2.160.1.068320.3.57[id number] 2.0.1.647480.3.57[id number] 2.0.1.107215.3.57[id number] 2.840.1.519144.3.57[id number] 2.0.1.782789.3.57[id number] 2.840.1.462283.3.57[id number] 2.0.1.752772.3.57[id number] 2.0.1.206396.3.57[id number] 2..1.201265.3.57[id number] 2..1.721273.3.57[id number] 2..1.240322.3.57[id number] 2..1.806767.3.57[id number] 2..1.241080.3.57[id number] 2..1.174516.3.57[id number] 2..1.586975.3.57[id number] 2..1.242970.3.57[id number] 2.0.1.833058.3.57[id number] 2..1.267671.3.57[id number] 2.0.1.208422.3.579.2.174Self-paySelf Pay [id number] 2.16.840.1.221182.19 Social History DateTypeDetailFacilityUnknown if ever smokedNort TravelKnowledge Other start: 01-19-2023 End: 68-16-5178Qwq [facility]igned At [facility] HealthcareStart: 09-22-2020 End: 19-11-7603Ghitxsb smoking status NHISEx-smoker (finding)[facility] Beachwoodtart: 44-90-4484Gsl Assigned At [facility] End: 05-13-0488Fihyooy of tobacco useCurrent smokerNOMS Healthcare End: 80-24-1562Voratij of tobacco useCigarette SmokerNOME HealthcareStart: 12-16-2022 End: 90-21-7195Qumigvh use and exposureSmokeless tobacco non-userNOMS Healthcare Start: 07-25-2023 End: 21-50-0563Jgwsjyq intakeLifetime non-drinker (finding)[facility] HealthcareStart: 01-19-2023 End: 64-39-8745Hlwaybe of Social functionNOMS HealthcareWithin the last year, have you been afraid of your partner or ex-partner?NoNOMS HealthcareActive Member of Clubs or OrganizationsNot on fileNOMS HealthcareHow often to you have a drink containing alcohol?Monthly or lessNOMS HealthcareHow many standard drinks containing alcohol do you have on a typical day?1 or 2NOMS HealthcareHow often do you have 6 or more drinks on 1 occasion?NeverNOMS HealthcareHow hard is it for you to pay for the very basics like food, housing, medical care, and heatingSomewhat hardNOMS HealthcareDo you feel stress - tense, restless, nervous, or anxious, or unable to sleep at night because yourmind is troubled all the time - these days [OSQ]To some extentNOMS Healthcare(I/We) worried whether (my/our) food would run out before (I/we) got money to buy more. Sometimes trueNOMS HealthcareStart: 48-58-1485Oybzcgqnk65RGWD HealthcareStart: 62-77-7479Ephnwyv CommentLast smoked: 5-10 years agoNOMS HealthcareStart: 45-30-8922Xyydcxz CommentCaffeine intake: 2-3 cups per dayNOME HealthcareStart: 16-81-6754Uox Assigned At BirthNot on fileShriners Hospitals for ChildrenTobab[facility] [place] smoking status NHISTobacco smoking consumption unknownBon [facility] HospitalStart: 01-28-2025 SexFemale (finding)Bon [facility] HospitalNEGATED: Highlighted rowStart: NINF History of tobacco usePassive smokerShriners Hospitals for Children Medical Equipment Procedure CodeEquipment CodeEquipment Original TextEquipment IdentifierDates Fusion, spine, lumbar, XLIFINFUSE SMALL 2.8CCFDAStart: 87-14-4712Tmhsot, spine, lumbar, XLIFBone-screw internal spinal fixation system, non-sterile ()[id number] FDAStart: 33-17-3227Tgbppl, spine, lumbar, XLIFBone-screw internal spinal fixation system, non-sterile()[id number] FDAStart: 51-80-8558Ozwrbt, spine, lumbar, XLIFBone-screw internal spinal fixation system, non-sterile()[id number] FDAStart: 10-07-0139Kaxuoi, spine, lumbar, XLIF XLIF 3 LEVEL MAS REDUCTIONFDAStart: 59-05-0288Lszccq, spine, lumbar, XLIFBone- screw internal spinal fixation system, non-sterile()[id number] FDAStart: 21-60-4027Yvuvbs, spine, lumbar, XLIFBone-screw internal spinal fixation system, non-sterile()[id number] FDAStart: 21-23-4366Sgjjzf, spine, lumbar, XLIF Bone matrix implant, human-derived()[id number] FDA Start: 19-85-3728Hciyzl, spine, lumbar, XLIFBone matrix implant, human-derived ()[id number] FDAStart: 92-79-8367Fiqrth, spine, lumbar, XLIFMetallic spinal fusion cage, non-sterile()[id number] FDAStart: 02-34-6163Sbplnb, spine, lumbar, XLIFMetallic spinal fusion cage, non-sterile ()[id number] FDAStart: 47-47-1956Jfjfje, spine, lumbar, XLIFMetallic spinal fusion cage, non-sterile()[id number] FDAStart: 55-07-4755Gtawvz, spine, lumbar, XLIFMetallic spinal fusion cage, non-sterile()[id number] FDAStart: 30-03-5035Vdoxmk, spine, lumbar, XLIFBone-screw internal spinal fixation system, non-sterile()[id number] FDAStart: 79-48-2906Olrxraug lumbar interbody fusion (ALIF)XLIF MAS REDUCTION 1 LEVELFDAStart: 09-22-2020 Anterior lumbar interbody fusion (ALIF)Bone-screw internal spinal fixation system, non-sterile()[id number] FDAStart: 90-36-5170Eumeygmg lumbar interbody fusion (ALIF)Bone-screw internal spinal fixation system, non-sterile ()[id number] FDAStart: 39-89-6022Wbicpucf lumbar interbody fusion (ALIF) Bone-screw internal spinal fixation system, non-sterile()[id number] FDA Start: 16-35-3441Couochxr lumbar interbody fusion (ALIF)Metallic spinal fusion cage, non-sterile()[id number] FDAStart: 87-32-0649Mzyripkg lumbar interbody fusion (ALIF)Spinal fusion graft kit ()[id number] FDAStart: 75-88-2929Mxrzocaf lumbar interbody fusion (ALIF)Bone matrix implant, human-derived ()[id number] FDAStart: 54-25-0814Rnmrzxap lumbar interbody fusion (ALIF)Spinal bone screw, non-bioabsorbable()[id number] FDAStart: 95-77-7176Phaednwj lumbar interbody fusion (ALIF)Bone-screw internal spinal fixation system, non-sterile()[id number] FDAStart: 09-22-2020 Functional Status JbydOmuyqaugipOkhafoXabmprdw68-33-8027Jmwnktx Health Questionnaire 2 item (PHQ- 2) [Reported][facility] for ChildrenQmikerjvft85-61-3472Knndddt Health Questionnaire 2 item (PHQ- 2) [Reported][facility] for ChildrenJqwyeadrku31-02-2546Vtejwxy Health Questionnaire 2 item (PHQ- 2) [Reported][facility] for ChildrenMqgegcwhoh96-54-1350Yvomybn Health Questionnaire 2 item (PHQ- 2) [Reported][facility] Clinical Notes 03-29-2021 to 04-11-2025 Note Date & HkejXxuaBqcssvzk59-92-6401 History of Present illness Narrative* Janneth Talley, PT - 04/11/2025 9:45 AM EDT Images from the original note were not included. [facility] Outpatient Physical Therapy Daily Note Date: 04/11/2025 Patient Name: Isidra Paredes : 1965 (59 y.o.) Referring Provider (secondary): Dr. Isidro Mathur Diagnosis: Urge incontinence of urine Artificialmenopause Treatment Diagnosis: Urinary Incontinence Onset Date: 01/27/25 (Referral) PT Insurance Information: Dev[employer]- 50 co-pay Total # of Visits Approved: 8 Per Physician Order Total # of Visits to Date: 5 Pre-Treatment Pain: 4/10 Assessment Assessment: Patient reports her busy schedule and forgettfulness is why she has not been to therapyin 6 wks, but she would like to resume PT. Pain 4/10 R hip and leg. Intermittent incontinence persist. Main problem with urgerncy. Completed therex and manual therapy per Doc Flow. Education reviewedon strategies to control urgency. Educated patient on and issued second handout for progressing HEP. Plan to resume PT 1xwk. Plan Continue with current plan of care Exercises/Modalities/Manual: See DocFlow Sheet Education: ON ex form and progressing HEP with planks, bridges and butterfly stretch Goals (Total # of Visits to Date: 5) Short Term Goals Time Frame for Short Term Goals: 4 Short Term Goal 1: Patient to be educated on and independent with HEP-MET Short Term Goal 2: Patient to report understanding of bladder retraining following education-MET Short Term Goal 3: Increase ROM R hip ER 55 degrees-Not Met Nursing Home Goals Time Frame for Nursing Home Goals : 8 Nursing Home Goal 1: Decrease urinary incontience with Urinary Distress Inventory score <8/18 (from) Nursing Home Goal 2: Increase strength B hip abd 4/5 for improved pelvic stability Treatment Tolerance: Treatment Tolerance: Tolerated treatment well. Post Treatment Pain: 10 Time In: 9:45 Time Out : 10:30 Timed Code Treatment Minutes: 45 Minutes Total Treatment Time: 45 Minutes Janneth Talley, PT Date: 04/11/2025 documented in this encounterBon [facility] Christ Hospital09-22-2025 History of Present illness Narrative* Isidro Mathur MD - 03/24/2025 11:45 AM EDT Images from the original note were not included. Patient ID: Isidra Paredes is a 59 y.o. female who presents for: Edema Patient complains of edema in the left ankle and foot. The edema has been moderate. Onset of symptoms was 7 days ago, and patient reports symptoms have gradually improved since that time. The edema is present all day. The patient states the problem is new. The swelling has been aggravated by nothing. The swelling has been relieved by nothing. Associated factors include: nothing. Cardiac risk factors include none. She notes that today she believes the swelling is less than when she called for the appointment. Review of Systems Respiratory: Negative for shortness of breath. Cardiovascular: Negative for chest pain and palpitations. Objective The patient is pleasant and in no acute distress The patient has good eye contact and clear speech She has a minimal limp. She is in and out of the chair easily. The left leg maybe slightly more swollen than her right in total. There is no increase in calor or rubor. Posteriorly palpable in the upper 3rd of the calf posteriorly is an area of cords that are mildly tender. These do appear to be superficial in nature. This does not extend into the popliteal region. She has negative Homans sign. 02/05/2025 11:21 AM 01/27/2025 10:20 AM 01/07/2025 10:17 AM 12/26/2024 9:53 AM Vitals BMI 40.63 kg/m2 40.63 kg/m2 40.29 kg/m2 40.37 kg/m2 BSA (m2) 2.41 m2 2.41 m2 2.4 m2 2.4 m2 Height (in) 5' 8 5' 8 5' 8 5' 8 Weight (lb) 267.2 267.2 265 265.5 Visit Report Report Report Report Report Allergies Allergen Reactions Methotrexate Hives Current Outpatient [...] mouth 1 (one) time each day at thesame time 90 capsule 1 estradiol (Climara) 0.05 MG/24HR Place 1 patch on the skin 1 (one) time per week 12 patch 1 etodolac (Lodine) 500 MG tablet Take 1 tablet (500 mg) by mouth in the morning and 1 tablet (500 mg) before bedtime. 180 tablet 1 Krill Oil 500 MG capsule Take 1 capsule by mouth 1 (one) time each day at the same time. liothyronine (Cytomel) 5 MCG tablet Take 1 tablet in AM and 1 tablet in PM on an empty stomach. HERB; Elyssafregori or Magma HQ brands only 180 tablet 1 metaxalone (Skelaxin) 800 MG tablet Take 800 mg by mouth Daily as needed. metFORMIN (Glucophage) 1000 MG tablet Take 1 tablet (1,000 mg) by mouth in the morning and 1 tablet(1,000 mg) in the evening. Take with meals. 60 tablet 0 metFORMIN (Glucophage) 500 MG tablet Take 1 tablet (500 mg) by mouth in the morning and 1 tablet (500 mg) in the evening. Take before meals. 60 tablet 0 metFORMIN (Glucophage) 850 MG tablet Take 1 tablet (850 mg) by mouth in the morning and 1 tablet (850 mg) in the evening. Take before meals. 60 tablet 0 pregabalin (Lyrica) 100 MG capsule Take 1 capsule (100 mg) by mouth in the evening 30 capsule 5 pregabalin (Lyrica) 50 MG capsule 1 cap QAM 30 capsule 5 thyroid (Lafayette) 60 MG tablet Take 1 tablet (60 mg) by mouth in the morning and 1 tablet (60 mg) inthe evening. Take before meals. 180 tablet 1 No current facility-administered medications on file prior to visit. 1. Thrombophlebitis (Primary) I discussed my suspected diagnosis. We talked about the possibility of doing venous ultrasound to look for possible DVT. She has already had this for 2-3 weeks in it is starting to improve. I am not suspicious for DVT. I discussed signs and symptoms of DVT is certainly should she develop this, she should either seek me urgently or go to the emergency room. We did discuss using hot compresses on a fairly regular basis over the next several days. We discussed and she does have aspirin at home she believes it is regular strength I have asked her to take 2of them when she gets home and later this evening and then tomorrow start daily use for the next 10-14 days until this resolves. If it does not resolve after 2 weeks she is to contact us and we will proceed with a venous ultrasound. Please Note: Portions of this chart may have been created using voice recognition software. Occasionally a wrong-word or sound-like substitutions may have occurred due to inherent limitations of the voice recognition software. Please read the chart carefully and recognize, using context, where the substitutions may have occurred. documented in this encounterShriners Hospitals for ChildrenVixrzgfmqv51-25-1982 History of Present illness Narrative* Janneth Talley, PT - 03/06/2025 3:45 PM EDT [facility] Date: 03/06/2025 Patient Name: Isidra Paredes : 1965 Pt No Showed Appt Janneth Talley, PT Date: 03/06/2025 documented in this encounterBon [facility] Christ [facility]08-29-2025 History of Present illness Narrative* Janneth Talley, PT - 02/28/2025 2:00 PM EDT [facility] Date: 02/28/2025 Patient Name: Isidra Paredes : 1965 Pt No Showed Appt- No further visits scheduled at this time Janneth Talley, PT Date: 02/28/2025 documented in this encounterWellmont [facility] System08-22-2025 History of Present illness Narrative* Janneth Talley, PT - 02/21/2025 3:15 PM EDT Images from the original note were not included. [facility] Outpatient Physical Therapy Daily Note Date: 02/21/2025 Patient Name: Isidra Paredes : 1965 (59 y.o.) Referring Provider (secondary): Dr. Isidro Mathur Diagnosis: Urge incontinence of urine Artificialmenopause Treatment Diagnosis: Urinary Incontinence Onset Date: 01/27/25 (Referral) PT Insurance Information: [employer]- 50 co-pay Total # of Visits Approved: 8 Per Physician Order Total # of Visits to Date: 4 Pre-Treatment Pain: 0/10 Assessment Assessment: Pain 0/10 currently. Completed therex and manual therapy per Doc FLow. Reviewed HEP, patient reports compliance and demonstrates correctly. Education on bladder retraining, bladder irritants, and urge suppression. Plan Continue with current plan of care Exercises/Modalities/Manual: See DocFlow Sheet Education: Education on bladder retraining, bladder irritants, and urge suppression. Goals (Total # of Visits to Date: 4) Short Term Goals Time Frame for Short Term Goals: 4 Short Term Goal 1: Patient to be educated on and independent with HEP-MET Short Term Goal 2: Patient to report understanding of bladder retraining following education-MET Short Term Goal 3: Increase ROM R hip ER 55 degrees Nursing Home Goals Time Frame for Time Piece Repairer Goals : 8 Time Piece Repairer Goal 1: Decrease urinary incontience with Urinary Distress Inventory score <8/18 (from) Time Piece Repairer Goal 2: Increase strength B hip abd 4/5 for improved pelvic stability Treatment Tolerance: Treatment Tolerance: Tolerated treatment well. Post Treatment Pain: 0/10 Time In: 15:20 Time Out : 16:10 Timed Code Treatment Minutes: 50 Minutes Total Treatment Time: 50 Minutes Janneth Talley PT Date: 02/21/2025 [facility] History of Present illness Narrative* Radha Porter - 02/13/2025 11:15 AM EDT Images from the original note were not included. [facility] Outpatient Physical Therapy Daily Note Date: 02/13/2025 Patient Name: Isidra Paredes : 1965 (59 y.o.) Referring Provider (secondary): Dr. Isidro Mathur Diagnosis: Urge incontinence of urine Artificialmenopause Treatment Diagnosis: Urinary Incontinence Onset Date: 01/27/25 (Referral) PT Insurance Information: Dev[employer]- 50 co-pay Total # of Visits Approved: 8 Per Physician Order Total # of Visits to Date: 3 Pre-Treatment Pain: 3/10 Assessment Assessment: Pain 3/10. She notes increasing lateral hip pain since starting therapy. Progressed with core strengthening as outlined. Ed pt to decrease hip abd R and to avoide R sidelying. Also ed on CP to R lateral hip. Pt to return bladder log next visit. Plan Continue with current plan of care Exercises/Modalities/Manual: See DocFlow Sheet Education: see assessment Goals (Total # of Visits to Date: 3) Short Term Goals Time Frame for Short Term Goals: 4 Short Term Goal 1: Patient to be educated on and independent with HEP Short Term Goal 2: Patient to report understanding of bladder retraining following education Short Term Goal 3: Increase ROM R hip ER 55 degrees Nursing Home Goals Time Frame for Nursing Home Goals : 8 Nursing Home Goal 1: Decrease urinary incontience with Urinary Distress Inventory score <8/18 (from18) Time Piece Repairer Goal 2: Increase strength B hip abd 4/5 for improved pelvic stability Treatment Tolerance: Treatment Tolerance: Tolerated treatment well. Post Treatment Pain: 10 Time In: 1115 Time Out : 1150 Timed Code Treatment Minutes: 35 Minutes Total Treatment Time: 35 Minutes Radha Porter CUT OUT WORKER Date: 02/13/2025 Cosigned by Janneth Talley, PT at 02/13/2025 1:38 PM EDT [facility] History of Present illness Narrative* Ebony Raza - 02/11/2025 1:00 PM EDT Physical Therapy [facility] Date: 02/11/2025 Patient Name: Isidra Paredes : 1965 Patient has another appointment, and not able to make this appointment. Ebony S Shock Date: 02/11/2025 Cosigned by Janneth Talley, PT at 02/11/2025 10:32 AM EDT [facility] in [facility] History of Present illness Narrative* Radha Porter - 02/06/2025 11:15 AM EDT Images from the original note were not included. [facility] Outpatient Physical Therapy Daily Note Date: 02/06/2025 Patient Name: Isidra Paredes : 1965 (59 y.o.) Referring Provider (secondary): Dr. Isidro Mathur Diagnosis: Urge incontinence of urine Artificialmenopause Treatment Diagnosis: Urinary Incontinence Onset Date: 01/27/25 (Referral) PT Insurance Information: [employer]- 50 co-pay Total # of Visits Approved: 8 Per Physician Order Total # of Visits to Date: 2 Pre-Treatment Pain: 2/10 Assessment Assessment: Pt report good compliance with HEP. Reviewed HEP and progressed therex as outlined. Manual therapy for hip mobility. Good heraclio to session. Plan Continue with current plan of care Exercises/Modalities/Manual: See DocFlow Sheet Education: ex progression Goals (Total # of Visits to Date: 2) Short Term Goals Time Frame for Short Term Goals: 4 Short Term Goal 1: Patient to be educated on and independent with HEP Short Term Goal 2: Patient to report understanding of bladder retraining following education Short Term Goal 3: Increase ROM R hip ER 55 degrees Nursing Home Goals Time Frame for Time Piece Repairer Goals : 8 Time Piece Repairer Goal 1: Decrease urinary incontience with Urinary Distress Inventory score <8/18 (from18) Nursing Home Goal 2: Increase strength B hip abd 4/5 for improved pelvic stability Treatment Tolerance: Treatment Tolerance: Tolerated treatment well. Post Treatment Pain: 0/10 Time In: 1115 Time Out : 1150 Timed Code Treatment Minutes: 35 Minutes Total Treatment Time: 35 Minutes Radha Porter CUT OUT WORKER Date: 02/06/2025 Cosigned by Janneth Talley, PT at 02/06/2025 1:10 PM EDT [facility] in [facility] History of Present illness Narrative* Isidro Mathur MD - 02/05/2025 11:30 AM EDT Images from the original note were not included. Patient ID: Isidra Paredes is a 59 y.o. female who presents for: Review Results: Patient is here in the office today to review recent labs or diagnostic imaging with Dr Florencio Mathur per his request. Based on the results they will also review treatment options. Please see labs scanned. Review of Systems Patient does note that she was rather symptomatic towards the end of the test. Objective The patient is pleasant and in no acute distress The patient has good eye contact and clear speech 02/05/2025 11:21 AM 01/27/2025 10:20 AM 01/07/2025 10:17 AM 12/26/2024 9:53 AM Vitals BMI 40.63 kg/m2 40.63 kg/m2 40.29 kg/m2 40.37 kg/m2 BSA (m2) 2.41 m2 2.41 m2 2.4 m2 2.4 m2 Height (in) 5' 8 5' 8 5' 8 5' 8 Weight (lb) 267.2 267.2 265 265.5 Visit Report Report Report Report Report Allergies Allergen Reactions Methotrexate Hives Current Outpatient [...] mouth 1 (one) time each day at thesame time 90 capsule 1 estradiol (Climara) 0.05 MG/24HR Place 1 patch on the skin 1 (one) time per week 12 patch 1 etodolac (Lodine) 500 MG tablet Take 1 tablet (500 mg) by mouth in the morning and 1 tablet (500 mg) before bedtime. 180 tablet 1 Krill Oil 500 MG capsule Take 1 capsule by mouth 1 (one) time each day at the same time. liothyronine (Cytomel) 5 MCG tablet Take 1 tablet in AM and 1 tablet in PM on an empty stomach. HERB; Elyssafregori or Magma HQ brands only 180 tablet 1 metaxalone (Skelaxin) 800 MG tablet Take 800 mg by mouth Daily as needed. oxybutynin (Ditropan) 5 MG tablet Take 1 tablet (5 mg) by mouth 2 (two) times a day as needed (as needed when going to be traveling Or out of the house.) 60 tablet 0 pregabalin (Lyrica) 100 MG capsule Take 1 capsule (100 mg) by mouth in the evening 30 capsule 5 pregabalin (Lyrica) 50 MG capsule 1 cap QAM 30 capsule 5 thyroid (Lafayette) 60 MG tablet Take 1 tablet (60 mg) by mouth in the morning and 1 tablet (60 mg) inthe evening. Take before meals. 180 tablet 1 No current facility-administered medications on file prior to visit. 1. Pre-diabetes In prescribing a new medication consideration of the following encompasses moderate decision making: the current prescriptions and supplements, the current allergies and medication intolerances, the current medical conditions, and potential drug interactions. Risks, benefits, and reason for starting their medication were discussed. The patient was given a chance to ask questions today and all questions were answered. The patient is to contact us if any other questions arise or if any problems occur with the adjustment in their medication. - metFORMIN (Glucophage) 500 MG tablet; Take 1 tablet (500 mg) by mouth in the morning and 1 tablet(500 mg) in the evening. Take before meals. Dispense: 60 tablet; Refill: 0 - metFORMIN (Glucophage) 850 MG tablet; Take 1 tablet (850 mg) by mouth in the morning and 1 tablet(850 mg) in the evening. Take before meals. Dispense: 60 tablet; Refill: 0 - metFORMIN (Glucophage) 1000 MG tablet; Take 1 tablet (1,000 mg) by mouth in the morning and 1 tablet (1,000 mg) in the evening. Take with meals. Dispense: 60 tablet; Refill: 0 2. Insulin resistance New, chronic problem, unstable, complex medical decision making I have reviewed the patients 4 hour 75 g GTT with insulin levels test results, plotted the graphs, and interpreted the test results, see the scanned document. The interpretation is based on: 1) Variations in insulin stimulated glucose uptake in a healthy individuals with normal glucose tolerance from the Journal of Clinical Endocrinology Metabolism 1987, 64; 1169 - 1173. 2) Mallory BRAVO. Detection of diabetes mellitus in situ (occult diabetes). Lab Med 1975; 6: 10-22. [id number]/labmed/6.2.10 I then reviewed this with them, and educated them about the labs and there meanings. We discussed the concepts of insulin resistance, glucose intolerance (pre-diabetes), or Diabetes Mellitus as appropriate, and the co-morbidities associated with these diagnoses. We discussed treatment options including instruction where appropriate for diet, exercise, stress reduction, medication, and supplements. I educated them that these concepts are not traditional allopathic concepts but considered alternative by many providers. In prescribing any new medication, consideration of the following encompasses moderate decision making; the patient s current prescriptions and supplements, the patient s current allergies and medication intolerances, the patient s current medical conditions, and potential drug interactions. The patient was given a chance to ask questions today and all questions were answered. The patient is to contact us, preferably by using the patient portal, or call if any other questions arise or ifany problems occur with the new medication. We have also discussed that any supplements recommended have not undergone review or approval by the FDA and, therefore, have not been documented to be safe or effective to diagnose, treat, prevent, mitigate, or cure any condition or disease. 3. Reactive hypoglycemia As we discussed this I think if she really works on her lifestyle change and we get the metformin established to help decrease the insulin resistance, this problem would resolve itself. Upon understanding this she does note how she does roller coaster through the day with both her eating and her symptoms. 4. Morbid obesity ([facility]) Lifestyle changes as above 5. BMI 40.0-44.9, adult ([facility]) Defines the morbid obesity Please Note: Portions of this chart may have been created using voice recognition software. Occasionally a wrong-word or sound-like substitutions may have occurred due to inherent limitations of the voice recognition software. Please read the chart carefully and recognize, using context, where the substitutions may have occurred. documented in this encounterShriners Hospitals for [id number] History of Present illness Narrative* Isidro Mathur MD - 01/27/2025 11:30 AM EDT Images from the original note were not included. Patient ID: Isidra Paredes is a 59 y.o. female who presents for: Urinary Incontinence Patient complains of urinary incontinence. This has been present for 6 months. He/she leaks urine with bending, coughing, standing, walking, laughing, sneezing, exercise, with urge. Patient describesthe symptoms as a blunted sense of urge to urinate, frequent urination (10+x per day), nocturia 3-6times per night, sensation of incomplete emptying of bladder, urge to urinate with little or no warning, urine leakage with coughing/heavy physical activity, urine leaking unpredictably, and voiding small amounts. Factors associated with symptoms include hysterectomy with no bladder sling. Evaluation to date includes none. Treatment to date includes Kegel exercises, which was not very effective. Request for labs: Pt would like to do the 4 hour glucose tolerance test because she needs help getting weight off. Her last FBS was 97. Her eye dr also asked her if she was a diabetic at her last exam. Review of Systems Constitutional: Negative for chills and fever. Respiratory: Negative for cough, shortness of breath and wheezing. Cardiovascular: Negative for chest pain and palpitations. Gastrointestinal: Negative for abdominal pain. Genitourinary: Positive for frequency and urgency. No specific red flag signs of loss of bowel or bladder control from her failed back surgery. Objective The patient is pleasant and in no acute distress The patient has good eye contact and clear speech 01/07/2025 10:17 AM 12/26/2024 9:53 AM 12/24/2024 1:52 PM 10/01/2024 5:08 PM Vitals BMI 40.29 kg/m2 40.37 kg/m2 40.14 kg/m2 39.53 kg/m2 BSA (m2) 2.4 m2 2.4 m2 2.4 m2 2.38 m2 Systolic 152 Diastolic 82 Height (in) 5' 8 5' 8 5' 8 5' 8 Weight (lb) 265 265.5 264 260 Visit Report Report Report Report Report Allergies Allergen Reactions Methotrexate Hives Current Outpatient [...] mouth 1 (one) time each day at thesame time 90 capsule 1 estradiol (Climara) 0.05 MG/24HR Place 1 patch on the skin 1 (one) time per week 12 patch 1 etodolac (Lodine) 500 MG tablet Take 1 tablet (500 mg) by mouth in the morning and 1 tablet (500 mg) before bedtime. 180 tablet 1 Krill Oil 500 MG capsule Take 1 capsule by mouth 1 (one) time each day at the same time. liothyronine (Cytomel) 5 MCG tablet Take 1 tablet in AM and 1 tablet in PM on an empty stomach. HERB; Sigma or Greenstone brands only 180 tablet 1 metaxalone (Skelaxin) 800 MG tablet Take 800 mg by mouth Daily as needed. pregabalin (Lyrica) 100 MG capsule Take 1 capsule (100 mg) by mouth in the evening 30 capsule 5 pregabalin (Lyrica) 50 MG capsule 1 cap QAM 30 capsule 5 thyroid (Lafayette) 60 MG tablet Take 1 tablet (60 mg) by mouth in the morning and 1 tablet (60 mg) inthe evening. Take before meals. 180 tablet 1 No current facility-administered medications on file prior to visit. 1. Urge incontinence of urine (Primary) We had a discussion concerning this. She was offered referral to the Urology or Gynecology for further evaluation. At this time she has declined for some conservative therapy. We will start is in the Ditropan on an as-needed basis when she is going to be out in about 2 help decrease the urge and incontinence. She understands the anticholinergic side effects of the drug. We will also make a referral for pelvic floor therapy. - Ambulatory referral to Physical Therapy; Future - Ambulatory referral to Physical Therapy - oxybutynin (Ditropan) 5 MG tablet; Take 1 tablet (5 mg) by mouth 2 (two) times a day as needed (as needed when going to be traveling Or out of the house.) Dispense: 60 tablet; Refill: 0 2. Artificial menopause - Ambulatory referral to Physical Therapy; Future - Ambulatory referral to Physical Therapy 3. Weight gain Chronic problem, unstable I discussed with the patient or their medical service representative the possibilities of ordering a 4 hour 75 gramglucose tolerance test with insulin levels in order to better understand their complex symptoms. I did discuss with them that this is not the standard of care. I think that it will help us elucidate different components of their symptomatology. I will graft the results of the test, based on the journal article variations in insulin stimulated glucose uptake in a healthy individuals with normal glucose tolerance from the Journal of Clinical Endocrinology Metabolism 1987, 64; 1169 - 1173. We will also then review and identify which of the stages of insulin resistance they are in based on the Dr. Tejada insulin curves; Mallory VANG Detection of diabetes mellitus in situ (occult diabetes). Lab Med 1975;6:10-22. [id number]/labmed/6.2.10 Multiple questions were answered. - Glucose tolerance, 4 hours; Future - INSULIN RESPONSE TO GLUCOSE, 6 SPECIMENS; Future - Glucose tolerance, 4 hours - INSULIN RESPONSE TO GLUCOSE, 6 SPECIMENS - Ambulatory referral to Physical Therapy; Future - Ambulatory referral to Physical Therapy 4. Chronic fatigue - Glucose tolerance, 4 hours; Future - INSULIN RESPONSE TO GLUCOSE, 6 SPECIMENS; Future - Glucose tolerance, 4 hours - INSULIN RESPONSE TO GLUCOSE, 6 SPECIMENS 5. Family history of diabetes mellitus - Glucose tolerance, 4 hours; Future - INSULIN RESPONSE TO GLUCOSE, 6 SPECIMENS; Future - Glucose tolerance, 4 hours - INSULIN RESPONSE TO GLUCOSE, 6 SPECIMENS 6. Morbid obesity ([facility]) As above Please Note: Portions of this chart may have been created using voice recognition software. Occasionally a wrong-word or sound-like substitutions may have occurred due to inherent limitations of the voice recognition software. Please read the chart carefully and recognize, using context, where the substitutions may have occurred. documented in this encounterShriners Hospitals for [id number] History of Present illness Narrative* Isidro Mathur MD - 01/07/2025 10:30 AM EDT Images from the original note were not included. Patient ID: Isidra Paredes is a 59 y.o. female who presents for: Thyroid: Pt here today to review his/hers thyroid labs and any medication changes needed. Fatigue: Present, Unchanged Weight Gain: Present Inability to lose weight: Present, Unchanged Hair Changes: Present, worsened He/She is following the thyroid diet: Good He/She are taking medications as directed: Good He/She are exercising at least 3 days out of the week for 30 minutes or more: Good Review of Systems Constitutional: Positive for fatigue. Negative for appetite change. HENT: Negative for trouble swallowing and voice change. Cardiovascular: Positive for palpitations. Musculoskeletal: Positive for arthralgias and myalgias. Psychiatric/Behavioral: Negative for sleep disturbance. The patient is not nervous/anxious. Endocrine: Positive for heat intolerance. Negative for cold intolerance. Labs dated December 19, 2024 reviewed Calculated THY Ratio: ratio 10.5 Objective The patient is pleasant and in no acute distress The patient has good eye contact and clear speech Visit Vitals Ht 5' 8 Wt 265 lb BMI 40.29 kg/m OB Status Postmenopausal Smoking Status Former BSA 2.4 m Allergies Allergen Reactions Methotrexate Hives Current [...] mouth 1 (one) time each day at thesame time 90 capsule 1 Krill Oil 500 MG capsule Take 1 capsule by mouth 1 (one) time each day at the same time. metaxalone (Skelaxin) 800 MG tablet Take 800 mg by mouth Daily as needed. pregabalin (Lyrica) 100 MG capsule Take 1 capsule (100 mg) by mouth in the evening 30 capsule 5 pregabalin (Lyrica) 50 MG capsule 1 cap QAM 30 capsule 5 No current facility-administered medications on file prior to visit. 1. ESS (euthyroid sick syndrome) In prescribing a renewal to their current medication, consideration of the following encompasses moderate decision making; the current prescriptions and supplements, the current allergies and medication intolerances, current medical conditions, and potential drug interactions. The patient was given a chance to ask questions today and all questions were answered. - liothyronine (Cytomel) 5 MCG tablet; Take 1 tablet in AM and 1 tablet in PM on an empty stomach. HERB; Sigma or Greenstone brands only Dispense: 180 tablet; Refill: 1 - T3; Future - T3, free; Future - T3, reverse; Future - T3 - T3, free - T3, reverse 2. Chronic fatigue Chronic problem, stable, complex in nature with moderate decision making. I discussed with the patient or their medical service representative, their fatigue issues. We discussed how this is improved significantly. We discussed how this is almost always a multifactorial problem. We discussed how we will continue to search for refinements in their current treatments or evaluation for further disease processes and then support or treat them as appropriate. We discussed how we can frequently manage the symptoms, but may not be able to completely cure or resolve the issue. The patient will almost certainly need to continue to make lifestyle changes including diet, sleep, exercise, and stress management as appropriate. The patient was given a chance to ask questions and all questions were answered. - T3; Future - T3, free; Future - T3, reverse; Future - T4, free; Future - TSH; Future - T3 - T3, free - T3, reverse - T4, free - TSH 3. Morbid obesity ([facility]) Encouraged continued work toward lifestyle changes 4. BMI 40.0-44.9, adult ([facility]) Defines the morbid obesity 5. Acquired hypothyroidism This is a complex chronic problem, stable, [...] the patient's current prescriptions and discussed the possibilitiesof medication renewals, adjustments, new medication start, or [...] arise or if any problems occur. - T4, free; Future - TSH; Future - T4, free - TSH - thyroid ([place]ayette) 60 MG tablet; Take 1 tablet (60 mg) by mouth in the morning and 1 tablet (60 mg)in the evening. Take before meals. Dispense: 180 tablet; Refill: 1 6. Artificial menopause Chronic problem, stable, up-to-date on mammogram screening. - estradiol (Climara) 0.05 MG/24HR; Place 1 patch on the skin 1 (one) time per week Dispense: 12 patch; Refill: 1 7. Idiopathic osteoarthritis Chronic problem, stable - etodolac (Lodine) 500 MG tablet; Take 1 tablet (500 mg) by mouth in the morning and 1 tablet (500mg) before bedtime. Dispense: 180 tablet; Refill: 1 8. Rheumatoid arthritis involving multiple sites with positive rheumatoid factor (HCC) Chronic problem, stable - etodolac (Lodine) 500 MG tablet; Take 1 tablet (500 mg) by mouth in the morning and 1 tablet (500mg) before bedtime. Dispense: 180 tablet; Refill: 1 documented in this encounterShriners Hospitals for [id number] History of Present illness Narrative* Isidro Mathur MD - 12/26/2024 10:00 AM EDT Images from the original note were not included. Patient ID: Isidra Paredes is a 59 y.o. female who presents for: Anxiety Patient is here for evaluation of anxiety. He/She has the following anxiety symptoms: none. Onset of symptoms was approximately several years ago. Symptoms have been stable since that time. He/She denies current suicidal and homicidal ideation. .Possible organic causes contributing are: none. Previous treatment includes medication Selective Seratonin Reuptake Inhibitor duloxetine. He/She complains of the following medication side effects: none. Review of Systems Constitutional: Negative for appetite change and fatigue. Psychiatric/Behavioral: Positive for sleep disturbance. Negative for agitation, behavioral problemsand suicidal ideas. The patient is nervous/anxious. Objective [...] normal variability and rate Thought content: Unremarkable 01/09/2024 9:41 AM 01/16/2024 9:37 AM 01/29/2024 9:51 AM 09/11/2024 4:34 PM 10/01/2024 5:08 PM 12/24/2024 1:52 PM 12/26/2024 9:53 AM Vitals BMI 38.32 kg/m2 38.32 kg/m2 38.32 kg/m2 40.14 kg/m2 39.53 kg/m2 40.14 kg/m2 40.37 kg/m2 BSA (m2) 2.34 m2 2.34 m2 2.34 m2 2.4 m2 2.38 m2 2.4 m2 2.4 m2 Systolic 152 Diastolic 82 Heart Rate 99 SpO2 98 % Height (in) 5' 8 5' 8 5' 8 5' 8 5' 8 5' 8 5' 8 Weight (lb) 252 252 252 264 260 264 265.5 Visit Report Report Report Report Report Report Report Report Allergies Allergen Reactions Methotrexate Hives Current Outpatient [...] mouth 1 (one) time each day at thesame time 90 capsule 1 estradiol (Climara) 0.05 MG/24HR APPLY 1 PATCH TO THE SKIN ONCE WEEKLY 12 patch 1 etodolac (Lodine) 500 MG tablet Take 1 tablet (500 mg) by mouth in the morning and 1 tablet (500 mg) before bedtime. 180 tablet 0 Krill Oil 500 MG capsule Take 1 capsule by mouth 1 (one) time each day at the same time. liothyronine (Cytomel) 5 MCG tablet Take 1 tablet in AM and 1 tablet in PM on an empty stomach. HERB; Elyssafregori or Magma HQ brands only 180 tablet 1 metaxalone (Skelaxin) 800 MG tablet Take 800 mg by mouth Daily as needed. pregabalin (Lyrica) 100 MG capsule Take 1 capsule (100 mg) by mouth in the evening 30 capsule 5 pregabalin (Lyrica) 50 MG capsule 1 cap QAM 30 capsule 5 [DISCONTINUED] thyroid (L[place]ayette) 120 MG tablet Take 0.5 tablets (60 mg) by mouth in the morning and 0.5 tablets (60 mg) in the evening. Take before meals. 90 tablet 1 [DISCONTINUED] pregabalin (Lyrica) 100 MG capsule Take 1 capsule (100 mg) by mouth in the morning and 1 capsule (100 mg) before bedtime. 60 capsule 4 [DISCONTINUED] pregabalin (Lyrica) 25 MG capsule In addition to 100mg in the morning. 90 capsule 3 No current facility-administered medications on file prior to visit. 1. Chronic pain syndrome (Primary) Chronic problem, stable, multifactorial, with complex decision making. The patient presents for re-evaluation of their chronic pain syndrome and treatment recommendations. They note, that the pain is still present but under reasonable control with home therapies and medications. They state that they are taking their medications compliantly and perceiving a benefit specifically from these medications. They deny any significant side effects from the medications themselves. The treatment program enables them to continue their activities of daily living. 2. Rheumatoid arthritis involving multiple sites with positive rheumatoid factor (HCC) Component of the chronic pain syndrome 3. Lumbosacral radiculopathy Component of the chronic pain syndrome 4. Acquired hypothyroidism In prescribing a renewal to their current medication, consideration of the following encompasses moderate decision making; the current prescriptions and supplements, the current allergies and medication intolerances, current medical conditions, and potential drug interactions. The patient was given a chance to ask questions today and all questions were answered. - thyroid ([place]) 60 MG tablet; Take 1 tablet (60 mg) by mouth in the morning and 1 tablet (60 mg)in the evening. Take before meals. Dispense: 180 tablet; Refill: 1 5. Recurrent major depressive disorder, in partial remission Chronic problem, stable, doing well. - DULoxetine (Cymbalta) [address] capsule; Take 1 capsule (30 mg) by mouth 1 (one) time each day at the same time Dispense: 90 capsule; Refill: 1 6. Encounter for screening mammogram for malignant neoplasm of breast - Bilateral screening mammogram; Future 7. Morbid obesity ([facility]-HCC) documented in this encounterShriners Hospitals for [id number] History of Present illness Narrative* Len Smart MD - 12/24/2024 1:45 PM EDTAssociated Problem(s): Neurogenic pain Would change PGB 100/50 to 50/100 (larger dose near bedtime). Could also try 0/150, If still effective diurnally, and no AM somn, could remain at that dose. Orders: pregabalin (Lyrica) 100 MG capsule; Take 1 capsule (100 mg) by mouth in the evening pregabalin (Lyrica) 50 MG capsule; 1 cap QAM * Len Smart MD - 12/24/2024 1:45 PM EDTAssociated Problem(s): Lateral femoral cutaneous neuropathy, left (Consider redo inj if/when sx were to worsen.) Orders: pregabalin (Lyrica) 50 MG capsule; 1 cap QAM * Len Smart MD - 12/24/2024 1:45 PM EDT Images from the original note were not included. Outpatient Progress Note Patient: Isidra Paredes Dept: Neurology : 1965 Appt Date: 12/24/2024 Prev Appt: 10/01/2024 Chief Complaint Patient presents with Peripheral Neuropathy Appointment Note -- 2 mo f/u Assessment and Plan - Assessment & Plan Neurogenic pain Would change PGB 100/50 to 50/100 (larger dose near bedtime). Could also try 0/150, If still effective diurnally, and no AM somn, could remain at that dose. Orders: pregabalin (Lyrica) 100 MG capsule; Take 1 capsule (100 mg) by mouth in the evening pregabalin (Lyrica) 50 MG capsule; 1 cap QAM Lateral femoral cutaneous neuropathy, left (Consider redo inj if/when sx were to worsen.) Orders: pregabalin (Lyrica) 50 MG capsule; 1 cap QAM No orders of the defined types were placed in this encounter. 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 History of Present Illness, Associated Treatments and Results - Dx LFC . PN . WEAKNESS LLE . (LUMB STEN . THYROID) Tx PGB 100/50 (+ dulox 30 --PCP/depr) LFC inj (06/2021 [...] A1c=5.4 ... fT4=0.63L (!), was 0.74L ... (R69=131) Surgery Fusion L5-S1 (08/2020, [facility]) Fusion L1-L5 (compensate for scoliosis) (04/2019, [facility]). Failed GBP 1200 (GI), R LFC block (pain mgt), CBZ 300 (dizziness, cog. change) ... PREV - PGB 100 Physical Exam - General appearance, mentation, extraocular movements, facial strength and movement, hearing, upper and lower extremity strength and tone, sensation to gross testing, coordination, and gait are normalor at baseline unless noted below. HEENT - ___, unchanged: ___, orig: ___ MS - ___, unchanged: ___, orig: ___ CNN - ___, unchanged: ___, orig: ___ Motor - ___, unchanged: ___, orig: ___ Sens - Tenderness L LFC now resolved, unchanged: Vibr, temp loss distal LEs ... Numbness B LFC ... Hyperpathia remains resolved, orig: Tenderness L LFC Reflex - ___, unchanged: AJ 1B, orig: ___ Coord - ___, unchanged: ___, orig: ___ Gait - ___, unchanged: Tandem 1+, orig: ___ Vestib - ___, unchanged: ___, orig: ___ MSK - ___, unchanged: ___, orig: ___ Other - ___, unchanged: ___, orig: ___ Vital Signs - Visit Vitals Ht 5' 8 Wt 264 lb BMI 40.14 kg/m OB Status Postmenopausal Smoking Status Former BSA 2.4 m Review of Systems - . 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 may JOINT REPLACEMENT December 2008 KNEE SURGERY Right 11/22/2017 knee arthroscopic partial lateral meniscectomy by Dr Castro- [facility] LIPECTOMY Left 05/19/2016 [facility] NERVE BLOCK by Dr. talley, [facility] OTHER SURGICAL HISTORY 05/02/2019 XLIF L1-2, L3-[address] Davila [place] MEDICATION MANAGEMENT 2012 Procedure:ER visit adjusted meds;Disease:leg pain SPINAL FUSION 09/22/2020 L5-S1; BY DR BAILEY AT [facility] STRESS TEST EXERCISE 2013 Procedure:Stress Test Chemical;Disease:Normal [...] Paternal Grandmother Outpatient Encounter Medications as of 12/24/2024 Medication Sig Dispense Refill biotin 300 MCG tablet Take 300 mcg by mouth in the morning. cholecalciferol (Vitamin D-3) 10 MCG (400 UNIT) tablet Take 400 Units by mouth in the morning. DULoxetine (Cymbalta) [address] capsule Take 1 capsule (30 mg) by mouth 1 (one) time each day at thesame time 90 capsule 1 estradiol (Climara) 0.05 MG/24HR APPLY 1 PATCH TO THE SKIN ONCE WEEKLY 12 patch 1 etodolac (Lodine) 500 MG tablet Take 1 tablet (500 mg) by mouth in the morning and 1 tablet (500 mg) before bedtime. 180 tablet 0 Krill Oil 500 MG capsule Take 1 capsule by mouth 1 (one) time each day at the same time. liothyronine (Cytomel) 5 MCG tablet Take 1 tablet in AM and 1 tablet in PM on an empty stomach. HERB; Sigma or Greenstone brands only 180 tablet 1 metaxalone (Skelaxin) 800 MG tablet Take 800 mg by mouth Daily as needed. pregabalin (Lyrica) 100 MG capsule Take 1 capsule (100 mg) by mouth in the morning and 1 capsule (100 mg) before bedtime. 60 capsule 4 pregabalin (Lyrica) 25 MG capsule In addition to 100mg in the morning. 90 capsule 3 thyroid ([place]) 120 MG tablet Take 0.5 tablets (60 mg) by mouth in the morning and 0.5 tablets (60mg) in the evening. Take before meals. 90 tablet 1 No facility-administered encounter medications on file as of 12/24/2024. Len Smart M.D. [facility] Neurology ? [address] ? [place] [address] ? ? fax Neurology ? Clinical Neurophysiology ? Epilepsy ? Sleep Disorders ? Clinical Informatics documented in this encounterShriners Hospitals for [id number] Telephone encounter Note* Telephone Encounter - Isidro Mathur MD - 11/07/2024 5:32 PM EDT Prescription sent [facility] [id number] Miscellaneous Notes* Telephone Encounter - Isidro Mathur MD - 11/07/2024 5:32 PM EDT Prescription sent * Telephone Encounter - Modesta Jefferson MA - 11/07/2024 11:54 AM EDT Pt called and stated that she had [facility] fill her Nabumetome but she likes the Etodolac better so she went back to that BID. She is asking if [facility] will [facility] [place] documented in this encounterShriners Hospitals for [id number] Telephone encounter Note* Telephone Encounter - Modesta Jefferson MA - 11/07/2024 11:54 AM EDT Pt called and stated that she had E[facility] fill her Nabumetome but she likes the Etodolac better so she went back to that BID. She is asking if [facility] will [facility] [place] [facility] [id number] History of Present illness Narrative* Lana Wise NP - 10/01/2024 4:45 PM EDTAssociated Problem(s): Neurogenic pain Continue current regimen.) Decr PGB to 100 AM 75 in PM for 2 weeks then 100/50. Continue to work towards qd dosing. Orders: pregabalin (Lyrica) 25 MG capsule; In addition to 100mg in the morning. * Lana Wise NP - 10/01/2024 4:45 PM EDTAssociated Problem(s): Lateral femoral cutaneous neuropathy, left (Consider redo inj if/when sx were to worsen.) Orders: pregabalin (Lyrica) 25 MG capsule; In addition to 100mg in the morning. * Len Smart MD - 10/01/2024 4:45 PM EDT Images from the original note were not [...] about 2 months (around 12/01/2024), or with PERFECT BINDER SETTER. History of Present Illness, Associated Treatments and [...] A1c=5.4 ... fT4=0.63L (!), was 0.74L ... (N95=261) Surgery Fusion L5-S1 (08/2020, [facility]) Fusion L1-L5 (compensate for scoliosis) (04/2019, [facility]). Failed GBP 1200 (GI), R LFC block (pain mgt), CBZ 300 (dizziness, cog. change) ... PREV - PGB 100 Physical Exam - General appearance, mentation, extraocular movements, facial strength and movement, hearing, upper and lower extremity strength and tone, sensation to gross testing, coordination, and gait are normalor at baseline unless noted below. HEENT - [...] 2008 hip replacement; Disease: defect by Dr. may JOINT REPLACEMENT December 2008 KNEE SURGERY Right 11/22/2017 [facility] 05/19/2016 [facility] eye li[facility] at [place] NERVE BLOCK by Dr. talley, [facility] OTHER SURGICAL HISTORY 05/02/2019 XLIF L1-2, L3-[address] Davila [place] MEDICATION MANAGEMENT 2012 Procedure:ER visit adjusted meds;Disease:leg pain SPINAL FUSION 09/22/2020 L5-S1; BY DR BAILEY AT [facility] STRESS TEST EXERCISE 2013 Procedure:Stress Test Chemical;Disease:Normal [...] mouth 1 (one) time each day at thesame time 90 capsule 1 estradiol (Climara) 0.05 MG/24HR APPLY 1 PATCH TO THE SKIN ONCE WEEKLY 12 patch 1 Krill Oil 500 MG capsule Take 1 capsule by mouth 1 (one) time each day at the same time. liothyronine (Cytomel) 5 MCG tablet Take 1 tablet in AM and 1 tablet in PM on an empty stomach. HERB; Sigma or [employer] brands only 180 tablet 1 metaxalone (Skelaxin) 800 MG tablet Take 800 mg by mouth Daily as needed. nabumetone (Relafen) 750 MG tablet Take 1 tablet (750 mg) by mouth in the morning and 1 tablet (750mg) before bedtime. 180 tablet 0 pregabalin (Lyrica) 100 MG capsule Take 1 capsule (100 mg) by mouth in the morning and 1 capsule (100 mg) before bedtime. 60 capsule 4 pregabalin (Lyrica) 25 MG capsule In addition to 100mg in the morning. 90 capsule 3 thyroid (Lafayette) 120 MG tablet Take 0.5 tablets (60 mg) by mouth in the morning and 0.5 tablets (60mg) in the evening. Take before meals. 90 tablet 1 No facility-administered encounter medications on file as of 10/01/2024. Len Smart M.D. [facility] ? [address] ? [place], [place] [address] ? ? fax Neurology ? Clinical Neurophysiology ? Epilepsy ? Sleep Disorders ? Clinical Informatics [facility] ? [address] ? [place], [place] [address] ? ? fax Neurology ? Clinical Neurophysiology ? Epilepsy ? Sleep Disorders ? Clinical Informatics documented in this encounterShriners Hospitals for [id number] History of Present illness Narrative* Isidro Mathur MD - 07/16/2024 10:00 AM EST Images from the original note were not [...] for sleep disturbance. Negative for agitation, behavioral problemsand suicidal ideas. The patient is nervous/anxious. Objective [...] mg by mouth Daily as needed. thyroid (Lafayette) 120 MG tablet Take 0.5 tablets (60 mg) by mouth in the morning and 0.5 tablets (60mg) in the evening. Take before meals. 90 [...] depressive disorder, in partial remission (HCC) (CMS/HCC) Chronic problem, stable, overall doing well. Duloxetine [...] serious comorbidity with body mass index (BMI) of38.0 to 38.9 in adult Encouraged lifestyle changes 4. BMI 38.0-38.9,adult Defines the obesity documented in this encounterShriners Hospitals for [id number] History of Present illness Narrative* Isidro Mathur MD - 07/08/2024 10:00 AM EST Images from the original note were not [...] analytical performance characteristics [place] been [place]. It has not been cleared or [...] mouth 1 (one) time each day at thesame time 90 capsule 1 estradiol (Climara) 0.05 [...] mouth in the morning and 1 tablet (750mg) before bedtime. 180 tablet 1 pregabalin (Lyrica) 100 MG capsule Take 1 capsule (100 mg) by mouth in the morning and 1 capsule (100 mg) before bedtime. 60 capsule 5 [DISCONTINUED] liothyronine (Cytomel) 5 MCG tablet Take 1 tablet in AM and 1 tablet in PM on an empty stomach. HERB; Sigma or Greenstone brands only 180 tablet 1 [DISCONTINUED] predniSONE (Deltasone) 10 MG tablet Every 2 day tapering dose; 5,5,4,4,3,3,2,2,1,1,0.5,0.5 31 tablet 0 [DISCONTINUED] thyroid ([place]ayette) 120 MG tablet Take 0.5 tablets (60 [...] the patient's current prescriptions and discussed the possibilitiesof medication renewals, adjustments, new medication start, or [...] or if any problems occur. - thyroid ([place]ayette) 120 MG tablet; Take 0.5 tablets (60 [...] I discussed with the patient or their medical service representative, their fatigue issues. We discussed how this is either not improved or not inadequately addressed. We discussed how this is almost always a multifactorial problem. We discussed that the patient willalmost certainly need to continue to make lifestyle [...] any other medications until we complete the aboveevaluation which is not unreasonable. documented in this encounterShriners Hospitals for [id number] History of Present illness Narrative* Ahmet Castro, DO - 05/14/2024 9:00 AM EST Images from the original note were not included. HISTORY OF PRESENT ILLNESS: Isidra Paredes is an 58 y.o. @ female. Chief complaint RT knee pain Right Knee: S/P [facility] pain clinic with monovisc injection 04/01 [...] aggravated by any weight bearing, sit to stand,standing, and walking. Pain lateral and medial knee, [...] years, Had little relief with the prednisone inJuly. ~3 months s/p depo injection 02/11 (Autumn) minimal relief. Taking nabumetone per Dr Mathur. Prior scope with Dr. Castro in 2018 Prior treatment(s) included: TYL, Ice, aspercream, Etolodac, Depo Medrol injection (06/23/20), MRI noms 06/04/20, voltaren gel, depo medrol 11/18/20, OTC knee sleeve, depo medrol injection 04/05/23, PCP01/29/24, prednisone 01/29/24 (12 days) which helped while she was taking it, XR [place] office 02/11/23, depo injx 02/12/24, [facility] pain clinic, monovisc injx 04/01/24 Dr Kasandra Fernandez reviewed notes from the [facility] dated April 01, 2024. The patient was [...] mouth 1 (one) time each day at thesame time 90 capsule 1 estradiol (Climara) 0.05 [...] mouth in the morning and 1 tablet (750mg) before bedtime. 180 tablet 1 predniSONE (Deltasone) 10 MG tablet Every 2 day tapering dose; 5,5,4,4,3,3,2,2,1,1,0.5,0.5 31 tablet 0 pregabalin (Lyrica) 100 MG capsule Take 1 capsule (100 mg) by mouth in the morning and 1 capsule (100 mg) before bedtime. 60 capsule 5 thyroid (Lafayette) 120 MG tablet Take 0.5 tablets (60 mg) by mouth in the morning and 0.5 tablets (60mg) in the evening. Take before meals. 90 [...] needed, any issues/concerns follow up sooner. Dr. Casrto obtained history and examined the patient, I am acting as scribe for Dr. Castro/isidro I did advise the patient that I am leaving my current practice to practice in another state but my colleagues are willing to see her if she has any problems or concerns or if she desires a referral to another research and development specialist we would be happy to make referral, she states she would like to continue her care here. Wood Castro D.O. documented in this encounterShriners Hospitals for [id number] History of Present illness Narrative* Isidro Mathur MD - 07/25/2023 10:30 AM EST Patient ID: Isidra Paredes is a 57 [...] for agitation, behavioral problems, sleep disturbance and suicidalideas. The patient is nervous/anxious. Objective Appearance: Well-groomed, [...] Negative - 4(70) +++ mg/dL Final Ketones, 07/17/2023 Positive Negative - 160(16) ++++ mg/dL Final Spec Grav, UA 07/17/2023 1.025 1 - 1.03 Final Blood, 07/17/2023 Positive Negative - 50 Jairo/mcL Final [...] Recurrent major depressive disorder, in remission (HCC) ([facility]) - DULoxetine (Cymbalta) [address] capsule; [...] considered a controlled substance, then the OARRS andNARX scores are obtained and reviewed. Any changes to risks, benefits, and reason for renewing their current medication due to the above were discussed. The patient was given a chance to ask questions today and all questions were answered. The patient is to contact us, preferably by using the patient portal, or call if any other questions arise or ifany problems occur with the renewal of their medication. (Utilizing the original guidelines or the 2020 new office/outpatient code guidelines for selecting the level of E/M service, In both sets of guidelines, prescription drug management appearsin the moderate medical decision making (MDM) row. Neither the original guidelines nor the new guidelines state that a new prescription or change is needed in order to credit prescription drug management) Former smoker, stopped smoking many years ago Morbid obesity due to excess calories ([facility]) BMI 38.0-38.9,adult documented in this encounterShriners Hospitals for [id number] NotePROCEDURE: XR CHEST 2 V DATE: 10/25/2022 12:55 PM CDT COMPARISONS: None. CLINICAL INDICATION: 57 years Female Pre-surgery evaluation FINDINGS: The cardiomediastinal silhouette and pulmonary vasculature are within normal limits. The lungs are clear. There is no evidence of pleural effusion or pneumothorax. IMPRESSION: Chest radiograph is within normal limits. Electronically authenticated by: JOHNNY TERAN Date: 2022-10-25 14:20[facility]* Encounter Date Diagnosis Assessment Notes Treatment Notes Treatment Clinical Notes Apr, Meralgia paresthetica of right s josé antonio (ICD-10 - G57.11) Patient does have a referral to Dr. Smart which I think is appropriate I would like her to get an EMGnerve conduction study as well as possible injections of her lateral femoral cutaneous nerve. We will try to a expedite that short of Thanksgiving. Apr,Meralgia paresthetica, unspecified laterality (ICD-10 - G57.10) [facility] Other 09-27-2021 Evaluation note* Encounter Date Diagnosis Assessment Notes Treatment Notes Treatment Clinical Notes Mar, Spondylolisthesis at L5-S1 level (ICD-10 - M43.17) The patient has had no relief of her symptoms. She is also now having symptoms on the right leg. Assuch I believe she should be reevaluated prior to any other considerations of treatment. We will get an MRI scan with and without gadolinium of her spine and see her back in the office at that time. [facility] Other evaluation noteNo assessment information available [facility] Work Phone: Evaluation note* Diagnosis Recurrent major depressive disorder, in remission (HCC) (CMS/HCC)- Primary Arthritis of right knee Artificial menopause Symptomatic states associated with artificial menopause Former smoker, stopped smoking many years ago Morbid obesity due to excess calories (CMS/HCC) BMI 38.0-38.9,adult documented in this encounter [facility] [...] factor (CMS/HCC) documented in this encounter [facility] HealthcareEvaluation note* [...] Lateral femoral cutaneous neuropathy, left Chronic pain syndrome- Primary Rheumatoid arthritis involving multiple sites with positive rheumatoid factor (HCC) Lumbosacral radiculopathy Thoracic or lumbosacral neuritis or radiculitis, unspecified Acquired hypothyroidism Unspecified hypothyroidism Recurrent major depressive disorder, in partial remission Encounter for screening mammogram for malignant neoplasm of breast Morbid obesity (CMS-HCC) Morbid obesity ESS (euthyroid sick syndrome) Euthyroid sick syndrome Chronic fatigue Other malaise and fatigue Morbid obesity (CMS-HCC) Morbid obesity BMI 40.0-44.9, adult (CMS-HCC) documented in this encounter [facility]* Diagnosis Neurogenic pain- Primary Lateral femoral cutaneous neuropathy, left Neurogenic pain- Primary Lateral femoral cutaneous neuropathy, left Neurogenic pain- Primary Lateral femoral cutaneous neuropathy, left ESS (euthyroid sick syndrome) Euthyroid sick syndrome Chronic fatigue Other malaise and fatigue Morbid obesity (CMS-HCC) Morbid obesity BMI 40.0-44.9, adult ([facility]-HCC) Acquired hypothyroidism Unspecified hypothyroidism Artificial menopause Symptomatic states associated with artificial menopause Idiopathic osteoarthritis Osteoarthrosis, unspecified whether generalized or localized, unspecified site Rheumatoid arthritis involving multiple sites with positive rheumatoid factor (HCC) documented in this encounter [facility]* Diagnosis Neurogenic pain- Primary Lateral femoral cutaneous neuropathy, left Neurogenic pain- Primary Lateral femoral cutaneous neuropathy, left Neurogenic pain- Primary Lateral femoral cutaneous neuropathy, left Urge incontinence of urine- Primary Urge incontinence Artificial menopause Symptomatic states associated with artificial menopause Weight gain Other symptoms concerning nutrition, metabolism, and development Chronic fatigue Other malaise and fatigue Family history of diabetes mellitus Morbid obesity (CMS-HCC) Morbid obesity documented in this encounter [facility]* Diagnosis Neurogenic pain- Primary Lateral femoral cutaneous neuropathy, left Neurogenic pain- Primary Lateral femoral cutaneous neuropathy, left Neurogenic pain- Primary Lateral femoral cutaneous neuropathy, left Pre-diabetes Other abnormal glucose Insulin resistance Other abnormal glucose Reactive hypoglycemia Hypoglycemia, unspecified Morbid obesity ([place]) Morbid obesity BMI 40.0-44.9, adult ([place]) documented in this encounter [facility]* Diagnosis Neurogenic pain- Primary Lateral femoral cutaneous neuropathy, left Neurogenic pain- Primary Lateral femoral cutaneous neuropathy, left Neurogenic pain- Primary Lateral femoral cutaneous neuropathy, left Thrombophlebitis- Primary Phlebitis and thrombophlebitis of unspecified site documented in this encounter [facility] HealthcareHistory general Narrative - Reported* Type Description Date Medical History Dry eye Medical HistoryHypothyroidism, unspecified typeMedical HistoryRheumatoid arthritis involving multiple sites, unspecified rheumatoid factor presence Medical HistoryDepression, unspecified depression typeMedical Historynerve pain Medical HistorythyroidSurgical Historyhip replacement-leftSurgical History hysterectomySurgical HistoryhysterectomySurgical HistoryProcedure:ER visit adjusted meds;Disease:leg [id number] Historyleft hip replacementSurgical HistoryProcedure: Left Hip replacement;Disease: defect Dr. May2009 Surgical HistorycolonoscopySurgical HistoryProcedure:SANDRA and BSO;Disease:dysmenorrheaSurgical HistoryProcedure:Stress Test Chemical;Disease:Normal [id number] HistoryXLIF-[facility]Surgical Historyleft [facility]Surgical HistoryRt Knee arthroscopic partial lateral [facility]Surgical HistoryXLIF L1-2, L2-3, L3-4, L4-510/Hospitalization Historysee above [facility] Other reason for visit Narrative* Eval and Treat (Routine) - Pending ReviewSpecialtyDiagnoses / ProceduresReferred By ContactReferred To ContactPhysical Therapy Diagnoses Urge incontinence of urine Isidro Mathur MD [address] [place] [id number] Phone: tel: fax: [facility] [address] [place] [address] Phone: tel: Referral IDStatusReasonStbelmont DateExpiration DateVisits RequestedVisits [id number] / [facility] for visit Narrative* Auth/Cert (Routine)Specialty Diagnoses / ProceduresReferred By ContactReferred To Contact Procedures IL PHYSICAL PERFORMANCE TEST/CHEO W/REPRT EA 15 MIN IL THERAPEUTIC PX 1/> AREAS EACH 15 MIN EXERCISES IL THER PX 1/> AREAS EACH 15 MIN NEUROMUSC REEDUCA IL THER PX 1/> AREAS EACH 15 MIN AQUA THER W/XERSS IL THER PX 1/> AREAS EA 15 MIN GAIT TRAING W/STAIR IL MANUAL THERAPY TQS 1/> REGIONS EACH 15 MINUTES [facility] [address] [place] [address] Phone: tel: [facility] [address] [place] [address] Referral IDStatusReasonBabson Park DateExpiration DateVisits RequestedVisits [id number] [facility] Summary Purpose Family History No Family History Records Found Relationship Condition Age at Onset Recorded Date/T [place] brother Osteoarthritis Unknown fatherHeart diseaseUnknownNot SpecifiedHypertensionUnknown Advance Directives No Advanced Directives Records Found Advance Directive Response Recorded Date/ Time Advance Directives No July 11, 2017 9:21am Reason for Referral Reason DUPLICATE Evaluate and Treat Diagnosis 1 Meralgia paresthetic a of right side (G57.11) [facility] Referring Provider First Name Trevor Referring Provider Last Name Adilson Referring Provider Specialty Neurosurger y Referred Organization [facility] Referred Provider Len Smart Referred Address ,[place], [place],[address] Referred Provider Specialty Neurology Referral Priority Routine General Notes Fore, Ilsa M 021 09:27:54 AM >DUPLICATE Reason Evaluate and Tr eat Diagnosis 1 Meralgia paresthetic a, unspecified laterality (G57.10) Referral Organization [facility] Referring Provider First Name Trevor Referring Provider Last Name Adilson Referring Provider Specialty Neurosurger y Referred Organization [facility] Referred Provider Len Smart Referred Address ,[place], [place],[address] Referred Provider Specialty Neurology Referral Priority Routine General Notes Ilsa Beebe 021 09:26:14 AM >Received today and waiting for office notes to be locked Chief Complaint and Reason for Visit Chief Complaint M15.0 Z79.899 Additional Source Comments INFORMATION SOURCE (unrecogn ized section and content) DATE CREATED AUTHOR 01/29/[address] [facility] DATE CREATED AUTHOR AUTHOR'S ORGANIZ ATION 07/25/2021 [facility] [employer] DATE CREATED AUTHOR AUTHOR'S ORGANIZ ATION 02/08/2022 [facility] DATE CREATED AUTHOR AUTHOR'S ORGANIZ ATION 10/29/2022 [facility] DATE CREATED AUTHOR AUTHOR'S ORGANIZ ATION 12/25/2024 [facility] DATE CREATED AUTHOR AUTHOR'S ORGANIZ ATION 02/05/2025 [facility] DATE CREATED AUTHOR AUTHOR'S ORGANIZ ATION 03/25/2025 [facility] EPIC DATE CREATED AUTHOR AUTHOR'S ORGANIZ ATION 04/13/2025 [facility] REASON FOR VISIT (unrecogniz ed section and content) JqprjcJiumiaobLkqmdkzRvrzia-mxYoflhgbaPfssedCxoxuhwuEqhqoc-srAtqqrwFtdrqtcmKyt Change RequestReasonOnset DateCommentsMed Pbxxdp8407/25/2024ReasonCommentsAnxiety Depressionchronic painReasonCommentsPeripheral NeuropathyReasonOnset Date CommentsCare Srzstcdatbcw16/08/2025ReasonCommentsAnxietyReasonComments HypothyroidismReasonCommentsrequest labsReasonCommentsResultsReasonCommentsEdema Care Teams (unrecognized sec tion and content) Team Status: Inactive Member Role Status Dates Isidro Mathur MD Primary Care Provider Active Brina Bernal ProviderActive Team Status: Active Member Role Status Dates Isidro Mathur MD Primary Care Provider Active Team MemberRelationshipSpecialtyStart DateEnd Isidro Mathur MD [address] [place] [address] PCP - GeneralFamily Medicine12/01/22Team MemberRelationshipSpecialtyStart DateEnd Date Isidro Mathur MD [address] [place] [address] (Fax) PCP - GeneralFamily Medicine12/01/22 Len Smart MD [address] [place] [address] Referring PhysicianNeurology2 Agata Beltran, PERFECT BINDER SETTER [address] [place] [address] Nurse PractitionerOrthopaedic Surgery08/10/23 Jesus Simental DPM [address] [facility] [address] [place] [address] Referring PhysicianPodiatry2Te MemberRelationshipSpecialtyStart DateEnd Date Isidro Mathur MD [address] [place] [address] PCP - [facility]12/01/22 Len Smart MD [address] [place] [address] Referring PhysicianNeurology2 Agata Beltran, PERFECT BINDER SETTER [address] [place] [address] Nurse PractitionerOrthopaedic Surgery08/10/23 Jesus Simental DPM [address] [facility] [address] [place] [address] Referring PhysicianPodiatry2Team MemberRelationshipSpecialtyStart DateEnd Date Isidro Mathur MD [address] [place] [address] PCP - GeneralFamily Medicine12/01/22 Len Smart MD [address] [place] [address] Referring PhysicianNeurology2 Agata Beltran, PERFECT BINDER SETTER [address] [place] [address] Nurse PractitionerOrthopaedic Surgery08/10/23 Jesus Simental DPM [address] [facility] [address] [place] [address] Referring PhysicianPodiatry2Team MemberRelationshipSpecialtyStart DateEnd Date Isidro Mathur MD [address] [place] [address] [facility]12/01/22 Len Smart MD [address] [place] [address] Referring PhysicianNeurology2 Agata Beltran, PERFECT BINDER SETTER [address] [place] [address] Nurse PractitionerOrthopaedic Surgery08/10/23 Jesus Simental DPM [address] [facility] 5 [place] [address] Referring PhysicianPodiatry2Team MemberRelationshipSpecialtyStart DateEnd Date Isidro Mathur MD [address] [place] [address] PCP - GeneralFamily Medicine12/01/22 Len Smart MD [address] [place] [address] Referring PhysicianNeurology2 Agata Beltran, PERFECT BINDER SETTER [address] [place] [address] Nurse PractitionerOrthopaedic Surgery08/10/23 Jesus Simental DPM [address] [facility] 5 [place] [address] Referring PhysicianPodiatry2Team MemberRelationshipSpecialtyStart DateEnd Date Isidro Mathur MD [address] [place] [address] PCP - Generalmily Medicine12/01/22 Len Smart MD [address] [place] [address] Referring PhysicianNeurology2 Agata Beltran, PERFECT BINDER SETTER [address] [place] [address] Nurse PractitionerOrthopaedic Surgery08/10/23 Jesus Simental DPM [address] [facility] 5 [place] [address] Referring PhysicianPodiatry2Team MemberRelationshipSpecialtyStart DateEnd Date Isidro Mathur MD [address] [place] [address] (Fax) PCP - Generalmily Medicine12/01/22 Len Smart MD [address] [place] [address] Referring PhysicianNeurolog08/10/23 Agata Beltran, PERFECT BINDER SETTER [address] [place] [address] Nurse PractitionerOrthopaedic Surgery08/10/23 Jesus Simental DPM [address] [facility] 5 [place] [address] Referring PhysicianPodiatr08/10/23Team MemberRelationshipSpecialtyStart DateEnd Date Isidro Mathur MD [address] [place] [address] (Fax) PCP - [facility] Medicine12/01/22 Isidro Mathur MD [address] [place] [address] (Fax) PCP - [facility]08/03/24 Len Smart MD [address] [place] [address] Referring PhysicianNeurology2 Agata Beltran, PERFECT BINDER SETTER [address] [place] [address] Nurse PractitionerOrthopaedic Surgery08/10/23 Jesus Simental DPM [address] [facility] [address] [place] [address] Referring PhysicianPodiatr08/10/23Team MemberRelationshipSpecialtyStart DateEnd Date Isidro Mathur MD [address] [place] [address] (Fax) PCP - Generalmily Medicine12/01/22 Isidro Mathur MD [address] [place] [address] (Fax) PCP - [facility]08/03/24 Len Smart MD [address] [facility] [place] [address] Referring PhysicianNeurolog08/10/23 Agata Beltran NP [address] [place] [address] Nurse PractitionerOrthopaedic Surgery08/10/23 Jesus Simental DPM [address] [address] Referring PhysicianPodiatr08/10/23 Licha Freeman MD [address] [place] [phone] Referring PhysicianOptometry09/11/24Team MemberRelationshipSpecialtyStart DateEnd Date Isidro Mathur MD [address] [place] [address] [place] [address] (Fax) [facility]CP - [facility]12/01/22 Isidro Mathur MD [address] [place] [address] [place] [address] (Fax) PCP - [facility]08/03/24 Len Smart MD [address] [place] [address] Referring PhysicianNeurolog08/10/23 Agata Beltran NP [address] [place] [address] Nurse PractitionerOrthopaedic Surgery08/10/23 Jesus Simental DPM [address] [address] Referring PhysicianPodiatr08/10/23 Licha Freeman MD [address] [place] [phone] Referring PhysicianOptometry09/11/24Team MemberRelationshipSpecialtyStart DateEnd Date Isidro Mathur MD [address] [place] [address] (Fax) [facility]CP - [facility]12/01/22 Isidro Mathur MD [address] [place] [address] (Fax) PCP - [facility]08/03/24 Len Smart MD [address] [place] [address] Referring PhysicianNeurolog08/10/23 Agata Beltran NP [address] [place] [address] Nurse PractitionerOrthopaedic Surgery08/10/23 Jesus Simental DPM [address] [address] Referring PhysicianPodiatry2 Licha Freeman MD [address] [place] [address] Referring PhysicianOptometry09/11/24Team MemberRelationshipSpecialtyStart DateEnd Date Isidro Mathur MD [address] [place] [address] (Fax) PCP - GeneralFamily Medicine12/01/22 Isidro Mathur MD [address] [address] (Fax) PCP - [facility]08/03/24 Len Smart MD [address] [address] Referring PhysicianNeurolog08/10/23 Agata Beltran, PERFECT BINDER SETTER [address] [address] Nurse PractitionerOrthopaedic Surgery08/10/23 Jesus Simental DPM [address] [address] Referring PhysicianPodiatr08/10/23 Licha Freeman MD [address] [place] [phone] Referring PhysicianOptometry09/11/24Team MemberRelationshipSpecialtyStart DateEnd Date Isidro Mathur MD [address] [address] (Fax) PCP - GeneralFamily Medicine12/01/22 Isidro Mathur MD [address] [place] [address] (Fax) PCP - [facility]08/03/24 Len Smart MD [address] [place] [address] Referring PhysicianNeurology2 Agata Beltran, PERFECT BINDER SETTER [address] [place] [address] Nurse PractitionerOrthopaedic Surgery08/10/23 Jesus Simental DPM [address] [address] Referring PhysicianPodiatr08/10/23 Licha Freeman MD [address] [place] [address] Referring PhysicianOptometry09/11/24Team MemberRelationshipSpecialtyStart DateEnd Isidro Mathur MD [address] [place] [address] (Fax) PCP - Generalmily Medicine12/01/22 Isidro Mathur MD [address] [place] [address] (Fax) PCP - [facility]08/03/24 Len Smart MD [address] [place] [address] Referring PhysicianNeurology2 Agata Beltran, PERFECT BINDER SETTER [address] [place] [address] Nurse PractitionerOrthopaedic Surgery08/10/23 Jesus Simental DPM [address] [address] Referring PhysicianPodiatr08/10/23 Licha Freeman MD [address] [place] [phone] Referring PhysicianOptometry09/11/24Team MemberRelationshipSpecialtyStart DateEnd Isidro Mathur MD [address] [address] [facility] - [facility]12/01/22 Isidro Mathur MD [address] [address] PCP - [facility]08/03/24 Len Smart MD [address] [address] Referring PhysicianNeurolog08/10/23 Agata Beltran, PERFECT BINDER SETTER [address] [address] Nurse PractitionerOrthopaedic Surgery08/10/23 Jesus Simental DPM [address] [address] Referring PhysicianPodiatr08/10/23 Licha Freeman MD [address] [place] [phone] Referring PhysicianOptometry09/11/24Team MemberRelationshipSpecialtyStart DateEnd Date Isidro Mathur MD [address] [place] [address] (Fax) PCP - [facility] Medicine12/01/22 Isidro Mathur MD [address] [place] [address] (Fax) PCP - [facility]08/03/24 Len Smart MD [address] [place] [address] Referring PhysicianNeurolog08/10/23 Agata Beltran, GERARDO [address] [place] [address] Nurse PractitionerOrthopaedic Surgery08/10/23 Jesus Simental DPM [address] [address] Referring PhysicianPodiatr08/10/23 Licha Freeman MD [address] [place] [phone] Referring PhysicianOptometry3Team MemberRelationshipSpecialtyStart DateEnd Date Isidro Mathur MD [address] [place] [address] (Fax) PCP - [facility] Medicine12/01/22 Isidro Mathur MD [address] [place] [address] (Fax) PCP - [facility]08/03/24 Len Smart MD [address] [place] [address] Referring PhysicianNeurology2 Agata Beltran NP [address] [facility] [address] [place] [address] Nurse PractitionerOrthopaedic Surgery08/10/23 Jesus Simental DPM [address] [address] Referring PhysicianPodiatr08/10/23 Licha Freeman MD [address] [place] [phone] Referring PhysicianOptometry09/11/24Team MemberRelationshipSpecialtyStart DateEnd Date Isidro Mathur MD [address] [place] [address] PCP - GeneralFamily Medicine12/01/22 Isidro Mathur MD [address] [place] [address] [place] [address] PCP - [facility]08/03/24 Len Smart MD [address] [place] [address] Referring PhysicianNeurolog08/10/23 Agata Beltran, GERARDO [address] [place] [address] [place] [address] Nurse PractitionerOrthopaedic Surgery08/10/23 Jeuss Simental DPM [address] [address] Referring PhysicianPodiatry2 Licha Freeman MD [address] [place] [address] Referring PhysicianOptometry09/11/24Team MemberRelationshipSpecialtyStart DateEnd Date Isidro Mathur MD [address] [place] [address] (Fax) PCP - [facility]12/01/22 Isidro Mathur MD [address] [place] [address] (Fax) PCP - [facility]08/03/24 Len Smart MD [address] [place] [address] Referring PhysicianNeurolog08/10/23 Agata Beltran NP [address] [place] [address] Nurse PractitionerOrthopaedic Surgery08/10/23 Jesus Simental DPM [address] [address] Referring PhysicianPodiatr08/10/23 Licha Freeman MD [address] [place] [address] Referring PhysicianOptometry09/11/24Team MemberRelationshipSpecialtyStart DateEnd Date Isidro Mathur MD [address] [place] [address] (Fax) PCP - General01/28/25Team MemberRelationshipSpecialtyStart DateEnd Date Isidro Mathur MD [address] [place] [address] (Fax) [facility] - [facility]12/01/22 Isidro Mathur MD [address] [place] [address] (Fax) PCP - [facility]08/03/24 Len Smart MD [address] [facility] 100 [place] [address] Referring PhysicianNeurolog08/10/23 Agata Beltran, GERARDO [address] [place] [address] Nurse PractitionerOrthopaedic Surgery08/10/23 Jesus Simental DPM 3[address] [facility] 5 [place] [address] Referring PhysicianPodiatr08/10/23 Licha Freeman MD [address] [place] [address] Referring PhysicianOptometry09/11/24Team MemberRelationshipSpecialtyStart DateEnd Date Isidro Mathur MD 112 [facility] [address] [place] [address] (Fax) PCP - General01/28/25Team MemberRelationshipSpecialtyStart DateEnd Date Isidro Mathur MD 112 [facility] [address] [place] [address] (Fax) PCP - General01/28/25Team MemberRelationshipSpecialtyStart DateEnd Date Isidro Mathur MD [address] [facility] [address] [place] [address] (Fax) PCP - GeneralFamily Medicine12/01/22 Isidro Mathur MD [address] [place] [address] (Fax) PCP - [facility]08/03/24 Len Smart MD [address] [place] [address] Referring PhysicianNeurolog08/10/23 Agata Beltran, PERFECT BINDER SETTER [address] [place] [address] Nurse PractitionerOrthopaedic Surgery08/10/23 Jesus Simental DPM [address] [address] Referring PhysicianPodiatr08/10/23 Licha Freeman MD [address] [place] [address] Referring PhysicianOptometry09/11/24Team MemberRelationshipSpecialtyStart DateEnd Date Isidro Mathur MD [address] [place] [address] (Fax) PCP - GeneralFamily Medicine12/01/22 Isidro Mathur MD [address] [place] [address] (Fax) PCP - [facility]08/03/24 Len Smart MD [address] [place] [address] Referring PhysicianNeurology2 Agata Beltran, PERFECT BINDER SETTER 112 [facility] 100 [place] [address] Nurse PractitionerOrthopaedic Surgery08/10/23 Jesus Simental DPM 3006 [facility] 5 [place] [address] Referring PhysicianPodiatr08/10/23 Licha Freeman MD 112 [facility] 100 [place] [address] Referring PhysicianOptometry09/11/24Team MemberRelationshipSpecialtyStart DateEnd Date Isidro Mathur MD 112 [facility] 110 [place] [address] PCP - General01/28/25 Goals (unrecognized section and content) Goals may [...] BE BASED ON THE PRIMARY CLINICAL RECORDS. [employer] provides no warranty or guarantee of the accuracy or completeness of information in this document.
--- NOTE | 2025-06-05 11:24 | PM.CN ---
Consult Note: HPI Data of Consult Patient: known to practice within the last 3 years Requesting Physician: Diana Sullivan NP Primary Care Provider: KAVIN MATHUR Consult Narrative Reason for consult: right knee pain Narrative: 59yof who presents for evaluation. right knee pain today 2/10 increasing with standing, walking, activity, and stairs. longstanding right knee pain, has been told she needs replacement however she is not interested in surgical intervention. was getting steroid injections from orthopedic office, but these stopped working over time. previously had a KUMAR injection through our office with significant relief for 2 weeks but no longstanding relief. has continued in a series of provider directed home exercises for >6 weeks, without significant benefit. previously underwent right genicular RFA which was helpful for 2 months per pt. currently utilizing lyrica 100mg am and 50mg hs, cymbalta 30mg daily, and etodolac 750mg bid. 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 - Sick-euthyroid syndrome (ICD-10) Surgical History H/O arthroscopic knee surgery ?Z98.890 - Other specified postprocedural states (ICD-10) History of lumbar spinal fusion ?Z98.1 - Arthrodesis status (ICD-10) History of hip replacement ?Z96.649 - Presence of unspecified artificial hip joint (ICD-10) History of hysterectomy ?Z90.710 - Acquired absence of both cervix and uterus (ICD-10) Meds Home Medications and Allergies Home Medications ?Medication ?Instructions ?Recorded ?Confirmed ?Type biotin 10,000 mcg capsule 10,000 mcg PO DAILY 03/11/24 11/04/24 History cholecalciferol (vitamin D3) 125 125 mcg PO DAILY 03/11/24 11/04/24 History mcg (5,000 unit) capsule duloxetine 30 mg capsule,delayed 30 mg PO DAILY 03/11/24 11/04/24 History release liothyronine 5 mcg tablet 5 mcg PO DAILY 03/11/24 11/04/24 History nabumetone 750 mg tablet 750 mg PO BID 03/11/24 11/04/24 History omega-3 fatty acids 500 mg capsule 500 mg PO DAILY 03/11/24 11/04/24 History pregabalin 100 mg capsule 100 mg PO BID 03/11/24 11/04/24 History thyroid (pork) 60 mg tablet ([employer]AL 60 mg PO DAILY 03/11/24 11/04/24 History Thyroid) Allergies Allergy/AdvReac Type Severity Reaction Status Date / Time No Known Drug Allergies Allergy Verified 11/04/24 07:09 Exam Constitutional Documenting provider has reviewed patient's vital signs: yes Common normals: no apparent distress, oriented x3 and alert General appearance: cooperative HENMT Common normals: normocephalic, hearing grossly normal bilaterally and moist oral mucous membranes Head and scalp: normocephalic Eye Common normals: PERRL Pupil: PERRL Neck & C-Spine Common normals: full ROM General: normal visual inspection Chest Common normals: inspection of chest normal Respiratory Common normals: normal respiratory effort, no retractions and no use of accessory muscles Extremity Right lower extremity: knee joint Other: moderate edema to right knee, moderate crepitus. increased pain with medial and lateral stress testing, no instability noted. no edema noted to RLE. Neuro Common normals: oriented x3 Sensorium/orientation: alert Psych Common normals: mental status grossly normal, thought process normal, cooperative, affect normal, speech normal and activity/motor behavior normal Speech: normal speech Thought process: normal thought process Results Additional Findings Additional findings: If on a controlled substance or opioids, I have checked an [place] report on this patient and there are no aberrancies noted in the prescribing history.??If on a controlled substance or opioid a drug screen was completed and reviewed within the last year, and if there has not been a drug screen completed we ordered one today to monitor higher risk, state monitored pain medication use. As part of providing excellent, safe, comprehensive care, the following was completed at our patient's visit: 1. A medication reconciliation and review to ensure accurate knowledge of current/active medications, including asking our patients to inform us about any [id number] medications or herbal remedies/nutritional supplements/alternative remedies. 2. A review to specifically ensure our patients have had annual screening for screening for depression, screening for tobacco use, and screening for unhealthy alcohol use. For concerning screenings had a discussion with the patient, provided patient education, and recommended follow-up with primary care provider when appropriate. If patient noted with a risk of falling, they received education on strength, gait, and balance training to prevent future risk of falling. Portions of this note may have been carried over from the previous visit and updated as appropriate. Please note this office utilizes paper charting in addition to the electronic medical record. A list of current medications, vitals, and PMH is available there as the clinical staff outside of myself do not have access to [facility] charting during the clinic day operations. As part of providing quality comprehensive care the current medications, vitals, and PMH were reviewed in the paper chart. Assessment and Plan Assessment and Plan (1) Osteoarthritis of right knee: Qualifiers: Osteoarthritis type: primary Qualified Code(s): M17.11 - Unilateral primary osteoarthritis, right knee (2) Chronic pain of right knee: Plan The patient has had over 3 months of moderate to severe right knee pain with functional impairment and inadequate response to conservative care including NSAIDS (unless there are contraindication such as concurrent blood thinners), multiple oral or topical pain medications, and home exercise program/physical therapy.? Patient has completed >6 weeks of guided home exercise program and/or formal physical therapy program without relief of their symptoms.? I have reviewed the imaging of the right knee and no red flags were identified.? The imaging reveals radiographic findings consistent with OA The Oswestry Disability Index was completed, and the patient scored a 40%.? refer to orthopedics for evaluation of right shoulder pain and oa unresponsive to interventional therapy can increase duloxetine 30mg bid for chronic pain and OA f/u 6 weeks to evaluate medication changes
== END 2025-06-05 10:38 | disposition home or self-care (01) ==
LOC: PM 10:37
PROVIDERS: PCP Family Medicine; Visit Provider Nurse Practitioner
DX: M17.11 Unilateral primary osteoarthritis, right knee (principal); M25.561 Pain in right knee; G89.29 Other chronic pain
CPT/HCPCS: G0463